=== PATIENT | male | born 1980 | race Caucasian/White ===

== ENCOUNTER 2019-06-15 18:29 | Inpatient (IN) | payer SELFPAY ==
[2019-06-15] MEDS ORDERED: IPRATROPIUM BROM 0.5MG/2.5ML ONE (19:15)
[2019-06-15] MEDS ORDERED: ALBUTEROL 2.5 MG/3 ML NEB SOL ONE (19:15)
[2019-06-15 19:30] LABS: Absolute Lymphocytes (CBC) 1.6 K/uL (0.7-4.9); Basophils % 0.7 % (0-1.3); Hematocrit 19.2 % (39.6-49.0); Lymphocytes % 14.2 % (15.3-44.8); RBC Red Blood Cell Count 2.49 M/uL (4.33-5.43)
[2019-06-15 19:35] LABS: Protime INR 1.13
--- NOTE | 2019-06-15 19:35 | RAD REPORT ---
EXAM DESCRIPTION: RAD - Chest Single View - 06/15/2019 7:28 pm CLINICAL HISTORY: SOB Chest pain. COMPARISON: CHEST PA AND LAT 2 VIEW dated 03/09/2008 FINDINGS: Portable technique limits examination quality. Mild interstitial pulmonary edema. The heart is moderately enlarged. No displaced fractures. IMPRESSION: Mild CHF suspected.
[2019-06-15 19:46] LABS: ALT/SGPT 50 U/L (12-78); AST/SGOT 34 U/L (15-37); Albumin 3.3 g/dL (3.4-5.0); Alkaline Phosphatase 71 U/L (45-117); BUN Blood Urea Nitrogen 10 mg/dL (7-18); Bicarbonate 29 mmol/L (21-32); Bilirubin Direct 0.2 mg/dL (0-0.2); Bilirubin Total 0.5 mg/dL (0.2-1.0); Glucose Level 99 mg/dL (74-106); Magnesium 1.7 mg/dL (1.8-2.4); NT PRO-BNP 273 pg/mL (<125); Potassium 3.7 mmol/L (3.5-5.1); Protein, Total 7.3 g/dL (6.4-8.2); Sodium Level 139 mmol/L (136-145); Troponin (Emerg Dept Use Only) < 0.02 ng/mL (0.0-0.045)
--- NOTE | 2019-06-15 20:19 | RAD REPORT ---
EXAM DESCRIPTION: US - Extrem Venous W Compress Derick - 06/15/2019 8:13 pm CLINICAL HISTORY: Pain;Swelling Bilateral leg edema and swelling. COMPARISON: <Comparisons> TECHNIQUE: Real-time sonographic interrogation of the left and right lower extremity deep venous sys tems was performed. FINDINGS: Normal compressibility, flow augmentation, phasic flow and spontaneous flow is identified in both the left and right lower extremity deep venous systems. IMPRESSION: No sonographic evidence of left or right lower extremity deep venous thrombosis.
--- NOTE | 2019-06-15 20:39 | ER ---
Nurse's Notes [facility] Name: Blanche Lo Age: 39 yrs Sex: Male : 1980 Arrival Date: 06/15/2019 Time: 18:30 Bed 6 Private MD: Diagnosis: Anemia in chronic diseases classified elsewhere;Hypocalcemia;Dyspnea Presentation: 06/15 18:32 Presenting complaint: Bilateral foot swelling x 2-3 days, cough and SOB x 1 month. hb Transition of care: patient was not received from another setting of care. Onset of symptoms is unknown. Risk Assessment: Do you want to hurt yourself or someone else? Patient reports no desire to harm self or others. Initial Sepsis Screen: Does the patient meet any 2 criteria? No. Patient's initial sepsis screen is negative. Does the patient have a suspected source of infection? No. Patient's initial sepsis screen is negative. Care prior to arrival: None. 18:32 Method Of Arrival: Ambulatory hb 18:32 Acuity: JANINE 3 hb Historical: - Allergies: 18:33 ambien; hb 18:33 Naproxen; hb - PMHx: 18:33 Hypertension; hb - Immunization history:: Adult Immunizations up to date. - Social history:: Smoking status: Patient/guardian denies using tobacco. - Ebola Screening: : No symptoms or risks identified at this time. Screenin:19 Abuse screen: Denies threats or abuse. Denies injuries from another. Nutritional tl1 screening: No deficits noted. Tuberculosis screening: No symptoms or risk factors identified. Fall Risk IV access (20 points). Assessment: 19:15 General: Appears in no apparent distress. uncomfortable, obese, Behavior is calm, cc3 cooperative, appropriate for age. Pain: Denies pain. Neuro: Level of Consciousness is awake, alert, obeys commands, Oriented to person, place, time, situation, Appropriate for age. Cardiovascular: Denies chest pain, Heart tones S1 S2 present Capillary refill < 3 seconds in bilateral fingers Patient's skin is warm and dry. Respiratory: Airway is patent Respiratory effort is even, unlabored, Respiratory pattern is regular, symmetrical, Breath sounds with wheezes. GI: Abdomen is round obese, Bowel sounds present X 4 quads. Abd is soft and non tender X 4 quads. : No signs and/or symptoms were reported regarding the genitourinary system. EENT: No signs and/or symptoms were reported regarding the EENT system. EENT: No signs and/or symptoms were reported regarding the EENT system. Derm: Skin is intact, is healthy with good turgor, Skin is pink, warm \T\ dry. normal. Musculoskeletal: Circulation, motion, and sensation intact. Range of motion: intact in all extremities. 19:37 Reassessment: Laboratory staff Yanira called and relayed critical lab of D-Dimer 1101, cc3 hemoglobin 5.7, and hematocrit 19.2; PA Page informed. 20:30 Reassessment: Patient appears in no apparent distress at this time. Patient and/or cc3 family updated on plan of care and expected duration. Pain level reassessed. Patient is alert, oriented x 3, equal unlabored respirations, skin warm/dry/pink. PA Page ordered for 2 units of PRBC transfusion, patient consented signed by himself. 21:10 Reassessment: Patient appears in no apparent distress at this time. Patient and/or cc3 family updated on plan of care and expected duration. Pain level reassessed. Patient is alert, oriented x 3, equal unlabored respirations, skin warm/dry/pink. Patient taken by commercial tire service technician to their department by stretcher. 21:34 Reassessment: Patient came back from CT scan department, awaiting result. cc3 22:30 Reassessment: Patient appears in no apparent distress at this time. Patient and/or cc3 family updated on plan of care and expected duration. Pain level reassessed. Patient is alert, oriented x 3, equal unlabored respirations, skin warm/dry/pink. 1st unit of PRBC received from blood bank counter checked and countersigned with ANCELMO Dumont and started. Patient tolerated well. Monitored the patient closely for any untoward blood transfusion reactions. Vital signs charted in the transfusion record. Patient denies pain at this time. 23:35 Reassessment: Patient appears in no apparent distress at this time. Patient and/or cc3 family updated on plan of care and expected duration. Pain level reassessed. Patient is alert, oriented x 3, equal unlabored respirations, skin warm/dry/pink. Room available in 210, called for report but was told that the nurse who will receive will just call me back. 23:57 Reassessment: Called again medical inpatient but as per staff Chely the nurse who cc3 will receive is not ready yet and so to wait for her call, in charge Puja anastasia. 06/16 00:25 Reassessment: Patient appears in no apparent distress at this time. Patient and/or cc3 family updated on plan of care and expected duration. Pain level reassessed. Patient is alert, oriented x 3, equal unlabored respirations, skin warm/dry/pink. ANCELMO Rush called and so report given to her for continuity of care and management. 00:35 Reassessment: Patient appears in no apparent distress at this time. Patient and/or cc3 family updated on plan of care and expected duration. Pain level reassessed. Patient is alert, oriented x 3, equal unlabored respirations, skin warm/dry/pink. Patient left ER for admission vitally stable by stretcher with still ongoing 1st unit of PRBC transfusion escorted by vt and mechanical engineering [facility] No valuables left in the patient's room. Handed over to ANCELMO Momin the script for the 2nd unit of PRBC request and label for morning lab of Vit.D. Patient denies pain at this time. Vital Signs: 06/15 18:33 BP 135 / 77; Pulse 97; Resp 20; Temp 98.4; Pulse Ox 98% on R/A; Weight 104.33 kg; hb Height 5 ft. 5 in. (165.10 cm); Pain 10/10; 19:18 BP 128 / 74; Pulse 92; Resp 20 S; Pulse Ox 100% on R/A; cc3 20:28 BP 122 / 79; Pulse 104; Resp 17 S; Pulse Ox 100% on R/A; cc3 21:35 BP 139 / 98; Pulse 108; Resp 21 S; Temp 98.9(O); Pulse Ox 100% on R/A; cc3 22:30 BP 127 / 66; Pulse 103; Resp 22 S; Temp 98.9(O); Pulse Ox 98% on R/A; cc3 22:35 BP 129 / 68; Pulse 102; Resp 20 S; Temp 98.7(O); Pulse Ox 99% on R/A; cc3 22:40 BP 116 / 68; Pulse 100; Resp 23 S; Temp 99.1(O); Pulse Ox 98% on R/A; cc3 22:45 BP 119 / 67; Pulse 100; Resp 19 S; Temp 98.7(O); Pulse Ox 98% on R/A; cc3 23:00 BP 140 / 70; Pulse 103; Resp 21 S; Temp 98.7(O); Pulse Ox 100% on R/A; cc3 23:30 BP 145 / 80; Pulse 103; Resp 22 S; Temp 99.3(O); Pulse Ox 100% on R/A; Pain 6/10; cc3 06/16 00:00 BP 113 / 91; Pulse 105; Resp 20 S; Temp 98.2(O); Pulse Ox 98% on R/A; cc3 00:30 BP 136 / 82; Pulse 101; Resp 21 S; Temp 98.1(O); Pulse Ox 100% on R/A; Pain 5/10; cc3 06/15 18:33 Body Mass Index 38.27 (104.33 kg, 165.10 cm) hb ED Course: 06/15 18:30 Patient arrived in ED. as 18:33 Triage completed. hb 18:33 Arm band placed on. hb 18:35 Triston Fair PA is PHCP. cp 18:35 Avery Gautam MD is Attending Physician. cp 19:12 Eunice Elliott is Primary Nurse. cc3 19:15 Patient has correct armband on for positive identification. Placed in gown. Bed in low cc3 position. Call light in reach. Side rails up X2. ekg monitor tech on. Pulse ox on. NIBP on. 19:19 No provider procedures requiring assistance completed. Inserted saline lock: 20 gauge tl1 in right antecubital area, using aseptic technique. Blood collected. 19:26 XRAY Chest (1 view) In Process Unspecified. EDMS 19:27 EKG done, by ED staff, reviewed by Javier Moore MD. jd2 19:49 Notified Nurse Practitioner and/or Physician Die Drawing Checker of a critical lab result(s), fc calcium is 5.9. 20:14 US Extremity Venous W Compression Derick In Process Unspecified. EDMS 20:38 Minda Renteria MD is Hospitalizing Provider. cp 21:28 Inserted saline lock: 22 gauge in left forearm, using aseptic technique. Blood tl1 collected. 21:40 CT Chest For PE Angio In Process Unspecified. EDMS 21:40 CT Abd/Pelvis - IV Contrast Only In Process Unspecified. EDMS 06/16 00:25 Patient admitted, IV remains in place. cc3 Administered Medications: 06/15 19:18 Drug: Albuterol - atroVENT (3:1) (2.5 mg - 0.5 mg) 3 ml Route: Nebulizer; tl1 20:33 Follow up: Response: No adverse reaction; Marked relief of symptoms cc3 Outcome: 20:38 Decision to Hospitalize by Provider. cp 06/16 00:25 Admitted to Med/surg accompanied by nurse, accompanied by tech, via stretcher, room cc3 210, with chart, Report called to ANCELMO Rush Condition: stable Instructed on the need for admit, Demonstrated understanding of instructions. 00:38 Patient left the ED. cc3 Signatures: Dispatcher [facility] EDPA Rossana Sumner RN RN fc Martinez, Amelia as Lasagna, Tonya, RN RN tl1 Triston Fair PA PA cp Baxter, Heather, RN RN hb Donley, Jonika jd2 Cordel, Charlene cc3 Corrections: (The following items were deleted from the chart) 06/15 20:30 20:28 Pulse 104bpm; Resp 17bpm; Spontaneous; Pulse Ox 100% RA; cc3 cc3 06/16 00:58 06/15 23:30 BP 145 / 80; Pulse 103bpm; Resp 22bpm; Spontaneous; Pulse Ox 100% RA; Temp cc3 99.3F Oral; cc3 06/16 01:01 06/15 19:15 Respiratory: Airway is patent Respiratory effort is even, unlabored, cc3 Respiratory pattern is regular, symmetrical, Breath sounds with wheezes cc3 06/16 01:02 00:20 Reassessment: Patient appears in no apparent distress at this time. Patient cc3 and/or family updated on plan of care and expected duration. Pain level reassessed. Patient is alert, oriented x 3, equal unlabored respirations, skin warm/dry/pink. cc3 01:06 00:35 Reassessment: Patient appears in no apparent distress at this time. Patient cc3 and/or family updated on plan of care and expected duration. Pain level reassessed. Patient is alert, oriented x 3, equal unlabored respirations, skin warm/dry/pink. Patient left ER for admission vitally stable by stretcher with still ongoing 1st unit of PRBC transfusion escorted by me and mechanical engineering technologistveronica Rivero. No valuables left in the patient's room. Handed over to ANCELMO Momin the script for the 2nd unit of PRBC request and label for morning lab of Vit.D. cc3
--- NOTE | 2019-06-15 20:39 | EDPHYS ---
Physician Documentation [facility] Name: Blanche Lo Age: 39 yrs Sex: Male : 1980 Arrival Date: 06/15/2019 Time: 18:30 Bed 6 Private MD: ED Physician Avery Gautam HPI: 06/15 19:10 This 39 yrs old Male presents to ER via Ambulatory with complaints of Cough, cp Feet Swelling. 19:10 The patient has shortness of breath with light activity. cp 19:10 Onset: The symptoms/episode began/occurred 1 month(s) ago. Duration: The symptoms are cp continuous, and are steadily getting worse. Associated signs and symptoms: Pertinent positives: swelling of feet, Pertinent negatives: chest pain, diaphoresis, fever, hemoptysis, vomiting. Severity of symptoms: in the emergency department the symptoms are unchanged despite home interventions. Historical: - Allergies: 18:33 ambien; hb 18:33 Naproxen; hb - PMHx: 18:33 Hypertension; hb - Immunization history:: Adult Immunizations up to date. - Social history:: Smoking status: Patient/guardian denies using tobacco. - Ebola Screening: : No symptoms or risks identified at this time. ROS: 19:20 Constitutional: Negative for body aches, chills, fever, poor PO intake. cp 19:20 Eyes: Negative for injury, pain, redness, and discharge. cp 19:20 Cardiovascular: Positive for edema, Negative for chest pain, palpitations. cp 19:20 ENT: Negative for drainage from ear(s), ear pain, sore throat, difficulty swallowing, cp difficulty handling secretions. 19:20 Respiratory: Positive for shortness of breath, on exertion. Negative for cough, hemoptysis. 19:20 Abdomen/GI: Negative for abdominal pain, nausea, vomiting, and diarrhea, black/tarry stool, rectal bleeding. 19:20 Back: Negative for pain at rest, pain with movement. 19:20 Skin: Negative for cellulitis, rash. 19:20 Neuro: Negative for altered mental status, dizziness, headache, syncope, weakness. 19:20 All other systems are negative. Exam: 19:20 ECG was reviewed by the Attending Physician. cp 19:22 Constitutional: The patient appears in no acute distress, alert, awake, cp non-diaphoretic, non-toxic, well developed, well nourished, obese. 19:22 Head/Face: Normocephalic, atraumatic. cp 19:22 Eyes: Periorbital structures: appear normal, Pupils: equal, round, and reactive to light and accomodation, Extraocular movements: intact throughout, Conjunctiva: normal, no exudate, no injection, Sclera: no appreciated abnormality, Lids and lashes: appear normal, bilaterally. 19:22 ENT: External ear(s): are unremarkable, Ear canal(s): are normal, clear, TM's: bulging, is not appreciated, bilaterally, dullness, bilaterally, erythema, is not appreciated, bilaterally, Nose: is normal, Mouth: is normal, Posterior pharynx: is normal, airway is patent, no erythema, no exudate. 19:22 Neck: ROM/movement: is normal, is supple, without pain, no range of motions limitations, no meningismus, no nuchal rigidity, Lymph nodes: no appreciated lymphadenopathy. 19:22 Chest/axilla: Inspection: normal, Palpation: is normal, no crepitus, no tenderness. 19:22 Cardiovascular: Rate: normal, Rhythm: regular, Edema: pedal edema, that is mild, JVD: is not appreciated. 19:22 Respiratory: the patient does not display signs of respiratory distress, Respirations: labored breathing, that is mild, intercostal retractions, are absent, tachypnea, is not appreciated, Breath sounds: rales, that are mild, are heard diffusely, decreased breath sounds, are not appreciated, stridor, is not appreciated, wheezing: is not appreciated. 19:22 Abdomen/GI: Inspection: scar(s), are noted in the , Bowel sounds: active, all quadrants, Palpation: soft, in all quadrants, nontender, in all quadrants, Rectal exam: Stool: brown, guaiac negative. 19:22 Back: pain, is absent, ROM is normal. 19:22 Skin: no rash present. 19:22 Neuro: Orientation: to person, place \T\ time. Mentation: is normal, Cerebellar function: is grossly normal, Motor: moves all fours, strength is normal, Sensation: is normal. Vital Signs: 18:33 BP 135 / 77; Pulse 97; Resp 20; Temp 98.4; Pulse Ox 98% on R/A; Weight 104.33 kg; hb Height 5 ft. 5 in. (165.10 cm); Pain 10/10; 19:18 BP 128 / 74; Pulse 92; Resp 20 S; Pulse Ox 100% on R/A; cc3 20:28 BP 122 / 79; Pulse 104; Resp 17 S; Pulse Ox 100% on R/A; cc3 21:35 BP 139 / 98; Pulse 108; Resp 21 S; Temp 98.9(O); Pulse Ox 100% on R/A; cc3 22:30 BP 127 / 66; Pulse 103; Resp 22 S; Temp 98.9(O); Pulse Ox 98% on R/A; cc3 22:35 BP 129 / 68; Pulse 102; Resp 20 S; Temp 98.7(O); Pulse Ox 99% on R/A; cc3 22:40 BP 116 / 68; Pulse 100; Resp 23 S; Temp 99.1(O); Pulse Ox 98% on R/A; cc3 22:45 BP 119 / 67; Pulse 100; Resp 19 S; Temp 98.7(O); Pulse Ox 98% on R/A; cc3 23:00 BP 140 / 70; Pulse 103; Resp 21 S; Temp 98.7(O); Pulse Ox 100% on R/A; cc3 23:30 BP 145 / 80; Pulse 103; Resp 22 S; Temp 99.3(O); Pulse Ox 100% on R/A; Pain 6/10; cc3 06/16 00:00 BP 113 / 91; Pulse 105; Resp 20 S; Temp 98.2(O); Pulse Ox 98% on R/A; cc3 00:30 BP 136 / 82; Pulse 101; Resp 21 S; Temp 98.1(O); Pulse Ox 100% on R/A; Pain 5/10; cc3 06/15 18:33 Body Mass Index 38.27 (104.33 kg, 165.10 cm) hb MDM: 06/15 18:50 Patient medically screened. cp 19:30 Differential diagnosis: Anemia asthma, CHF exacerbation, Chronic Obstructive Pulmonary cp Disease pneumonia, Pneumothorax pulmonary edema, Pulmonary Embolism. 20:45 Data reviewed: vital signs, nurses notes, lab test result(s), EKG, radiologic studies, cp plain films, and as a result, I will admit patient. 20:45 Test interpretation: by ED physician or midlevel provider: ECG, plain radiologic cp studies. Response to treatment: the patient's symptoms have mildly improved after treatment, and as a result, I will admit patient. 21:00 Physician consultation: Minda Renteria MD was contacted at 21:00, regarding admission, cp to the telemetry unit. patient's condition. 06/15 19:07 Order name: Basic Metabolic Panel cp 06/15 19:07 Order name: CBC with Diff cp 06/15 19:07 Order name: LFT's; Complete Time: 20:05 cp 06/15 19:07 Order name: Magnesium; Complete Time: 20:05 cp 06/15 20:39 Interpretation: Abnormal: MG 1.7. cp 06/15 19:07 Order name: NT PRO-BNP; Complete Time: 20:05 cp 06/15 19:07 Order name: PT-INR; Complete Time: 19:47 cp 06/15 19:07 Order name: Troponin (emerg Dept Use Only); Complete Time: 20:05 cp 06/15 19:07 Order name: D-Dimer; Complete Time: 19:47 cp 06/15 19:47 Interpretation: Abnormal: D-DIMER 1101. cp 06/15 19:08 Order name: Basic Metabolic Panel; Complete Time: 20:05 EDMS 06/15 19:08 Order name: CBC with Automated Diff; Complete Time: 21:46 EDMS 06/15 19:47 Interpretation: Normal except: WBC 11.2; RBC 2.49; HGB 5.7; HCT 19.2; MCV 77.1; MCH cp 22.9; MCHC 29.7; RDW 20.8; LYM% 14.2; NEUT A 8.1. 06/15 19:40 Order name: Manual Differential; Complete Time: 21:46 EDMS 06/15 19:48 Order name: Type And Screen cp 06/15 21:02 Order name: CBC with Diff; Complete Time: 21:46 cp 06/15 21:46 Interpretation: Normal except: RBC 2.55; HGB 5.9; HCT 19.7; MCV 77.1; MCH 23.2; MCHC cp 30.1; RDW 20.8; OSCAR% 74.1; LYM% 15.2. 06/15 21:02 Order name: CMP; Complete Time: 21:46 cp 06/15 21:10 Order name: Packed RBC Leukored EDMS 06/15 21:34 Order name: ABO/RH no charge; Complete Time: 21:46 EDMS 06/15 23:20 Order name: Vitamin B12 Level EDMS 06/15 23:20 Order name: Vitamin B12 Level EDMS 06/15 23:20 Order name: CBC with Automated Diff EDMS 06/15 23:20 Order name: CBC with Automated Diff EDMS 06/15 23:21 Order name: Comprehensive Metabolic Panel EDMS 06/15 23:21 Order name: Comprehensive Metabolic Panel EDMS 06/15 23:21 Order name: Ferritin EDMS 06/15 23:21 Order name: Ferritin EDMS 06/15 23:21 Order name: Folic Acid, (Folate) EDMS 06/15 23:21 Order name: Folic Acid, (Folate) EDMS 06/15 23:21 Order name: Iron EDMS 06/15 23:21 Order name: Iron EDMS 06/15 23:21 Order name: PTH Intact EDPA 06/15 23:21 Order name: PTH Intact EDPA 06/15 19:07 Order name: US Extremity Venous W Compression Derick; Complete Time: 20:39 cp 06/15 20:39 Interpretation: Report reviewed. cp 06/15 19:07 Order name: XRAY Chest (1 view); Complete Time: 19:47 cp 06/15 19:07 Order name: EKG; Complete Time: 19:08 cp 06/15 19:07 Order name: Cardiac monitoring; Complete Time: 19:18 cp 06/15 19:07 Order name: EKG - Nurse/Tech; Complete Time: 19:18 cp 06/15 19:07 Order name: IV Saline Lock; Complete Time: 19:18 cp 06/15 19:07 Order name: Labs collected and sent; Complete Time: 19:19 cp 06/15 19:07 Order name: O2 Per Protocol; Complete Time: 19:19 cp 06/15 19:07 Order name: O2 Sat Monitoring; Complete Time: 19:19 cp 06/15 20:52 Order name: CT Chest For PE Angio cp 06/15 21:02 Order name: CT Abd/Pelvis - IV Contrast Only cp 06/15 23:20 Order name: CONS Pharmacy Consult EDMS 06/15 23:20 Order name: Regular EDMS 06/15 23:21 Order name: Retic Count EDMS 06/15 23:21 Order name: Retic Count EDMS 06/15 23:21 Order name: Transferrin Sat/Iron Binding EDMS 06/15 23:21 Order name: Transferrin Sat/Iron Binding EDMS 06/15 23:21 Order name: Vitamin D, 25 (OH), TOTAL EDMS 06/15 23:21 Order name: Vitamin D, 25 (OH), TOTAL EDMS 06/15 23:21 Order name: Vitamin D,1,25 Dihydroxy EDMS 06/15 23:21 Order name: Vitamin D,1,25 Dihydroxy EDMS EC: Rate is 96 beats/min. Rhythm is regular. ND interval is normal. QRS interval is normal. cp QT interval is prolonged at 382 msec. T waves are Inverted in leads III, aVR. Interpreted by me. Reviewed by me. Administered Medications: 19:18 Drug: Albuterol - atroVENT (3:1) (2.5 mg - 0.5 mg) 3 ml Route: Nebulizer; tl1 20:33 Follow up: Response: No adverse reaction; Marked relief of symptoms cc3 Disposition: 06/15/19 20:38 Hospitalization ordered by Minda Renteria for Inpatient Admission. Preliminary diagnosis are Anemia in chronic diseases classified elsewhere, Hypocalcemia, Dyspnea. - Bed requested for Telemetry/MedSurg (Inpatient). - Status is Inpatient Admission. cc3 - Condition is Stable. - Problem is new. - Symptoms have improved. UTI on Admission? No Addendum: 06/17/2019 15:34 Co-signature as Attending Physician, Avery Gautam MD I agree with the assessment and t w4 plan of care. Signatures: Dispatcher [employer] EDMS Linda Nina RN RN mw Lasagna, Tonya, RN RN tl1 Triston Fair PA PA cp Baxter, Heather, RN RN hb Wadley, Terrence, MD MD tw4 Eunice Elliott cc3 Corrections: (The following items were deleted from the chart) 06/15 20:38 20:38 Hospitalization Ordered by Minda Renteria MD for Inpatient Admission. Preliminary cp diagnosis is Anemia in chronic diseases classified elsewhere; Hypocalcemia. Bed requested for Telemetry/MedSurg (Inpatient). Status is Inpatient Admission. Condition is Stable. Problem is new. Symptoms have improved. UTI on Admission? No. cp 23:25 20:38 06/15/2019 20:38 Hospitalization Ordered by Minda Renteria MD for Inpatient mw Admission. Preliminary diagnosis is Anemia in chronic diseases classified elsewhere; Hypocalcemia; Dyspnea. Bed requested for Telemetry/MedSurg (Inpatient). Status is Inpatient Admission. Condition is Stable. Problem is new. Symptoms have improved. UTI on Admission? No. cp 06/16 00:38 06/15 23:25 06/15/2019 20:38 Hospitalization Ordered by Minda Renteria MD for Inpatient cc3 Admission. Preliminary diagnosis is Anemia in chronic diseases classified elsewhere; Hypocalcemia; Dyspnea. Bed requested for Telemetry/MedSurg (Inpatient). Status is Inpatient Admission. Condition is Stable. Problem is new. Symptoms have improved. UTI on Admission? No. mw
[2019-06-15 20:54] LABS: Platelet Estimate ADEQ
[2019-06-15 20:55] LABS: Anisocytosis 2+; Blood Morphology Comment NOTED (NOT SEEN); Platelets, Giant FEW
[2019-06-15 20:56] LABS: Basophilic Stippling 1+; Hypochromasia 3+; Polychromasia 2+; Stomatocytes 1+
[2019-06-15 21:21] LABS: Absolute Lymphocytes (CBC) 1.6 K/uL (0.7-4.9); MPV 9.7 fL (7.6-11.3)
[2019-06-15 21:30] LABS: Basophils % 0.5 % (0-1.3); Lymphocytes % 15.2 % (15.3-44.8); RBC Red Blood Cell Count 2.55 M/uL (4.33-5.43)
[2019-06-15 21:31] LABS: Hematocrit 19.7 % (39.6-49.0)
[2019-06-15 21:39] LABS: ALT/SGPT 51 U/L (12-78); AST/SGOT 37 U/L (15-37); Albumin 3.5 g/dL (3.4-5.0); Alkaline Phosphatase 76 U/L (45-117); BUN Blood Urea Nitrogen 9 mg/dL (7-18); Bicarbonate 29 mmol/L (21-32); Bilirubin Total 0.5 mg/dL (0.2-1.0); Glucose Level 100 mg/dL (74-106); Potassium 3.3 mmol/L (3.5-5.1); Protein, Total 7.7 g/dL (6.4-8.2); Sodium Level 139 mmol/L (136-145)
[2019-06-15] MEDS ORDERED: NA CHLORIDE 0.9% 500 ML ONE (21:55)
[2019-06-15] MEDS ORDERED: ONDANSETRON 4 MG/2 ML VIAL IV PRN (23:16)
[2019-06-15] MEDS ORDERED: CALCIUM GLUC 10% INJ 9.3 MEQ in NA CHLORIDE 0.9% 100 ML IV ONE (23:34)
[2019-06-15] MEDS ORDERED: NA CHLORIDE 0.9% 1,000 ML IV SCH (23:45)
[2019-06-15] MEDS: ACETAMINOPHEN 500 MG TAB PO PRN (23:50)
[2019-06-16] MEDS ORDERED: ACETAMINOPHEN 500 MG TAB ONE (00:03)
[2019-06-16 01:07] VITALS: BMI 39.8
[2019-06-16] MEDS: CALCIUM GLUC 10% INJ 4.65 MEQ in NA CHLORIDE 0.9% 100 ML IV SCH ×2 (01:54→03:00)
[2019-06-16] MEDS: MORPHINE 2 MG/ML SYR IV PRN ×2 (01:54→07:00)
[2019-06-16 03:08] LABS: Urine Appearance CLEAR; Urine Bilirubin NEGATIVE (NEG); Urine Blood NEGATIVE (NEG); Urine Color YELLOW; Urine Glucose NEGATIVE (NEG); Urine Protein NEGATIVE (NEG); Urine Specific Gravity >=1.030 (1.005-1.030); Urine Urobilinogen 0.2 mg/dL (0.2-1.0)
[2019-06-16 03:10] LABS: Urine Microscopic Reflex NO UMIC
[2019-06-16] MEDS ORDERED: FUROSEMIDE 20 MG/ 2ML VIAL IV ONE (05:29)
--- NOTE | 2019-06-16 08:29 | EKG ---
Test Date: 2019-06-15 Test Time: 19:14:21 Entry Level Marketing Assistant: LEROY MEASUREMENT RESULTS: Intervals: Rate: 96 NH: 126 QRSD: 80 QT: 382 QTc: 482 [place]: P: 52 NH: 126 QRS: 5 T: 19 INTERPRETIVE STATEMENTS: Normal sinus rhythm Prolonged QT Abnormal ECG No previous ECG available for comparison Electronically Signed On 06-16-19 08:27:41 CDT by Fred Reyes
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
[2019-06-16] MEDS ORDERED: ALBUTEROL 2.5 MG/3 ML NEB SOL NEB PRN (08:47)
[2019-06-16] MEDS ORDERED: IPRATROPIUM BROM 0.5MG/2.5ML NEB PRN (08:47)
--- NOTE | 2019-06-16 08:47 | RAD REPORT ---
EXAM DESCRIPTION: RAD - Chest Pa And Lat (2 Views) - 06/16/2019 7:55 am CLINICAL HISTORY: SOB COMPARISON: May 2019 TECHNIQUE: PA and lateral views of the chest were obtained. FINDINGS: The lungs are clear. Diaphragmatic eventration present. Heart size is normal and central vasculature is within normal limits. No pleural effusion or pneumothorax seen. Prominent bony degen erative change for age. There is spurring at multiple mid and lower thoracic levels. Bridging ossific ation is present at multiple thoracic levels. This is prominent for the patient's age and may well re present diffuse idiopathic skeletal hyperostosis (DISH). No aortic abnormality. IMPRESSION: No acute cardiopulmonary process. Advanced for age endplate spurring on ossification changes, possible DISH.
[2019-06-16] MEDS: FLUTICASONE 50MCG NASAL SPRAY NAS SCH ×3 (09:00→20:17)
[2019-06-16 09:31] LABS: Absolute Lymphocytes (CBC) 1.6 K/uL (0.7-4.9); Basophils % 0.6 % (0-1.3); Hematocrit 23.2 % (39.6-49.0); Lymphocytes % 12.4 % (15.3-44.8); MPV 10.6 fL (7.6-11.3); RBC Red Blood Cell Count 2.99 M/uL (4.33-5.43)
[2019-06-16 09:48] LABS: Anisocytosis 1+; Blood Morphology Comment NOTED (NOT SEEN); Platelet Estimate ADEQ; Urine White Blood Cell Casts OK
[2019-06-16 10:02] LABS: Albumin 3.4 g/dL (3.4-5.0); Bilirubin Total 1.7 mg/dL (0.2-1.0); Ferritin 11.6 ng/mL (26-388); Folic Acid, (Folate) 16.5 ng/mL (3.1-17.5); Potassium 3.3 mmol/L (3.5-5.1); Protein, Total 7.8 g/dL (6.4-8.2)
--- NOTE | 2019-06-16 11:15 | RAD REPORT ---
EXAM DESCRIPTION: CT - Chest For Pe Angio - 06/16/2019 2:02 am CLINICAL HISTORY: Shortness of breath. COMPARISON: None. TECHNIQUE: CT angiogram of the chest with IV contrast. 3-D MIP images were obtained in coronal and s agittal reconstructions. This exam was performed according to our departmental dose-optimization prog marcelo, which includes automated exposure control, adjustment of the mA and/or kV according to patient s ize and/or use of iterative reconstruction technique. FINDINGS: No filling defects are seen in the pulmonary trunk or the left and right main pulmonary ar yanelis. There is limited evaluation of the segmental branches due to motion artifact. The thyroid gland is normal. No mediastinal or hilar adenopathy. The heart size is normal without per icardial effusion. The thoracic aorta is normal caliber. No consolidation, pleural effusion, or pneum othorax is identified. The visualized upper abdomen demonstrates gallstones and hepatic steatosis. No acute osseous findings are seen. IMPRESSION: No acute pulmonary embolism. Electronically signed by: Tristan Hewitt MD 06/15/2019 9:55 PM CDT Due to temporary technical issues with the PACS/Fluency reporting system, reports are being signed by the in house radiologist as a courtesy to ensure prompt reporting. The interpreting radiologist is f ully responsible for the content of the report.
--- NOTE | 2019-06-16 11:25 | RAD REPORT ---
EXAM DESCRIPTION: CT - Abdomen Pelvis W Contrast - 06/16/2019 2:03 am CLINICAL HISTORY: 39-year-old male with anemia. Bilateral foot swelling for 2 to 3 days with cough a nd shortness of breath for one month. History of hypertension. COMPARISON: None. TECHNIQUE: CT of the abdomen and pelvis was performed following intravenous administration of contra st. Oral contrast was not administered. Multiplanar reformatted images were provided. This exam was p erformed according to our departmental dose optimization program which includes use of automated expo sure control, adjustment of the mA and/or kV according to patient size and/or use of iterative recons truction technique. FINDINGS: Chest: Evaluation through the lung bases reveals no focal opacity, pleural effusion or pne umothorax. Incompletely visualized, but prominent heart size. No pericardial effusion. Abdomen and pelvis: The liver, gallbladder, pancreas, spleen, bilateral kidneys and bilateral adrenal glands are within normal limits. Suspected diffuse hepatic steatosis, finding which is limited by co ntrast enhancement with suspected areas of peripheral focal fatty sparing versus transient hepatic at tenuation difference. Several foci of calcification within the dependent proximal gallbladder measuring up to 7 mm compatib le with cholelithiasis without intra or extrahepatic biliary dilation. The vessels are patent and normal in caliber. No abdominopelvic lymph nodes are noted to be pathologically enlarged by CT measurement criteria. The bowel is within normal limits without abnormal bowel wall thickness or bowel dilation. Postoperat charito change of the cecum and distal descending colon noted with linear surgical suture material. No free air. No free abdominopelvic fluid collections. The appendix is not identified. The osseous structures reveals degenerative change. Diffuse reticulation of the subcutaneous tissues of the ventral abdomen and bilateral flanks concerning for anasarca of uncertain etiology. Cellulitis may be considered in the differential. Incidental note made of LEFT lateral fat-containing abdominal wall defect coursing along the anterior margin of the RIGHT iliac wing with herniation of mesenteric fat compatible with a lumbar hernia. IMPRESSION: 1. No specific acute intra-abdominal findings are noted to suggest etiology of the patie nt's abdominal pain. 2. Diffuse reticulation of the subcutaneous tissues of the ventral abdomen and bilateral flanks sherrie rning for anasarca of uncertain etiology. Cellulitis may be considered in the differential. 3. Suspected diffuse hepatic steatosis with focal fatty sparing, a nonspecific finding on a contrast- enhanced CT examination. 4. Cholelithiasis. 5. Large RIGHT fat-containing lumbar hernia. Electronically signed by: Martha Singleton MD 06/15/2019 10:10 PM CDT Due to temporary technical issues with the PACS/Fluency reporting system, reports are being signed by the in house radiologist as a courtesy to ensure prompt reporting. The interpreting radiologist is f ully responsible for the content of the report.
[2019-06-16] MEDS: ACETAMINOPHEN 500 MG TAB PO PRN (12:26)
--- NOTE | 2019-06-16 16:36 | P.PN ---
Subjective Date of Service: 06/16/19 Primary Care Provider: None Chief Complaint: Severe hypocalcemia & severe anemia Subjective: Doing well Physical Examination - Vital Signs Temperature: 97.4 F Blood Pressure: 131/72 Pulse: 90 Respirations: 20 Pulse Ox (%): 95 - Physical Exam General: Alert, In no apparent distress, Oriented x3, Cooperative HEENT: Atraumatic Neck: Supple Respiratory: Clear to auscultation bilaterally, Normal air movement Cardiovascular: Normal pulses, Regular rate/rhythm Gastrointestinal: Normal bowel sounds, Soft and benign, Non-distended, No tenderness, No masses, No rebound, No guarding Neurological: Normal speech, Normal strength at 5/5 x4 extr, Normal tone, Normal affect - Studies Laboratory Data (last 24 hrs) 06/15/19 21:08: Sodium 139, Potassium 3.3 L, BUN 9, Creatinine 0.87, Glucose 100 , Total Bilirubin 0.5, AST 37, ALT 51, Alkaline Phosphatase 76 06/15/19 21:08: WBC 10.6, Hgb 5.9 L*, Hct 19.7 L*, Plt Count 187 06/15/19 19:15: PT 13.3 H, INR 1.13 06/15/19 19:15: WBC 11.2 H, Hgb 5.7 L*, Hct 19.2 L*, Plt Count 190 06/15/19 19:15: Sodium 139, Potassium 3.7, BUN 10, Creatinine 0.88, Glucose 99, Magnesium 1.7 L, Total Bilirubin 0.5, AST 34, ALT 50, Alkaline Phosphatase 71 Medications List Reviewed: Yes Assessment & Plan Discharge Plan: Home Plan to discharge in: 24 Hours Physician Review Additional Text: Impression: Fatigue with acute on chronic anemia with iron and B12 deficiency Hypocalcemia Fatty liver Obesity, BMI 39 Plan: Fatigue with acute on chronic anemia with iron and B12 deficiency: Patient given 2 units of blood. Anemia improved. Will continue to monitor closely. Will maintain hemoglobin above 7.0. Will start iron and B12 supplementation. Patient reports history of melena. No GI available at this time. So far CT chest/pelvis, venous Doppler unremarkable. If stable will discharge patient tomorrow with continued supplementation. Patient will need follow up with GI soon for further evaluation. Patient likely requires EGD and colonoscopy to further address. Hypocalcemia: Will monitor and replace. Fatty liver: Will address lifestyle modification education. Patient will require GI outpatient workup. Obesity, BMI 39: Will address lifestyle modification education. Time Spent Managing Pts Care (In Minutes): 55
[2019-06-16] MEDS: IPRATROPIUM BROM 0.5MG/2.5ML NEB PRN (17:40)
[2019-06-16] MEDS: ALBUTEROL 2.5 MG/3 ML NEB SOL NEB PRN (17:40)
[2019-06-16] MEDS: ARFORMOTEROL TARTRATE 15 MCG/2 ML VIAL.NEB NEB SCH (20:00)
[2019-06-16] MEDS ORDERED: TEMAZEPAM 15 MG CAP PO PRN (20:06)
[2019-06-16] MEDS: FERROUS SULFATE 325 MG TAB PO SCH (20:17)
[2019-06-16 20:57] LABS: Hematocrit 24.3 % (39.6-49.0)
[2019-06-16] MEDS ORDERED: GUAIFENESIN/CODEINE 5ML UCUP PO PRN (21:09)
[2019-06-17] MEDS: ACETAMINOPHEN 500 MG TAB PO PRN (00:36)
[2019-06-17] MEDS ORDERED: FUROSEMIDE 20 MG/ 2ML VIAL IV ONE ×2 (03:01→08:00)
[2019-06-17] MEDS: FENTANYL CITR 100 MCG/2 ML IV ONE ×2 (03:02→04:18)
[2019-06-17 04:53] VITALS: O2SAT 94
[2019-06-17] MEDS ORDERED: IBUPROFEN 400 MG TAB PO ONE (05:26)
[2019-06-17 05:46] LABS: Absolute Lymphocytes (CBC) 1.6 K/uL (0.7-4.9); Basophils % 0.8 % (0-1.3); Lymphocytes % 13.8 % (15.3-44.8); MPV 9.8 fL (7.6-11.3); RBC Red Blood Cell Count 3.21 M/uL (4.33-5.43)
[2019-06-17 05:57] LABS: BUN Blood Urea Nitrogen 7 mg/dL (7-18); Bicarbonate 31 mmol/L (21-32); Glucose Level 99 mg/dL (74-106); Magnesium 1.8 mg/dL (1.8-2.4); Potassium 3.3 mmol/L (3.5-5.1); Sodium Level 139 mmol/L (136-145)
[2019-06-17] MEDS ORDERED: PANTOPRAZOLE 40MG TABLET PO SCH (06:30)
[2019-06-17] MEDS ORDERED: CALCIUM GLUC 10% INJ 9.3 MEQ in NA CHLORIDE 0.9% 100 ML IV ONE (06:51)
--- NOTE | 2019-06-17 08:21 | ECHO ---
HEIGHT: 5 ft 5 in WEIGHT: 239 lb 0 oz DATE OF STUDY: 06/16/[address]: Cruz Car DO 2-DIMENSIONAL: YES M.MODE: YES DOPPLER: YES COLOR FLOW: YES TDS: YES PORTABLE: NO DEFINITY: NO BUBBLE STUDY: NO DIAGNOSIS: SHORTNESS OF BREATH CARDIAC HISTORY: CATHERIZATION: NO SURGERY: NO PROSTHETIC VALVE: NO PACEMAKER: NO MEASUREMENTS (cm) DIASTOLIC (NORMALS) SYSTOLIC (NORMALS) IVSd 1.1 (0.6-1.2) LA Diam 2.8 (1.9-4.0) LVEF 60% LVIDd 5.7 (3.5-5.7) LVIDs 3.9 (2.0-3.5) %FS 32% LVPWd 1.1 (0.6-1.2) Ao Diam 3.0 (2.0-3.7) 2 DIMENSIONAL ASSESSMENT: RIGHT ATRIUM: NORMAL LEFT ATRIUM: NORMAL RIGHT VENTRICLE: NORMAL LEFT VENTRICLE: NORMAL TRICUSPID VALVE: NORMAL MITRAL VALVE: NORMAL PULMONIC VALVE: NORMAL AORTIC VALVE: NORMAL PERICARDIAL EFFUSION: NONE AORTIC ROOT: NORMAL LEFT VENTRICULAR WALL MOTION: NORMAL. DOPPLER/COLOR FLOW: NORMAL. COMMENTS: TECHNICALLY DIFFICULT STUDY. NORMAL LEFT VENTRICULAR SIZE AND FUNCTION. NO WALL MOTION ABNORMALITY. NO EFFUSION. TECHNOLOGIST: NEYDA BATISTA
[2019-06-17] MEDS: IPRATROPIUM BROM 0.5MG/2.5ML NEB PRN (08:25)
[2019-06-17] MEDS: ARFORMOTEROL TARTRATE 15 MCG/2 ML VIAL.NEB NEB SCH (08:25)
[2019-06-17] MEDS: ALBUTEROL 2.5 MG/3 ML NEB SOL NEB PRN (08:25)
[2019-06-17] MEDS ORDERED: MAGNESIUM SULFATE 1 gm IVPB 1 GM/100 ML BAG IV ONE (09:00)
[2019-06-17] MEDS ORDERED: FOLIC ACID 1 MG TABLET PO SCH (09:00)
[2019-06-17] MEDS ORDERED: CYANOCOBALAMIN 1,000 MCG TAB PO SCH (09:00)
[2019-06-17] MEDS: FLUTICASONE 50MCG NASAL SPRAY NAS SCH (09:00)
[2019-06-17] MEDS ORDERED: CALCIUM CARB 500MG/VIT D 200 IU TAB PO SCH (09:00)
[2019-06-17 09:28] LABS: Thyroid Stimulating Hormone 3.7 uIU/mL (0.360-3.740)
[2019-06-17] MEDS: FERROUS SULFATE 325 MG TAB PO SCH (09:30)
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
[2019-06-17 11:22] LABS: Absolute Lymphocytes (CBC) 1.2 K/uL (0.7-4.9); Basophils % 1.2 % (0-1.3); Hematocrit 24.7 % (39.6-49.0); Lymphocytes % 11.5 % (15.3-44.8); MPV 9.7 fL (7.6-11.3); RBC Red Blood Cell Count 3.17 M/uL (4.33-5.43)
[2019-06-17 11:52] LABS: Potassium 3.1 mmol/L (3.5-5.1)
[2019-06-17 12:02] LABS: Platelet Estimate ADEQ; Urine White Blood Cell Casts OK
[2019-06-17 12:03] LABS: Anisocytosis 1+; Blood Morphology Comment NOTED (NOT SEEN)
[2019-06-17 13:04] VITALS: BP 134/64; TEMP 98
[2019-06-19 21:26] LABS: Vitamin D 1,25-Dihydroxy Total 47 pg/mL (18-72); Vitamin D,1,25-OH2, D2 <8 pg/mL
[2019-06-20 12:03] LABS: HIV AG/AB 4TH GEN Non-reactive (Non-reactive)
[2019-06-21 20:26] LABS: HBsAG Nonreactive (Nonreactive)
[2019-06-21 22:22] LABS: Albumin, (SPE) 3.5 g/dL (3.8-4.8); Alpha-1-Globulins 0.5 g/dL (0.2-0.3); Alpha-2-Globulins 1.1 g/dL (0.5-0.9); INTERPRETATION REPORT
[2019-06-23] MEDS ORDERED: CYANOCOBALAMIN 1000MCG/ML INJ IM SCH (09:00)
== END 2019-06-17 13:16 | disposition home or self-care (01) | DRG 812 ==
LOC: ER 18:29 → ERHOLD 23:21 → 2ND 06-16 00:28
PROVIDERS: ADMIT Hospitalist; ATTEND Family Medicine
PROC: 30233N1 Transfusion of Nonautologous Red Blood Cells into Peripheral Vein, Percutaneous Approach (ICD-10-PCS; principal; 2019-06-15)
PROC: 30233N1 Transfusion of Nonautologous Red Blood Cells into Peripheral Vein, Percutaneous Approach (ICD-10-PCS; 2019-06-16)
DX: D50.9 Iron deficiency anemia, unspecified (principal); D51.3 Other dietary vitamin B12 deficiency anemia; E83.51 Hypocalcemia; E83.42 Hypomagnesemia; I10 Essential (primary) hypertension; K21.9 Gastro-esophageal reflux disease without esophagitis; K76.0 Fatty (change of) liver, not elsewhere classified; K80.20 Calculus of gallbladder without cholecystitis without obstruction; K45.8 Other specified abdominal hernia without obstruction or gangrene; M48.10 Ankylosing hyperostosis [Forestier], site unspecified; Z87.820 Personal history of traumatic brain injury; Z90.49 Acquired absence of other specified parts of digestive tract
CPT/HCPCS: 36415; 71045; 71046; 71275; 74177; 80048; 80053; 80074; 80076; 81003; 82306; 82330; 82607; 82652; 82728; 82746; 83540; 83735; 83880; 83970; 84165; 84439; 84443; 84466; 84484; 85014; 85018; 85025; 85044; 85379; 85610; 86038; 86850; 86900; 86901; 87389; 93005; 93306; 93970; 94640; 99285; J0610; J1940; J2270; J3010; J3475; J7030; J7040; J7605; P9016; Q9967

== ENCOUNTER 2019-06-20 17:15 | Emergency (ER) | payer SELFPAY ==
[2019-06-20 18:15] LABS: Absolute Lymphocytes (CBC) 1.7 K/uL (0.7-4.9); Lymphocytes % 16.5 % (15.3-44.8); MPV 9.7 fL (7.6-11.3)
[2019-06-20] MEDS ORDERED: dexAMETHasone 10 MG/ML VIAL ONE (18:23)
[2019-06-20] MEDS ORDERED: CEFTRIAXONE/SWI 1gm 1 GM/10 ML SYR ONE (18:24)
[2019-06-20] MEDS ORDERED: DIPHENHYDRAMINE 50 MG/ML VIAL ONE (18:24)
[2019-06-20] MEDS ORDERED: FAMOTIDINE 20 MG/2 ML VIAL IV ONE (18:24)
[2019-06-20] MEDS ORDERED: CLINDAMYCIN 900MG/D5W 900 MG/50 ML IVPB IV ONE (18:24)
[2019-06-20 18:31] LABS: Protime INR 1.13
--- NOTE | 2019-06-20 18:35 | RAD REPORT ---
EXAM DESCRIPTION: CT - Soft Tissue Neck W/Contr - 06/20/2019 6:14 pm CLINICAL HISTORY: Neck pain with sore throat COMPARISON: None. TECHNIQUE: Computed axial tomography of the neck was obtained. 50 cc Isovue 300 was administered in travenously. Coronal and sagittal reconstruction was performed. All CT scans are performed using dose optimization technique as appropriate and may include automated exposure control or mA/KV adjustment according to patient size. FINDINGS: A 5 millimeter asymmetry is present along the left vocal cord. This probably is not sign ificant. A mass is considered less likely. The pharynx, tongue base,and subglottic trachea appear unremarkable The parotid, and thyroid glands appear unremarkable. The submandibular glands are atrophic 13 millimeter lymph nodes along the internal jugular chain bilaterally. Moderate opacification maxillary and ethmoid sinuses. Right mastoids opacifies Spondylosis involves the cervical spine IMPRESSION: 5 millimeter asymmetry along the left vocal cord Mild neck lymphadenopathy is nonspecific. Followup CT in 3 months recommended to assess stability/ resolution of the lymph nodes. The [address] asymmetry along the left vocal cord can also be reassessed Moderate sinusitis Opacification the right mastoids may indicate mastoiditis
[2019-06-20 18:38] LABS: Urine Blood NEGATIVE (NEG); Urine Glucose NEGATIVE (NEG); Urine Protein NEGATIVE (NEG); Urine Specific Gravity 1.015 (1.005-1.030)
[2019-06-20 18:39] LABS: ALT/SGPT 57 U/L (12-78); AST/SGOT 45 U/L (15-37); Albumin 3.7 g/dL (3.4-5.0); Alkaline Phosphatase 77 U/L (45-117); BUN Blood Urea Nitrogen 7 mg/dL (7-18); Bicarbonate 34 mmol/L (21-32); Bilirubin Direct 0.3 mg/dL (0-0.2); Bilirubin Total 0.7 mg/dL (0.2-1.0); Glucose Level 81 mg/dL (74-106); Magnesium 1.9 mg/dL (1.8-2.4); NT PRO-BNP 199 pg/mL (<125); Potassium 3.4 mmol/L (3.5-5.1); Protein, Total 8.4 g/dL (6.4-8.2); Sodium Level 137 mmol/L (136-145); Troponin (Emerg Dept Use Only) < 0.02 ng/mL (0.0-0.045)
--- NOTE | 2019-06-20 19:12 | RAD REPORT ---
EXAM DESCRIPTION: Latoya Single View06/20/2019 6:26 pm CLINICAL HISTORY: cough COMPARISON: June 16, 2019 FINDINGS: The lungs appear clear of acute infiltrate. The heart is mildly enlarged IMPRESSION: No acute abnormalities displayed
--- NOTE | 2019-06-20 20:13 | ER ---
Nurse's Notes [facility] Name: Blanche Lo Age: 39 yrs Sex: Male : 1980 Arrival Date: 06/20/2019 Time: 17:19 Bed 30 Private MD: Diagnosis: Hypokalemia;Hypocalcemia;Dental caries;Dyspnea;Anemia, unspecified;Acute sinusitis;Mastoiditis and related conditions;Bronchitis, not specified as acute or chronic Presentation: 06/20 17:20 Presenting complaint: Patient states: my throat is sore and i feeling short of breath, tw2 i just left the hospital 2 days, i needed blood transfusion. Transition of care: patient was not received from another setting of care. Onset of symptoms was June 20, 2019. Risk Assessment: Do you want to hurt yourself or someone else? Patient reports no desire to harm self or others. Initial Sepsis Screen: Does the patient meet any 2 criteria? No. Patient's initial sepsis screen is negative. Does the patient have a suspected source of infection? No. Patient's initial sepsis screen is negative. Care prior to arrival: None. 17:20 Method Of Arrival: Ambulatory tw2 17:20 Acuity: JANINE 3 tw2 Triage Assessment: 17:22 General: Appears in no apparent distress. Behavior is calm, cooperative, appropriate tw2 for age. Respiratory: Reports shortness of breath Onset: The symptoms/episode began/occurred this morning, the patient has mild shortness of breath. Historical: - Allergies: 17:23 ambien; tw2 17:23 Naproxen; tw2 - Home Meds: 17:23 Iron CR Oral [Active]; tw2 - PMHx: 17:23 Hypertension; tw2 - Immunization history:: Adult Immunizations. - Social history:: Smoking status: . - Ebola Screening: : Patient denies travel to an Ebola-affected area in the 21 days before illness onset. - Family history:: not pertinent. Screenin:25 Abuse screen: Denies threats or abuse. Nutritional screening: No deficits noted. tw2 Tuberculosis screening: No symptoms or risk factors identified. Fall Risk None identified. Assessment: 18:40 General: Appears in no apparent distress. Behavior is calm, cooperative, appropriate tr5 for age. Pain: Complains of pain in neck. Neuro: Level of Consciousness is awake, alert, obeys commands, Oriented to person, place, time, Straightening Roll Operator are equal bilaterally Moves all extremities. Cardiovascular: Heart tones present Capillary refill < 3 seconds Pulses are all present. Edema is absent. Rhythm is regular. Respiratory: Airway is patent Respiratory effort is even, unlabored, Respiratory pattern is regular, symmetrical. Respiratory: Reports shortness of breath at rest. GI: No signs and/or symptoms were reported involving the gastrointestinal system. : No signs and/or symptoms were reported regarding the genitourinary system. EENT: Throat is clear Reports difficulty swallowing. Derm: No signs and/or symptoms reported regarding the dermatologic system. Musculoskeletal: No signs and/or symptoms reported regarding the musculoskeletal system. 20:00 Reassessment: Patient appears in no apparent distress at this time. Patient and/or tr5 family updated on plan of care and expected duration. Pain level reassessed. Patient is alert, oriented x 3, equal unlabored respirations, skin warm/dry/pink. 21:00 Reassessment: Patient appears in no apparent distress at this time. No changes from tr5 previously documented assessment. Patient and/or family updated on plan of care and expected duration. Pain level reassessed. Patient is alert, oriented x 3, equal unlabored respirations, skin warm/dry/pink. Respiratory: Breath sounds with crackles bilaterally. Vital Signs: 17:21 BP 130 / 79; Pulse 109; Resp 19; Temp 98.3(TE); Pulse Ox 98% on R/A; Weight 108.41 kg tw2 (R); Height 5 ft. 5 in. (165.10 cm); Pain 10/10; 17:21 Body Mass Index 39.77 (108.41 kg, 165.10 cm) tw2 ED Course: 17:19 Patient arrived in ED. mr 17:21 Triage completed. tw2 17:21 Arm band placed on. tw2 17:26 Bed in low position. Call light in reach. tw2 17:32 Triston Salas MD is Attending Physician. [facility] 17:55 Radiology exam delayed due to lab results not completed at this time. (BUN/Creatinine) sj IV insertion attempt and/or patient not having appropriate IV at this time. 18:02 EKG done, by machine maintenance technician. reviewed by Triston Salas MD. 3 18:05 Initial lab(s) drawn, by nh, sent to lab. Urine collected: clean catch specimen, clear, jp3 leonardo colored. Inserted saline lock: 20 gauge in right antecubital area, using aseptic technique. Blood collected. Patient maintains SpO2 saturation greater than 95% on room air. 18:14 Dwayne Lainez, RN is Primary Nurse. tr5 18:16 Soft Tissue Neck W/Contr CT In Process Unspecified. EDMS 18:16 CT completed. Patient tolerated procedure well. Patient moved to CT. Patient moved back md from CT. 18:28 XRAY Chest (1 view) In Process Unspecified. EDMS 20:11 Meera Zamora MD is Referral Physician. jayy 20:11 Arnaldo Mclean MD is Referral Physician. jayy 20:32 Ramone Cortez DDS is Referral Physician. jayy 20:32 Radha Best MD is Referral Physician. jayy 21:30 No provider procedures requiring assistance completed. Patient did not have IV access tr5 during this emergency room visit. Administered Medications: 18:36 Drug: Benadryl 25 mg Route: IVP; Site: right antecubital; tr5 20:06 Follow up: Response: No adverse reaction tr5 18:36 Drug: Pepcid 20 mg Route: IVP; Site: right antecubital; tr5 20:06 Follow up: Response: No adverse reaction; No change in condition tr5 18:37 Drug: NS 0.9% 1000 ml Route: IV; Rate: 1 bolus; Site: right antecubital; tr5 18:37 Not Given (Patient Refused): Decadron - Dexamethasone 10 mg IVP once tr5 18:37 Drug: Rocephin 1 grams Route: IV; Rate: per protocol; Site: right antecubital; tr5 18:37 Drug: Clindamycin 900 mg Route: IVPB; Infused Over: 30 mins; Site: right antecubital; tr5 20:18 Drug: Potassium Effervescent Tablet 25 mEq Route: PO; tr5 22:00 Follow up: Response: Marked relief of symptoms tr5 20:47 Drug: Calcium Gluconate 1 grams Route: IVPB; Infused Over: 30 mins; Site: right mg2 antecubital; 21:02 Drug: ProTONIX 40 mg Route: IVP; Site: right antecubital; mg2 06/21 01:32 Follow up: Response: Marked relief of symptoms tr5 06/20 21:02 Drug: Xopenex 1.25 mg Route: Inhalation; mg2 21:02 Drug: AtroVENT Aerosol 0.5 mg Route: Inhalation; mg2 Outcome: 20:12 Discharge ordered by . jayy 21:30 Discharged to home ambulatory. tr5 21:30 Condition: stable 21:30 Discharge instructions given to patient, Instructed on discharge instructions, follow up and referral plans. medication usage, Demonstrated understanding of instructions, follow-up care, medications, Prescriptions given X 4. 21:33 Patient left the ED. tr5 Signatures: Dispatcher [employer] EDMS Triston Salas MD MD cha Rivera, Karena mr Jabier, Shobha Roque RN RN tw2 Nicolas Carballo Michele, RN RN mg2 Lexi Otero3 August Thompson jp3 Dwayne Lainez RN RN tr5
--- NOTE | 2019-06-20 20:13 | EDPHYS ---
Physician Documentation [facility] Name: Blanche Lo Age: 39 yrs Sex: Male : 1980 Arrival Date: 06/20/2019 Time: 17:19 Bed 30 Private MD: ED Physician Triston Salas HPI: 06/20 17:43 This 39 yrs old Male presents to ER via Ambulatory with complaints of jayy Breathing Difficulty. 17:43 The patient has shortness of breath at rest, with light activity. Onset: The jayy symptoms/episode began/occurred 2 day(s) ago. Duration: The symptoms are continuous, and are steadily getting worse. The patient's shortness of breath has no apparent modifying factors. Associated signs and symptoms: Pertinent positives: non-productive cough. Severity of symptoms: At their worst the symptoms were moderate in the emergency department the symptoms. The patient has not experienced similar symptoms in the past. Historical: - Allergies: 17:23 ambien; tw2 17:23 Naproxen; tw2 - Home Meds: 17:23 Iron CR Oral [Active]; tw2 - PMHx: 17:23 Hypertension; tw2 - Immunization history:: Adult Immunizations. - Social history:: Smoking status: . - Ebola Screening: : Patient denies travel to an Ebola-affected area in the 21 days before illness onset. - Family history:: not pertinent. ROS: 17:43 Constitutional: Negative for fever, chills, and weight loss, Eyes: Negative for injury, jayy pain, redness, and discharge, Neck: Negative for injury, pain, and swelling, Cardiovascular: Negative for chest pain, palpitations, and edema, Respiratory: Negative for shortness of breath, cough, wheezing, and pleuritic chest pain, Abdomen/GI: Negative for abdominal pain, nausea, vomiting, diarrhea, and constipation, Back: Negative for injury and pain, : Negative for injury, bleeding, discharge, and swelling, MS/Extremity: Negative for injury and deformity, Skin: Negative for injury, rash, and discoloration, Neuro: Negative for headache, weakness, numbness, tingling, and seizure, Psych: Negative for depression, anxiety, suicide ideation, homicidal ideation, and hallucinations, Allergy/Immunology: Negative for hives, rash, and allergies, Endocrine: Negative for neck swelling, polydipsia, polyuria, polyphagia, and marked weight changes, Hematologic/Lymphatic: Negative for swollen nodes, abnormal bleeding, and unusual bruising. 17:43 ENT: Positive for difficulty handling secretions, difficulty swallowing, sinus pain, sore throat, Teeth pain Exam: 17:43 Constitutional: This is a well developed, well nourished patient who is awake, alert, jayy and in no acute distress. Head/Face: Normocephalic, atraumatic. Eyes: Pupils equal round and reactive to light, extra-ocular motions intact. Lids and lashes normal. Conjunctiva and sclera are non-icteric and not injected. Cornea within normal limits. Periorbital areas with no swelling, redness, or edema. Neck: Trachea midline, no thyromegaly or masses palpated, and no cervical lymphadenopathy. Supple, full range of motion without nuchal rigidity, or vertebral point tenderness. No Meningismus. Chest/axilla: Normal chest wall appearance and motion. Nontender with no deformity. No lesions are appreciated. Respiratory: Lungs have equal breath sounds bilaterally, clear to auscultation and percussion. No rales, rhonchi or wheezes noted. No increased work of breathing, no retractions or nasal flaring. Abdomen/GI: Soft, non-tender, with normal bowel sounds. No distension or tympany. No guarding or rebound. No evidence of tenderness throughout. Back: No spinal tenderness. No costovertebral tenderness. Full range of motion. 17:43 ENT: Posterior pharynx: Airway: no evidence of obstruction, Tonsils: no enlargement, no erythema, Uvula: non-edematous, no erythema, edematous, erythema, swelling, that is mild, that is moderate, erythema, that is mild, exudate, is not appreciated. 20:26 Abdomen/GI: Rectal exam: is unremarkable, Prostate: normal, rectal tone normal, Stool: jayy guaiac positive, faint pos, trace, no melena. 20:33 Cardiovascular: JVD: is not appreciated. [facility] 20:33 Musculoskeletal/extremity: Extremities: noted in the right leg and left leg: swelling. Vital Signs: 17:21 BP 130 / 79; Pulse 109; Resp 19; Temp 98.3(TE); Pulse Ox 98% on R/A; Weight 108.41 kg tw2 (R); Height 5 ft. 5 in. (165.10 cm); Pain 06/02; 17:21 Body Mass Index 39.77 (108.41 kg, 165.10 cm) tw2 MDM: 17:32 Patient medically screened. [facility] 17:50 Data reviewed: vital signs, nurses notes, lab test result(s), EKG, radiologic studies, [facility] CT scan, plain films. 06/20 17:43 Order name: Basic Metabolic Panel; Complete Time: 18:55 [facility] 06/20 17:43 Order name: CBC with Diff; Complete Time: 18:55 [facility] 06/20 17:43 Order name: LFT's; Complete Time: 18:55 [facility] 06/20 17:43 Order name: Magnesium; Complete Time: 18:55 [facility] 06/20 17:43 Order name: NT PRO-BNP; Complete Time: 18:55 [facility] 06/20 17:43 Order name: PT-INR; Complete Time: 18:55 [facility] 06/20 17:43 Order name: Troponin (emerg Dept Use Only); Complete Time: 18:55 [facility] 06/20 17:43 Order name: XRAY Chest (1 view); Complete Time: 20:07 [facility] 06/20 17:43 Order name: Soft Tissue Neck W/Contr CT; Complete Time: 18:55 [facility] 06/20 18:28 Order name: Urine Dipstick--Ancillary (enter results); Complete Time: 18:55 06/20 17:43 Order name: EKG; Complete Time: 17:45 [facility] 06/20 17:43 Order name: Cardiac monitoring; Complete Time: 18:38 [facility] 06/20 17:43 Order name: EKG - Nurse/Tech; Complete Time: 18:38 [facility] 06/20 17:43 Order name: IV Saline Lock; Complete Time: 18:39 [facility] 06/20 17:43 Order name: Labs collected and sent; Complete Time: 18:38 [facility] 06/20 17:43 Order name: O2 Per Protocol; Complete Time: 18:39 [facility] 06/20 17:43 Order name: O2 Sat Monitoring; Complete Time: 18:39 [facility] 06/20 20:10 Order name: PO challenge; Complete Time: 21:02 [facility] Administered Medications: 18:36 Drug: Benadryl 25 mg Route: IVP; Site: right antecubital; tr5 20:06 Follow up: Response: No adverse reaction tr5 18:36 Drug: Pepcid 20 mg Route: IVP; Site: right antecubital; tr5 20:06 Follow up: Response: No adverse reaction; No change in condition tr5 18:37 Drug: NS 0.9% 1000 ml Route: IV; Rate: 1 bolus; Site: right antecubital; tr5 18:37 Not Given (Patient Refused): Decadron - Dexamethasone 10 mg IVP once tr5 18:37 Drug: Rocephin 1 grams Route: IV; Rate: per protocol; Site: right antecubital; tr5 18:37 Drug: Clindamycin 900 mg Route: IVPB; Infused Over: 30 mins; Site: right antecubital; tr5 20:18 Drug: Potassium Effervescent Tablet 25 mEq Route: PO; tr5 22:00 Follow up: Response: Marked relief of symptoms tr5 20:47 Drug: Calcium Gluconate 1 grams Route: IVPB; Infused Over: 30 mins; Site: right mg2 antecubital; 21:02 Drug: ProTONIX 40 mg Route: IVP; Site: right antecubital; mg2 06/21 01:32 Follow up: Response: Marked relief of symptoms tr5 06/20 21:02 Drug: Xopenex 1.25 mg Route: Inhalation; mg2 21:02 Drug: AtroVENT Aerosol 0.5 mg Route: Inhalation; mg2 Disposition: 06/20/19 20:12 Discharged to Home. Impression: Hypokalemia, Hypocalcemia, Dental caries, Dyspnea, Anemia, unspecified, Acute sinusitis, Mastoiditis and related conditions, Bronchitis, not specified as acute or chronic. - Condition is Stable. - Discharge Instructions: Anemia, Nonspecific, Dental Pain, Potassium Content of Foods, Dental Pain, [id number], Hypocalcemia, Adult, Hypokalemia. - Prescriptions for Clindamycin HCl 300 mg Oral Capsule - take 1 capsule by ORAL route every 6 hours for 7 days; 28 capsule. Benadryl 25 mg Oral Capsule - take 1 capsule by ORAL route every 6 hours As needed; 30 tablet. Protonix 40 mg Oral Tablet - take 1 tablet by ORAL route once daily; 30 tablet. Albuterol Sulfate 90 mcg/actuation - inhale 1-2 puff by INHALATION route every 4-6 hours; 1 Inhaler. - Medication Reconciliation Form, Thank You Letter, Antibiotic Education, Prescription Opioid Use form. - Follow up: Private Physician; When: 2 - 3 days; Reason: Recheck today's complaints, Continuance of care, Re-evaluation by your physician. Follow up: Meera Zamora MD; When: 2 - 3 days; Reason: Recheck today's complaints, Re-evaluation by your physician. Follow up: Arnaldo Mclean MD; When: 2 - 3 days; Reason: Recheck today's complaints, Re-evaluation by your physician. Follow up: Ramone Cortez DDS; When: 2 - 3 days; Reason: Recheck today's complaints, Re-evaluation by your physician. Follow up: Radha Best MD; When: 2 - 3 days; Reason: Recheck today's complaints, Re-evaluation by your physician. - Problem is new. - Symptoms have improved. Signatures: Dispatcher [employer] EDMS Triston Salas MD MD cha Wise, Tara, RN RN tw2 Wil Myers RN RN mg2 Dwayne Lainez RN RN tr5 Corrections: (The following items were deleted from the chart) 20:32 20:12 06/20/2019 20:12 Discharged to Home. Impression: Hypokalemia; Hypocalcemia; jayy Dental caries; Dyspnea; Anemia, unspecified; Acute sinusitis; Mastoiditis and related conditions. Condition is Stable. Forms are Medication Reconciliation Form, Thank You Letter, Antibiotic Education, Prescription Opioid Use. Follow up: Private Physician; When: 2 - 3 days; Reason: Recheck today's complaints, Continuance of care, Re-evaluation by your physician. Follow up: Meera Zamora; When: 2 - 3 days; Reason: Recheck today's complaints, Re-evaluation by your physician. Follow up: Arnaldo Mclean; When: 2 - 3 days; Reason: Recheck today's complaints, Re-evaluation by your physician. Problem is new. Symptoms have improved. [facility] 20:35 20:32 06/20/2019 20:12 Discharged to Home. Impression: Hypokalemia; Hypocalcemia; jayy Dental caries; Dyspnea; Anemia, unspecified; Acute sinusitis; Mastoiditis and related conditions. Condition is Stable. Discharge Instructions: Anemia, Nonspecific, Dental Pain, Potassium Content of Foods, Dental Pain, [id number], Hypocalcemia, Adult, Hypokalemia. Prescriptions for Clindamycin HCl 300 mg Oral Capsule - take 1 capsule by ORAL route every 6 hours for 7 days; 28 capsule. and Forms are Medication Reconciliation Form, Thank You Letter, Antibiotic Education, Prescription Opioid Use. Follow up: Private Physician; When: 2 - 3 days; Reason: Recheck today's complaints, Continuance of care, Re-evaluation by your physician. Follow up: Meera Zamora; When: 2 - 3 days; Reason: Recheck today's complaints, Re-evaluation by your physician. Follow up: Arnaldo Mclean; When: 2 - 3 days; Reason: Recheck today's complaints, Re-evaluation by your physician. Follow up: Ramone Cortez; When: 2 - 3 days; Reason: Recheck today's complaints, Re-evaluation by your physician. Follow up: Radha Best; When: 2 - 3 days; Reason: Recheck today's complaints, Re-evaluation by your physician. Problem is new. Symptoms have improved. [facility] 21:33 20:35 06/20/2019 20:12 Discharged to Home. Impression: Hypokalemia; Hypocalcemia; tr5 Dental caries; Dyspnea; Anemia, unspecified; Acute sinusitis; Mastoiditis and related conditions; Bronchitis, not specified as acute or chronic. Condition is Stable. Discharge Instructions: Anemia, Nonspecific, Dental Pain, Potassium Content of Foods, Dental Pain, [id number], Hypocalcemia, Adult, Hypokalemia. Prescriptions for Clindamycin HCl 300 mg Oral Capsule - take 1 capsule by ORAL route every 6 hours for 7 days; 28 capsule, Benadryl 25 mg Oral Capsule - take 1 capsule by ORAL route every 6 hours As needed; 30 tablet, Protonix 40 mg Oral Tablet - take 1 tablet by ORAL route once daily; 30 tablet, Albuterol Sulfate 90 mcg/actuation - inhale 1-2 puff by INHALATION route every 4-6 hours; 1 Inhaler. and Forms are Medication Reconciliation Form, Thank You Letter, Antibiotic Education, Prescription Opioid Use. Follow up: Private Physician; When: 2 - 3 days; Reason: Recheck today's complaints, Continuance of care, Re-evaluation by your physician. Follow up: Meera Zamora; When: 2 - 3 days; Reason: Recheck today's complaints, Re-evaluation by your physician. Follow up: Arnaldo Mclean; When: 2 - 3 days; Reason: Recheck today's complaints, Re-evaluation by your physician. Follow up: Ramone Cortez; When: 2 - 3 days; Reason: Recheck today's complaints, Re-evaluation by your physician. Follow up: Radha Best; When: 2 - 3 days; Reason: Recheck today's complaints, Re-evaluation by your physician. Problem is new. Symptoms have improved. jayy
[2019-06-20] MEDS ORDERED: POTASSIUM 25 MEQ EFFERV TAB ONE (20:17)
[2019-06-20] MEDS ORDERED: CALCIUM GLUCONATE 1 GM IVPB 1 GM/50 ML BAG IV ONE (20:32)
[2019-06-20] MEDS ORDERED: LEVALBUTEROL 1.25 MG/3 ML NEB ONE (20:58)
[2019-06-20] MEDS ORDERED: PANTOPRAZOLE 40 MG INJ ONE (20:58)
[2019-06-20] MEDS ORDERED: IPRATROPIUM BROM 0.5MG/2.5ML ONE (20:58)
[2019-06-20 21:52] VITALS: BP 130/79; TEMP 98.3; O2SAT 98
--- NOTE | 2019-06-21 10:18 | EKG ---
Test Date: 2019-06-20 Test Time: 17:47:37 Graphic Design Manager: ASHVIN MEASUREMENT RESULTS: Intervals: Rate: 102 WY: 94 QRSD: 70 QT: 370 QTc: 482 Zimmerman: P: -9 WY: 94 QRS: -6 T: 3 INTERPRETIVE STATEMENTS: Sinus tachycardia with short [place] Nonspecific ST abnormality Abnormal ECG Compared to ECG 06/15/2019 19:14:21 Short [place]Y interval now present ST (T wave) deviation now present Sinus rhythm no longer present Prolonged QT interval no longer present Electronically Signed On 06-21-19 10:16:14 CDT by Fred Reyes
== END 2019-06-20 21:33 | disposition home or self-care (01) ==
LOC: ER 17:15
DX: J40 Bronchitis, not specified as acute or chronic (principal); R06.00 Dyspnea, unspecified; E87.6 Hypokalemia; E83.51 Hypocalcemia; K02.9 Dental caries, unspecified; D64.9 Anemia, unspecified; J01.90 Acute sinusitis, unspecified; H70.899 Other mastoiditis and related conditions, unspecified ear; I10 Essential (primary) hypertension; Z88.5 Allergy status to narcotic agent; Z88.8 Allergy status to other drugs, medicaments and biological substances
CPT/HCPCS: 36415; 70491; 71045; 80048; 80076; 81003; 83735; 83880; 84484; 85025; 85610; 93005; 96374; 96375; 99285; C9113; J0610; J0696; J1100; J1200; Q9967

== ENCOUNTER 2019-06-24 18:00 | Inpatient (IN) | payer SELFPAY ==
[2019-06-24] MEDS ORDERED: NA CHLORIDE 0.9% 1,000 ML ONE (20:04)
[2019-06-24] MEDS ORDERED: ACETAMINOPHEN 325 MG TABLET ONE (20:04)
[2019-06-24 20:25] LABS: Hematocrit 24.5 % (39.6-49.0); Lymphocytes % 15.3 % (15.3-44.8); MPV 10.3 fL (7.6-11.3); RBC Red Blood Cell Count 3.01 M/uL (4.33-5.43)
[2019-06-24 20:31] LABS: Protime INR 1.14
[2019-06-24 20:43] LABS: Anisocytosis 2+; Blood Morphology Comment NOTED (NOT SEEN); Platelet Estimate ADEQ; Urine White Blood Cell Casts OK
--- NOTE | 2019-06-24 20:45 | RAD REPORT ---
EXAM DESCRIPTION: RAD - Chest Single View - 06/24/2019 8:39 pm CLINICAL HISTORY: COUGH Chest pain. COMPARISON: Chest Single View dated 06/20/2019; Chest Pa And Lat (2 Views) dated 06/16/2019; Chest S matt View dated 06/15/2019; CHEST PA AND LAT 2 VIEW dated 03/09/2008 FINDINGS: Portable technique limits examination quality. The lungs are grossly clear. The heart is mildly enlarged in size. No displaced fractures. IMPRESSION: Mild cardiomegaly.
[2019-06-24 20:52] LABS: ALT/SGPT 49 U/L (12-78); AST/SGOT 51 U/L (15-37); Albumin 3.4 g/dL (3.4-5.0); Alkaline Phosphatase 76 U/L (45-117); BUN Blood Urea Nitrogen 10 mg/dL (7-18); Bicarbonate 35 mmol/L (21-32); Bilirubin Direct 0.2 mg/dL (0-0.2); Bilirubin Total 0.7 mg/dL (0.2-1.0); Glucose Level 86 mg/dL (74-106); Lipase 134 U/L (73-393); Magnesium 1.7 mg/dL (1.8-2.4); NT PRO-BNP 115 pg/mL (<125); Potassium 3.4 mmol/L (3.5-5.1); Sodium Level 137 mmol/L (136-145); Troponin (Emerg Dept Use Only) < 0.02 ng/mL (0.0-0.045)
[2019-06-24] MEDS ORDERED: MAGNESIUM SULFATE 1 gm IVPB 1 GM/100 ML BAG IV ONE (21:21)
[2019-06-24] MEDS ORDERED: METRONIDAZOLE 500mg IVPB 500 MG/100 ML BAG IV ONE (21:21)
[2019-06-24] MEDS ORDERED: CIPROFLOXACIN 400mg IV 400 MG/200 ML BAG IV ONE (21:21)
[2019-06-24] MEDS ORDERED: PANTOPRAZOLE 40 MG INJ ONE (21:21)
--- NOTE | 2019-06-24 21:28 | EDPHYS ---
Physician Documentation [facility] Name: Blanche Lo Age: 39 yrs Sex: Male : 1980 Arrival Date: 06/24/2019 Time: 18:04 Bed 20 Private MD: Unknown, Unknown ED Physician Triston Salas HPI: 06/24 21:18 This 39 yrs old Male presents to ER via Ambulatory with complaints of jayy Dizziness, General Weakness. 21:18 The patient presents with dizziness, generalized weakness. Onset: The symptoms/episode jayy began/occurred 3 day(s) ago. Context: occurred at home. Modifying factors: The symptoms are alleviated by lying down, the symptoms are aggravated by standing up. Associated signs and symptoms: The patient has no apparent associated signs or symptoms. Severity of symptoms: At their worst the symptoms were mild. Patient's baseline: Neuro: alert and fully oriented. The patient has not experienced similar symptoms in the past. Historical: - Allergies: 18:26 ambien; la1 18:26 Naproxen; la1 18:26 Amoxil; la1 - Home Meds: 19:33 Iron CR Oral [Active]; cc3 - PMHx: 18:26 Hypertension; la1 - Immunization history:: Adult Immunizations up to date. - Social history:: Smoking status: Patient/guardian denies using tobacco. - Ebola Screening: : No symptoms or risks identified at this time. - Family history:: not pertinent. ROS: 21:18 Eyes: Negative for injury, pain, redness, and discharge, ENT: Negative for injury, jayy pain, and discharge, Neck: Negative for injury, pain, and swelling, Respiratory: Negative for shortness of breath, cough, wheezing, and pleuritic chest pain, Back: Negative for injury and pain, : Negative for injury, bleeding, discharge, and swelling, MS/Extremity: Negative for injury and deformity, Skin: Negative for injury, rash, and discoloration, Neuro: Negative for headache, weakness, numbness, tingling, and seizure, Psych: Negative for depression, anxiety, suicide ideation, homicidal ideation, and hallucinations, Allergy/Immunology: Negative for hives, rash, and allergies, Endocrine: Negative for neck swelling, polydipsia, polyuria, polyphagia, and marked weight changes, Hematologic/Lymphatic: Negative for swollen nodes, abnormal bleeding, and unusual bruising. 21:18 Constitutional: Positive for body aches, chills, fever. 21:18 Cardiovascular: Positive for palpitations. 21:18 Abdomen/GI: Positive for abdominal pain, abdominal distension, of the right lower quadrant and left lower quadrant. Exam: 21:18 Constitutional: This is a well developed, well nourished patient who is awake, alert, jayy and in no acute distress. Head/Face: Normocephalic, atraumatic. Eyes: Pupils equal round and reactive to light, extra-ocular motions intact. Lids and lashes normal. Conjunctiva and sclera are non-icteric and not injected. Cornea within normal limits. Periorbital areas with no swelling, redness, or edema. ENT: Nares patent. No nasal discharge, no septal abnormalities noted. Tympanic membranes are normal and external auditory canals are clear. Oropharynx with no redness, swelling, or masses, exudates, or evidence of obstruction, uvula midline. Mucous membranes moist. Neck: Trachea midline, no thyromegaly or masses palpated, and no cervical lymphadenopathy. Supple, full range of motion without nuchal rigidity, or vertebral point tenderness. No Meningismus. Chest/axilla: Normal chest wall appearance and motion. Nontender with no deformity. No lesions are appreciated. Respiratory: Lungs have equal breath sounds bilaterally, clear to auscultation and percussion. No rales, rhonchi or wheezes noted. No increased work of breathing, no retractions or nasal flaring. Back: No spinal tenderness. No costovertebral tenderness. Full range of motion. Male : Normal genitalia with no discharge or lesions. Skin: Warm, dry with normal turgor. Normal color with no rashes, no lesions, and no evidence of cellulitis. MS/ Extremity: Pulses equal, no cyanosis. Neurovascular intact. Full, normal range of motion. Neuro: Awake and alert, GCS 15, oriented to person, place, time, and situation. Cranial nerves II-XII grossly intact. Motor strength 5/5 in all extremities. Sensory grossly intact. Cerebellar exam normal. Normal gait. Psych: Awake, alert, with orientation to person, place and time. Behavior, mood, and affect are within normal limits. 21:18 Cardiovascular: Rate: tachycardic, Rhythm: regular, Pulses: Pulses are 4+ in bilateral radial, brachial, femoral, popliteal, posterior tibial and and dorsalis pedis arteries.. Heart sounds: normal, Edema: is not appreciated, JVD: is not appreciated. 21:22 Abdomen/GI: Inspection: distension, Bowel sounds: normal, Rectal exam: is unremarkable, jayy rectal tone normal, Stool: refused test hemorrhoid(s), are not appreciated, Liver: no appreciated palpable abnormalities, Hernia: noted in the umbilical area. Vital Signs: 18:26 BP 132 / 81; Pulse 94; Resp 16; Temp 98.7; Pulse Ox 100% on R/A; Weight 108.41 kg; la1 19:34 BP 131 / 84; Pulse 104; Resp 20 S; Temp 99.6(O); Pulse Ox 100% on R/A; cc3 20:01 BP 120 / 76; Pulse 107; Resp 20 S; Pulse Ox 100% on R/A; cc3 21:00 BP 108 / 62; Pulse 105; Resp 20 S; Pulse Ox 99% on R/A; cc3 22:46 BP 125 / 82; Pulse 106; Resp 22 S; Pulse Ox 97% on R/A; cc3 23:15 BP 115 / 91; Pulse 105; Resp 15 S; Pulse Ox 97% on R/A; cc3 11 00:16 BP 103 / 72; Pulse 94; Resp 22 S; Temp 98.4(O); Pulse Ox 96% on R/A; Pain 7/10; cc3 01:36 BP 108 / 68; Pulse 95; Resp 20 S; Temp 98.6(O); Pulse Ox 96% on R/A; Pain 6/10; cc3 MDM: 06/24 19:27 [facility]. [facility] 21:23 Data reviewed: vital signs, nurses notes, lab test result(s), EKG, radiologic studies. [facility] 06/24 19:49 Order name: Basic Metabolic Panel; Complete Time: 21:14 [facility] 06/24 19:49 Order name: CBC with Diff; Complete Time: 21:14 [facility] 06/24 19:49 Order name: LFT's; Complete Time: 21:14 [facility] 06/24 19:49 Order name: Magnesium; Complete Time: 21:14 [facility] 06/24 19:49 Order name: NT PRO-BNP; Complete Time: 21:14 [facility] 06/24 19:49 Order name: PT-INR; Complete Time: 21:14 [facility] 06/24 19:49 Order name: Troponin (emerg Dept Use Only); Complete Time: 21:14 [facility] 06/24 19:49 Order name: Lipase; Complete Time: 21:14 [facility] 06/24 19:49 Order name: Blood Culture Adult (2) [facility] 06/24 19:49 Order name: Urine Culture [facility] 06/24 19:49 Order name: Lactate; Complete Time: 21:14 [facility] 06/24 19:49 Order name: Procalcitonin; Complete Time: 21:14 [facility] 06/24 19:49 Order name: Flu; Complete Time: 21:14 [facility] 06/24 20:43 Order name: CBC Smear Scan; Complete Time: 21:14 [facility] 06/24 21:16 Order name: Type And Screen [facility] 06/24 21:53 Order name: Urinalysis [facility] 06/24 21:53 Order name: Vitamin B12 Level [facility] 06/24 21:53 Order name: Vitamin B12 Level [facility] 06/24 21:53 Order name: CBC with Automated Diff [facility] 06/24 21:53 Order name: CBC with Automated Diff [facility] 06/24 21:53 Order name: Comprehensive Metabolic Panel [facility] 06/24 21:53 Order name: Comprehensive Metabolic Panel [facility] 06/24 21:54 Order name: Ferritin [facility] 06/24 21:54 Order name: Ferritin [facility] 06/24 21:54 Order name: Folic Acid, (Folate) [facility] 06/24 21:54 Order name: Folic Acid, (Folate) [facility] 06/24 21:54 Order name: Iron [facility] 06/24 21:54 Order name: Iron [facility] 06/24 21:54 Order name: Magnesium [facility] 06/24 21:54 Order name: Magnesium [facility] 06/24 19:49 Order name: XRAY Chest (1 view); Complete Time: 21:14 [facility] 06/24 19:49 Order name: EKG; Complete Time: 19:50 [facility] 06/24 19:49 Order name: Cardiac monitoring; Complete Time: 19:59 [facility] 06/24 19:49 Order name: EKG - Nurse/Tech; Complete Time: 20:47 [facility] 06/24 19:49 Order name: IV Saline Lock; Complete Time: 20:23 [facility] 06/24 19:49 Order name: Labs collected and sent; Complete Time: 20:23 [facility] 06/24 19:49 Order name: O2 Per Protocol; Complete Time: 19:59 [facility] 06/24 19:49 Order name: O2 Sat Monitoring; Complete Time: 19:59 [facility] 06/24 19:49 Order name: Urine Dipstick-Ancillary (obtain specimen); Complete Time: 22:26 [facility] 06/24 21:16 Order name: CT Abd/Pelvis - PO and IV Contrast [facility] 06/24 21:53 Order name: Regular [facility] 06/24 21:54 Order name: Phosphorus [facility] 06/24 21:54 Order name: Phosphorus [facility] 06/24 21:54 Order name: Retic Count [facility] 06/24 21:54 Order name: Retic Count [facility] 06/24 21:54 Order name: Transferrin Sat/Iron Binding [facility] 06/24 21:54 Order name: Transferrin Sat/Iron Binding [facility] 06/24 22:58 Order name: Urine Dipstick--Ancillary (enter results) 06/24 23:30 Order name: Urine Dipstick-Ancillary EDMS Administered Medications: 20:00 Drug: Tylenol 650 mg Route: PO; cc3 21:00 Follow up: Response: No adverse reaction cc3 20:25 Drug: NS 0.9% 1000 ml Route: IV; Rate: 1 bolus; Site: left forearm; [facility] 21:40 Follow up: Response: No adverse reaction; IV Status: Completed infusion; IV Intake: cc3 1000ml 21:35 Drug: ProTONIX 40 mg Route: IVP; Site: left antecubital; 21:40 Follow up: Response: No adverse reaction cc3 21:38 Drug: Magnesium Sulfate 1 grams Route: IVPB; Infused Over: 1 hrs; Site: left antecubital; 22:23 Follow up: Response: No adverse reaction; IV Status: Completed infusion; IV Intake: cc3 100ml 21:43 Drug: Cipro 400 mg Volume: 200 ml; Route: IVPB; Infused Over: 60 mins; Site: right forearm; 22:38 Follow up: Response: No adverse reaction; IV Status: Completed infusion; IV Intake: cc3 200ml 22:25 Drug: Flagyl 500 mg Volume: 100 ml; Route: IVPB; Rate: 200 ml/hr; Infused Over: 30 cc3 mins; Site: left antecubital; 22:55 Follow up: Response: No adverse reaction; IV Status: Completed infusion; IV Intake: cc3 100ml 22:40 Drug: Calcium Gluconate 1 grams Route: IVPB; Infused Over: 30 mins; Site: right cc3 antecubital; 23:29 Follow up: Response: No adverse reaction; IV Status: Completed infusion; IV Intake: cc3 100ml 23:00 Drug: NS 0.9% with KCl 20 mEq/L 1000 ml Route: IV; Rate: 125 ml/hr; Site: left cc3 antecubital; 06/25 01:49 Follow up: Response: No adverse reaction; IV Status: Infusion continued upon admission; 3 IV Intake: 375ml 06/24 23:35 Drug: fentaNYL (PF) 25 mcg {Note: RASS 0.} Route: IVP; Site: right antecubital; 3 06/25 00:00 Follow up: Response: No adverse reaction; Pain is decreased; RASS: Alert and Calm (0) 3 06/24 23:39 Drug: Zofran 4 mg Route: IVP; Site: right antecubital; 3 06/25 00:00 Follow up: Response: No adverse reaction; Nausea is decreased cc3 Disposition: 06/24/19 21:27 Hospitalization ordered by Minda Renteria for Inpatient Admission. Preliminary diagnosis are Abdominal tenderness, Anemia, unspecified, Hypomagnesemia, Hypokalemia, Hypocalcemia, Fever, unspecified. - Bed requested for Telemetry/MedSurg (Inpatient). - Status is Inpatient Admission. cc3 - Condition is Stable. - Problem is new. - Symptoms have improved. UTI on Admission? No Signatures: Dispatcher [employer] EDMS Triston Salas MD MD cha Attema, Lee, RN RN la1 Minnie Tolentino, ANCELMO RN Juan Villafana Charlene cc3 Leatha Nur RN RN ca1 Corrections: (The following items were deleted from the chart) 06/24 21:30 21:27 Hospitalization Ordered by Minda Renteria MD for Inpatient Admission. Preliminary jayy diagnosis is Abdominal tenderness; Anemia, unspecified; Hypomagnesemia; Hypokalemia; Hypocalcemia. Bed requested for Telemetry/MedSurg (Inpatient). Status is Inpatient Admission. Condition is Stable. Problem is new. Symptoms have improved. UTI on Admission? No. jayy 22:38 21:30 06/24/2019 21:27 Hospitalization Ordered by Minda Renteria MD for Inpatient cg Admission. Preliminary diagnosis is Abdominal tenderness; Anemia, unspecified; Hypomagnesemia; Hypokalemia; Hypocalcemia; Fever, unspecified. Bed requested for Telemetry/MedSurg (Inpatient). Status is Inpatient Admission. Condition is Stable. Problem is new. Symptoms have improved. UTI on Admission? No. jayy 06/25 01:57 06/24 22:38 06/24/2019 21:27 Hospitalization Ordered by Minda Renteria MD for Inpatient cc3 Admission. Preliminary diagnosis is Abdominal tenderness; Anemia, unspecified; Hypomagnesemia; Hypokalemia; Hypocalcemia; Fever, unspecified. Bed requested for Telemetry/MedSurg (Inpatient). Status is Inpatient Admission. Condition is Stable. Problem is new. Symptoms have improved. UTI on Admission? No. cg
--- NOTE | 2019-06-24 21:28 | ER ---
Nurse's Notes [facility] Name: Blanche Lo Age: 39 yrs Sex: Male : 1980 Arrival Date: 06/24/2019 Time: 18:04 Bed 20 Private MD: Unknown, Unknown Diagnosis: Abdominal tenderness;Anemia, unspecified;Hypomagnesemia;Hypokalemia;Hypocalcemia;Fever, unspecified Presentation: 06/24 18:24 Presenting complaint: Patient states: I feel weak and dizzy like my blood counts are la1 low, my belly hurts and I had some bright red blood in my stool once. Transition of care: patient was not received from another setting of care. Onset of symptoms was June 24, 2019. Risk Assessment: Do you want to hurt yourself or someone else? Patient reports no desire to harm self or others. Initial Sepsis Screen: Does the patient meet any 2 criteria? No. Patient's initial sepsis screen is negative. Does the patient have a suspected source of infection? No. Patient's initial sepsis screen is negative. Care prior to arrival: None. 18:24 Method Of Arrival: Ambulatory la1 18:24 Acuity: JANINE 3 la1 Historical: - Allergies: 18:26 ambien; la1 18:26 Naproxen; la1 18:26 Amoxil; la1 - Home Meds: 19:33 Iron CR Oral [Active]; cc3 - PMHx: 18:26 Hypertension; la1 - Immunization history:: Adult Immunizations up to date. - Social history:: Smoking status: Patient/guardian denies using tobacco. - Ebola Screening: : No symptoms or risks identified at this time. - Family history:: not pertinent. Screenin:33 Abuse screen: Denies threats or abuse. Denies injuries from another. Nutritional cc3 screening: No deficits noted. Tuberculosis screening: No symptoms or risk factors identified. Fall Risk Ambulatory Aid- None/Bed Rest/Nurse Assist (0 pts). Gait- Normal/Bed Rest/Wheelchair (0 pts) Mental Status- Oriented to own ability (0 pts). Assessment: 19:33 General: Appears in no apparent distress. uncomfortable, obese, Behavior is calm, cc3 cooperative, appropriate for age. Pain: Complains of pain in umbilical area and left lower quadrant and right lower quadrant Pain currently is 10 out of 10 on a pain scale. Quality of pain is described as aching, Pain began 2-3 days ago. Neuro: Level of Consciousness is awake, alert, obeys commands, Oriented to person, place, time, situation, Appropriate for age. Cardiovascular: Denies chest pain, Heart tones S1 S2 present Capillary refill < 3 seconds in bilateral fingers Patient's skin is warm and dry. Rhythm is sinus tachycardia. Respiratory: Airway is patent Respiratory effort is even, unlabored, Respiratory pattern is regular, symmetrical, Breath sounds are clear bilaterally. GI: Abdomen is distended, obese, Bowel sounds present X 4 quads. Abdomen is tender to palpation in umbilical area and left lower quadrant and right lower quadrant Reports lower abdominal pain, bloody stool, since yesterday. : No signs and/or symptoms were reported regarding the genitourinary system. EENT: No signs and/or symptoms were reported regarding the EENT system. Derm: Skin is intact, is healthy with good turgor, Skin is pink, warm \T\ dry. normal, lesions noted all over the patient's body, patient said he got those after he was discharged from here when he was admitted 2 weeks ago. Musculoskeletal: Circulation, motion, and sensation intact. Range of motion: intact in all extremities. 20:18 Reassessment: Patient appears in no apparent distress at this time. Patient and/or cc3 family updated on plan of care and expected duration. Pain level reassessed. Patient is alert, oriented x 3, equal unlabored respirations, skin warm/dry/pink. 21:12 Reassessment: Patient appears in no apparent distress at this time. Patient and/or cc3 family updated on plan of care and expected duration. Pain level reassessed. Patient is alert, oriented x 3, equal unlabored respirations, skin warm/dry/pink. 22:26 Reassessment: Patient appears in no apparent distress at this time. Patient and/or cc3 family updated on plan of care and expected duration. Pain level reassessed. Patient is alert, oriented x 3, equal unlabored respirations, skin warm/dry/pink. Patient finished his oral contrast, ANCELMO Martinez informed CT scan department. 23:40 Reassessment: Patient appears in no apparent distress at this time. Patient and/or cc3 family updated on plan of care and expected duration. Pain level reassessed. Patient is alert, oriented x 3, equal unlabored respirations, skin warm/dry/pink. Patient taken by counter intelligence technician to their department by stretcher. 06/25 00:21 Reassessment: Patient appears in no apparent distress at this time. Patient and/or cc3 family updated on plan of care and expected duration. Pain level reassessed. Patient is alert, oriented x 3, equal unlabored respirations, skin warm/dry/pink. Patient came back from CT scan department, awaiting result. Dr. Salas said to wait for CT scan result before sending the patient for admission. Patient denies pain at this time. Patient states feeling better. Patient states symptoms have improved. 01:39 Reassessment: Patient appears in no apparent distress at this time. Patient and/or cc3 family updated on plan of care and expected duration. Pain level reassessed. Patient is alert, oriented x 3, equal unlabored respirations, skin warm/dry/pink. Dr. Salas reviewed the CT scan abdomen result, room available in [facility], called for report but was told that the nurse who will receive will just call me back. 01:46 Reassessment: ANCELMO Rush called and report handed over to her for continuity of cc3 care and management. 01:55 Reassessment: Patient appears in no apparent distress at this time. Patient and/or cc3 family updated on plan of care and expected duration. Pain level reassessed. Patient is alert, oriented x 3, equal unlabored respirations, skin warm/dry/pink. Patient left ER for admission vitally stable by wheelchair escorted by mathematical technicianveronica Mo. No valuables left in the patient's room. Patient denies pain at this time. Patient states feeling better. Patient states symptoms have improved. Vital Signs: 06/24 18:26 BP 132 / 81; Pulse 94; Resp 16; Temp 98.7; Pulse Ox 100% on R/A; Weight 108.41 kg; la1 19:34 BP 131 / 84; Pulse 104; Resp 20 S; Temp 99.6(O); Pulse Ox 100% on R/A; cc3 20:01 BP 120 / 76; Pulse 107; Resp 20 S; Pulse Ox 100% on R/A; cc3 21:00 BP 108 / 62; Pulse 105; Resp 20 S; Pulse Ox 99% on R/A; cc3 22:46 BP 125 / 82; Pulse 106; Resp 22 S; Pulse Ox 97% on R/A; cc3 23:15 BP 115 / 91; Pulse 105; Resp 15 S; Pulse Ox 97% on R/A; cc3 1102 00:16 BP 103 / 72; Pulse 94; Resp 22 S; Temp 98.4(O); Pulse Ox 96% on R/A; Pain 7/10; cc3 01:36 BP 108 / 68; Pulse 95; Resp 20 S; Temp 98.6(O); Pulse Ox 96% on R/A; Pain 6/10; cc3 ED Course: 06/24 18:04 Patient arrived in ED. ag5 18:05 Unknown, Unknown is Private Physician. ag5 18:25 Triage completed. la1 18:26 Arm band placed on right wrist. la1 19:27 Triston Salas MD is Attending Physician. jayy 19:33 Eunice Elliott is Primary Nurse. cc3 19:33 Patient has correct armband on for positive identification. Placed in gown. Bed in low cc3 position. Call light in reach. Side rails up X2. court recording monitor on. Pulse ox on. NIBP on. 20:04 Inserted saline lock: 20 gauge in left antecubital area, using aseptic technique. Blood cc3 collected. inserted by mathematical technician Chely. 20:39 XRAY Chest (1 view) In Process Unspecified. EDMS 21:24 Minda Renteria MD is Hospitalizing Provider. jayy 21:30 Inserted saline lock: 22 gauge in right forearm, using aseptic technique. Blood wh collected. 06/25 01:43 No provider procedures requiring assistance completed. Patient admitted, IV remains in cc3 place. Administered Medications: 06/24 20:00 Drug: Tylenol 650 mg Route: PO; cc3 21:00 Follow up: Response: No adverse reaction cc3 20:25 Drug: NS 0.9% 1000 ml Route: IV; Rate: 1 bolus; Site: left forearm; ca1 21:40 Follow up: Response: No adverse reaction; IV Status: Completed infusion; IV Intake: cc3 1000ml 21:35 Drug: ProTONIX 40 mg Route: IVP; Site: left antecubital; wh 21:40 Follow up: Response: No adverse reaction cc3 21:38 Drug: Magnesium Sulfate 1 grams Route: IVPB; Infused Over: 1 hrs; Site: left antecubital; 22:23 Follow up: Response: No adverse reaction; IV Status: Completed infusion; IV Intake: cc3 100ml 21:43 Drug: Cipro 400 mg Volume: 200 ml; Route: IVPB; Infused Over: 60 mins; Site: right wh forearm; 22:38 Follow up: Response: No adverse reaction; IV Status: Completed infusion; IV Intake: cc3 200ml 22:25 Drug: Flagyl 500 mg Volume: 100 ml; Route: IVPB; Rate: 200 ml/hr; Infused Over: 30 cc3 mins; Site: left antecubital; 22:55 Follow up: Response: No adverse reaction; IV Status: Completed infusion; IV Intake: cc3 100ml 22:40 Drug: Calcium Gluconate 1 grams Route: IVPB; Infused Over: 30 mins; Site: right 3 antecubital; 23:29 Follow up: Response: No adverse reaction; IV Status: Completed infusion; IV Intake: cc3 100ml 23:00 Drug: NS 0.9% with KCl 20 mEq/L 1000 ml Route: IV; Rate: 125 ml/hr; Site: left 3 antecubital; 06/25 01:49 Follow up: Response: No adverse reaction; IV Status: Infusion continued upon admission; cc3 IV Intake: 375ml 06/24 23:35 Drug: fentaNYL (PF) 25 mcg {Note: RASS 0.} Route: IVP; Site: right antecubital; cc3 06/25 00:00 Follow up: Response: No adverse reaction; Pain is decreased; RASS: Alert and Calm (0) cc3 06/24 23:39 Drug: Zofran 4 mg Route: IVP; Site: right antecubital; cc3 06/25 00:00 Follow up: Response: No adverse reaction; Nausea is decreased cc3 Intake: 06/24 21:40 IV: 1000ml; Total: 1000ml. cc3 22:23 IV: 100ml; Total: 1100ml. cc3 22:38 IV: 200ml; Total: 1300ml. cc3 22:55 IV: 100ml; Total: 1400ml. cc3 23:29 IV: 100ml; Total: 1500ml. cc3 06/25 01:49 IV: 375ml; Total: 1875ml. cc3 Outcome: 06/24 21:27 Decision to Hospitalize by Provider. [facility] 06/25 01:43 Admitted to Med/surg accompanied by tech, via wheelchair, room 212, with chart, Report cc3 called to ANCELMO Rush Condition: stable Instructed on the need for admit, Demonstrated understanding of instructions. 01:57 Patient left the ED. cc3 Signatures: Dispatcher [employer] EDMS Triston Salas MD MD cha Attema, Lee, RN RN la1 Juan Villafana Charlene cc3 Leatha Nur RN RN ca1 Christopher Burkett ag5 Corrections: (The following items were deleted from the chart) 06/24 21:42 21:12 ProTONIX 40 mg IVP in left antecubital [facility]
[2019-06-24] MEDS ORDERED: NS KCL 20MEQ 1,000 ML IV ONE (21:41)
[2019-06-24] MEDS ORDERED: ONDANSETRON 4 MG/2 ML VIAL IV PRN (21:43)
[2019-06-24] MEDS ORDERED: CALCIUM GLUCONATE 1 GM IVPB 1 GM/50 ML BAG IV ONE (21:48)
[2019-06-24] MEDS ORDERED: CALCIUM GLUC 10% INJ 4.65 MEQ in NA CHLORIDE 0.9% 100 ML IV ONE (22:07)
[2019-06-24 23:29] LABS: Urine Blood NEGATIVE (NEG); Urine Glucose NEGATIVE (NEG); Urine Protein NEGATIVE (NEG)
[2019-06-24] MEDS ORDERED: FENTANYL CITR 100 MCG/2 ML ONE (23:34)
[2019-06-24] MEDS ORDERED: ONDANSETRON 4 MG/2 ML VIAL ONE (23:34)
[2019-06-25] MEDS ORDERED: POTASSIUM CL SA 10 MEQ TAB PO ONE (02:13)
[2019-06-25] MEDS: NA CHLORIDE 0.9% 1,000 ML IV SCH (02:35)
[2019-06-25] MEDS: ACETAMINOPHEN 500 MG TAB PO PRN ×3 (02:36→20:39)
[2019-06-25 03:54] LABS: Urine Appearance CLEAR; Urine Bilirubin NEGATIVE (NEG); Urine Blood NEGATIVE (NEG); Urine Color YELLOW; Urine Glucose NEGATIVE (NEG); Urine Protein NEGATIVE (NEG); Urine Specific Gravity >=1.030 (1.005-1.030); Urine Urobilinogen 0.2 mg/dL (0.2-1.0)
[2019-06-25 04:01] LABS: Urine Microscopic Reflex NO UMIC
[2019-06-25] MEDS ORDERED: GUAIFENESIN/CODEINE 5ML UCUP PO PRN (06:17)
[2019-06-25] MEDS ORDERED: FUROSEMIDE 20 MG TABLET PO PRN (07:02)
[2019-06-25] MEDS ORDERED: ALBUTEROL SULFATE IN PRN (07:02)
--- NOTE | 2019-06-25 07:11 | P.HP ---
Certification for Inpatient Patient admitted to: Observation With expected LOS: <2 Midnights Patient will require the following post-hospital care: None Practitioner: I am a practitioner with admitting privileges, knowledge of patient current condition, hospital course, and medical plan of care. Services: Services provided to patient in accordance with Admission requirements found in Title 42 Section 412.3 of the Code of Federal Regulations Patient History Date of Service: 06/24/19 Reason for admission: Anemia and hypocalcemia History of Present Illness: Patient is a 39-year-old gentleman who came into the hospital with generalized weakness. Patient has a history of iron-deficiency anemia secondary to partial gastrectomy. Patient also has had small-bowel resection as well. Patient has secondary hypocalcemia from this. Patient has been feeling weak and having dizziness as well. Patient noticed some bright red blood in the stools as well. Patient was recently in the hospital so came into the hospital for further evaluation. Similar complaints as well. Patient will be admitted for further evaluation. Allergies naproxen Allergy (Verified 06/25/19 02:27) Unknown Penicillins Allergy (Verified 06/25/19 02:27) Rash zolpidem [From Ambien] Allergy (Verified 06/25/19 02:27) Unknown Home Medications: Albuterol Sulfate [Albuterol Sulfate Hfa] 2 puff IN QID PRN #1 hfa.aer.ad Calcium Carbonate/Vitamin D3 [Oscal 500 + Vit D 200 Iu Tab*] 1 tab PO DAILY #30 tab 06/17/19 Cyanocobalamin [Vitamin B-12*] 1,000 mcg PO DAILY #90 tab 06/17/19 Ferrous Sulfate [Ferrous Sulfate*] 325 mg PO TID #90 tab 06/17/19 Fluticasone [Flonase 50MCG Nasal [place]*] 1 sprays RENAE BID #1 btl 06/17/19 Fluticasone/Salmeterol [Advair 250-50 Diskus] 1 each IH BID #1 blst.w.dev Folic Acid 1 mg PO DAILY #30 tablet 06/17/19 Furosemide [Lasix] 20 mg PO DAILY PRN #15 tab 06/17/19 Magnesium Oxide [Mag 0X Tab] 400 mg PO DAILY #30 tab 06/17/19 Pantoprazole [Protonix Tab*] 40 mg PO DAILYAC #30 tab 06/17/19 - Past Medical/Surgical History Has patient received pneumonia vaccine in the past: No Diabetic: No -: Asthma -: Hypertension -: Traumatic Brain Injury -: Left Ankle Surgery -: Abdominal Surgery - Family History grandfather Medical History: Diabetes, Cancer - Social History Smoking Status: Former smoker Alcohol use: No CD- Drugs: No Caffeine use: No Place of Residence: Home Review of Systems 10-point ROS is otherwise unremarkable Physical Examination - Vital Signs Temperature: 97.2 F Blood Pressure: 115/59 Pulse: 101 Respirations: 20 Pulse Ox (%): 90 - Physical Exam General: Alert, In no apparent distress, Oriented x3 HEENT: Atraumatic, PERRLA, Mucous membr. moist/pink, EOMI, Sclerae nonicteric Neck: Supple, 2+ carotid pulse no bruit, No LAD, Without JVD or thyroid abnormality Respiratory: Clear to auscultation bilaterally, Normal air movement Cardiovascular: Regular rate/rhythm, Normal S1 S2, No murmurs Gastrointestinal: Normal bowel sounds, Soft and benign, Non-distended, No tenderness Musculoskeletal: No clubbing, No swelling, No tenderness Integumentary: No rashes Neurological: Normal gait, Normal speech, Normal strength at 5/5 x4 extr, Normal tone, Sensation intact, Cranial nerves 3-12 intact, Normal affect Lymphatics: No axilla or inguinal lymphadenopathy - Studies Laboratory Data (last 24 hrs) 06/24/19 20:04: PT 13.4 H, INR 1.14 06/24/19 20:04: WBC 13.2 H D, Hgb 7.4 L*, Hct 24.5 L, Plt Count 224 D 06/24/19 20:04: Sodium 137, Potassium 3.4 L, BUN 10, Creatinine 0.87, Glucose 86 , Magnesium 1.7 L, Total Bilirubin 0.7, AST 51 H, ALT 49, Alkaline Phosphatase 76, Lipase 134 Microbiology Data (last 24 hrs): 06/24/19 19:55 Nasopharnyx Influenza Type A Antigen Screen - Final 06/24/19 19:55 Nasopharnyx Influenza Type B Antigen Screen - Final Assessment & Plan - Problems (Diagnosis) (1) Iron deficiency anemia Current Visit: Yes Status: Acute (2) H/O major abdominal surgery Current Visit: No Status: Acute (3) Hypocalcemia Current Visit: No Status: Acute (4) Severe anemia Current Visit: No Status: Acute - Plan Plan: 1. Type and screen 1 unit of packed red blood cells 2. Iron levels 3. Calcium levels and transfuse calcium gluconate IV piggyback 4. Monitor labs closely 5. Monitor hemodynamics closely 6. GI and DVT prophylaxis Discharge Plan: Home Plan to discharge in: Greater than 2 days - Advance Directives Does patient have a Living Will: No Does patient have a Durable POA for Healthcare: No - Code Status/Comfort Care Code Status Assessed: Yes Code Status: Full Code Critical Care: No Time Spent Managing PTS Care (In Minutes): 45
[2019-06-25] MEDS ORDERED: CALCIUM GLUC 10% INJ 9.3 MEQ in NA CHLORIDE 0.9% 100 ML IV ONE (08:00)
[2019-06-25 08:25] LABS: Absolute Lymphocytes (CBC) 1.3 K/uL (0.7-4.9); Basophils % 0.8 % (0-1.3); Hematocrit 26.9 % (39.6-49.0); Lymphocytes % 14.2 % (15.3-44.8); MPV 9.6 fL (7.6-11.3); RBC Red Blood Cell Count 3.31 M/uL (4.33-5.43)
[2019-06-25] MEDS: FOLIC ACID 1 MG TABLET PO SCH (08:27)
[2019-06-25] MEDS: CYANOCOBALAMIN 1,000 MCG TAB SL SCH (08:28)
--- NOTE | 2019-06-25 08:43 | EKG ---
Test Date: 2019-06-24 Test Time: 20:47:10 Title Specialist: SANTO MEASUREMENT RESULTS: Intervals: Rate: 103 MD: 90 QRSD: 72 QT: 382 QTc: 500 Waite: P: -9 MD: 90 QRS: -14 T: -7 INTERPRETIVE STATEMENTS: Sinus tachycardia with short MD Nonspecific ST and T wave abnormality Abnormal ECG Compared to ECG 06/20/2019 17:47:37 No significant changes Electronically Signed On 06-25-19 08:43:07 CDT by Wally Villalta
[2019-06-25] MEDS ORDERED: HOME MED 1 EA UNK (Fluticasone/Salmeterol [Advair 250-50 Diskus] 1 EACH) IH SCH (09:00)
[2019-06-25] MEDS ORDERED: ENOXAPARIN 40 MG/0.4 ML SQ SCH (09:00)
[2019-06-25] MEDS: FLUTICASONE 50MCG NASAL SPRAY NAS SCH ×2 (09:00→20:39)
[2019-06-25 09:55] LABS: ALT/SGPT 45 U/L (12-78); AST/SGOT 46 U/L (15-37); Albumin 3.1 g/dL (3.4-5.0); Alkaline Phosphatase 71 U/L (45-117); BUN Blood Urea Nitrogen 10 mg/dL (7-18); Bicarbonate 31 mmol/L (21-32); Bilirubin Total 0.8 mg/dL (0.2-1.0); Ferritin 37.1 ng/mL (26-388); Folic Acid, (Folate) 19.8 ng/mL (3.1-17.5); Glucose Level 145 mg/dL (74-106); Magnesium 2.1 mg/dL (1.8-2.4); Phosphorus 4.6 mg/dL (2.5-4.9); Potassium 3.8 mmol/L (3.5-5.1); Protein, Total 7.7 g/dL (6.4-8.2); Sodium Level 138 mmol/L (136-145); Transferrin 241 mg/dL (200-360)
[2019-06-25] MEDS: METOCLOPRAMIDE 10 MG/2mL INJ IV SCH ×4 (11:00→21:40)
[2019-06-25] MEDS ORDERED: IBUPROFEN 400 MG TAB PO PRN (11:40)
[2019-06-25] MEDS: FERROUS SULFATE 325 MG TAB PO SCH ×3 (12:08→20:40)
[2019-06-25] MEDS: CALCIUM CARB 500MG/VIT D 200 IU TAB PO SCH ×2 (13:27→21:00)
[2019-06-25] MEDS: MAGNESIUM OXIDE 400 MG TAB PO SCH (13:27)
[2019-06-25] MEDS: CALCITROL 0.25 MCG CAP PO SCH (13:27)
[2019-06-25] MEDS: SALMETEROL IH SCH ×2 (13:29→20:42)
[2019-06-25] MEDS: FLUTICASONE IH SCH ×2 (13:29→20:42)
[2019-06-25] MEDS: BENZONATATE 100 MG CAP PO PRN (14:44)
--- NOTE | 2019-06-25 16:48 | PN ---
Date of Progress Note: 06/25/2019 Subjective: The patient is seen and examined. Chart reviewed and case discussed with RN and Dr. Los spangler. Patient reports lesions all over his body as well as some pain. Medications: List reviewed. Physical Examination: Vital Signs: Temperature 97.9, heart rate 93, blood pressure 106/55, respirations 20, O2 90% on room air. General: Awake, alert, oriented x3, in some mild distress. Obese male. CV: S1, S2. Regular rate and rhythm. Respiratory: Moving air well bilaterally. No wheezing. Gastrointestinal: Abdomen is soft, nontender, nondistended. Positive bowel sounds. Extremities: No clubbing, cyanosis. The patient has pedal edema. Neuro: Cranial nerves 2 through 12 intact grossly. No focal neurological deficits. Speech is mihn l. Skin: Patient has circular ulcerated lesions on his bilateral upper extremities, lower extremities, as well as his back. Minimal surrounding erythema. Laboratory Data: Sodium 138, potassium 3.8, chloride 101, CO2 of 31, BUN 10, creatinine 0.87, glucos e 145, calcium 5.4, magnesium 2.1. Iron 52, TIBC 337, transferrin 241, ferritin 37.1, vitamin B12 33 6, folate 19.8. Procalcitonin is 0.27. WBC 9.3, H and H 8.8, 26.9, platelets 173, neutrophils 73%. Blood cultures pending. Influenza screen is negative. Assessment And Plan: A 39-year-old male with: 1.Severe hypocalcemia, worse today. We will start on Rocaltrol 0.5 mcg daily. Monitor closely. 2.Severe anemia with history of bloody stools. Monitor H and H, transfuse as needed for hemoglobin less than 7. Consult GI. 3.History of gastric surgery likely with pernicious anemia. 4.Multiple skin lesions, unclear etiology. Consider surgical biopsy. We will apply Bactroban topic al. Patient's white blood cell count normalized. Procalcitonin was in the mid range indicating syst emic infection, not likely a local bacterial infection, possible with the procalcitonin 0.27. We jillian l obtain wound culture. /LUZ ELENA Voice ID: [id number] Report ID: [id number]
[2019-06-25] MEDS ORDERED: ALBUTEROL 2.5 MG/3 ML NEB SOL NEB PRN ×2 (17:24→18:40)
[2019-06-25] MEDS: MUPIROCIN 2% OINT 22GM TUBE TOP SCH (20:39)
[2019-06-25] MEDS: MAGNESIUM CITRATE 300 ML BOT PO SCH (20:40)
[2019-06-25] MEDS: GOLYTELY 4000 ML PO SCH (20:41)
[2019-06-25] MEDS: GUAIFENESIN/DM 5 ML UCUP PO PRN (20:45)
[2019-06-26] MEDS: METOCLOPRAMIDE 10 MG/2mL INJ IV SCH ×2 (01:04→09:06)
[2019-06-26] MEDS ORDERED: PANTOPRAZOLE 40MG TABLET PO SCH (06:30)
[2019-06-26 06:52] LABS: Absolute Lymphocytes (CBC) 1.5 K/uL (0.7-4.9); Basophils % 0.5 % (0-1.3); Hematocrit 24.5 % (39.6-49.0); Lymphocytes % 15.6 % (15.3-44.8); MPV 10.2 fL (7.6-11.3); RBC Red Blood Cell Count 2.96 M/uL (4.33-5.43)
[2019-06-26 07:07] LABS: ALT/SGPT 45 U/L (12-78); AST/SGOT 45 U/L (15-37); Alkaline Phosphatase 63 U/L (45-117); BUN Blood Urea Nitrogen 7 mg/dL (7-18); Bicarbonate 32 mmol/L (21-32); Bilirubin Total 0.6 mg/dL (0.2-1.0); Glucose Level 118 mg/dL (74-106); Magnesium 2.1 mg/dL (1.8-2.4); Potassium 3.8 mmol/L (3.5-5.1); Sodium Level 141 mmol/L (136-145)
[2019-06-26] MEDS: NA CHLORIDE 0.9% 1,000 ML IV SCH (07:20)
[2019-06-26] MEDS ORDERED: KCL 20 MEQ/100 mL IVPB 20 MEQ/100 ML BAG IV SCH (09:00)
[2019-06-26] MEDS: FERROUS SULFATE 325 MG TAB PO SCH ×3 (09:00→20:27)
[2019-06-26] MEDS: FOLIC ACID 1 MG TABLET PO SCH (09:00)
[2019-06-26] MEDS: CALCIUM CARB 500MG/VIT D 200 IU TAB PO SCH ×2 (09:00→20:28)
[2019-06-26] MEDS: CYANOCOBALAMIN 1,000 MCG TAB SL SCH (09:00)
[2019-06-26] MEDS: CALCITROL 0.25 MCG CAP PO SCH (09:00)
[2019-06-26] MEDS: MAGNESIUM OXIDE 400 MG TAB PO SCH (09:00)
[2019-06-26] MEDS: FLUTICASONE 50MCG NASAL SPRAY NAS SCH ×2 (09:00→21:00)
[2019-06-26] MEDS: MUPIROCIN 2% OINT 22GM TUBE TOP SCH (09:06)
[2019-06-26] MEDS: FLUTICASONE IH SCH ×2 (09:07→20:27)
[2019-06-26] MEDS: SALMETEROL IH SCH ×2 (09:07→20:27)
[2019-06-26] MEDS: MEDIHONEY 44 ML TOPICAL TUBE TOP SCH (10:21)
[2019-06-26 11:28] LABS: Hematocrit 24.4 % (39.6-49.0)
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
[2019-06-26] MEDS ORDERED: PROPOFOL 200 MG/20 ML VIAL IV ONE ×2 (12:29→13:37)
--- NOTE | 2019-06-26 12:59 | PN ---
Date of Progress Note: 06/26/2019 Patient is seen and examined. Chart reviewed and case discussed with RN and Dr. Lowe. Patient is scheduled for colonoscopy today, had some difficulty completing his prep. Medications: List reviewed. Physical Examination: Vital Signs: Temperature 98.9, heart rate 100, blood pressure 111/59, respirations 20, O2 at 90% on room air. General: Awake, alert, oriented x3, in some mild distress. CV: S1, S2. Sinus tachycardia. Peripheral pulses present. Respiratory: Moving air well bilaterally. No wheezing or stridor. No use of accessory muscles. Gastrointestinal: Abdomen is soft, nontender. Mild distention. Positive bowel sounds. Extremities: No clubbing, cyanosis. Patient has pedal edema. Neurologic: Nonfocal. Skin: Patient has multiple discoid type lesions on his upper extremities, back and lower extremities with some ulceration present. Laboratory Data: Sodium 141, potassium 3.8, chloride 102, CO2 of 32, BUN 7, creatinine 0.73, glucose 118, calcium 5.6, magnesium 2.1, albumin 3, corrected calcium is 6.4. AST 45, ALT 45, albumin 3. WBC 9.7, H and H 7.5 and 24.5, platelets 174, neutrophils 72%. Wound cultures pending. Urine culture, no growth. Blood cultures, no growth to date. Assessment And Plan: A 39-year-old male with: 1. Severe hypocalcemia, improving. We will continue Rocaltrol and monitor closely. Corrected calcium is 6.4. 2. Acute blood loss anemia with history of bloody stools. The patient's H and H dropped again today. We will recheck in 6 hours, transfuse for hemoglobin less than 7. Appreciate GI input. Dr. Lowe plans for colonoscopy today. 3. GI Bleed. [facility]. 4. DISH. Spoke with Dr. Johnson, recommends outpatient followup after symptomatic treatment in the wound healing center. If not improving, he will do biopsy at that time. He recommends [facility]. WBC count is improved. Cultures are pending at this time. 5. Obesity, BMI 39.3. 6. History of traumatic brain injury. 7. Asthma, stable. Albuterol as needed. 8. History of gastric surgery, likely with pernicious anemia. We will continue with iron supplements and vitamin supplements. Plan: Follow up on colonoscopy results. LINDSEY Voice ID: [id number] Report ID: [id number] KUNAL
[2019-06-26] MEDS: MAGNESIUM CITRATE 300 ML BOT PO SCH (13:00)
[2019-06-26] MEDS: GOLYTELY 4000 ML PO SCH (13:10)
--- NOTE | 2019-06-26 13:17 | ENDO RPT ---
[address], [address] EGD PROCEDURE REPORT EXAM DATE: 06/26/2019 PATIENT NAME: Blanche Lo MR#: [id number] BIRTHDATE: 1980 ATTENDING: Julian Lowe Dr STATUS: inpatient POLEYARD SUPERVISOR: Shell Prasad and Niesha Pillai RN INDICATIONS: The patient is a 39 yr old Male here for an EGD due to melenic bleeding, anemia, abdominal pain, and chronic unexplained diarrhea PROCEDURE PERFORMED: EGD with biopsy MEDICATIONS: Per Anesthesia. TOPICAL ANESTHETIC: none CONSENT: The patient understands the risks and benefits of the procedure and understands that these risks include, but are not limited to: sedation, allergic reaction, infection, perforation and/or bleeding. Alternative means of evaluation and treatment include, among others: physical exam, x-rays, and/or surgical intervention. The patient elects to proceed with this endoscopic procedure. DESCRIPTION OF PROCEDURE: During intra-op preparation period all mechanical medical equipment was checked for proper function. Hand hygiene and appropriate measures for infection prevention was taken. Procedure, possible complications, and alternatives including but not limited to the possibility of bleeding, perforation, tear, infection, sepsis, need for surgery, need for blood transfusion, and anesthesia related complications were explained to the patient. After the risks, benefits and alternatives of the procedure were thoroughly explained, Informed consent was verified, confirmed and timeout was successfully executed by the treatment team. The patient was placed in the left lateral position. The patient was anesthetized with topical anesthesia. Through the anesthetized oropharyngeal area, the scope was passed without any difficulty. The Pentax EG-[id number] ([id number]) endoscope was introduced through the mouth and advanced to the third portion of the duodenum. Retroflexed views revealed a small hiatal hernia. The gastroscope was then slowly withdrawn and removed. LA class B esophagitis was found in the lower esophagus. A small hiatal hernia was found Mild gastritis was found in the antrum. Multiple biopsies were obtained and sent to pathology. Multiple (4) erosions were found in the antrum. Mild cobblestone inflammed appearance of mucosa was found in the bulb of the duodenum, s/p biopsies. ADVERSE EVENTS: There were no complications. IMPRESSIONS: 1. LA class B esophagitis in the lower esophagus 2. Small hiatal hernia 3. Mild gastritis in the antrum, s/p biopsies 4. Multiple (4) erosions in the antrum 5. Mild cobblestone inflammed appearance of mucosa in the bulb of the duodenum, s/p biopsies RECOMMENDATIONS: 1. await biopsy results 2. acid suppression therapy REPEAT EXAM: Julian Lowe Dr eSigned: Julian Lowe Dr 06/26/2019 1:16 PM cc: CPT CODES: ICD9 CODES: PATIENT NAME: Blanche Lo MR#: [id number]
--- NOTE | 2019-06-26 14:07 | ENDO RPT ---
[address], [address] COLONOSCOPY PROCEDURE REPORT EXAM DATE: 06/26/2019 PATIENT NAME: Blanche Lo MR #: [id number] BIRTHDATE: 1980 ATTENDING: Julian Lowe Dr STATUS: inpatient HUMAN RESOURCES TALENT MANAGER: Shell Prasad and Niesha Pillai RN INDICATIONS: The patient is a 39 yr old Male here for a colonoscopy due to hematochezia, melenic bleeding, anemia, abdominal pain, change in bowel habits, and unexplained chronic diarrhea PROCEDURE PERFORMED: Colonoscopy MEDICATIONS: Per Anesthesia. ESTIMATED BLOOD LOSS: 20 cc CONSENT: The patient understands the risks and benefits of the procedure and understands that these risks include, but are not limited to: sedation, allergic reaction, infection, perforation and/or bleeding. Alternative means of evaluation and treatment include, among others: physical exam, x-rays, and/or surgical intervention. The patient elects to proceed with this endoscopic procedure. DESCRIPTION OF PROCEDURE: During intra-op preparation period all mechanical medical equipment was checked for proper function. Hand hygiene and appropriate measures for infection prevention was taken. Procedure, possible complications, alternatives including, but not limited to possibility of bleeding, perforation, tear, infection, sepsis, need for surgery, need for blood transfusion, were explained to the patient. After the risks, benefits and alternatives of the procedure were thoroughly explained, Informed consent was verified, confirmed and timeout was successfully executed by the treatment team. The patient was placed in the left lateral position. A digital rectal exam was performed and revealed external hemorrhoids. After appropriate level of anesthesia, the scope was passed. The EG-[id number] ([id number]) and [id number] ([id number]) endoscope was introduced through the anus and advanced to the ileum. The quality of the prep was fair. The instrument was then slowly withdrawn as the colon was fully examined. Scope withdrawal time was 8 minutes. COLON FINDINGS: A significant amount of clotted and fresh blood was found in the terminal ileum. There was evidence of a prior end-to-side surgical anastomosis in the terminal ileum. A significant amount of fresh blood was found throughout the entire examined colon. A polypoid shaped sessile polyp measuring 2 cm in size was found at the cecum. Two polypoid shaped flat polyps ranging between 5-9mm in size were found in the ascending colon. There was evidence of a prior end-to-side colo-colonic surgical anastomosis in the sigmoid colon. Moderate sized internal and external hemorrhoids were found. Retroflexed views revealed no abnormalities. The scope was then completely withdrawn from the patient and the procedure terminated. ADVERSE EVENTS: There were no complications. IMPRESSIONS: 1. Significant amount of blood in the terminal ileum with large 2-3 cm adherent clot at maximal intubation ( 10 cm into ileum) which was not removed 2. There was evidence of a prior surgical anastomosis in the terminal ileum at 7 cm into ileum 3. Significant amount of red blood scattered throughout the entire examined colon 4. Sessile polyp measuring 2 cm in size in the base of the cecum 6. There was evidence of a prior colo-colonic surgical anastomosis in the sigmoid colon 7. Moderate sized internal and external hemorrhoids 8. Intubation to ileum RECOMMENDATIONS: 1. inform surgery (already following patient for skin lesions) 2. consider Meckel's scan, Small Bowel Follow Through / pillcam 4. consider ICU monitoring and possible IR intervention 5. angiogram (not available) RECALL: Julian Lowe Dr eSigned: Julian Lowe Dr 06/26/2019 2:06 PM cc: CPT CODES: ICD9 CODES: PATIENT NAME: Blanche Lo MR#: [id number]
[2019-06-26] MEDS ORDERED: NA CHLORIDE 0.9% 1,000 ML ONE (14:48)
[2019-06-26] MEDS ORDERED: MORPHINE 2 MG/ML SYR IV ONE (15:08)
[2019-06-26] MEDS ORDERED: NA CHLORIDE 0.9% 100 ML ONE (15:54)
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
--- NOTE | 2019-06-26 19:09 | RAD REPORT ---
EXAM DESCRIPTION: CT - CT ANGIO ABD/PELVIS W CONTRAST - 06/26/2019 6:51 pm CLINICAL HISTORY: Abdominal pain COMPARISON: None. TECHNIQUE: CT angiography of the abdominal aorta was performed with MIPS. All CT scans are performed using dose optimization technique as appropriate and may include automated exposure control or mA/KV adjustment according to patient size. FINDINGS: Abdominal aorta is normal in diameter with no dissection or other acute aortic findings. N o para-aortic abnormality seen. Fatty liver noted. Cholelithiasis. The spleen, pancreas, adrenal glands and kidneys within normal galo its. Celiac axis, SMA and DELVIN are patent. Both renal arteries are patent. No significant mesenteric arteri al stenosis or occlusion. Fat containing right lumbar hernia seen. Postsurgical changes of small bowel in the right upper quadr ant without contrast blush seen in the region. IMPRESSION: No significant mesenteric arterial flow abnormality detected.
[2019-06-26] MEDS ORDERED: FUROSEMIDE 20 MG/ 2ML VIAL IV ONE (20:03)
[2019-06-26 20:31] LABS: Absolute Lymphocytes (CBC) 1.4 K/uL (0.7-4.9); Basophils % 1.5 % (0-1.3); Hematocrit 26.7 % (39.6-49.0); RBC Red Blood Cell Count 3.22 M/uL (4.33-5.43)
[2019-06-26] MEDS ORDERED: POTASSIUM CL SA 10 MEQ TAB PO ONE (21:00)
[2019-06-26] MEDS ORDERED: LORazepam 2 MG/ML VIAL IV ONE (21:38)
[2019-06-26] MEDS: PANTOPRAZOLE 40 MG INJ IVP SCH (21:44)
[2019-06-26] MEDS: SODIUM CHLORIDE 0.9% 10ML INJ IV PRN (21:45)
[2019-06-27 05:11] LABS: Absolute Lymphocytes (CBC) 1.3 K/uL (0.7-4.9); Basophils % 1.4 % (0-1.3); Hematocrit 26.7 % (39.6-49.0); Lymphocytes % 14.6 % (15.3-44.8); MPV 9.7 fL (7.6-11.3); RBC Red Blood Cell Count 3.26 M/uL (4.33-5.43)
[2019-06-27 05:39] LABS: ALT/SGPT 54 U/L (12-78); AST/SGOT 82 U/L (15-37); Albumin 3.3 g/dL (3.4-5.0); Alkaline Phosphatase 66 U/L (45-117); BUN Blood Urea Nitrogen 5 mg/dL (7-18); Bicarbonate 33 mmol/L (21-32); Bilirubin Total 0.9 mg/dL (0.2-1.0); Glucose Level 103 mg/dL (74-106); Potassium 3.8 mmol/L (3.5-5.1); Protein, Total 7.3 g/dL (6.4-8.2); Sodium Level 139 mmol/L (136-145)
[2019-06-27] MEDS: GUAIFENESIN/DM 5 ML UCUP PO PRN (06:31)
[2019-06-27] MEDS: FLUTICASONE 50MCG NASAL SPRAY NAS SCH ×2 (09:00→20:58)
[2019-06-27] MEDS: SALMETEROL IH SCH ×2 (09:00→20:56)
[2019-06-27] MEDS ORDERED: POTASSIUM CL SA 10 MEQ TAB PO ONE (09:00)
[2019-06-27] MEDS ORDERED: MEDIHONEY 44 ML TOPICAL TUBE TOP SCH (09:00)
[2019-06-27] MEDS: FLUTICASONE IH SCH ×2 (09:00→20:56)
[2019-06-27] MEDS: MEDIHONEY 44 ML TOPICAL TUBE TOP SCH (09:00)
[2019-06-27] MEDS: FERROUS SULFATE 325 MG TAB PO SCH ×3 (09:14→20:54)
[2019-06-27] MEDS: PANTOPRAZOLE 40 MG INJ IVP SCH ×2 (09:14→20:54)
[2019-06-27] MEDS: FOLIC ACID 1 MG TABLET PO SCH (09:14)
[2019-06-27] MEDS: MAGNESIUM OXIDE 400 MG TAB PO SCH (09:14)
[2019-06-27] MEDS: BENZONATATE 100 MG CAP PO PRN (09:17)
[2019-06-27 09:25] LABS: Protime INR 1.19
[2019-06-27] MEDS: CALCIUM CARB 500MG/VIT D 200 IU TAB PO SCH ×2 (11:07→20:56)
[2019-06-27] MEDS: CYANOCOBALAMIN 1,000 MCG TAB SL SCH (11:08)
[2019-06-27] MEDS: CALCITROL 0.25 MCG CAP PO SCH (11:08)
[2019-06-27] MEDS: ACETAMINOPHEN 500 MG TAB PO PRN ×2 (11:18→17:15)
[2019-06-27] MEDS: NA CHLORIDE 0.9% 1,000 ML IV SCH ×3 (12:54→17:40)
[2019-06-27] MEDS ORDERED: MORPHINE 2 MG/ML SYR IV ONE (13:16)
--- NOTE | 2019-06-27 13:53 | RAD REPORT ---
EXAM DESCRIPTION: CT - Abdomen Pelvis W Contrast - 06/25/2019 4:40 am CLINICAL HISTORY: 39 years Male ABD PAIN COMPARISON: 06/15/2019. 06/15/2019. TECHNIQUE: Contiguous axial images obtained through the abdomen and pelvis following IV contrast. Re formatted images obtained. The images were obtained following oral contrast. This exam was performed according to our department optimization program which includes automated exp osure control, adjustment of the mA and/or kv according to patient size and/or use of iterative recon struction technique. FINDINGS: The lung basTs are clear. The liver is enlarged measuring 21 cm. There is fatty replacement in the liver. The spleen and pancreas appear unremarkable. No adrenal masses. The kidneys appear unremarkable. No hydronephrosis. There are gallstones in the gallbladder. No aneurysmal dilatation of the aorta. There is a large right abdominal side wall hernia consistent with a lumbar hernia. The appearance is similar compared to the prior study. The appendix and ascending colon slightly extend into the hernia . There are postsurgical changes around the proximal sigmoid colon. No bowel obstruction. The appe ndix appears unremarkable. No significant free pelvic fluid. There is mild stranding in the subcutaneous abdominal fat. This is less pronounced in comparison to t he previous study. There is mild curvature in the lower thoracic and lumbar spine convex left. Degenerative changes in the spine. IMPRESSION: There is a large right-sided abdominal wall hernia consistent with a lumbar hernia. Th e ascending colon and appendix extend slightly into the hernia. No evidence of bowel obstruction. The appearance is similar compared to the prior study. Cholelithiasis. If there is clinical concern for the possibility of cholecystitis, sonography or n [facility] imaging could be obtained to better evaluate. Enlarged fatty liver. Electronically signed by: Yony Lyon MD 06/25/2019 12:30 AM CDT Due to temporary technical issues with the PACS/Fluency reporting system, reports are being signed by the in house radiologist as a courtesy to ensure prompt reporting. The interpreting radiologist is f changly responsible for the content of the report.
--- NOTE | 2019-06-27 15:39 | PN ---
Date of Progress Note: 06/27/2019 Subjective: Patient is seen and examined. Chart reviewed and case discussed with RN, Dr. Johnson, and Dr. Lowe. Patient was attempted to be transferred yesterday to [facility], I spoke with GI, Dr. Oquendo, however, wanted CT angio of the abdomen and he did not feel that IR was necessarily the required procedure. [facility] and [facility] were also attempted which were and the patient was denied. [facility] denied due to bed capacity and [facility] denied has no accepting physician available. Patient himself has been doing okay. No further bloody bowel movements. Uncle at the bedside. Treatment plan explained. All questions answered. Medications: Medication list reviewed. Physical Examination: Vital Signs: Temperature 98.8, heart rate 91, blood pressure 112/78, respirations 19, O2 86% on room air. Patient does desaturation while asleep due to sleep apnea. General: Awake, alert, oriented x3. Morbidly obese male ill-appearing. CV: S1, S2. Regular rate and rhythm. Peripheral pulses present. Respiratory: Moving air well bilaterally. No wheezing or stridor. No use of accessory muscles. Gastrointestinal: Abdomen is soft. Mild tenderness to palpation. No guarding or rigidity. Positive bowel sounds. Incision site clean, dry, and intact with some keloid formation. Extremities: No clubbing, cyanosis, or edema. No calf tenderness. Neuro: Cranial nerves 2 through 12 intact grossly. No focal neurological deficit. Speech is normal. Laboratory Data: Sodium 139, potassium 3.8, chloride 99, CO2 of 33, BUN 5, creatinine 0.75, glucose 103, calcium 5.9, AST 82, ALT 54, albumin 3.3. WBC 8.8 , H and H 8.5, 26.7, platelets 163. Stool occult blood is positive. Wound cultures from the arm growing out skin yayo. Blood culture is negative to date. Assessment And Plan: A 39-year-old male with. 1. Lower gastrointestinal bleed, status post EGD and colonoscopy. Patient has multiple anastomosis ulcers, as well as polyps in the cecum. Patient also found to have large clot at the terminal ileum, has moderate internal and external hemorrhoids. Patient will need angiogram unable to be done at this facility. Surgery recommends transfer to higher level of care. Transfer still being processed at [facility]. They requested GI, Dr. Lowe to call their GI doctor. He will call in between cases today. Patient requires surgical intervention or possible Interventional Radiology intervention for embolization after arteriogram. 2. Acute blood loss anemia, status post 1 unit PRBCs. We will continue to monitor H and H and transfuse for hemoglobin less than 7. 3. Severe hypocalcemia, improving. Corrected calcium is close to 7. 4. History of gastric surgery and secondary pernicious anemia. We will continue with iron supplements. 5. Diffuse idiopathic skeletal hyperostosis. We will continue with symptomatic treatment with Medihoney. Follow up on cultures. Most of them are growing skin yayo and likely contaminant. 6. Obesity, BMI 39.3. 7. History of traumatic brain injury. 8. Essential hypertension, stable. 9. History of asthma. Albuterol p.r.n. 10. Obstructive sleep apnea. Patient has never had a sleep study, however, does have desaturations at night. We will place on CPAP at night. 11. Continue with transfer process. LINDSEY Voice ID: [id number] Report ID: [id number]
--- NOTE | 2019-06-27 15:58 | RAD REPORT ---
EXAM DESCRIPTION: NM - Bowel Imaging Ligia - 06/27/2019 3:32 pm CLINICAL HISTORY: GI bleed COMPARISON: CT study June 26 TECHNIQUE: The patient was administered a 10 point millicuries Tc 99 m pertechnetate. Dynamic imagi ng was performed over 1 minute. Imaging continued for 1 hour with static images obtained every 2 samantha rodger. FINDINGS: Normal physiologic activity is seen in the stomach. There is normal physiologic accumulati on of the radiopharmaceutical in the urinary bladder. No abnormal activity is seen that would indicate a Meckel's diverticulum or other focus of ectopic ga stric mucosa. IMPRESSION: Normal Meckel's scan.
[2019-06-27] MEDS: SODIUM CHLORIDE 0.9% 10ML INJ IV PRN (20:54)
[2019-06-27] MEDS: FENTANYL CITR 100 MCG/2 ML IV PRN (22:20)
[2019-06-28] MEDS: FENTANYL CITR 100 MCG/2 ML IV PRN (02:03)
[2019-06-28 04:41] VITALS: O2SAT 98
[2019-06-28 05:12] VITALS: TEMP 98.3
[2019-06-28] MEDS: NA CHLORIDE 0.9% 1,000 ML IV SCH (05:21)
[2019-06-28 05:37] LABS: BUN Blood Urea Nitrogen 6 mg/dL (7-18); Bicarbonate 32 mmol/L (21-32); Glucose Level 96 mg/dL (74-106); Potassium 3.7 mmol/L (3.5-5.1); Sodium Level 140 mmol/L (136-145)
[2019-06-28 06:00] VITALS: BMI 38.0
[2019-06-28] MEDS ORDERED: POTASSIUM CL SA 10 MEQ TAB PO ONE (07:00)
[2019-06-28] MEDS: FLUTICASONE 50MCG NASAL SPRAY NAS SCH (09:00)
[2019-06-28] MEDS: MAGNESIUM OXIDE 400 MG TAB PO SCH (09:00)
[2019-06-28] MEDS: FLUTICASONE IH SCH (09:04)
[2019-06-28] MEDS: FERROUS SULFATE 325 MG TAB PO SCH ×2 (09:04→14:00)
[2019-06-28] MEDS: SALMETEROL IH SCH (09:04)
[2019-06-28] MEDS: FOLIC ACID 1 MG TABLET PO SCH (09:04)
[2019-06-28] MEDS: PANTOPRAZOLE 40 MG INJ IVP SCH (09:04)
[2019-06-28] MEDS: CALCITROL 0.25 MCG CAP PO SCH (09:05)
[2019-06-28] MEDS: CALCIUM CARB 500MG/VIT D 200 IU TAB PO SCH (09:05)
[2019-06-28] MEDS: CYANOCOBALAMIN 1,000 MCG TAB SL SCH (09:05)
--- NOTE | 2019-06-28 12:39 | P.PN ---
Subjective Date of Service: 06/28/19 Chief Complaint: Anemia and hypocalcemia Subjective: No new changes Patient is complaining of persistent abdominal pain in the mid abdomen. His hemoglobin has been stable around 8. No gross bleeding. Physical Examination - Vital Signs Temperature: 98.3 F Blood Pressure: 118/64 Pulse: 86 Respirations: 20 Pulse Ox (%): 96 - Physical Exam General: In no apparent distress, Oriented x3 HEENT: Mucous membr. moist/pink Respiratory: Clear to auscultation bilaterally, Normal air movement Cardiovascular: No edema, Normal pulses, Regular rate/rhythm, Normal S1 S2 Capillary refill: <2 Seconds Gastrointestinal: Normal bowel sounds, Soft and benign, Non-distended, Tenderness (Mid abdomen) Musculoskeletal: No swelling, No erythema Integumentary: Other (Circular lesions B/l arms and back. The lesions are healing.) Neurological: Normal speech, Normal strength at 5/5 x4 extr Assessment And Plan - Current Problems (Diagnosis) (1) Acute blood loss anemia Current Visit: Yes Status: Acute (2) GI bleed Current Visit: Yes Status: Acute (3) Skin rash Current Visit: Yes Status: Acute (4) Iron deficiency anemia Current Visit: Yes Status: Acute (5) H/O major abdominal surgery Current Visit: No Status: Acute (6) Hypocalcemia Current Visit: No Status: Acute (7) Obstructive sleep apnea Current Visit: Yes Status: Acute - Plan GI recommend angiogram. Unable to do angiogram at this facility. Patient is awaiting transfer to [facility]. He may also require surgical intervention or possible Interventional Radiology intervention for embolization after arteriogram. Monitor for active bleeding. Status post 1 unit PRBCs. Hemoglobin is around 8. Continue to monitor H and H and transfuse for hemoglobin less than 7. Continue calcium and Vit D supplementation and Rocaltrol for hypocalcemia. History of gastric surgery and secondary pernicious anemia. We will continue with iron supplements. Continue symptomatic treatment with Medihoney for skin ulcers. Follow up on cultures. Most of them are growing skin yayo and likely contaminant. Obesity, BMI 39.3. History of traumatic brain injury. Patient has never had a sleep study. CPAP at night. Outpatient sleep study recommended.
[2019-06-28 13:54] LABS: Hematocrit 27.7 % (39.6-49.0)
[2019-06-28 15:13] VITALS: BP 118/72
--- OUTSIDE RECORDS SUMMARY | 2019-07-03 19:43 | XMS REPORT ---
:1980 [facility] Address [address] [place] [address] Care Team Providers Name Role Phone TIM BARRERAELE ARIEL Unavailable Unavailable Problems This patient has no known problems. Allergies, Adverse Reactions, Alerts This patient has no known allergies or adverse reactions. Medications This patient has no known medications. Results Test Description Test Time Test Comments Text Results Atomic Results Result Comments BASIC METABOLIC PANEL 2019-06-30 07:38:00 Test Item Value Reference Range Comments SODIUM (BEAKER) (test 137 meq/L 136-145 hysv=144) POTASSIUM (BEAKER) (test 4.0 meq/L 3.5-5.1 kbah=525) CHLORIDE (BEAKER) (test 100 meq/L 98-107 hjvy=005) CO2 (BEAKER) (test 27 meq/L 22-29 srbg=669) BLOOD UREA NITROGEN 4 mg/dL 7-21 (BEAKER) (test phjt=473) CREATININE (BEAKER) (test 0.71 mg/dL 0.57-1.25 lrhl=668) GLUCOSE RANDOM (BEAKER) 110 mg/dL 70-105 (test liua=876) CALCIUM (BEAKER) (test 7.2 mg/dL 8.4-10.2 hapn=831) EGFR (BEAKER) (test 125 mL/min/1.73 sq m ESTIMATED GFR IS NOT djzc=0082) ACCURATE CREATININE CLEARANCE IN PREDICTING GLOMERULAR FILTRATION RATE. ESTIMATED GFR IS NOT APPLICABLE FOR DIALYSIS PATIENTS. [id number] 07:19:00 Test Item Value Reference Range Comments PHOSPHORUS (BEAKER) (test hcnj=090) 4.5 mg/dL 2.3-4.7 [id number] 07:19:00 Test Item Value Reference Range Comments MAGNESIUM (BEAKER) (test sjjr=662) 2.0 mg/dL 1.6-2.6 CBC W/PLT COUNT & AUTO [id number] 07:11:00 Test Item Value Reference Range Comments WHITE BLOOD CELL COUNT (BEAKER) (test nsok=307) 7.3 K/ L 3.5-10.5 RED BLOOD CELL COUNT (BEAKER) (test kwvn=091) 3.63 M/ L 4.63-6.08 HEMOGLOBIN (BEAKER) (test zghb=122) 9.4 GM/DL 13.7-17.5 HEMATOCRIT (BEAKER) (test winb=189) 33.6 % 40.1-51.0 MEAN CORPUSCULAR VOLUME (BEAKER) (test yzmw=263) 92.6 fL 79.0-92.2 MEAN CORPUSCULAR HEMOGLOBIN (BEAKER) (test 25.9 pg 25.7-32.2 gteb=169) MEAN CORPUSCULAR HEMOGLOBIN CONC (BEAKER) (test 28.0 GM/DL 32.3-36.5 toyo=899) RED CELL DISTRIBUTION WIDTH (BEAKER) (test 20.4 % 11.6-14.4 htxh=415) PLATELET COUNT (BEAKER) (test jqih=825) 196 K/CU MM 150-450 MEAN PLATELET VOLUME (BEAKER) (test jwza=196) 12.5 fL 9.4-12.4 NUCLEATED RED BLOOD CELLS (BEAKER) (test 0 /100 WBC 0-0 uqok=504) NEUTROPHILS RELATIVE PERCENT (BEAKER) (test 71 % pzti=118) LYMPHOCYTES RELATIVE PERCENT (BEAKER) (test 16 % uwwj=802) MONOCYTES RELATIVE PERCENT (BEAKER) (test 7 % sxih=220) EOSINOPHILS RELATIVE PERCENT (BEAKER) (test 5 % hmmt=122) BASOPHILS RELATIVE PERCENT (BEAKER) (test 1 % ltik=955) NEUTROPHILS ABSOLUTE COUNT (BEAKER) (test 5.18 K/ L 1.78-5.38 wdeb=043) LYMPHOCYTES ABSOLUTE COUNT (BEAKER) (test 1.13 K/ L 1.32-3.57 npwa=532) MONOCYTES ABSOLUTE COUNT (BEAKER) (test 0.53 K/ L 0.30-0.82 anzk=307) EOSINOPHILS ABSOLUTE COUNT (BEAKER) (test 0.34 K/ L 0.04-0.54 okjz=876) BASOPHILS ABSOLUTE COUNT (BEAKER) (test 0.04 K/ L 0.01-0.08 qnvu=327) IMMATURE GRANULOCYTES-RELATIVE PERCENT (BEAKER) 1 % 0-1 (test xbeq=9278) [id number] 07:07:00 Test Item Value Reference Range Comments PARTIAL THROMBOPLASTIN TIME (BEAKER) (test 39.0 seconds 22.5-36.0 ouzf=658) PROTHROMBIN [id number] 07:06:00 Test Item Value Reference Range Comments PROTIME (BEAKER) (test njbq=438) 14.3 seconds 11.9-14.2 INR (BEAKER) (test xmqc=819) 1.2 <=5.9 Effective 01/19/2019: PT Reference Range ChangeNew: 11.9-14.2 Previous: 11.7- 14.7RECOMMENDED COUMADIN/WARFARIN INR THERAPY RANGESSTANDARD DOSE: 2.0-3.0 Includes: PROPHYLAXIS for venous thrombosis, systemic embolization; TREATMENT for venous thrombosis and/or pulmonary embolus.HIGH RISK: Target INR is2.5-3.5 for patients wiht mechanical heart valves.CALCIUM, [id number] 07:05:00 Test Item Value Reference Range Comments CALCIUM IONIZED (BEAKER) (test xgrl=339) 0.73 mmol/L 1.12-1.27 PH, BLOOD (BEAKER) (test akrh=9616) 7.54 CBC W/PLT COUNT & AUTO [id number] 15:06:00 Test Item Value Reference Range Comments WHITE BLOOD CELL COUNT (BEAKER) (test nwlf=318) 8.4 K/ L 3.5-10.5 RED BLOOD CELL COUNT (BEAKER) (test kswr=916) 3.72 M/ L 4.63-6.08 HEMOGLOBIN (BEAKER) (test mamn=898) 9.6 GM/DL 13.7-17.5 HEMATOCRIT (BEAKER) (test fdsx=116) 34.2 % 40.1-51.0 MEAN CORPUSCULAR VOLUME (BEAKER) (test hclo=481) 91.9 fL 79.0-92.2 MEAN CORPUSCULAR HEMOGLOBIN (BEAKER) (test 25.8 pg 25.7-32.2 plrl=454) MEAN CORPUSCULAR HEMOGLOBIN CONC (BEAKER) (test 28.1 GM/DL 32.3-36.5 znkw=710) RED CELL DISTRIBUTION WIDTH (BEAKER) (test 20.5 % 11.6-14.4 rfgd=689) PLATELET COUNT (BEAKER) (test evjg=429) 191 K/CU MM 150-450 MEAN PLATELET VOLUME (BEAKER) (test qzsa=043) 12.6 fL 9.4-12.4 NUCLEATED RED BLOOD CELLS (BEAKER) (test 0 /100 WBC 0-0 jkbe=113) NEUTROPHILS RELATIVE PERCENT (BEAKER) (test 76 % svgq=436) LYMPHOCYTES RELATIVE PERCENT (BEAKER) (test 13 % mynn=919) MONOCYTES RELATIVE PERCENT (BEAKER) (test 6 % ynqx=784) EOSINOPHILS RELATIVE PERCENT (BEAKER) (test 4 % qjpc=105) BASOPHILS RELATIVE PERCENT (BEAKER) (test 0 % peus=008) NEUTROPHILS ABSOLUTE COUNT (BEAKER) (test 6.36 K/ L 1.78-5.38 iwvd=857) LYMPHOCYTES ABSOLUTE COUNT (BEAKER) (test 1.08 K/ L 1.32-3.57 tihv=886) MONOCYTES ABSOLUTE COUNT (BEAKER) (test 0.51 K/ L 0.30-0.82 qvrc=793) EOSINOPHILS ABSOLUTE COUNT (BEAKER) (test 0.37 K/ L 0.04-0.54 hppk=987) BASOPHILS ABSOLUTE COUNT (BEAKER) (test 0.03 K/ L 0.01-0.08 ohyz=278) IMMATURE GRANULOCYTES-RELATIVE PERCENT (BEAKER) 1 % 0-1 (test efui=4953) POCT-GLUCOSE [id number] 12:26:00 Test Item Value Reference Range Comments POC-GLUCOSE METER (BEAKER) 147 mg/dL 70-110 : TESTED AT [address] (test zvuc=5915) [facility], [id number]: Senior Examiner/Director Of Agronomy [id number] for Perfryan Karen POCT-GLUCOSE [id number] 08:38:00 Test Item Value Reference Range Comments POC-GLUCOSE METER (BEAKER) 136 mg/dL 70-110 : TESTED AT [address] (test ffna=3569) [facility], [id number]: Senior Examiner/Director Of Agronomy [id number] for ELIAS SILVER BASIC METABOLIC [id number] 04:35:00 Test Item Value Reference Range Comments SODIUM (BEAKER) (test 140 meq/L 136-145 cdzn=321) POTASSIUM (BEAKER) (test 3.8 meq/L 3.5-5.1 Specimen slightly tvzr=914) hemolyzed CHLORIDE (BEAKER) (test 101 meq/L 98-107 xsrb=549) CO2 (BEAKER) (test 30 meq/L 22-29 uoxi=023) BLOOD UREA NITROGEN 5 mg/dL 7-21 (BEAKER) (test tmum=511) CREATININE (BEAKER) (test 0.73 mg/dL 0.57-1.25 Specimen slightly dizm=880) hemolyzed GLUCOSE RANDOM (BEAKER) 97 mg/dL 70-105 (test oeka=501) CALCIUM (BEAKER) (test 6.9 mg/dL 8.4-10.2 nryw=130) EGFR (BEAKER) (test 121 mL/min/1.73 sq m ESTIMATED GFR IS NOT ziyx=8256) ACCURATE CREATININE CLEARANCE IN PREDICTING GLOMERULAR FILTRATION RATE. ESTIMATED GFR IS NOT APPLICABLE FOR DIALYSIS PATIENTS. [id number] 04:18:00 Test Item Value Reference Range Comments MAGNESIUM (BEAKER) (test 2.1 mg/dL 1.6-2.6 Specimen slightly hemolyzed hfve=780) [id number] 04:18:00 Test Item Value Reference Range Comments PHOSPHORUS (BEAKER) (test 4.6 mg/dL 2.3-4.7 Specimen slightly hemolyzed yxpm=178) CBC W/PLT COUNT & AUTO [id number] 03:30:00 Test Item Value Reference Range Comments WHITE BLOOD CELL COUNT (BEAKER) (test hpne=680) 8.1 K/ L 3.5-10.5 RED BLOOD CELL COUNT (BEAKER) (test wilr=591) 3.44 M/ L 4.63-6.08 HEMOGLOBIN (BEAKER) (test aank=202) 8.7 GM/DL 13.7-17.5 HEMATOCRIT (BEAKER) (test ljnf=468) 31.0 % 40.1-51.0 MEAN CORPUSCULAR VOLUME (BEAKER) (test xoth=315) 90.1 fL 79.0-92.2 MEAN CORPUSCULAR HEMOGLOBIN (BEAKER) (test 25.3 pg 25.7-32.2 hjvp=888) MEAN CORPUSCULAR HEMOGLOBIN CONC (BEAKER) (test 28.1 GM/DL 32.3-36.5 ygrp=241) RED CELL DISTRIBUTION WIDTH (BEAKER) (test 20.6 % 11.6-14.4 dupd=847) PLATELET COUNT (BEAKER) (test ikrv=205) 176 K/CU MM 150-450 MEAN PLATELET VOLUME (BEAKER) (test fitz=305) 12.1 fL 9.4-12.4 NUCLEATED RED BLOOD CELLS (BEAKER) (test 0 /100 WBC 0-0 jaig=126) NEUTROPHILS RELATIVE PERCENT (BEAKER) (test 70 % znrn=685) LYMPHOCYTES RELATIVE PERCENT (BEAKER) (test 17 % tuel=285) MONOCYTES RELATIVE PERCENT (BEAKER) (test 7 % mbac=075) EOSINOPHILS RELATIVE PERCENT (BEAKER) (test 5 % jgli=498) BASOPHILS RELATIVE PERCENT (BEAKER) (test 0 % wies=260) NEUTROPHILS ABSOLUTE COUNT (BEAKER) (test 5.71 K/ L 1.78-5.38 nsbk=036) LYMPHOCYTES ABSOLUTE COUNT (BEAKER) (test 1.38 K/ L 1.32-3.57 tmdp=043) MONOCYTES ABSOLUTE COUNT (BEAKER) (test 0.57 K/ L 0.30-0.82 dxyq=477) EOSINOPHILS ABSOLUTE COUNT (BEAKER) (test 0.38 K/ L 0.04-0.54 wgbi=791) BASOPHILS ABSOLUTE COUNT (BEAKER) (test 0.03 K/ L 0.01-0.08 emzs=309) IMMATURE GRANULOCYTES-RELATIVE PERCENT (BEAKER) 1 % 0-1 (test bfsm=1543) RAD, CHEST, 1 VIEW, NON [id number] 23:38:00Reason for exam:->preop workupShould this be performed at the bedside?->YesFINAL REPORT AP chest dated 06/28/2019 Comment: Heart is in upper limits of normal in size. Pulmonary vasculature is unremarkable. Lungs are clear. No pulmonary infiltrate or pleural effusion. Impression: No active cardiopulmonary disease. Signed: María Tobiasort Verified Date/Time: 06/28/2019 23:38:30 Reading Location: [address] Consult Reading Room Electronicallysigned by: MARÍA TOBIAS M.D. on 06/28/2019 11:38 PMPOCT-GLUCOSE [id number] 22:26:00 Test Item Value Reference Range Comments POC-GLUCOSE METER (BEAKER) 112 mg/dL 70-110 : TESTED AT [facility] [address] (test huna=5326) [facility], [address]: Senior Examiner/Director Of Agronomy [id number] for BLACK RENEE COMPREHENSIVE METABOLIC [id number] 20:58:00 Test Item Value Reference Range Comments TOTAL PROTEIN (BEAKER) 8.0 gm/dL 6.0-8.3 Specimen slightly (test qnlc=671) hemolyzed ALBUMIN (BEAKER) (test 4.1 g/dL 3.5-5.0 Specimen slightly jsco=3777) hemolyzed ALKALINE PHOSPHATASE 66 U/L 40-150 (BEAKER) (test ofgh=531) BILIRUBIN TOTAL (BEAKER) 1.0 mg/dL 0.2-1.2 Specimen slightly (test cajc=823) hemolyzed SODIUM (BEAKER) (test 137 meq/L 136-145 jinc=436) POTASSIUM (BEAKER) (test 4.1 meq/L 3.5-5.1 Specimen slightly aiuv=907) hemolyzed CHLORIDE (BEAKER) (test 97 meq/L 98-107 euni=988) CO2 (BEAKER) (test 27 meq/L 22-29 cqim=262) BLOOD UREA NITROGEN 7 mg/dL 7-21 (BEAKER) (test antg=777) CREATININE (BEAKER) (test 0.72 mg/dL 0.57-1.25 Specimen slightly fxpp=147) hemolyzed GLUCOSE RANDOM (BEAKER) 73 mg/dL 70-105 (test kypj=557) CALCIUM (BEAKER) (test 7.5 mg/dL 8.4-10.2 zpto=565) AST (SGOT) (BEAKER) (test 75 U/L 5-34 Specimen slightly bqhd=334) hemolyzed ALT (SGPT) (BEAKER) (test 47 U/L 6-55 Specimen slightly jpbr=557) hemolyzed EGFR (BEAKER) (test 123 mL/min/1.73 sq ESTIMATED GFR IS NOT ybia=7059) m ACCURATE CREATININE CLEARANCE IN PREDICTING GLOMERULAR FILTRATION RATE. ESTIMATED GFR IS NOT APPLICABLE FOR DIALYSIS PATIENTS. CBC W/PLT COUNT & AUTO [id number] 20:24:00 Test Item Value Reference Range Comments WHITE BLOOD CELL COUNT (BEAKER) (test plct=534) 7.9 K/ L 3.5-10.5 RED BLOOD CELL COUNT (BEAKER) (test zowu=446) 3.61 M/ L 4.63-6.08 HEMOGLOBIN (BEAKER) (test fxok=117) 9.2 GM/DL 13.7-17.5 HEMATOCRIT (BEAKER) (test xifu=821) 32.7 % 40.1-51.0 MEAN CORPUSCULAR VOLUME (BEAKER) (test qmzp=261) 90.6 fL 79.0-92.2 MEAN CORPUSCULAR HEMOGLOBIN (BEAKER) (test 25.5 pg 25.7-32.2 rore=866) MEAN CORPUSCULAR HEMOGLOBIN CONC (BEAKER) (test 28.1 GM/DL 32.3-36.5 djtf=381) RED CELL DISTRIBUTION WIDTH (BEAKER) (test 20.8 % 11.6-14.4 lezv=785) PLATELET COUNT (BEAKER) (test hdwb=244) 193 K/CU MM 150-450 MEAN PLATELET VOLUME (BEAKER) (test gmhy=556) 12.4 fL 9.4-12.4 NUCLEATED RED BLOOD CELLS (BEAKER) (test 0 /100 WBC 0-0 nmqi=171) NEUTROPHILS RELATIVE PERCENT (BEAKER) (test 69 % iaxv=280) LYMPHOCYTES RELATIVE PERCENT (BEAKER) (test 18 % fnpp=148) MONOCYTES RELATIVE PERCENT (BEAKER) (test 8 % rxsm=912) EOSINOPHILS RELATIVE PERCENT (BEAKER) (test 3 % fdwp=830) BASOPHILS RELATIVE PERCENT (BEAKER) (test 0 % rvmx=333) NEUTROPHILS ABSOLUTE COUNT (BEAKER) (test 5.46 K/ L 1.78-5.38 whsc=205) LYMPHOCYTES ABSOLUTE COUNT (BEAKER) (test 1.42 K/ L 1.32-3.57 hlne=836) MONOCYTES ABSOLUTE COUNT (BEAKER) (test 0.62 K/ L 0.30-0.82 ddie=794) EOSINOPHILS ABSOLUTE COUNT (BEAKER) (test 0.27 K/ L 0.04-0.54 vlsk=241) BASOPHILS ABSOLUTE COUNT (BEAKER) (test 0.03 K/ L 0.01-0.08 rykb=176) IMMATURE GRANULOCYTES-RELATIVE PERCENT (BEAKER) 1 % 0-1 (test vyey=1765) [id number] 20:23:00 Test Item Value Reference Range Comments PARTIAL THROMBOPLASTIN TIME (BEAKER) (test 38.3 seconds 22.5-36.0 yder=671) PROTHROMBIN [id number] 20:22:00 Test Item Value Reference Range Comments PROTIME (BEAKER) (test lvra=624) 13.5 seconds 11.9-14.2 INR (BEAKER) (test ssqg=267) 1.1 <=5.9 Effective 01/19/2019: PT Reference Range ChangeNew: 11.9-14.2 Previous: 11.7- 14.7RECOMMENDED COUMADIN/WARFARIN INR THERAPY RANGESSTANDARD DOSE: 2.0-3.0 Includes: PROPHYLAXIS for venous thrombosis, systemic embolization; TREATMENT for venous thrombosis and/or pulmonary embolus.HIGH RISK: Target INR is2.5-3.5 for patients wiht mechanical heart valves.
== END 2019-06-28 15:10 | disposition short-term general hospital (02) | DRG 378 ==
LOC: ER 18:00 → ERHOLD 22:05 → OBSVTOIN 22:05 → 2ND 06-25 01:47 → 3RD-ICU 06-26 14:50
PROVIDERS: ADMIT Hospitalist; ATTEND Hospitalist
PROC: 0DJD8ZZ Inspection of Lower Intestinal Tract, Via Natural or Artificial Opening Endoscopic (ICD-10-PCS; 2019-06-26)
PROC: 30233N1 Transfusion of Nonautologous Red Blood Cells into Peripheral Vein, Percutaneous Approach (ICD-10-PCS; 2019-06-26)
PROC: 0DB98ZX Excision of Duodenum, Via Natural or Artificial Opening Endoscopic, Diagnostic (ICD-10-PCS; principal; 2019-06-26 10:30)
PROC: 0DB78ZX Excision of Stomach, Pylorus, Via Natural or Artificial Opening Endoscopic, Diagnostic (ICD-10-PCS; 2019-06-26 10:30)
DX: K92.1 Melena (principal); D62 Acute posthemorrhagic anemia; E83.51 Hypocalcemia; J45.909 Unspecified asthma, uncomplicated; K20.9 Esophagitis, unspecified; K44.9 Diaphragmatic hernia without obstruction or gangrene; K29.70 Gastritis, unspecified, without bleeding; K25.9 Gastric ulcer, unspecified as acute or chronic, without hemorrhage or perforation; D12.0 Benign neoplasm of cecum; K64.8 Other hemorrhoids; K64.4 Residual hemorrhoidal skin tags; G47.33 Obstructive sleep apnea (adult) (pediatric); E87.6 Hypokalemia; I10 Essential (primary) hypertension; D50.9 Iron deficiency anemia, unspecified; M48.10 Ankylosing hyperostosis [Forestier], site unspecified; E66.9 Obesity, unspecified; R21 Rash and other nonspecific skin eruption; R19.7 Diarrhea, unspecified; Z87.820 Personal history of traumatic brain injury; Z68.38 Body mass index [BMI] 38.0-38.9, adult; Z90.3 Acquired absence of stomach [part of]; Z87.891 Personal history of nicotine dependence
CPT/HCPCS: 36415; 36430; 71045; 74174; 74177; 78290; 80048; 80053; 80076; 81003; 82274; 82607; 82728; 82746; 83540; 83605; 83690; 83735; 83880; 84100; 84145; 84466; 84484; 85014; 85018; 85025; 85044; 85610; 86850; 86900; 86901; 87040; 87070; 87077; 87086; 87088; 87186; 87205; 87804; 88305; 88312; 93005; 94660; 96361; 96365; 96367; 96368; 96375; 99285; A9512; C9113; J0610; J0744; J1650; J1940; J2270; J2405; J2704; J2765; J3010; J3475; J7030; P9016; Q9967

== ENCOUNTER 2019-07-02 20:40 | Emergency (ER) | payer SELFPAY ==
[2019-07-02] MEDS ORDERED: NA CHLORIDE 0.9% 500 ML ONE (21:29)
[2019-07-02] MEDS ORDERED: PANTOPRAZOLE 40 MG INJ ONE (21:29)
[2019-07-02 22:15] LABS: Absolute Lymphocytes (CBC) 1.6 K/uL (0.7-4.9); Basophils % 1.3 % (0-1.3); Hematocrit 33.7 % (39.6-49.0); Lymphocytes % 15.4 % (15.3-44.8); MPV 10.9 fL (7.6-11.3); RBC Red Blood Cell Count 3.97 M/uL (4.33-5.43)
[2019-07-02 22:16] LABS: Protime INR 1.15
[2019-07-02 22:35] LABS: ALT/SGPT 47 U/L (12-78); AST/SGOT 34 U/L (15-37); Albumin 3.7 g/dL (3.4-5.0); Alkaline Phosphatase 71 U/L (45-117); BUN Blood Urea Nitrogen 10 mg/dL (7-18); Bicarbonate 30 mmol/L (21-32); Bilirubin Direct 0.2 mg/dL (0-0.2); Bilirubin Total 0.7 mg/dL (0.2-1.0); Glucose Level 106 mg/dL (74-106); Magnesium 1.7 mg/dL (1.8-2.4); NT PRO-BNP 31 pg/mL (<125); Potassium 3.8 mmol/L (3.5-5.1); Protein, Total 8.6 g/dL (6.4-8.2); Sodium Level 136 mmol/L (136-145); Troponin (Emerg Dept Use Only) < 0.02 ng/mL (0.0-0.045)
[2019-07-02] MEDS ORDERED: CALCIUM GLUCONATE 1 GM IVPB 2 GM/100 ML BAG IV ONE (22:55)
[2019-07-02] MEDS ORDERED: ONDANSETRON 4 MG/2 ML VIAL ONE (23:19)
[2019-07-02] MEDS ORDERED: MORPHINE 4 MG/ML SYR ONE (23:19)
[2019-07-02] MEDS ORDERED: MAGNESIUM SULFATE 1 gm IVPB 1 GM/100 ML BAG IV ONE (23:20)
[2019-07-03] LABS: Anisocytosis 1+; Blood Morphology Comment NOTED (NOT SEEN); Hypochromasia 1+; Platelet Estimate ADEQ; Polychromasia SLIGHT; Urine White Blood Cell Casts OK
--- NOTE | 2019-07-03 00:13 | ER ---
Nurse's Notes [facility] Name: Blanche Lo Age: 39 yrs Sex: Male : 1980 Arrival Date: 07/02/2019 Time: 20:43 Bed 8 Private MD: Diagnosis: Abdominal and pelvic pain;Rectal Bleeding;Cellulitis, unspecified Presentation: 07/02 20:49 Presenting complaint: Patient states: I was recently admitted and transferred for a GI la1 bleed, they gave me three units of blood, I am still having bright red blood in my stool and I feel like my levels are low again. Transition of care: patient was not received from another setting of care. Onset of symptoms was July 02, 2019. Risk Assessment: Do you want to hurt yourself or someone else? Patient reports no desire to harm self or others. Initial Sepsis Screen: Does the patient meet any 2 criteria? No. Patient's initial sepsis screen is negative. Does the patient have a suspected source of infection? No. Patient's initial sepsis screen is negative. Care prior to arrival: None. 20:49 Method Of Arrival: Ambulatory la1 20:49 Acuity: JANINE 2 la1 Historical: - Allergies: 20:50 ambien; la1 20:50 Amoxil; la1 20:50 Naproxen; la1 20:50 Amoxicillin; la1 - PMHx: 20:50 Hypertension; GI bleed; la1 - Immunization history:: Adult Immunizations up to date. - Social history:: Smoking status: Patient/guardian denies using tobacco, the patient reports quitting approximately 5 years ago. - Ebola Screening: : No symptoms or risks identified at this time. Screenin:35 Abuse screen: Denies threats or abuse. Denies injuries from another. Nutritional rr5 screening: No deficits noted. Tuberculosis screening: No symptoms or risk factors identified. Fall Risk IV access (20 points). Total Cervantes Fall Scale indicates No Risk (0-24 pts). Assessment: 20:50 General: Appears in no apparent distress. uncomfortable, Behavior is calm, cooperative, rr5 appropriate for age. 20:50 Pain: Complains of pain in abdomen Pain does not radiate. Pain currently is 8 out of 10 rr5 on a pain scale. Quality of pain is described as aching, crampy, Pain began gradually, Is intermittent. Neuro: Level of Consciousness is awake, alert, obeys commands, Oriented to person, place, time, situation, Appropriate for age Reports blurred vision dizziness. Cardiovascular: Capillary refill < 3 seconds Patient's skin is warm and dry. Respiratory: Airway is patent Respiratory effort is even, unlabored, Respiratory pattern is regular, symmetrical. GI: Abdomen is round Bowel sounds present X 4 quads. Abd is soft and non tender Reports lower abdominal pain, upper abdominal pain, cramping, bloody stool. : No signs and/or symptoms were reported regarding the genitourinary system. EENT: Reports throat tightness. Derm: Skin is intact, is healthy with good turgor, Skin temperature is warm. Musculoskeletal: Circulation, motion, and sensation intact. Capillary refill < 3 seconds. 22:30 Reassessment: Patient appears in no apparent distress at this time. Patient is alert, rr5 oriented x 3, equal unlabored respirations, skin warm/dry/pink. send to CT scan via wheelchair assisted by CT staff. 23:20 Reassessment: Patient appears in no apparent distress at this time. Patient is alert, rr5 oriented x 3, equal unlabored respirations, skin warm/dry/pink. complaints of abdominal pain pain score 10/10, ED provider aware with order made and carried out. 07/03 00:40 Reassessment: Patient appears in no apparent distress at this time. Patient and/or rr5 family updated on plan of care and expected duration. Pain level reassessed. Patient is alert, oriented x 3, equal unlabored respirations, skin warm/dry/pink. discharge instruction given and explained without complaints made verbalized understanding. Patient states feeling better. Patient states symptoms have improved. Vital Signs: 07/02 20:51 BP 125 / 89; Pulse 110; Resp 16; Temp 98.6; Pulse Ox 100% on R/A; Weight 101.15 kg; la1 Height 5 ft. 5 in. (165.10 cm); 22:00 BP 115 / 79; Pulse 99; Resp 20; Temp 98.5; Pulse Ox 100% ; rr5 23:10 BP 133 / 77; Pulse 105; Resp 17; Pulse Ox 99% ; Pain 10/10; rr5 23:45 BP 111 / 76; Pulse 97; Resp 19; Temp 98.4; Pulse Ox 99% ; rr5 07/03 00:20 BP 116 / 65; Pulse 93; Resp 18; Pulse Ox 98% ; Pain 3/10; rr5 00:44 BP 105 / 70; Pulse 90; Resp 16; Temp 97.9; Pulse Ox 99% ; Pain 3/10; rr5 07/02 20:51 Body Mass Index 37.11 (101.15 kg, 165.10 cm) la1 ED Course: 07/02 20:43 Patient arrived in ED. cf2 20:50 Triage completed. la1 20:51 Dax Knox, RN is Primary Nurse. la1 20:51 Arm band placed on right wrist. la1 20:53 Sid Contreras MD is Attending Physician. kdr 21:00 GI bleed workup initiated per nursing protocol. rr5 21:15 Patient has correct armband on for positive identification. Placed in gown. Bed in low rr5 position. Call light in reach. Side rails up X2. gambling monitor on. Pulse ox on. NIBP on. 21:30 EKG done, by ED staff, reviewed by Sid Contreras MD. rr5 21:50 Inserted saline lock: 18 gauge in right hand, using aseptic technique. Blood collected. rr5 21:54 XRAY Chest (1 view) In Process Unspecified. EDMS 22:12 Radiology exam delayed due to IV insertion attempt and/or patient not having bq appropriate IV at this time. 22:24 Inserted saline lock: 18 gauge in right antecubital area, using aseptic technique. la1 23:04 CT completed. Patient tolerated procedure well. Patient moved back from CT. bq 23:16 CT Abd/Pelvis - IV Contrast Only In Process Unspecified. EDMS 23:18 Head Brain Wo Cont In Process Unspecified. EDMS 23:19 CT Head Angio In Process Unspecified. 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 rr5 07/03 00:45 IV discontinued, intact, bleeding controlled, No redness/swelling at site. Pressure rr5 dressing applied. Administered Medications: 07/02 21:54 Drug: NS 0.9% 500 ml Route: IV; Rate: bolus; Site: right hand; rr5 23:00 Follow up: Response: No adverse reaction; IV Status: Completed infusion; IV Intake: rr5 500ml 21:55 Drug: ProTONIX 40 mg Route: IVP; Site: right hand; rr5 23:00 Follow up: Response: No adverse reaction rr5 23:12 Drug: Calcium Gluconate 2 grams Route: IVPB; Infused Over: 60 mins; Site: right rr5 antecubital; 07/03 00:45 Follow up: Response: No adverse reaction; IV Status: Completed infusion; IV Intake: rr5 200ml 07/02 23:25 Drug: Zofran 4 mg Route: IVP; Site: right hand; rr5 07/03 00:25 Follow up: Response: No adverse reaction; Marked relief of symptoms rr5 07/02 23:28 Drug: morphine 4 mg {Note: rass 0.} Route: IVP; Site: right hand; rr5 07/03 00:25 Follow up: Response: No adverse reaction; Pain is decreased; RASS: Alert and Calm (0) rr5 07/02 23:34 Drug: Magnesium Sulfate 1 grams Route: IVPB; Infused Over: 1 hrs; Site: right hand; rr5 07/03 00:30 Follow up: Response: No adverse reaction; IV Status: Completed infusion; IV Intake: rr5 100ml Point of Care Testing: Guaiac: 07/02 23:50 Stool Guaiac: Positive; Stool Hemoccult Control: Pass; rr5 Intake: 23:00 IV: 500ml; Total: 500ml. rr5 07/03 00:30 IV: 100ml; Total: 600ml. rr5 00:45 IV: 200ml; Total: 800ml. rr5 Output: 00:10 Urine: 600ml (Voided); Total: 600ml. rr5 Outcome: 00:12 Discharge ordered by . kdr 00:45 Discharged to home ambulatory, with family. rr5 00:45 Condition: stable 00:45 Discharge instructions given to patient, Instructed on discharge instructions, follow up and referral plans. medication usage, Demonstrated understanding of instructions, follow-up care, medications, Prescriptions given X 4. 00:47 Patient left the ED. rr5 Signatures: Dispatcher [employer] EDSid Ramires MD MD kdr Quilty, Betty bq Attema, Lee, RN RN la1 Gonzales Tang RN RN rr5 Amos Cobb2
--- NOTE | 2019-07-03 00:13 | EDPHYS ---
Physician Documentation [facility] Name: Blanche Lo Age: 39 yrs Sex: Male : 1980 Arrival Date: 07/02/2019 Time: 20:43 Bed 8 Private MD: ED Physician Sid Contreras HPI: 07/03 01:18 This 39 yrs old Male presents to ER via Ambulatory with complaints of kdr Dizziness, Blurred Vision, Hand Pain, Abdominal Problem, Tightness in Throat. 01:18 The patient is having multiple c/o including abdominal pain, rectal bleeding (BRB), kdr dizziness and "tunnel vision." He was recently transferred to [facility] for GI bleed and had several transfusions. Today, he began to feel poorly again and felt that his Hgb was getting low and that he was also having vision changes, He has a strong family history of cerebral aneurysms followed by . He has been o/w stable and without other concern or c/o.. Onset: The symptoms/episode began/occurred gradually, Last few days - since discharge from [facility]. Severity of symptoms: At their worst the symptoms were mild moderate just prior to arrival, in the emergency department the symptoms are unchanged. The patient has experienced similar episodes in the past, multiple times. The patient has been recently seen by a physician:. Historical: - Allergies: 07/02 20:50 ambien; la1 20:50 Amoxil; la1 20:50 Naproxen; la1 20:50 Amoxicillin; la1 - PMHx: 20:50 Hypertension; GI bleed; la1 - Immunization history:: Adult Immunizations up to date. - Social history:: Smoking status: Patient/guardian denies using tobacco, the patient reports quitting approximately 5 years ago. - Ebola Screening: : No symptoms or risks identified at this time. ROS: 07/03 01:18 Constitutional: Negative for fever, chills, and weight loss, Eyes: Negative for injury, kdr pain, redness, and discharge, ENT: Negative for injury, pain, and discharge, Neck: Negative for injury, pain, and swelling, Cardiovascular: Negative for chest pain, palpitations, and edema, Respiratory: Negative for shortness of breath, cough, wheezing, and pleuritic chest pain, Back: Negative for injury and pain, : Negative for injury, bleeding, discharge, and swelling, MS/Extremity: Negative for injury and deformity, Skin: Negative for injury, rash, and discoloration, Psych: Negative for depression, anxiety, suicide ideation, homicidal ideation, and hallucinations, Allergy/Immunology: Negative for hives, rash, and allergies, Endocrine: Negative for neck swelling, polydipsia, polyuria, polyphagia, and marked weight changes, Hematologic/Lymphatic: Negative for swollen nodes, abnormal bleeding, and unusual bruising. Abdomen/GI: Positive for abdominal pain, nausea, rectal bleeding, Negative for diarrhea, constipation, abdominal cramps, abdominal distension, anorexia, dysphagia, hematemesis, black/tarry stool. Neuro: Positive for dizziness, visual changes, Negative for altered mental status, gait disturbance, headache, hearing loss, numbness, seizure activity, speech changes, syncope, near syncope, tingling, tinnitus. Exam: 01:18 Constitutional: This is a well developed, well nourished patient who is awake, alert, kdr and in no acute distress. Head/Face: Normocephalic, atraumatic. Eyes: Pupils equal round and reactive to light, extra-ocular motions intact. Lids and lashes normal. Conjunctiva and sclera are non-icteric and not injected. Cornea within normal limits. Periorbital areas with no swelling, redness, or edema. Neck: Trachea midline, no thyromegaly or masses palpated, and no cervical lymphadenopathy. Supple, full range of motion without nuchal rigidity, or vertebral point tenderness. No Meningismus. Chest/axilla: Normal chest wall appearance and motion. Nontender with no deformity. No lesions are appreciated. Cardiovascular: Regular rate and rhythm with a normal S1 and S2. No gallops, murmurs, or rubs. Normal PMI, no JVD. No pulse deficits. Respiratory: Lungs have equal breath sounds bilaterally, clear to auscultation and percussion. No rales, rhonchi or wheezes noted. No increased work of breathing, no retractions or nasal flaring. Back: No spinal tenderness. No costovertebral tenderness. Full range of motion. Skin: Warm, dry with normal turgor. Normal color with no rashes, no lesions, and no evidence of cellulitis. MS/ Extremity: Pulses equal, no cyanosis. Neurovascular intact. Full, normal range of motion. Neuro: Awake and alert, GCS 15, oriented to person, place, time, and situation. Cranial nerves II-XII grossly intact. Motor strength 5/5 in all extremities. Sensory grossly intact. Cerebellar exam normal. Normal gait. Psych: Awake, alert, with orientation to person, place and time. Behavior, mood, and affect are within normal limits. 01:18 Abdomen/GI: Inspection: obese Bowel sounds: active, diminished, in all quadrants, Palpation: soft, mild abdominal tenderness, in all quadrants, Rectal exam: Prostate: normal, rectal tone normal, Stool: guaiac positive, Indicators: McBurney's point is not tender, Valenzuela's sign is negative. Vital Signs: 07/02 20:51 BP 125 / 89; Pulse 110; Resp 16; Temp 98.6; Pulse Ox 100% on R/A; Weight 101.15 kg; la1 Height 5 ft. 5 in. (165.10 cm); 22:00 BP 115 / 79; Pulse 99; Resp 20; Temp 98.5; Pulse Ox 100% ; rr5 23:10 BP 133 / 77; Pulse 105; Resp 17; Pulse Ox 99% ; Pain 10/10; rr5 23:45 BP 111 / 76; Pulse 97; Resp 19; Temp 98.4; Pulse Ox 99% ; rr5 07/03 00:20 BP 116 / 65; Pulse 93; Resp 18; Pulse Ox 98% ; Pain 3/10; rr5 00:44 BP 105 / 70; Pulse 90; Resp 16; Temp 97.9; Pulse Ox 99% ; Pain 3/10; rr5 07/02 20:51 Body Mass Index 37.11 (101.15 kg, 165.10 cm) la1 MDM: 00:12 Patient medically screened. kdr 01:18 Data reviewed: vital signs, nurses notes, lab test result(s), radiologic studies. kdr Counseling: I had a detailed discussion with the patient and/or guardian regarding: the historical points, exam findings, and any diagnostic results supporting the discharge/admit diagnosis, lab results, radiology results, the need for outpatient follow up. Special discussion: Based on the patient's Hx, exam, and Dx evaluation, there is no indication for emergent surgery or inpatient Tx. It is understood by the patient/guardian that if the Sx's persist or worsen they need to return immediately for re-evaluation. I discussed with the patient/guardian in detail that at this point there is no indication for admission to the hospital. It is understood, however, that if the symptoms persist or worsen the patient needs to return immediately for re-evaluation. ED course: D/w patient and family the results which are either better or no worse than on prior exams. CT also without any apparent concern. The patient VS were stable and his pain was controlled. The patient and family were happy with the care provided and the plan for discharge and follow-up. 07/02 20:54 Order name: Basic Metabolic Panel; Complete Time: 23:04 kdr 07/02 20:54 Order name: CBC with Diff kdr 07/02 20:54 Order name: LFT's; Complete Time: 23:04 [facility] 07/02 20:54 Order name: Magnesium; Complete Time: 23:04 [facility] 07/02 20:54 Order name: NT PRO-BNP; Complete Time: 23:04 [facility] 07/02 20:54 Order name: PT-INR; Complete Time: 23:04 [facility] 07/02 20:54 Order name: Troponin (emerg Dept Use Only); Complete Time: 23:04 [facility] 07/02 20:54 Order name: XRAY Chest (1 view) kdr 07/02 20:54 Order name: Type And Screen [facility] 07/02 21:26 Order name: CT Abd/Pelvis - IV Contrast Only [facility] 07/02 21:26 Order name: CT Head Angio kdr 07/02 22:27 Order name: Head Brain Wo Cont [facility]MO 07/02 22:29 Order name: CBC Smear Scan [facility] 07/03 00:10 Order name: Antibody Identification [facility] 07/02 20:54 Order name: EKG; Complete Time: 20:55 [facility] 07/02 20:54 Order name: Cardiac monitoring; Complete Time: 22:02 [facility] 07/02 20:54 Order name: EKG - Nurse/Tech; Complete Time: 22:02 [facility] 07/02 20:54 Order name: IV Saline Lock; Complete Time: 22:02 kdr 07/02 20:54 Order name: Labs collected and sent; Complete Time: 22:02 kdr 07/02 20:54 Order name: O2 Per Protocol; Complete Time: 22:02 [facility] 07/02 20:54 Order name: O2 Sat Monitoring; Complete Time: 22:02 kdr Administered Medications: 11/09 21:54 Drug: NS 0.9% 500 ml Route: IV; Rate: bolus; Site: right hand; rr5 23:00 Follow up: Response: No adverse reaction; IV Status: Completed infusion; IV Intake: rr5 500ml 21:55 Drug: ProTONIX 40 mg Route: IVP; Site: right hand; rr5 23:00 Follow up: Response: No adverse reaction rr5 23:12 Drug: Calcium Gluconate 2 grams Route: IVPB; Infused Over: 60 mins; Site: right rr5 antecubital; 07/03 00:45 Follow up: Response: No adverse reaction; IV Status: Completed infusion; IV Intake: rr5 200ml 07/02 23:25 Drug: Zofran 4 mg Route: IVP; Site: right hand; rr5 07/03 00:25 Follow up: Response: No adverse reaction; Marked relief of symptoms rr5 07/02 23:28 Drug: morphine 4 mg {Note: rass 0.} Route: IVP; Site: right hand; rr5 07/03 00:25 Follow up: Response: No adverse reaction; Pain is decreased; RASS: Alert and Calm (0) rr5 07/02 23:34 Drug: Magnesium Sulfate 1 grams Route: IVPB; Infused Over: 1 hrs; Site: right hand; rr5 07/03 00:30 Follow up: Response: No adverse reaction; IV Status: Completed infusion; IV Intake: rr5 100ml Point of Care Testing: Guaiac: 07/02 23:50 Stool Guaiac: Positive; Stool Hemoccult Control: Pass; rr5 Disposition: 07/03/19 00:12 Discharged to Home. Impression: Abdominal and pelvic pain, Rectal Bleeding, Cellulitis, unspecified. - Condition is Stable. - Discharge Instructions: Cellulitis, Adult, [id number], Abdominal Pain, Adult, Rvfj-on-[id number], Rectal Bleeding, Iogv-wh-Rrdd, Dizziness, [id number]-[id number]. - Prescriptions for Bentyl 20 mg Oral Tablet - take 1 tablet by ORAL route every 6 hours As needed For abdominal pain and cramping; 20 tablet. Pepcid 20 mg Oral Tablet - take 1 tablet by ORAL route every 12 hours for 5 days; 10 tablet. Clindamycin HCl 300 mg Oral Capsule - take 1 capsule by ORAL route every 6 hours for 10 days; 40 capsule. Bactrim DS 800- 160 mg Oral Tablet - take 1 tablet by ORAL route every 12 hours for 10 days; 20 tablet. - Medication Reconciliation Form, Thank You Letter form. - Follow up: Private Physician; When: 2 - 3 days; Reason: If symptoms return, Further diagnostic work-up, Recheck today's complaints, Continuance of care, Re-evaluation by your physician. - Problem is an acute exacerbation. - Symptoms have improved. Signatures: Dispatcher [employer] EDMO Sid Contreras MD MD kdr Dax Knox RN RN la1 Gonzales Tang RN RN rr5 Corrections: (The following items were deleted from the chart) 07/03 00:25 00:12 07/03/2019 00:12 Discharged to Home. Impression: Abdominal and pelvic pain; kdr Rectal Bleeding. Condition is Stable. Forms are Medication Reconciliation Form, Thank You Letter, Antibiotic Education, Prescription Opioid Use. Follow up: Private Physician; When: 2 - 3 days; Reason: If symptoms return, Further diagnostic work-up, Recheck today's complaints, Continuance of care, Re-evaluation by your physician. Problem is an acute exacerbation. Symptoms have improved. kdr 00:47 00:25 07/03/2019 00:12 Discharged to Home. Impression: Abdominal and pelvic pain; rr5 Rectal Bleeding; Cellulitis, unspecified. Condition is Stable. Discharge Instructions: Abdominal Pain, Adult, [id number], Rectal Bleeding, Ioum-[id number]-Jmkw, Dizziness, Wkhz-ov-Efip, Cellulitis, Adult, [id number]-[id number]. Prescriptions for Bentyl 20 mg Oral Tablet - take 1 tablet by ORAL route every 6 hours As needed For abdominal pain and cramping; 20 tablet, Pepcid 20 mg Oral Tablet - take 1 tablet by ORAL route every 12 hours for 5 days; 10 tablet, Clindamycin HCl 300 mg Oral Capsule - take 1 capsule by ORAL route every 6 hours for 10 days; 40 capsule, Bactrim DS 800-160 mg Oral Tablet - take 1 tablet by ORAL route every 12 hours for 10 days; 20 tablet. and Forms are Medication Reconciliation Form, Thank You Letter. Follow up: Private Physician; When: 2 - 3 days; Reason: If symptoms return, Further diagnostic work-up, Recheck today's complaints, Continuance of care, Re-evaluation by your physician. Problem is an acute exacerbation. Symptoms have improved. kdr
--- NOTE | 2019-07-03 08:12 | RAD REPORT ---
EXAM DESCRIPTION: CT - Head angio - 07/02/2019 11:49 pm
--- NOTE | 2019-07-03 08:49 | RAD REPORT ---
EXAM DESCRIPTION: Latoya Single View07/02/2019 9:30 pm CLINICAL HISTORY: Chest pain COMPARISON: 2014 FINDINGS: The lungs appear clear of acute infiltrate. The heart is probably upper limits normal siz e IMPRESSION: No acute abnormalities displayed
--- NOTE | 2019-07-03 12:44 | EKG ---
Test Date: 2019-07-02 Test Time: 21:21:49 [employer] Operations Technician: SANTO MEASUREMENT RESULTS: Intervals: Rate: 109 SC: 126 QRSD: 72 QT: 350 QTc: 471 [place]: P: 25 SC: 126 QRS: -11 T: 4 INTERPRETIVE STATEMENTS: Sinus tachycardia Nonspecific ST and T wave abnormality Abnormal ECG Compared to ECG 06/24/2019 20:47:10 Short SC interval no longer present ST (T wave) deviation still present Electronically Signed On 07-03-19 12:43:34 [employer] by Fred Reyes
[2019-07-04 00:48] VITALS: BP 105/70; TEMP 97.9; O2SAT 99
--- OUTSIDE RECORDS SUMMARY | 2019-07-04 06:52 | XMS REPORT ---
:1980 Author Organization [facility] Address [address] [place] [address] Care Team Providers Name Role Phone TIM [...] Comments SODIUM (BEAKER) (test 137 meq/L 136-145 nzgo=638) POTASSIUM (BEAKER) (test 4.0 meq/L 3.5-5.1 itwc=613) CHLORIDE (BEAKER) (test 100 meq/L 98-107 wsaz=535) CO2 (BEAKER) (test 27 meq/L 22-29 xrbw=693) BLOOD UREA NITROGEN 4 mg/dL 7-21 (BEAKER) (test mzsm=921) CREATININE (BEAKER) (test 0.71 mg/dL 0.57-1.25 iutn=228) GLUCOSE RANDOM (BEAKER) 110 mg/dL 70-105 (test nijc=675) CALCIUM (BEAKER) (test 7.2 mg/dL 8.4-10.2 ohzr=308) EGFR (BEAKER) (test 125 mL/min/1.73 sq m ESTIMATED GFR IS NOT seio=7241) ACCURATE CREATININE CLEARANCE IN PREDICTING GLOMERULAR FILTRATION RATE. ESTIMATED GFR IS NOT APPLICABLE FOR DIALYSIS PATIENTS. [id number] 07:19:00 Test Item Value Reference Range Comments PHOSPHORUS (BEAKER) (test sxcc=707) 4.5 mg/dL 2.3-4.7 [id number] 07:19:00 Test Item Value Reference Range Comments MAGNESIUM (BEAKER) (test vxlj=585) 2.0 mg/dL 1.6-2.6 CBC W/PLT COUNT & AUTO [id number] 07:11:00 Test Item Value Reference Range Comments WHITE BLOOD CELL COUNT (BEAKER) (test cish=890) 7.3 K/ L 3.5-10.5 RED BLOOD CELL COUNT (BEAKER) (test fefs=410) 3.63 M/ L 4.63-6.08 HEMOGLOBIN (BEAKER) (test bjbp=002) 9.4 GM/DL 13.7-17.5 HEMATOCRIT (BEAKER) (test ktra=991) 33.6 % 40.1-51.0 MEAN CORPUSCULAR VOLUME (BEAKER) (test atmw=914) 92.6 fL 79.0-92.2 MEAN CORPUSCULAR HEMOGLOBIN (BEAKER) (test 25.9 pg 25.7-32.2 sbzu=149) MEAN CORPUSCULAR HEMOGLOBIN CONC (BEAKER) (test 28.0 GM/DL 32.3-36.5 ivuo=261) RED CELL DISTRIBUTION WIDTH (BEAKER) (test 20.4 % 11.6-14.4 eebq=025) PLATELET COUNT (BEAKER) (test rgxn=311) 196 K/CU MM 150-450 MEAN PLATELET VOLUME (BEAKER) (test djdw=736) 12.5 fL 9.4-12.4 NUCLEATED RED BLOOD CELLS (BEAKER) (test 0 /100 WBC 0-0 regs=417) NEUTROPHILS RELATIVE PERCENT (BEAKER) (test 71 % exwe=801) LYMPHOCYTES RELATIVE PERCENT (BEAKER) (test 16 % foog=588) MONOCYTES RELATIVE PERCENT (BEAKER) (test 7 % luvp=385) EOSINOPHILS RELATIVE PERCENT (BEAKER) (test 5 % uvoe=410) BASOPHILS RELATIVE PERCENT (BEAKER) (test 1 % lkro=001) NEUTROPHILS ABSOLUTE COUNT (BEAKER) (test 5.18 K/ L 1.78-5.38 isla=277) LYMPHOCYTES ABSOLUTE COUNT (BEAKER) (test 1.13 K/ L 1.32-3.57 chtq=518) MONOCYTES ABSOLUTE COUNT (BEAKER) (test 0.53 K/ L 0.30-0.82 vbfn=797) EOSINOPHILS ABSOLUTE COUNT (BEAKER) (test 0.34 K/ L 0.04-0.54 lsnv=716) BASOPHILS ABSOLUTE COUNT (BEAKER) (test 0.04 K/ L 0.01-0.08 pobl=498) IMMATURE GRANULOCYTES-RELATIVE PERCENT (BEAKER) 1 % 0-1 (test hbcv=4774) [id number] 07:07:00 Test Item Value Reference Range Comments PARTIAL THROMBOPLASTIN TIME (BEAKER) (test 39.0 seconds 22.5-36.0 pbge=337) PROTHROMBIN [id number] 07:06:00 Test Item Value Reference Range Comments PROTIME (BEAKER) (test fsme=025) 14.3 seconds 11.9-14.2 INR (BEAKER) (test baap=699) 1.2 <=5.9 Effective 01/19/2019: PT Reference Range ChangeNew: 11.9-14.2 Previous: 11.7- 14.7RECOMMENDED COUMADIN/WARFARIN INR THERAPY RANGESSTANDARD DOSE: 2.0-3.0 Includes: PROPHYLAXIS for venous thrombosis, systemic embolization; TREATMENT for venous thrombosis and/or pulmonary embolus.HIGH RISK: Target INR is2.5-3.5 for patients wiht mechanical heart valves.CALCIUM, [id number] 07:05:00 Test Item Value Reference Range Comments CALCIUM IONIZED (BEAKER) (test pmou=550) 0.73 mmol/L 1.12-1.27 PH, BLOOD (BEAKER) (test wfev=0230) 7.54 CBC W/PLT COUNT & AUTO [id number] 15:06:00 Test Item Value Reference Range Comments WHITE BLOOD CELL COUNT (BEAKER) (test dqbp=294) 8.4 K/ L 3.5-10.5 RED BLOOD CELL COUNT (BEAKER) (test cdbt=294) 3.72 M/ L 4.63-6.08 HEMOGLOBIN (BEAKER) (test yyqk=916) 9.6 GM/DL 13.7-17.5 HEMATOCRIT (BEAKER) (test eqoa=121) 34.2 % 40.1-51.0 MEAN CORPUSCULAR VOLUME (BEAKER) (test wyfz=548) 91.9 fL 79.0-92.2 MEAN CORPUSCULAR HEMOGLOBIN (BEAKER) (test 25.8 pg 25.7-32.2 wigt=362) MEAN CORPUSCULAR HEMOGLOBIN CONC (BEAKER) (test 28.1 GM/DL 32.3-36.5 umjd=686) RED CELL DISTRIBUTION WIDTH (BEAKER) (test 20.5 % 11.6-14.4 jypi=021) PLATELET COUNT (BEAKER) (test mkjm=426) 191 K/CU MM 150-450 MEAN PLATELET VOLUME (BEAKER) (test faqc=483) 12.6 fL 9.4-12.4 NUCLEATED RED BLOOD CELLS (BEAKER) (test 0 /100 WBC 0-0 fpyb=049) NEUTROPHILS RELATIVE PERCENT (BEAKER) (test 76 % lmus=644) LYMPHOCYTES RELATIVE PERCENT (BEAKER) (test 13 % yrbw=253) MONOCYTES RELATIVE PERCENT (BEAKER) (test 6 % inwu=743) EOSINOPHILS RELATIVE PERCENT (BEAKER) (test 4 % vziu=178) BASOPHILS RELATIVE PERCENT (BEAKER) (test 0 % rxed=483) NEUTROPHILS ABSOLUTE COUNT (BEAKER) (test 6.36 K/ L 1.78-5.38 xvrh=855) LYMPHOCYTES ABSOLUTE COUNT (BEAKER) (test 1.08 K/ L 1.32-3.57 emml=861) MONOCYTES ABSOLUTE COUNT (BEAKER) (test 0.51 K/ L 0.30-0.82 ruqd=536) EOSINOPHILS ABSOLUTE COUNT (BEAKER) (test 0.37 K/ L 0.04-0.54 wbtv=437) BASOPHILS ABSOLUTE COUNT (BEAKER) (test 0.03 K/ L 0.01-0.08 dehv=076) IMMATURE GRANULOCYTES-RELATIVE PERCENT (BEAKER) 1 % 0-1 (test jqla=4093) POCT-GLUCOSE [id number] 12:26:00 Test Item Value Reference Range Comments POC-GLUCOSE METER (BEAKER) 147 mg/dL 70-110 : TESTED AT [address] (test lkfs=5425) [facility], [id number]: Premium Service Representative/Environmental Auditor [id number] for Perfryan Karen POCT-GLUCOSE [id number] 08:38:00 Test Item Value Reference Range Comments POC-GLUCOSE METER (BEAKER) 136 mg/dL 70-110 : TESTED AT [address] (test dslp=9714) [facility], [id number]: Premium Service Representative/Environmental Auditor MR=[id number] for [employer] MET[employer]IC [id number] 04:35:00 Test Item Value Reference Range Comments SODIUM (BEAKER) (test 140 meq/L 136-145 tozc=057) POTASSIUM (BEAKER) (test 3.8 meq/L 3.5-5.1 Specimen slightly pxmv=518) hemolyzed CHLORIDE (BEAKER) (test 101 meq/L 98-107 otxs=111) CO2 (BEAKER) (test 30 meq/L 22-29 hwdc=781) BLOOD UREA NITROGEN 5 mg/dL 7-21 (BEAKER) (test tecf=642) CREATININE (BEAKER) (test 0.73 mg/dL 0.57-1.25 Specimen slightly kksz=936) hemolyzed GLUCOSE RANDOM (BEAKER) 97 mg/dL 70-105 (test kicn=480) CALCIUM (BEAKER) (test 6.9 mg/dL 8.4-10.2 mudr=389) EGFR (BEAKER) (test 121 mL/min/1.73 sq m ESTIMATED GFR IS NOT mblo=9398) ACCURATE CREATININE CLEARANCE IN PREDICTING GLOMERULAR FILTRATION RATE. ESTIMATED GFR IS NOT APPLICABLE FOR DIALYSIS PATIENTS. [id number] 04:18:00 Test Item Value Reference Range Comments MAGNESIUM (BEAKER) (test 2.1 mg/dL 1.6-2.6 Specimen slightly hemolyzed sldj=804) [id number] 04:18:00 Test Item Value Reference Range Comments PHOSPHORUS (BEAKER) (test 4.6 mg/dL 2.3-4.7 Specimen slightly hemolyzed vvxi=129) CBC W/PLT COUNT & AUTO [id number] 03:30:00 Test Item Value Reference Range Comments WHITE BLOOD CELL COUNT (BEAKER) (test rfpr=555) 8.1 K/ L 3.5-10.5 RED BLOOD CELL COUNT (BEAKER) (test hoew=848) 3.44 M/ L 4.63-6.08 HEMOGLOBIN (BEAKER) (test zxdy=239) 8.7 GM/DL 13.7-17.5 HEMATOCRIT (BEAKER) (test mghu=022) 31.0 % 40.1-51.0 MEAN CORPUSCULAR VOLUME (BEAKER) (test iymg=925) 90.1 fL 79.0-92.2 MEAN CORPUSCULAR HEMOGLOBIN (BEAKER) (test 25.3 pg 25.7-32.2 bfia=766) MEAN CORPUSCULAR HEMOGLOBIN CONC (BEAKER) (test 28.1 GM/DL 32.3-36.5 ycbq=771) RED CELL DISTRIBUTION WIDTH (BEAKER) (test 20.6 % 11.6-14.4 xydn=754) PLATELET COUNT (BEAKER) (test xpgw=132) 176 K/CU MM 150-450 MEAN PLATELET VOLUME (BEAKER) (test afrt=300) 12.1 fL 9.4-12.4 NUCLEATED RED BLOOD CELLS (BEAKER) (test 0 /100 WBC 0-0 vnwh=477) NEUTROPHILS RELATIVE PERCENT (BEAKER) (test 70 % attc=711) LYMPHOCYTES RELATIVE PERCENT (BEAKER) (test 17 % nbee=240) MONOCYTES RELATIVE PERCENT (BEAKER) (test 7 % vsnm=205) EOSINOPHILS RELATIVE PERCENT (BEAKER) (test 5 % vzyj=314) BASOPHILS RELATIVE PERCENT (BEAKER) (test 0 % lbeq=260) NEUTROPHILS ABSOLUTE COUNT (BEAKER) (test 5.71 K/ L 1.78-5.38 zryg=365) LYMPHOCYTES ABSOLUTE COUNT (BEAKER) (test 1.38 K/ L 1.32-3.57 jnvf=745) MONOCYTES ABSOLUTE COUNT (BEAKER) (test 0.57 K/ L 0.30-0.82 cooc=932) EOSINOPHILS ABSOLUTE COUNT (BEAKER) (test 0.38 K/ L 0.04-0.54 vxzr=713) BASOPHILS ABSOLUTE COUNT (BEAKER) (test 0.03 K/ L 0.01-0.08 tzlf=232) IMMATURE GRANULOCYTES-RELATIVE PERCENT (BEAKER) 1 % 0-1 (test cedv=7713) RAD, CHEST, 1 VIEW, NON [id number] 23:38:00Reason for exam:->preop workupShould this be performed at the bedside?->YesFINAL REPORT AP chest dated 06/28/2019 Comment: Heart is in upper limits of normal in size. Pulmonary vasculature is unremarkable. Lungs are clear. No pulmonary infiltrate or pleural effusion. Impression: No active cardiopulmonary disease. Signed: María Tobiasort Verified Date/Time: 06/28/2019 23:38:30 Reading Location: [address] Consult Reading Room Electronicallysigned by: MARÍA TOBIAS M.D. on 06/28/2019 11:38 PMPOCT-GLUCOSE [id number] 22:26:00 Test Item Value Reference Range Comments POC-GLUCOSE METER (BEAKER) 112 mg/dL 70-110 : TESTED AT [facility] [address] (test xhdr=8666) [facility], [id number]: Premium Service Representative/Environmental Auditor [id number] for [employer] [id number] 20:58:00 Test Item Value Reference Range Comments TOTAL PROTEIN (BEAKER) 8.0 gm/dL 6.0-8.3 Specimen slightly (test zoza=243) hemolyzed ALBUMIN (BEAKER) (test 4.1 g/dL 3.5-5.0 Specimen slightly bour=8726) hemolyzed ALKALINE PHOSPHATASE 66 U/L 40-150 (BEAKER) (test snfv=266) BILIRUBIN TOTAL (BEAKER) 1.0 mg/dL 0.2-1.2 Specimen slightly (test chds=304) hemolyzed SODIUM (BEAKER) (test 137 meq/L 136-145 dxss=746) POTASSIUM (BEAKER) (test 4.1 meq/L 3.5-5.1 Specimen slightly pajz=177) hemolyzed CHLORIDE (BEAKER) (test 97 meq/L 98-107 irqg=371) CO2 (BEAKER) (test 27 meq/L 22-29 vwdk=733) BLOOD UREA NITROGEN 7 mg/dL 7-21 (BEAKER) (test iupn=645) CREATININE (BEAKER) (test 0.72 mg/dL 0.57-1.25 Specimen slightly bryy=915) hemolyzed GLUCOSE RANDOM (BEAKER) 73 mg/dL 70-105 (test dmrq=391) CALCIUM (BEAKER) (test 7.5 mg/dL 8.4-10.2 suym=858) AST (SGOT) (BEAKER) (test 75 U/L 5-34 Specimen slightly eejo=945) hemolyzed ALT (SGPT) (BEAKER) (test 47 U/L 6-55 Specimen slightly lftv=061) hemolyzed EGFR (BEAKER) (test 123 mL/min/1.73 sq ESTIMATED GFR IS NOT qasr=4763) m ACCURATE CREATININE CLEARANCE IN PREDICTING GLOMERULAR FILTRATION RATE. ESTIMATED GFR IS NOT APPLICABLE FOR DIALYSIS PATIENTS. CBC W/PLT COUNT & AUTO [id number] 20:24:00 Test Item Value Reference Range Comments WHITE BLOOD CELL COUNT (BEAKER) (test gofc=784) 7.9 K/ L 3.5-10.5 RED BLOOD CELL COUNT (BEAKER) (test sdcl=925) 3.61 M/ L 4.63-6.08 HEMOGLOBIN (BEAKER) (test txxf=673) 9.2 GM/DL 13.7-17.5 HEMATOCRIT (BEAKER) (test lgdu=018) 32.7 % 40.1-51.0 MEAN CORPUSCULAR VOLUME (BEAKER) (test rhet=506) 90.6 fL 79.0-92.2 MEAN CORPUSCULAR HEMOGLOBIN (BEAKER) (test 25.5 pg 25.7-32.2 znmq=735) MEAN CORPUSCULAR HEMOGLOBIN CONC (BEAKER) (test 28.1 GM/DL 32.3-36.5 dpxt=557) RED CELL DISTRIBUTION WIDTH (BEAKER) (test 20.8 % 11.6-14.4 qyhl=730) PLATELET COUNT (BEAKER) (test rbuq=965) 193 K/CU MM 150-450 MEAN PLATELET VOLUME (BEAKER) (test uloa=005) 12.4 fL 9.4-12.4 NUCLEATED RED BLOOD CELLS (BEAKER) (test 0 /100 WBC 0-0 skvw=393) NEUTROPHILS RELATIVE PERCENT (BEAKER) (test 69 % xoie=217) LYMPHOCYTES RELATIVE PERCENT (BEAKER) (test 18 % zexq=618) MONOCYTES RELATIVE PERCENT (BEAKER) (test 8 % nvyy=958) EOSINOPHILS RELATIVE PERCENT (BEAKER) (test 3 % eywx=589) BASOPHILS RELATIVE PERCENT (BEAKER) (test 0 % atwm=408) NEUTROPHILS ABSOLUTE COUNT (BEAKER) (test 5.46 K/ L 1.78-5.38 mrsh=478) LYMPHOCYTES ABSOLUTE COUNT (BEAKER) (test 1.42 K/ L 1.32-3.57 hngr=588) MONOCYTES ABSOLUTE COUNT (BEAKER) (test 0.62 K/ L 0.30-0.82 qgfa=537) EOSINOPHILS ABSOLUTE COUNT (BEAKER) (test 0.27 K/ L 0.04-0.54 agkb=535) BASOPHILS ABSOLUTE COUNT (BEAKER) (test 0.03 K/ L 0.01-0.08 evas=924) IMMATURE GRANULOCYTES-RELATIVE PERCENT (BEAKER) 1 % 0-1 (test vxpz=7950) [id number] 20:23:00 Test Item Value Reference Range Comments PARTIAL THROMBOPLASTIN TIME (BEAKER) (test 38.3 seconds 22.5-36.0 crel=214) PROTHROMBIN TIME/[id number] 20:22:00 Test Item Value Reference Range Comments PROTIME (BEAKER) (test dcwt=113) 13.5 seconds 11.9-14.2 INR (BEAKER) (test aevn=853) 1.1 <=5.9 Effective 01/19/2019: PT Reference Range ChangeNew: 11.9-14.2 Previous: 11.7- 14.7RECOMMENDED COUMADIN/WARFARIN INR THERAPY RANGESSTANDARD DOSE: 2.0-3.0 Includes: PROPHYLAXIS for venous thrombosis, systemic embolization; TREATMENT for venous thrombosis and/or pulmonary embolus.HIGH RISK: Target INR is2.5-3.5 for patients wiht mechanical heart valves.
--- NOTE | 2019-07-04 12:24 | RAD REPORT ---
EXAM DESCRIPTION: CT - Abdomen Pelvis W Contrast - 07/02/2019 11:42 pm CLINICAL HISTORY: The patient is 39 years old and is Male; GI Bleeding;Abd pain TECHNIQUE: Axial computed tomography images of the abdomen and pelvis with intravenous contrast. S agittal and coronal reformatted images were created and reviewed. This CT exam was performed using one or more of the following dose reduction techniques: automated exposure control, adjustment of t he mA and/or kV according to patient size, and/or use of iterative reconstruction technique. COMPARISON: No relevant prior studies available. FINDINGS: LUNG BASES: Unremarkable. No mass. No consolidation. ABDOMEN: LIVER: There is a diffuse decrease in hepatic parenchymal density, consistent with fatty infiltr ation. The liver is enlarged. GALLBLADDER AND BILE DUCTS: The gallbladder is contracted with multiple calcified gallstones pre sent. PANCREAS: No ductal dilation. No mass. SPLEEN: Unremarkable. ADRENALS: Unremarkable. No mass. KIDNEYS AND URETERS: Unremarkable. The kidneys enhance symmetrically. No obstructing renal or ur eteral calculus is seen. No hydronephrosis or hydroureter. No perinephric fluid or stranding. STOMACH AND BOWEL: The stomach is distended with food contents. The small bowel is normal in ele iber. Postsurgical change of the colon is present. No dilated loops of bowel are seen. There is no giovanna wel obstruction. PELVIS: APPENDIX: The appendix is normal in caliber without surrounding inflammation. BLADDER: Unremarkable. No mass. REPRODUCTIVE: Unremarkable as visualized. ABDOMEN and PELVIS: INTRAPERITONEAL SPACE: Unremarkable. No free air. No significant fluid collection. BONES/JOINTS: No acute fracture. SOFT TISSUES: A spigelian hernia is present. VASCULATURE: Unremarkable. No abdominal aortic aneurysm. LYMPH NODES: Unremarkable. No enlarged lymph nodes. IMPRESSION: No acute findings on this contrasted CT of the abdomen and pelvis to explain the patient 's symptoms. Electronically signed by: Janessa Ortiz MD 07/02/2019 11:29 PM DISEASE INTERVENTION SPECIALIST Due to temporary technical issues with the PACS/Fluency reporting system, reports are being signed by the in house radiologist as a courtesy to ensure prompt reporting. The interpreting radiologist is f ully responsible for the content of the report.
--- NOTE | 2019-07-04 12:26 | RAD REPORT ---
EXAM DESCRIPTION: CT - Head Brain Wo Cont - 07/02/2019 11:41 pm CLINICAL HISTORY: DIZZINESS TECHNIQUE: Contiguous axial CT images obtained through the brain without IV contrast. Coronal and sa gittal reformatted images were provided. This exam was performed according to our departmental dose-optimization program, which includes autom ated exposure control, adjustment of the mA and/or kV according to patient size and/or use of iterati ve reconstruction technique. COMPARISON: None available for comparison FINDINGS: Brain: No significant white matter changes. No focal mass effect. Sexton-white matter differ entiation is within normal limits. No hemorrhage. Ventricles: No ventriculomegaly or midline shift. Extra-axial spaces: No extra-axial collection or hemorrhage. Paranasal sinuses and mastoid air cells: Bilateral maxillary sinus mucous retention cyst/polyps. Mild bilateral ethmoid sinus mucosal thickening. Right frontal sinus opacification. Left frontal sinus ai r-fluid level. Vessels: Unremarkable Bones: Unremarkable Soft tissues: Unremarkable IMPRESSION: No acute intracranial or extra-axial abnormality. Electronically signed by: Venkat Otero MD 07/02/2019 11:31 PM ASSEMBLER SEAT Due to temporary technical issues with the PACS/Fluency reporting system, reports are being signed by the in house radiologist as a courtesy to ensure prompt reporting. The interpreting radiologist is f ully responsible for the content of the report.
== END 2019-07-03 00:47 | disposition home or self-care (01) ==
LOC: ER 20:40
DX: K62.5 Hemorrhage of anus and rectum (principal); L03.90 Cellulitis, unspecified; I10 Essential (primary) hypertension; Z88.1 Allergy status to other antibiotic agents; Z88.6 Allergy status to analgesic agent; Z88.8 Allergy status to other drugs, medicaments and biological substances
CPT/HCPCS: 36415; 70450; 70496; 71045; 74177; 80048; 80076; 83735; 83880; 84484; 85025; 85610; 86850; 86870; 86900; 86901; 93005; 96361; 96365; 96368; 96375; 99285; C9113; J0610; J2405; J3475; J7040; Q9967

== ENCOUNTER 2019-07-06 19:20 | Observation (INO) | payer SELFPAY ==
--- OUTSIDE RECORDS SUMMARY | 2019-07-06 19:23 | XMS REPORT ---
:1980 [facility] Address [address] [place] [address] Care Team Providers Name Role Phone TIM [...] Comments SODIUM (BEAKER) (test 137 meq/L 136-145 linu=099) POTASSIUM (BEAKER) (test 4.0 meq/L 3.5-5.1 fmpe=153) CHLORIDE (BEAKER) (test 100 meq/L 98-107 ibix=749) CO2 (BEAKER) (test 27 meq/L 22-29 bboc=447) BLOOD UREA NITROGEN 4 mg/dL 7-21 (BEAKER) (test logn=126) CREATININE (BEAKER) (test 0.71 mg/dL 0.57-1.25 pckw=626) GLUCOSE RANDOM (BEAKER) 110 mg/dL 70-105 (test roqe=818) CALCIUM (BEAKER) (test 7.2 mg/dL 8.4-10.2 rqpv=150) EGFR (BEAKER) (test 125 mL/min/1.73 sq m ESTIMATED GFR IS NOT tpkv=0136) ACCURATE CREATININE CLEARANCE IN PREDICTING GLOMERULAR FILTRATION RATE. ESTIMATED GFR IS NOT APPLICABLE FOR DIALYSIS PATIENTS. [id number] 07:19:00 Test Item Value Reference Range Comments PHOSPHORUS (BEAKER) (test kiua=972) 4.5 mg/dL 2.3-4.7 [id number] 07:19:00 Test Item Value Reference Range Comments MAGNESIUM (BEAKER) (test okff=062) 2.0 mg/dL 1.6-2.6 CBC W/PLT COUNT & AUTO [id number] 07:11:00 Test Item Value Reference Range Comments WHITE BLOOD CELL COUNT (BEAKER) (test jznx=119) 7.3 K/ L 3.5-10.5 RED BLOOD CELL COUNT (BEAKER) (test nudl=628) 3.63 M/ L 4.63-6.08 HEMOGLOBIN (BEAKER) (test udgp=755) 9.4 GM/DL 13.7-17.5 HEMATOCRIT (BEAKER) (test lltl=667) 33.6 % 40.1-51.0 MEAN CORPUSCULAR VOLUME (BEAKER) (test fsuj=701) 92.6 fL 79.0-92.2 MEAN CORPUSCULAR HEMOGLOBIN (BEAKER) (test 25.9 pg 25.7-32.2 kebc=086) MEAN CORPUSCULAR HEMOGLOBIN CONC (BEAKER) (test 28.0 GM/DL 32.3-36.5 mljj=463) RED CELL DISTRIBUTION WIDTH (BEAKER) (test 20.4 % 11.6-14.4 dddz=815) PLATELET COUNT (BEAKER) (test lpod=462) 196 K/CU MM 150-450 MEAN PLATELET VOLUME (BEAKER) (test asxg=519) 12.5 fL 9.4-12.4 NUCLEATED RED BLOOD CELLS (BEAKER) (test 0 /100 WBC 0-0 ohht=062) NEUTROPHILS RELATIVE PERCENT (BEAKER) (test 71 % awno=047) LYMPHOCYTES RELATIVE PERCENT (BEAKER) (test 16 % ttap=514) MONOCYTES RELATIVE PERCENT (BEAKER) (test 7 % ctds=699) EOSINOPHILS RELATIVE PERCENT (BEAKER) (test 5 % ejac=794) BASOPHILS RELATIVE PERCENT (BEAKER) (test 1 % zlow=878) NEUTROPHILS ABSOLUTE COUNT (BEAKER) (test 5.18 K/ L 1.78-5.38 mhvr=807) LYMPHOCYTES ABSOLUTE COUNT (BEAKER) (test 1.13 K/ L 1.32-3.57 ywqi=926) MONOCYTES ABSOLUTE COUNT (BEAKER) (test 0.53 K/ L 0.30-0.82 btod=365) EOSINOPHILS ABSOLUTE COUNT (BEAKER) (test 0.34 K/ L 0.04-0.54 dlbc=958) BASOPHILS ABSOLUTE COUNT (BEAKER) (test 0.04 K/ L 0.01-0.08 sjea=964) IMMATURE GRANULOCYTES-RELATIVE PERCENT (BEAKER) 1 % 0-1 (test jgen=0790) [id number] 07:07:00 Test Item Value Reference Range Comments PARTIAL THROMBOPLASTIN TIME (BEAKER) (test 39.0 seconds 22.5-36.0 tsxf=806) PROTHROMBIN [id number] 07:06:00 Test Item Value Reference Range Comments PROTIME (BEAKER) (test gxbt=709) 14.3 seconds 11.9-14.2 INR (BEAKER) (test xygh=626) 1.2 <=5.9 Effective 01/19/2019: PT Reference Range ChangeNew: 11.9-14.2 Previous: 11.7- 14.7RECOMMENDED COUMADIN/WARFARIN INR THERAPY RANGESSTANDARD DOSE: 2.0-3.0 Includes: PROPHYLAXIS for venous thrombosis, systemic embolization; TREATMENT for venous thrombosis and/or pulmonary embolus.HIGH RISK: Target INR is2.5-3.5 for patients wiht mechanical heart valves.CALCIUM, [id number] 07:05:00 Test Item Value Reference Range Comments CALCIUM IONIZED (BEAKER) (test vaiq=535) 0.73 mmol/L 1.12-1.27 PH, BLOOD (BEAKER) (test ewim=0267) 7.54 CBC W/PLT COUNT & AUTO [id number] 15:06:00 Test Item Value Reference Range Comments WHITE BLOOD CELL COUNT (BEAKER) (test vtgh=093) 8.4 K/ L 3.5-10.5 RED BLOOD CELL COUNT (BEAKER) (test uqug=260) 3.72 M/ L 4.63-6.08 HEMOGLOBIN (BEAKER) (test vtip=027) 9.6 GM/DL 13.7-17.5 HEMATOCRIT (BEAKER) (test dtah=784) 34.2 % 40.1-51.0 MEAN CORPUSCULAR VOLUME (BEAKER) (test mtgi=582) 91.9 fL 79.0-92.2 MEAN CORPUSCULAR HEMOGLOBIN (BEAKER) (test 25.8 pg 25.7-32.2 wwwb=236) MEAN CORPUSCULAR HEMOGLOBIN CONC (BEAKER) (test 28.1 GM/DL 32.3-36.5 zqdj=894) RED CELL DISTRIBUTION WIDTH (BEAKER) (test 20.5 % 11.6-14.4 tghq=078) PLATELET COUNT (BEAKER) (test mikb=248) 191 K/CU MM 150-450 MEAN PLATELET VOLUME (BEAKER) (test yarl=748) 12.6 fL 9.4-12.4 NUCLEATED RED BLOOD CELLS (BEAKER) (test 0 /100 WBC 0-0 cknx=408) NEUTROPHILS RELATIVE PERCENT (BEAKER) (test 76 % gwcr=301) LYMPHOCYTES RELATIVE PERCENT (BEAKER) (test 13 % hxie=372) MONOCYTES RELATIVE PERCENT (BEAKER) (test 6 % zsct=871) EOSINOPHILS RELATIVE PERCENT (BEAKER) (test 4 % bhsm=464) BASOPHILS RELATIVE PERCENT (BEAKER) (test 0 % nhhs=494) NEUTROPHILS ABSOLUTE COUNT (BEAKER) (test 6.36 K/ L 1.78-5.38 jcwx=146) LYMPHOCYTES ABSOLUTE COUNT (BEAKER) (test 1.08 K/ L 1.32-3.57 fcgl=087) MONOCYTES ABSOLUTE COUNT (BEAKER) (test 0.51 K/ L 0.30-0.82 cgpn=708) EOSINOPHILS ABSOLUTE COUNT (BEAKER) (test 0.37 K/ L 0.04-0.54 bupr=215) BASOPHILS ABSOLUTE COUNT (BEAKER) (test 0.03 K/ L 0.01-0.08 bvee=748) IMMATURE GRANULOCYTES-RELATIVE PERCENT (BEAKER) 1 % 0-1 (test ojty=8031) POCT-GLUCOSE [id number] 12:26:00 Test Item Value Reference Range Comments POC-GLUCOSE METER (BEAKER) 147 mg/dL 70-110 : TESTED AT [address] (test axlf=1917) [facility], [address]: Supervisor Histology/Cloth Burler [id number] for Perfryan Karen POCT-GLUCOSE [id number] 08:38:00 Test Item Value Reference Range Comments POC-GLUCOSE METER (BEAKER) 136 mg/dL 70-110 : TESTED AT [address] (test olxz=9089) [facility], [address]: Supervisor Histology/Cloth Burler [id number] for ELIAS [employer] MET[employer]IC [id number] 04:35:00 Test Item Value Reference Range Comments SODIUM (BEAKER) (test 140 meq/L 136-145 bgag=124) POTASSIUM (BEAKER) (test 3.8 meq/L 3.5-5.1 Specimen slightly gccd=145) hemolyzed CHLORIDE (BEAKER) (test 101 meq/L 98-107 ghdb=767) CO2 (BEAKER) (test 30 meq/L 22-29 uojp=244) BLOOD UREA NITROGEN 5 mg/dL 7-21 (BEAKER) (test djzd=251) CREATININE (BEAKER) (test 0.73 mg/dL 0.57-1.25 Specimen slightly rsha=132) hemolyzed GLUCOSE RANDOM (BEAKER) 97 mg/dL 70-105 (test gsuc=109) CALCIUM (BEAKER) (test 6.9 mg/dL 8.4-10.2 ebsi=841) EGFR (BEAKER) (test 121 mL/min/1.73 sq m ESTIMATED GFR IS NOT wluo=9590) ACCURATE CREATININE CLEARANCE IN PREDICTING GLOMERULAR FILTRATION RATE. ESTIMATED GFR IS NOT APPLICABLE FOR DIALYSIS PATIENTS. [id number] 04:18:00 Test Item Value Reference Range Comments MAGNESIUM (BEAKER) (test 2.1 mg/dL 1.6-2.6 Specimen slightly hemolyzed uqll=340) [id number] 04:18:00 Test Item Value Reference Range Comments PHOSPHORUS (BEAKER) (test 4.6 mg/dL 2.3-4.7 Specimen slightly hemolyzed einc=076) CBC W/PLT COUNT & AUTO [id number] 03:30:00 Test Item Value Reference Range Comments WHITE BLOOD CELL COUNT (BEAKER) (test wgwf=334) 8.1 K/ L 3.5-10.5 RED BLOOD CELL COUNT (BEAKER) (test irnv=897) 3.44 M/ L 4.63-6.08 HEMOGLOBIN (BEAKER) (test tsfa=247) 8.7 GM/DL 13.7-17.5 HEMATOCRIT (BEAKER) (test gyqk=695) 31.0 % 40.1-51.0 MEAN CORPUSCULAR VOLUME (BEAKER) (test emmz=187) 90.1 fL 79.0-92.2 MEAN CORPUSCULAR HEMOGLOBIN (BEAKER) (test 25.3 pg 25.7-32.2 tuzu=441) MEAN CORPUSCULAR HEMOGLOBIN CONC (BEAKER) (test 28.1 GM/DL 32.3-36.5 mcrn=162) RED CELL DISTRIBUTION WIDTH (BEAKER) (test 20.6 % 11.6-14.4 nurx=531) PLATELET COUNT (BEAKER) (test jssw=123) 176 K/CU MM 150-450 MEAN PLATELET VOLUME (BEAKER) (test lpzh=784) 12.1 fL 9.4-12.4 NUCLEATED RED BLOOD CELLS (BEAKER) (test 0 /100 WBC 0-0 pfsg=589) NEUTROPHILS RELATIVE PERCENT (BEAKER) (test 70 % zdwk=805) LYMPHOCYTES RELATIVE PERCENT (BEAKER) (test 17 % nnex=120) MONOCYTES RELATIVE PERCENT (BEAKER) (test 7 % ujpd=610) EOSINOPHILS RELATIVE PERCENT (BEAKER) (test 5 % xnly=638) BASOPHILS RELATIVE PERCENT (BEAKER) (test 0 % vtgg=520) NEUTROPHILS ABSOLUTE COUNT (BEAKER) (test 5.71 K/ L 1.78-5.38 kbcf=056) LYMPHOCYTES ABSOLUTE COUNT (BEAKER) (test 1.38 K/ L 1.32-3.57 iaaz=653) MONOCYTES ABSOLUTE COUNT (BEAKER) (test 0.57 K/ L 0.30-0.82 gmni=715) EOSINOPHILS ABSOLUTE COUNT (BEAKER) (test 0.38 K/ L 0.04-0.54 rgsr=992) BASOPHILS ABSOLUTE COUNT (BEAKER) (test 0.03 K/ L 0.01-0.08 xfyo=010) IMMATURE GRANULOCYTES-RELATIVE PERCENT (BEAKER) 1 % 0-1 (test yjdg=2962) RAD, CHEST, 1 VIEW, NON [id number] 23:38:00Reason for exam:->preop workupShould this be performed at the bedside?->YesFINAL REPORT AP chest dated 06/28/2019 Comment: Heart is in upper limits of normal in size. Pulmonary vasculature is unremarkable. Lungs are clear. No pulmonary infiltrate or pleural effusion. Impression: No active cardiopulmonary disease. Signed: María Tobiasort Verified Date/Time: 06/28/2019 23:38:30 Reading Location: [address] Consult Reading Room Electronicallysigned by: MARÍA TOBIAS M.D. on 06/28/2019 11:38 PMPOCT-GLUCOSE [id number] 22:26:00 Test Item Value Reference Range Comments POC-GLUCOSE METER (BEAKER) 112 mg/dL 70-110 : TESTED AT [facility] [address] (test jspn=4887) [facility], [address]: Supervisor Histology/Cloth Burler [id number] for BLACK [employer]ENEE [employer] MET[employer]OLIC [id number] 20:58:00 Test Item Value Reference Range Comments TOTAL PROTEIN (BEAKER) 8.0 gm/dL 6.0-8.3 Specimen slightly (test fbtj=287) hemolyzed ALBUMIN (BEAKER) (test 4.1 g/dL 3.5-5.0 Specimen slightly zuct=4917) hemolyzed ALKALINE PHOSPHATASE 66 U/L 40-150 (BEAKER) (test lddv=557) BILIRUBIN TOTAL (BEAKER) 1.0 mg/dL 0.2-1.2 Specimen slightly (test tyhm=342) hemolyzed SODIUM (BEAKER) (test 137 meq/L 136-145 wsqy=822) POTASSIUM (BEAKER) (test 4.1 meq/L 3.5-5.1 Specimen slightly sezk=437) hemolyzed CHLORIDE (BEAKER) (test 97 meq/L 98-107 rwbr=726) CO2 (BEAKER) (test 27 meq/L 22-29 zmke=445) BLOOD UREA NITROGEN 7 mg/dL 7-21 (BEAKER) (test buyp=220) CREATININE (BEAKER) (test 0.72 mg/dL 0.57-1.25 Specimen slightly raqk=386) hemolyzed GLUCOSE RANDOM (BEAKER) 73 mg/dL 70-105 (test nent=022) CALCIUM (BEAKER) (test 7.5 mg/dL 8.4-10.2 znzj=522) AST (SGOT) (BEAKER) (test 75 U/L 5-34 Specimen slightly ntfj=334) hemolyzed ALT (SGPT) (BEAKER) (test 47 U/L 6-55 Specimen slightly ffxc=720) hemolyzed EGFR (BEAKER) (test 123 mL/min/1.73 sq ESTIMATED GFR IS NOT waay=8451) m ACCURATE CREATININE CLEARANCE IN PREDICTING GLOMERULAR FILTRATION RATE. ESTIMATED GFR IS NOT APPLICABLE FOR DIALYSIS PATIENTS. CBC W/PLT COUNT & AUTO [id number] 20:24:00 Test Item Value Reference Range Comments WHITE BLOOD CELL COUNT (BEAKER) (test zmuz=408) 7.9 K/ L 3.5-10.5 RED BLOOD CELL COUNT (BEAKER) (test spjp=926) 3.61 M/ L 4.63-6.08 HEMOGLOBIN (BEAKER) (test zsii=432) 9.2 GM/DL 13.7-17.5 HEMATOCRIT (BEAKER) (test lsnz=814) 32.7 % 40.1-51.0 MEAN CORPUSCULAR VOLUME (BEAKER) (test iidl=288) 90.6 fL 79.0-92.2 MEAN CORPUSCULAR HEMOGLOBIN (BEAKER) (test 25.5 pg 25.7-32.2 jvcg=909) MEAN CORPUSCULAR HEMOGLOBIN CONC (BEAKER) (test 28.1 GM/DL 32.3-36.5 jzqg=286) RED CELL DISTRIBUTION WIDTH (BEAKER) (test 20.8 % 11.6-14.4 rabk=087) PLATELET COUNT (BEAKER) (test voeb=964) 193 K/CU MM 150-450 MEAN PLATELET VOLUME (BEAKER) (test fbhc=489) 12.4 fL 9.4-12.4 NUCLEATED RED BLOOD CELLS (BEAKER) (test 0 /100 WBC 0-0 bzjz=784) NEUTROPHILS RELATIVE PERCENT (BEAKER) (test 69 % qhyu=661) LYMPHOCYTES RELATIVE PERCENT (BEAKER) (test 18 % oalf=370) MONOCYTES RELATIVE PERCENT (BEAKER) (test 8 % nkqw=573) EOSINOPHILS RELATIVE PERCENT (BEAKER) (test 3 % uqoq=380) BASOPHILS RELATIVE PERCENT (BEAKER) (test 0 % orth=492) NEUTROPHILS ABSOLUTE COUNT (BEAKER) (test 5.46 K/ L 1.78-5.38 axsj=001) LYMPHOCYTES ABSOLUTE COUNT (BEAKER) (test 1.42 K/ L 1.32-3.57 lrpp=327) MONOCYTES ABSOLUTE COUNT (BEAKER) (test 0.62 K/ L 0.30-0.82 rbqq=945) EOSINOPHILS ABSOLUTE COUNT (BEAKER) (test 0.27 K/ L 0.04-0.54 eedi=246) BASOPHILS ABSOLUTE COUNT (BEAKER) (test 0.03 K/ L 0.01-0.08 gofl=867) IMMATURE GRANULOCYTES-RELATIVE PERCENT (BEAKER) 1 % 0-1 (test wkmf=8672) [id number] 20:23:00 Test Item Value Reference Range Comments PARTIAL THROMBOPLASTIN TIME (BEAKER) (test 38.3 seconds 22.5-36.0 fina=743) PROTHROMBIN TIME/[id number] 20:22:00 Test Item Value Reference Range Comments PROTIME (BEAKER) (test mhao=488) 13.5 seconds 11.9-14.2 INR (BEAKER) (test tshp=609) 1.1 <=5.9 Effective 01/19/2019: PT Reference Range ChangeNew: 11.9-14.2 Previous: 11.7- 14.7RECOMMENDED COUMADIN/WARFARIN INR THERAPY RANGESSTANDARD DOSE: 2.0-3.0 Includes: PROPHYLAXIS for venous thrombosis, systemic embolization; TREATMENT for venous thrombosis and/or pulmonary embolus.HIGH RISK: Target INR is2.5-3.5 for patients wiht mechanical heart valves.
[2019-07-06] MEDS ORDERED: NA CHLORIDE 0.9% 1,000 ML ONE (21:06)
[2019-07-06] MEDS ORDERED: NA CHLORIDE 0.9% 500 ML ONE (21:06)
[2019-07-06] MEDS ORDERED: PANTOPRAZOLE 40 MG INJ ONE (21:06)
[2019-07-06] MEDS ORDERED: MORPHINE 4 MG/ML SYR ONE ×2 (21:08→22:22)
[2019-07-06] MEDS ORDERED: ONDANSETRON 4 MG/2 ML VIAL ONE (21:08)
[2019-07-06 21:29] LABS: Barbiturates NEGATIVE (NEGATIVE); Benzodiazepines NEGATIVE (NEGATIVE); Cocaine NEGATIVE (NEGATIVE); METHAMPHETAM NEGATIVE (NEGATIVE); Methadone NEGATIVE (NEGATIVE); Opiates NEGATIVE (NEGATIVE); Phencyclidine NEGATIVE (NEGATIVE); THC Cannibis NEGATIVE (NEGATIVE)
[2019-07-06 21:38] LABS: Absolute Lymphocytes (CBC) 1.4 K/uL (0.7-4.9); Hematocrit 33.8 % (39.6-49.0); Lymphocytes % 14.3 % (15.3-44.8); RBC Red Blood Cell Count 3.98 M/uL (4.33-5.43)
[2019-07-06 21:49] LABS: ALT/SGPT 41 U/L (12-78); AST/SGOT 38 U/L (15-37); Albumin 3.7 g/dL (3.4-5.0); Alkaline Phosphatase 70 U/L (45-117); BUN Blood Urea Nitrogen 10 mg/dL (7-18); Bicarbonate 31 mmol/L (21-32); Bilirubin Direct 0.2 mg/dL (0-0.2); Bilirubin Total 0.4 mg/dL (0.2-1.0); Glucose Level 92 mg/dL (74-106); Lipase 155 U/L (73-393); Magnesium 2.1 mg/dL (1.8-2.4); NT PRO-BNP 73 pg/mL (<125); Protein, Total 8.5 g/dL (6.4-8.2); Sodium Level 137 mmol/L (136-145); Troponin (Emerg Dept Use Only) < 0.02 ng/mL (0.0-0.045)
[2019-07-06 21:50] LABS: Protime INR 1.12
[2019-07-06 21:57] LABS: Urine Blood NEGATIVE (NEG); Urine Glucose NEGATIVE (NEG); Urine Protein NEGATIVE (NEG); Urine pH 6.5 (5.0-7.0)
--- NOTE | 2019-07-06 22:41 | EDPHYS ---
Physician Documentation [facility] Name: Blanche Lo Age: 39 yrs Sex: Male : 1980 Arrival Date: 07/06/2019 Time: 19:24 Bed 8 Private MD: ED Physician Triston Salas HPI: 07/06 20:45 This 39 yrs old Male presents to ER via Ambulatory with complaints of Passed jayy Out Prior To Arrival, Back Pain, Weakness, Dizziness. 20:45 The patient has experienced syncope, became unresponsive, collapsed. Onset: The jayy symptoms/episode began/occurred 2 day(s) ago. Duration: This was a single episode, that lasted an unknown period of time. Context: occurred at home. Associated injury: Back:. Associated signs and symptoms: Pertinent positives: back pain, dizziness, lightheadedness, palpitations. Current symptoms: Currently, the patient is not experiencing any symptoms. The patient has experienced similar episodes in the past, a few times. Historical: - Allergies: 19:45 ambien; aj1 19:45 Amoxicillin; aj1 19:45 Amoxil; aj1 19:45 Naproxen; aj1 - Home Meds: 19:45 Iron CR Oral [Active]; vitamin W04-dsnll acid 500-400 mcg oral tab [Active]; Potassium aj1 Chloride Oral [Active]; "that pill for my hemoglobin" [Active]; Calcium Carbonate Oral [Active]; - PMHx: 19:45 GI Bleed; Hypertension; aj1 - Immunization history:: Flu vaccine is not up to date. - Social history:: Smoking status: Patient/guardian denies using tobacco. - Ebola Screening: : Patient denies travel to an Ebola-affected area in the 21 days before illness onset. - Family history:: not pertinent. ROS: 20:45 Constitutional: Negative for fever, chills, and weight loss, Eyes: Negative for injury, jayy pain, redness, and discharge, ENT: Negative for injury, pain, and discharge, Neck: Negative for injury, pain, and swelling, Cardiovascular: Negative for chest pain, palpitations, and edema, Respiratory: Negative for shortness of breath, cough, wheezing, and pleuritic chest pain, Abdomen/GI: Negative for abdominal pain, nausea, vomiting, diarrhea, and constipation, Back: Negative for injury and pain, : Negative for injury, bleeding, discharge, and swelling, MS/Extremity: Negative for injury and deformity, Neuro: Negative for headache, weakness, numbness, tingling, and seizure, Psych: Negative for depression, anxiety, suicide ideation, homicidal ideation, and hallucinations, Allergy/Immunology: Negative for hives, rash, and allergies, Endocrine: Negative for neck swelling, polydipsia, polyuria, polyphagia, and marked weight changes, Hematologic/Lymphatic: Negative for swollen nodes, abnormal bleeding, and unusual bruising. 20:45 Skin: Positive for pallor. Exam: 20:47 Constitutional: This is a well developed, well nourished patient who is awake, alert, jayy and in no acute distress. Head/Face: Normocephalic, atraumatic. Eyes: Pupils equal round and reactive to light, extra-ocular motions intact. Lids and lashes normal. Conjunctiva and sclera are non-icteric and not injected. Cornea within normal limits. Periorbital areas with no swelling, redness, or edema. ENT: Nares patent. No nasal discharge, no septal abnormalities noted. Tympanic membranes are normal and external auditory canals are clear. Oropharynx with no redness, swelling, or masses, exudates, or evidence of obstruction, uvula midline. Mucous membranes moist. Neck: Trachea midline, no thyromegaly or masses palpated, and no cervical lymphadenopathy. Supple, full range of motion without nuchal rigidity, or vertebral point tenderness. No Meningismus. Chest/axilla: Normal chest wall appearance and motion. Nontender with no deformity. No lesions are appreciated. Respiratory: Lungs have equal breath sounds bilaterally, clear to auscultation and percussion. No rales, rhonchi or wheezes noted. No increased work of breathing, no retractions or nasal flaring. Male : Normal genitalia with no discharge or lesions. MS/ Extremity: Pulses equal, no cyanosis. Neurovascular intact. Full, normal range of motion. Neuro: Awake and alert, GCS 15, oriented to person, place, time, and situation. Cranial nerves II-XII grossly intact. Motor strength 5/5 in all extremities. Sensory grossly intact. Cerebellar exam normal. Normal gait. Psych: Awake, alert, with orientation to person, place and time. Behavior, mood, and affect are within normal limits. 20:47 Cardiovascular: Rate: tachycardic, Rhythm: regular, Pulses: Pulses are 4+ in bilateral radial, brachial, femoral, popliteal, posterior tibial and and dorsalis pedis arteries.. Heart sounds: normal, Edema: is not appreciated, JVD: is not appreciated. 20:47 Abdomen/GI: Inspection: abdomen appears normal, Bowel sounds: normal, Rectal exam: Stool: guaiac positive, hemorrhoid(s), are not appreciated, mass, is not appreciated, swelling, is not appreciated, Liver: no appreciated palpable abnormalities, Hernia: not appreciated. Vital Signs: 19:45 BP 125 / 87; Pulse 105; Resp 20; Temp 98.3; Pulse Ox 98% on R/A; Weight 101.15 kg (R); aj1 Height 5 ft. 5 in. (165.10 cm) (R); Pain 10/10; 20:08 BP 120 / 90; Pulse 103; Resp 19 S; Pulse Ox 98% on R/A; jd3 21:26 BP 113 / 78; Pulse 100; Resp 19 S; Pulse Ox 99% on R/A; jd3 22:34 BP 118 / 90; Pulse 97; Resp 17 S; Pulse Ox 97% on R/A; jd3 07/07 00:37 BP 131 / 91; Pulse 95; Resp 18 S; Pulse Ox 98% on R/A; d3 07/06 19:45 Body Mass Index 37.11 (101.15 kg, 165.10 cm) [facility] MDM: 07/06 20:22 Patient medically screened. [facility] 20:49 Data reviewed: vital signs, nurses notes, lab test result(s), EKG, radiologic studies, [facility] CT scan, plain films. 07/06 20:45 Order name: Basic Metabolic Panel; Complete Time: 22:37 [facility] 07/06 20:45 Order name: CBC with Diff; Complete Time: 23:11 [facility] 07/06 20:45 Order name: LFT's; Complete Time: 22:37 [facility] 07/06 20:45 Order name: Magnesium; Complete Time: 22:37 [facility] 07/06 20:45 Order name: NT PRO-BNP; Complete Time: 22:37 [facility] 07/06 20:45 Order name: PT-INR; Complete Time: 22:37 [facility] 07/06 20:45 Order name: Troponin (emerg Dept Use Only); Complete Time: 22:37 [facility] 07/06 20:45 Order name: XRAY Chest (1 view) [facility] 07/06 20:45 Order name: Lipase; Complete Time: 22:37 [facility] 07/06 20:45 Order name: Type And Screen [facility] 07/06 20:45 Order name: UDS; Complete Time: 21:32 [facility] 07/06 21:16 Order name: Urine Dipstick--Ancillary (enter results) cm6 07/06 21:54 Order name: CBC Smear Scan; Complete Time: 23:11 [facility] 07/06 22:32 Order name: Antibody Identification [facility] 07/06 20:45 Order name: EKG; Complete Time: 20:45 [facility] 07/06 20:45 Order name: Cardiac monitoring; Complete Time: 20:46 [facility] 07/06 20:45 Order name: EKG - Nurse/Tech; Complete Time: 20:46 [facility] 07/06 20:45 Order name: IV Saline Lock; Complete Time: 21:25 [facility] 07/06 20:45 Order name: Labs collected and sent; Complete Time: 21:25 [facility] 07/06 20:45 Order name: O2 Per Protocol; Complete Time: 20:46 [facility] 07/06 20:45 Order name: O2 Sat Monitoring; Complete Time: 20:46 [facility] 07/06 20:45 Order name: Urine Dipstick-Ancillary (obtain specimen); Complete Time: 21:25 [facility] 07/06 20:45 Order name: CT Traumagram (Head C Spine CAP wo con) jayy Administered Medications: 21:24 Drug: ProTONIX 40 mg Route: IVP; Site: right antecubital; jd3 22:20 Follow up: Response: No adverse reaction j 21:25 Drug: NS 0.9% 500 ml Route: IV; Rate: bolus; Site: right antecubital; jd3 22:25 Follow up: Response: No adverse reaction; IV Status: Completed infusion; IV Intake: jd3 500ml 21:25 Drug: NS 0.9% 1000 ml Route: IV; Rate: 125 ml/hr; Site: right antecubital; jd3 07/07 00:42 Follow up: Response: No adverse reaction; IV Status: Infusion continued upon admission [facility] 07/06 21:25 Drug: morphine 4 mg Route: IVP; Site: right antecubital; jd3 22:50 Follow up: Response: No adverse reaction jd3 21:25 Drug: Zofran 4 mg Route: IVP; Site: right antecubital; jd3 22:25 Follow up: Response: No adverse reaction jd3 22:24 Drug: morphine 4 mg Route: IVP; Site: right antecubital; jd3 23:24 Follow up: Response: No adverse reaction; RASS: Alert and Calm (0) jd3 23:00 Drug: Calcium Gluconate 1 grams Route: IVPB; Infused Over: 60 mins; Site: right jd3 antecubital; 07/07 01:02 Follow up: Response: No adverse reaction; IV Status: Completed infusion jd3 Disposition: 07/06/19 22:40 Hospitalization ordered by Ian Rodriguez for Inpatient Admission. Preliminary diagnosis are Syncope and collapse, Gastrointestinal hemorrhage, unspecified, Anemia, unspecified, Hypocalcemia. - Bed requested for Telemetry/MedSurg (Inpatient). - Status is Inpatient Admission. jd3 - Condition is Fair. - Problem is new. - Symptoms have improved. UTI on Admission? No Signatures: Dispatcher [employer] EDMS Chely Veronica RN RN aj1 Rosa Vasques RN RN dw Anderson, Corey, MD MD cha Davies, Jonathon, RN RN jd3 Corrections: (The following items were deleted from the chart) 07/06 22:44 22:40 Hospitalization Ordered by Ian Rodriguez for Observation. Preliminary diagnosis jayy is Syncope and collapse; Gastrointestinal hemorrhage, unspecified; Anemia, unspecified. Bed requested for Telemetry/MedSurg (observation). Status is Observation. Condition is Fair. Problem is new. Symptoms have improved. UTI on Admission? No. jayy 07/07 00:12 07/06 22:44 07/06/2019 22:40 Hospitalization Ordered by Ian Rodriguez for Inpatient dw Admission. Preliminary diagnosis is Syncope and collapse; Gastrointestinal hemorrhage, unspecified; Anemia, unspecified; Hypocalcemia. Bed requested for Telemetry/MedSurg (Inpatient). Status is Inpatient Admission. Condition is Fair. Problem is new. Symptoms have improved. UTI on Admission? No. jayy 07/07 01:03 00:12 07/06/2019 22:40 Hospitalization Ordered by Ian Rodriguez for Inpatient jd3 Admission. Preliminary diagnosis is Syncope and collapse; Gastrointestinal hemorrhage, unspecified; Anemia, unspecified; Hypocalcemia. Bed requested for Telemetry/MedSurg (Inpatient). Status is Inpatient Admission. Condition is Fair. Problem is new. Symptoms have improved. UTI on Admission? No. dw
--- NOTE | 2019-07-06 22:41 | ER ---
Nurse's Notes [facility] Name: Blanche Lo Age: 39 yrs Sex: Male : 1980 Arrival Date: 07/06/2019 Time: 19:24 Bed 8 Private MD: Diagnosis: Syncope and collapse;Gastrointestinal hemorrhage, unspecified;Anemia, unspecified;Hypocalcemia Presentation: 07/06 19:41 Presenting complaint: Patient states: Patient states that he was here 3 days and had a aj1 blood transfusion, he did not follow up with any body. Reports that he has been having dizziness since it happened, but today he passed out at 1630. State that he was walking back from the bathroom when he started feeling short of breath and light headed and then passed out. Denies chest pain, abdominal pain. Reports lower back pain. Transition of care: patient was not received from another setting of care. Onset of symptoms was 2018. Risk Assessment: Do you want to hurt yourself or someone else? Patient reports no desire to harm self or others. Initial Sepsis Screen: Does the patient meet any 2 criteria? No. Patient's initial sepsis screen is negative. Does the patient have a suspected source of infection? No. Patient's initial sepsis screen is negative. Care prior to arrival: None. 19:41 Method Of Arrival: Ambulatory aj 19:41 Acuity: JANINE 3 aj1 Triage Assessment: 19:45 General: Appears in no apparent distress. uncomfortable, Behavior is calm, cooperative, aj1 appropriate for age. Pain: Complains of pain in low back area Pain currently is 10 out of 10 on a pain scale. Neuro: Level of Consciousness is awake, alert, obeys commands. Cardiovascular: Patient's skin is warm and dry. Respiratory: Airway is patent Respiratory effort is even, unlabored, Respiratory pattern is regular, symmetrical. Musculoskeletal: Circulation, motion, and sensation intact. Historical: - Allergies: 19:45 ambien; aj1 19:45 Amoxicillin; aj1 19:45 Amoxil; aj1 19:45 Naproxen; aj1 - Home Meds: 19:45 Iron CR Oral [Active]; vitamin E49-xrirq acid 500-400 mcg oral tab [Active]; Potassium aj1 Chloride Oral [Active]; "that pill for my hemoglobin" [Active]; Calcium Carbonate Oral [Active]; - PMHx: 19:45 GI Bleed; Hypertension; aj1 - Immunization history:: Flu vaccine is not up to date. - Social history:: Smoking status: Patient/guardian denies using tobacco. - Ebola Screening: : Patient denies travel to an Ebola-affected area in the 21 days before illness onset. - Family history:: not pertinent. Screenin:07 Abuse screen: Denies threats or abuse. Nutritional screening: No deficits noted. jd3 Tuberculosis screening: No symptoms or risk factors identified. Fall Risk Ambulatory Aid- None/Bed Rest/Nurse Assist (0 pts). Gait- Normal/Bed Rest/Wheelchair (0 pts) Mental Status- Oriented to own ability (0 pts). Total Cervantes Fall Scale indicates No Risk (0-24 pts). Assessment: 20:02 General: Appears in no apparent distress. uncomfortable, Behavior is cooperative, jd3 appropriate for age, anxious. Pain: Complains of pain in low back area Quality of pain is described as aching, sharp. Neuro: Level of Consciousness is awake, alert, obeys commands, Oriented to person, place, time, situation, Ladies Suit Operator are equal bilaterally Moves all extremities. Full function Gait is steady, Speech is normal, Facial symmetry appears normal, Pupils are PERRLA, Intact Reports dizziness, a syncopal episode weakness general weakness. Cardiovascular: Denies chest pain, Heart tones S1 S2 present Capillary refill < 3 seconds Patient's skin is warm and dry. Respiratory: Airway is patent Respiratory effort is even, unlabored, Respiratory pattern is regular, symmetrical, Breath sounds are clear bilaterally. GI: Abdomen is round non-distended, Bowel sounds present X 4 quads. Abd is soft and non tender X 4 quads. Patient currently denies diarrhea, nausea, vomiting. : No signs and/or symptoms were reported regarding the genitourinary system. EENT: No signs and/or symptoms were reported regarding the EENT system. Derm: Skin is intact, Skin is dry, Skin is normal, Skin temperature is warm. Musculoskeletal: Circulation, motion, and sensation intact. Range of motion: intact in all extremities. 21:26 Reassessment: Patient appears in no apparent distress at this time. No changes from jd3 previously documented assessment. Patient and/or family updated on plan of care and expected duration. Pain level reassessed. Patient is alert, oriented x 3, equal unlabored respirations, skin warm/dry/pink. 22:34 Reassessment: Patient appears in no apparent distress at this time. Patient and/or jd3 family updated on plan of care and expected duration. Pain level reassessed. Patient is alert, oriented x 3, equal unlabored respirations, skin warm/dry/pink. pt reports some relief from pain medication. reports pain that is intermittent tot he left flank. provider notified. 07/07 00:37 Reassessment: Patient appears in no apparent distress at this time. Patient and/or jd3 family updated on plan of care and expected duration. Pain level reassessed. Patient is alert, oriented x 3, equal unlabored respirations, skin warm/dry/pink. Patient states feeling better. Vital Signs: 07/06 19:45 BP 125 / 87; Pulse 105; Resp 20; Temp 98.3; Pulse Ox 98% on R/A; Weight 101.15 kg (R); aj1 Height 5 ft. 5 in. (165.10 cm) (R); Pain 10/10; 20:08 BP 120 / 90; Pulse 103; Resp 19 S; Pulse Ox 98% on R/A; jd3 21:26 BP 113 / 78; Pulse 100; Resp 19 S; Pulse Ox 99% on R/A; jd3 22:34 BP 118 / 90; Pulse 97; Resp 17 S; Pulse Ox 97% on R/A; jd3 07/07 00:37 BP 131 / 91; Pulse 95; Resp 18 S; Pulse Ox 98% on R/A; jd3 07/06 19:45 Body Mass Index 37.11 (101.15 kg, 165.10 cm) aj1 ED Course: 07/06 19:24 Patient arrived in ED. cf2 19:44 Triage completed. aj1 19:45 Arm band placed on Patient placed in an exam room. aj1 19:47 Amrik Smith, RN is Primary Nurse. jd3 20:07 Patient has correct armband on for positive identification. Placed in gown. Bed in low jd3 position. Call light in reach. Side rails up X 1. 20:22 Triston Salas MD is Attending Physician. jayy 20:37 EKG done, by windshield repair technician. reviewed by Triston Salas MD. oe 20:57 CT completed. Patient tolerated procedure well. Patient moved to CT via stretcher. nj Patient moved back from CT. 21:20 CT Traumagram (Head C Spine CAP wo con) In Process Unspecified. EDMS 21:33 XRAY Chest (1 view) In Process Unspecified. EDMS 21:52 Notified ED physician of a critical lab result(s). calcium 6.4. fc 22:00 Inserted saline lock: 20 gauge in right antecubital area, using aseptic technique. oe Blood collected. 22:38 Ian Rodriguez is Hospitalizing Provider. [facility] 07/07 00:39 Inserted 18 gauge 10 cm midline to left upper arm basilic vein on first attempt. Line fc with good blood return and flushes well. 00:49 No provider procedures requiring assistance completed. Patient admitted, IV remains in j place. Administered Medications: 07/06 21:24 Drug: ProTONIX 40 mg Route: IVP; Site: right antecubital; j 22:20 Follow up: Response: No adverse reaction j 21:25 Drug: NS 0.9% 500 ml Route: IV; Rate: bolus; Site: right antecubital; jd3 22:25 Follow up: Response: No adverse reaction; IV Status: Completed infusion; IV Intake: jd3 500ml 21:25 Drug: NS 0.9% 1000 ml Route: IV; Rate: 125 ml/hr; Site: right antecubital; j 07/07 00:42 Follow up: Response: No adverse reaction; IV Status: Infusion continued upon admission j 07/06 21:25 Drug: morphine 4 mg Route: IVP; Site: right antecubital; jd3 22:50 Follow up: Response: No adverse reaction jd3 21:25 Drug: Zofran 4 mg Route: IVP; Site: right antecubital; jd3 22:25 Follow up: Response: No adverse reaction jd3 22:24 Drug: morphine 4 mg Route: IVP; Site: right antecubital; jd3 23:24 Follow up: Response: No adverse reaction; RASS: Alert and Calm (0) jd3 23:00 Drug: Calcium Gluconate 1 grams Route: IVPB; Infused Over: 60 mins; Site: right [facility] antecubital; 07/07 01:02 Follow up: Response: No adverse reaction; IV Status: Completed infusion jd3 Intake: 07/06 22:25 IV: 500ml; Total: 500ml. jzahc Outcome: 22:40 Decision to Hospitalize by Provider. jayy 07/07 00:49 Admitted to Tele accompanied by tech, via wheelchair, room 405, with chart, Report jd3 called to [facility] Condition: stable Instructed on follow up and referral plans. the need for admit, Demonstrated understanding of instructions, follow-up care. 01:03 Patient left the ED. jzach Signatures: Dispatcher [employer] EDChely Rea, RN RN ajTriston Manjarrez MD MD cha Chretien, Felicia, RN RN Nicolas Reveles [place] oe Davies, Jonathon RN RN Amos Ulloa2
[2019-07-06 22:53] LABS: Anisocytosis 1+; Blood Morphology Comment NOTED (NOT SEEN); Platelet Estimate ADEQ; Urine White Blood Cell Casts OK
[2019-07-06] MEDS ORDERED: CALCIUM GLUCONATE 1 GM IVPB 1 GM/50 ML BAG IV ONE (22:53)
--- NOTE | 2019-07-06 23:55 | P.HP ---
Certification for Inpatient Patient admitted to: Observation With expected LOS: <2 Midnights Practitioner: I am a practitioner with admitting privileges, knowledge of patient current condition, hospital course, and medical plan of care. Services: Services provided to patient in accordance with Admission requirements found in Title 42 Section 412.3 of the Code of Federal Regulations Patient History Date of Service: 07/11/19 Reason for admission: Passed out History of Present Illness: 39-year-old gentleman, morbidly obese, history of partial gastrectomy and bowel resection complicated with iron-deficiency and hypocalcemia, history of multiple transfusions for GI bleed, presented emergency department because he passed out today. Patient reports he passed out after return from his bathroom after voiding. He reported he might have passed out onto his bed because he found himself lying half-way from his bed. He lives alone. No one witnessed him pass out. He has a history of seizure disorder and but have not had any seizure for several years and not on any antiseizure medication. Patient was recently hospitalized last week for GI bleed, endoscopy and colonoscopy were performed, patient noted to have large amount of blood in the terminal ileum. Bleeding scan was negative. Patient was transferred to [facility] for an angiogram. He stated the procedure was not performed because he was told the bleeding have stopped. He was having facial tics especially with speech during my examination in the ED. His current hemoglobin is 10. Calcium level is 6.4. Patient was in the ED 3 days ago for complaint of abdominal pain, dizziness, lightheadedness, tunnel vision bright red blood per rectum. He was concerned for cerebral aneurysm given his significant family history of from cerebral aneurysm. CT angiogram of head was done which was negative for aneurysm or occlusions. He has visited the ED 3 times for constellation of symptoms. He was given IV calcium supplementation during each visit. He denied bright red blood per rectum at this time. Patient is admitted for further workup. Allergies naproxen Allergy (Verified 06/25/19 02:27) Unknown Penicillins Allergy (Verified 06/25/19 02:27) Rash zolpidem [From Ambien] Allergy (Verified 06/25/19 02:27) Unknown Home Medications: Albuterol Sulfate [Albuterol Sulfate Hfa] 2 puff IN QID PRN #1 hfa.aer.ad Calcium Carbonate/Vitamin D3 [Oscal 500 + Vit D 200 Iu Tab*] 1 tab PO DAILY #30 tab 06/17/19 Cyanocobalamin [Vitamin B-12*] 1,000 mcg PO DAILY #90 tab 06/17/19 Ferrous Sulfate [Ferrous Sulfate*] 325 mg PO TID #90 tab 06/17/19 Fluticasone [Flonase 50MCG Nasal Pullman*] 1 sprays RENAE BID #1 btl 06/17/19 Fluticasone/Salmeterol [Advair 250-50 Diskus] 1 each IH BID #1 blst.w.dev Folic Acid 1 mg PO DAILY #30 tablet 06/17/19 Furosemide [Lasix*] 20 mg PO DAILY PRN #15 tab 06/17/19 Magnesium Oxide [Mag 0X*] 400 mg PO DAILY #30 tab 06/17/19 Pantoprazole [Protonix Tab*] 40 mg PO DAILYAC #30 tab 06/17/19 Clindamycin HCl 300 mg PO Q6H 07/07/19 Dicyclomine [Bentyl*] 20 mg PO Q6H 07/07/19 Smz./Tmp. [Bactrim Ds 800 MG/160 MG*] 1 tab PO Q12H 07/07/19 Tramadol HCl [Ultram] 50 mg PO Q6HP PRN 07/07/19 levETIRAcetam [Keppra Tab] 500 mg PO BID #60 tab 07/08/19 - Past Medical/Surgical History Diabetic: No -: Asthma -: Hypertension -: Traumatic Brain Injury -: Left Ankle Surgery -: Abdominal Surgery - Family History grandfather -: Diabetes, Cancer - Social History Smoking Status: Former smoker Alcohol use: No CD- Drugs: No Caffeine use: No Review of Systems Other: General: No fever, no malaise, no unintentional weight loss. Eyes: No eye discharge, Respiratory: No cough, no shortness of breath. CVS: No chest pain, no palpitation. GI: No abdominal pain, no nausea no vomit, no constipation, no diarrhea. Genitourinary: No dysuria, no urinary frequency, no incontinence, no hematuria. Musculoskeletal: He is complaining of left lower back pain.. Neurology: No headache, no asymmetric, weakness, no problem with swallowing. Except as documented, all other systems reviewed and negative. Physical Examination - Physical Exam General: Alert, In no apparent distress, Oriented x3 HEENT: Atraumatic, Normocephalic, PERRLA, Mucous membr. moist/pink, Sclerae nonicteric Neck: Supple, JVD not distended Respiratory: Clear to auscultation bilaterally, Normal air movement Cardiovascular: No edema, Normal pulses, Regular rate/rhythm, Normal S1 S2, No murmurs Capillary refill: <2 Seconds Gastrointestinal: Normal bowel sounds, Soft and benign, Non-distended, No tenderness Musculoskeletal: No swelling, No erythema Integumentary: Other (Healing rounded ulcers on bilateral upper extremities.) Neurological: Normal speech, Normal strength at 5/5 x4 extr, Cranial nerves 3- 12 intact, Other (tics) - Studies Laboratory Data (last 24 hrs) 07/06/19 21:17: PT 13.2 H, INR 1.12 07/06/19 21:17: WBC 9.5, Hgb 10.6 L, Hct 33.8 L, Plt Count 170 07/06/19 21:17: Sodium 137, Potassium 4.0, BUN 10, Creatinine 0.90, Glucose 92, Magnesium 2.1, Total Bilirubin 0.4, AST 38 H, ALT 41, Alkaline Phosphatase 70, Lipase 155 Assessment and Plan - Problems (Diagnosis) (1) Syncope and collapse Status: Acute (2) Hypocalcemia Status: Acute (3) Iron deficiency anemia Status: Chronic Qualifiers: Iron deficiency anemia type: chronic blood loss Qualified Code(s): D50.0 - Iron deficiency anemia secondary to blood loss (chronic) (4) Obstructive sleep apnea Status: Acute (5) Skin rash Status: Acute - Plan Patient's transient AMS could be secondary to obstructive sleep apnea or seizure disorder. Place under observation Replete calcium with IV calcium gluconate Start oral Keppra given prior history of seizure disorder Patient will need an EEG Complete syncope workup with echocardiogram. Neurology consult Continue iron supplementation Monitor hemoglobin and transfuse p.r.n. Patient suspected to have obstructive sleep apnea but have not undergone sleep study and CPAP titration CPAP at night. - Advance Directives Does patient have a Living Will: No Does patient have a Durable POA for Healthcare: No
[2019-07-07] MEDS ORDERED: NA CHLORIDE 0.9% 1,000 ML IV SCH (01:15)
[2019-07-07] MEDS ORDERED: ONDANSETRON 4 MG/2 ML VIAL IV PRN (01:15)
[2019-07-07] MEDS ORDERED: CALCIUM GLUC 10% INJ 9.3 MEQ in NA CHLORIDE 0.9% 100 ML IV ONE (01:15)
[2019-07-07 02:05] VITALS: BMI 36.9
[2019-07-07 02:10] LABS: Troponin I < 0.02 ng/mL (0.0-0.045)
[2019-07-07] MEDS: TRAMADOL HCL 50 MG TAB PO PRN ×3 (03:16→22:44)
--- NOTE | 2019-07-07 08:03 | RAD REPORT ---
EXAM DESCRIPTION: Latoya Single View07/06/2019 9:33 pm CLINICAL HISTORY: Cough COMPARISON: July 02, 2019 FINDINGS: The lungs appear clear of acute infiltrate. The heart is mildly enlarged IMPRESSION: No acute abnormalities displayed
[2019-07-07] MEDS ORDERED: FUROSEMIDE 20 MG TABLET PO PRN (08:10)
--- NOTE | 2019-07-07 08:18 | EKG ---
Test Date: 2019-07-06 Test Time: 19:55:22 Senior Instructional Designer: VITALY MEASUREMENT RESULTS: Intervals: Rate: 103 TX: 128 QRSD: 74 QT: 356 QTc: 466 [place]: P: 39 TX: 128 QRS: -5 T: 32 INTERPRETIVE STATEMENTS: Sinus tachycardia Otherwise normal ECG Compared to ECG 07/02/2019 21:21:49 ST (T wave) deviation no longer present Electronically Signed On 07-07-19 08:16:02 CONSERVATION COORDINATOR by Fred Reyes
--- NOTE | 2019-07-07 08:45 | RAD REPORT ---
EXAM DESCRIPTION: USCarotid Artery Tqmfhjyhg26/14/2019 8:17 am CLINICAL HISTORY: Syncope COMPARISON: None FINDINGS: The velocity of the right internal carotid artery equals 108 cm/sec. The right ICA/CCA rat io 1.2 The velocity of the left internal carotid artery equals 109 cm/sec. The left ICA/CCA ratio 1.2 Mild plaque is present within the carotid arteries. The vertebral arteries demonstrate antegrade flow IMPRESSION: Mild plaque within the carotid arteries without evidence of a hemodynamically significan t stenosis NASCET criteria used. Mild 0-49% stenosis Moderate 50-69% stenosis Severe 70-99% stenosis
[2019-07-07] MEDS: CYANOCOBALAMIN 1,000 MCG TAB PO SCH (08:57)
[2019-07-07] MEDS: DICYCLOMINE HCL 10 MG CAP PO SCH ×3 (08:57→21:00)
[2019-07-07] MEDS: FOLIC ACID 1 MG TABLET PO SCH (08:57)
[2019-07-07] MEDS: FERROUS SULFATE 325 MG TAB PO SCH ×3 (08:57→21:00)
[2019-07-07] MEDS: FLUTICASONE 50MCG NASAL SPRAY NAS SCH ×3 (08:58→21:00)
[2019-07-07] MEDS: MAGNESIUM OXIDE 400 MG TAB PO SCH (08:59)
[2019-07-07] MEDS: CALCIUM CARB 500MG/VIT D 200 IU TAB PO SCH (08:59)
[2019-07-07] MEDS ORDERED: levETIRAcetam 500 MG in NA CHLORIDE 0.9% 100 ML IV SCH (09:00)
[2019-07-07] MEDS ORDERED: HOME MED 1 EA UNK (Fluticasone/Salmeterol [Advair 250-50 Diskus] 1 EACH) IH SCH (09:00)
[2019-07-07] MEDS: ACETAMINOPHEN 500 MG TAB PO PRN ×2 (09:11→14:29)
--- NOTE | 2019-07-07 10:49 | RAD REPORT ---
EXAM DESCRIPTION: CT - Head C Spine Cap Jocelyne Con - 07/07/2019 4:49 am CLINICAL HISTORY: Pain;Weakness TECHNIQUE: Axial computed tomography images of the head/brain and cervical spine without intravenous contrast. Sagittal and coronal reformatted images were created and reviewed. This CT exam was pe rformed using one or more of the following dose reduction techniques: automated exposure control, a djustment of the mA and/or kV according to patient size, and/or use of iterative reconstruction techn ique. COMPARISON: No relevant prior studies available. FINDINGS: Limitations: None. Brain: Unremarkable. No hemorrhage. No significant white matter disease. No edema. Ventricles: Unremarkable. No ventriculomegaly. Skull: No acute fracture. Sinuses: Chronic maxillary, ethmoid and frontal sinus thickening noted. Trace chronic left sph enoid sinus thickening. Mastoid air cells: There is chronic opacification of the right mastoid. Vertebrae: There is prominent osseous bridging of the anterior C1 arch to a large ossification e xtending from the anterior aspect of the lower C2 vertebra. There is block vertebra C2-C3. There is a prominent anterior bridging osteophytes C3-C4. There is chronic facet fusion C2-C3. There is prominent posterior osteophyte C3-C4 asymmetric to the right indenting the cord minimally. No acute fracture. Normal alignment. Discs/spinal canal/neural foramina: See above. Soft tissues: Unremarkable. IMPRESSION: 1. No acute change in the brain. 2. No cervical fracture or subluxation. 3. Chronic changes involving C2-C4 including prominent posterior C3-C4 osteophyte to the right of m idline with mild cord indentation. Electronically signed by: Selene Palm MD 07/06/2019 9:55 PM SLICING MACHINE FEEDER Due to temporary technical issues with the PACS/Fluency reporting system, reports are being signed by the in house radiologist as a courtesy to ensure prompt reporting. The interpreting radiologist is f ully responsible for the content of the report.
--- NOTE | 2019-07-07 14:09 | P.PN ---
Subjective Date of Service: 07/07/19 Chief Complaint: Passed out Subjective: Tolerating diet, Ambulating, Improving, Working w/ PT, Doing well Review of Systems 10-point ROS is otherwise unremarkable Physical Examination - Vital Signs Temperature: 97.1 F Blood Pressure: 127/85 Pulse: 93 Respirations: 16 Pulse Ox (%): 96 - Physical Exam General: Alert, In no apparent distress HEENT: Atraumatic, PERRLA, EOMI Neck: Supple, JVD not distended Respiratory: Clear to auscultation bilaterally, Normal air movement Cardiovascular: Regular rate/rhythm, Normal S1 S2 Gastrointestinal: Normal bowel sounds, No tenderness Musculoskeletal: No tenderness Integumentary: No rashes Neurological: Normal speech, Normal tone, Normal affect Lymphatics: No axilla or inguinal lymphadenopathy - Studies Laboratory Data (last 24 hrs) 07/06/19 21:17: PT 13.2 H, INR 1.12 07/06/19 21:17: WBC 9.5, Hgb 10.6 L, Hct 33.8 L, Plt Count 170 07/06/19 21:17: Sodium 137, Potassium 4.0, BUN 10, Creatinine 0.90, Glucose 92, Magnesium 2.1, Total Bilirubin 0.4, AST 38 H, ALT 41, Alkaline Phosphatase 70, Lipase 155 Medications List Reviewed: Yes Assessment And Plan - Current Problems (Diagnosis) (1) Syncope and collapse Current Visit: Yes Status: Acute Plan: Pt with Syncope and collapse most likely vasovagal -Head CT negative for Acute abnormality -Carotid US negative for acute abnormality -Orthostatic WNL -EEG pending and neurology consulted. (2) Hypocalcemia Current Visit: No Status: Acute Plan: Hypocalcemia -Currently on replacement (3) H/O idiopathic seizure Current Visit: Yes Status: Chronic Plan: Currently not on Medication -Started on keppra as ? seizure during syncope -Neurology consulted. Awaiting reccs (4) H/O major abdominal surgery Current Visit: No Status: Chronic Plan: Total gastractomy (5) Iron deficiency anemia Current Visit: No Status: Chronic Qualifiers: Iron deficiency anemia type: chronic blood loss Qualified Code(s): D50.0 - Iron deficiency anemia secondary to blood loss (chronic) - Plan pending EEG and neurology consult Discharge Plan: Home Plan to discharge in: Greater than 2 days - Code Status/Comfort Care Code Status Assessed: Yes Critical Care: No
--- NOTE | 2019-07-07 15:03 | ECHO ---
HEIGHT: 5 ft 5 in WEIGHT: 222 lb 0 oz DATE OF STUDY: 07/07/[address]: annabella carballo 2-DIMENSIONAL: YES M.MODE: YES DOPPLER: YES COLOR FLOW: YES TDS: NO PORTABLE: NO DEFINITY: NO BUBBLE STUDY: NO DIAGNOSIS: SYNCOPE CARDIAC HISTORY: CATHERIZATION: NO SURGERY: NO PROSTHETIC VALVE: NO PACEMAKER: NO MEASUREMENTS (cm) DIASTOLIC (NORMALS) SYSTOLIC (NORMALS) IVSd (0.6-1.2) LA Diam 3.4 (1.9-4.0) LVEF >50% LVIDd (3.5-5.7) LVIDs (2.0-3.5) %FS % LVPWd (0.6-1.2) Ao Diam 3.5 (2.0-3.7) 2 DIMENSIONAL ASSESSMENT: RIGHT ATRIUM: NORMAL LEFT ATRIUM: NORMAL RIGHT VENTRICLE: NORMAL LEFT VENTRICLE: NORMAL TRICUSPID VALVE: NORMAL MITRAL VALVE: NORMAL PULMONIC VALVE: NORMAL AORTIC VALVE: NORMAL PERICARDIAL EFFUSION: NONE AORTIC ROOT: NORMAL LEFT VENTRICULAR WALL MOTION: NORMAL. DOPPLER/COLOR FLOW: NORMAL. COMMENTS: TECHNICALLY DIFFICULT STUDY. GROSSLY NORMAL LEFT VENTRICULAR SIZE AND FUNCTION. NO EFFUSION. NO WALL MOTION ABNORMALITY. TECHNOLOGIST: GUILLE ROD
[2019-07-07] MEDS: levETIRAcetam 500 MG TAB PO SCH (20:59)
[2019-07-07 21:38] VITALS: O2SAT 98
[2019-07-08] MEDS: DICYCLOMINE HCL 10 MG CAP PO SCH ×3 (03:02→16:12)
[2019-07-08] MEDS: TRAMADOL HCL 50 MG TAB PO PRN (05:47)
[2019-07-08] MEDS ORDERED: PANTOPRAZOLE 40MG TABLET PO SCH (06:30)
[2019-07-08 06:46] LABS: Absolute Lymphocytes (CBC) 1.2 K/uL (0.7-4.9); Basophils % 0.8 % (0-1.3); Lymphocytes % 16.4 % (15.3-44.8); MPV 11.4 fL (7.6-11.3)
[2019-07-08 07:04] LABS: ALT/SGPT 37 U/L (12-78); AST/SGOT 35 U/L (15-37); Albumin 3.1 g/dL (3.4-5.0); Alkaline Phosphatase 58 U/L (45-117); BUN Blood Urea Nitrogen 11 mg/dL (7-18); Bicarbonate 33 mmol/L (21-32); Bilirubin Total 0.3 mg/dL (0.2-1.0); Glucose Level 110 mg/dL (74-106); HDL Cholesterol 41 mg/dL (40-60); LDL Cholesterol, Calculated 60 (<130); Magnesium 2.2 mg/dL (1.8-2.4); Phosphorus 5.1 mg/dL (2.5-4.9); Sodium Level 139 mmol/L (136-145)
[2019-07-08] MEDS: MAGNESIUM OXIDE 400 MG TAB PO SCH (09:00)
[2019-07-08] MEDS: FLUTICASONE 50MCG NASAL SPRAY NAS SCH (09:00)
[2019-07-08] MEDS: CALCIUM CARB 500MG/VIT D 200 IU TAB PO SCH (09:00)
[2019-07-08] MEDS: levETIRAcetam 500 MG TAB PO SCH (09:19)
[2019-07-08] MEDS: FERROUS SULFATE 325 MG TAB PO SCH ×2 (09:20→14:49)
[2019-07-08] MEDS: FOLIC ACID 1 MG TABLET PO SCH (09:20)
[2019-07-08] MEDS: CYANOCOBALAMIN 1,000 MCG TAB PO SCH (09:20)
[2019-07-08] MEDS: ACETAMINOPHEN 500 MG TAB PO PRN (09:24)
[2019-07-08] MEDS ORDERED: CALCIUM GLUC 10% INJ 9.3 MEQ in NA CHLORIDE 0.9% 100 ML IV ONE (11:35)
--- NOTE | 2019-07-08 13:52 | P.SSS ---
Patient History Date of Service: 07/08/19 Reason for admission: Passed out History of Present Illness: 39-year-old gentleman, morbidly obese, history of partial gastrectomy and bowel resection complicated with iron-deficiency and hypocalcemia, history of multiple transfusions for GI bleed, presented emergency department because he passed out today. Patient reports he passed out after return from his bathroom after voiding. He reported he might have passed out onto his bed because he found himself lying [facility] from his bed. He lives alone. No one witnessed him pass out. He has a history of seizure disorder and but have not had any seizure for several years and not on any antiseizure medication. Patient was recently hospitalized last week for GI bleed, endoscopy and colonoscopy were performed, patient noted to have large amount of blood in the terminal ileum. Bleeding scan was negative. Patient was transferred to [facility] for an angiogram. He stated the procedure was not performed because he was told the bleeding have stopped. He was having facial tics when speaking during my examination in the ED. His current hemoglobin is 10. Calcium level is 6.4. Patient was in the ED 3 days ago for complaint of abdominal pain, dizziness, lightheadedness, tunnel vision bright red blood per rectum. He was concerned for cerebral aneurysm given his significant family history of from cerebral aneurysm. CT angiogram head was done which was negative for aneurysm or occlusions. He has visited the ED 3 times for constellation of symptom. He was given IV calcium supplementation during each visit. He denied bright red blood per rectum at this time. Patient is admitted for further workup. Allergies naproxen Allergy (Verified 06/25/19 02:27) Unknown Penicillins Allergy (Verified 06/25/19 02:27) Rash zolpidem [From Ambien] Allergy (Verified 06/25/19 02:27) Unknown Home Medications: Albuterol Sulfate [Albuterol Sulfate Hfa] 2 puff IN QID PRN #1 hfa.aer.ad Calcium Carbonate/Vitamin D3 [Oscal 500 + Vit D 200 Iu Tab*] 1 tab PO DAILY #30 tab 06/17/19 Cyanocobalamin [Vitamin B-12*] 1,000 mcg PO DAILY #90 tab 06/17/19 Ferrous Sulfate [Ferrous Sulfate*] 325 mg PO TID #90 tab 06/17/19 Fluticasone [Flonase 50MCG Nasal Conrath*] 1 sprays RENAE BID #1 btl 06/17/19 Fluticasone/Salmeterol [Advair 250-50 Diskus] 1 each IH BID #1 blst.w.dev Folic Acid 1 mg PO DAILY #30 tablet 06/17/19 Furosemide [Lasix*] 20 mg PO DAILY PRN #15 tab 06/17/19 Magnesium Oxide [Mag 0X*] 400 mg PO DAILY #30 tab 06/17/19 Pantoprazole [Protonix Tab*] 40 mg PO DAILYAC #30 tab 06/17/19 Clindamycin HCl 300 mg PO Q6H 07/07/19 Dicyclomine [Bentyl*] 20 mg PO Q6H 07/07/19 Smz./Tmp. [Bactrim Ds 800 MG/160 MG*] 1 tab PO Q12H 07/07/19 Tramadol HCl [Ultram] 50 mg PO Q6HP PRN 07/07/19 levETIRAcetam [Keppra Tab] 500 mg PO BID #60 tab 07/08/19 - Past Medical/Surgical History Has patient received pneumonia vaccine in the past: No Diabetic: No -: Asthma -: Hypertension -: Traumatic Brain Injury -: GERD -: seizures -: blood transfusions -: Left Ankle Surgery -: Abdominal Surgery -: partial gastrectomy - Family History grandfather -: Diabetes, Cancer - Social History Smoking Status: Former smoker Alcohol use: No CD- Drugs: No Caffeine use: No Place of Residence: Home Review of Systems 10-point ROS is otherwise unremarkable Physical Examination - Vital Signs Temperature: 97.6 F Blood Pressure: 116/58 Pulse: 83 Respirations: 16 Pulse Ox (%): 95 - Physical Exam General: Alert, In no apparent distress HEENT: Atraumatic, PERRLA, Mucous membr. moist/pink, EOMI, Sclerae nonicteric Neck: Supple, 2+ carotid pulse no bruit, No LAD, Without JVD or thyroid abnormality Respiratory: Clear to auscultation bilaterally, Normal air movement Cardiovascular: Regular rate/rhythm, Normal S1 S2 Gastrointestinal: Normal bowel sounds, No tenderness Musculoskeletal: No tenderness Integumentary: No rashes Neurological: Normal gait, Normal speech, Normal strength at 5/5 x4 extr, Normal tone, Normal affect Lymphatics: No axilla or inguinal lymphadenopathy - Diagnosis (Problem(s)) (1) Syncope and collapse Current Visit: Yes Status: Acute Plan: Pt with Syncope and collapse most likely vasovagal -Head CT negative for Acute abnormality -Carotid US negative for acute abnormality -Orthostatic WNL -EEG negative -Cleared for DC by Neurology (2) Hypocalcemia Current Visit: No Status: Acute Plan: Hypocalcemia -Will replace (3) H/O idiopathic seizure Current Visit: Yes Status: Chronic Plan: Currently not on Medication -Started on keppra 500mg BID (4) H/O major abdominal surgery Current Visit: No Status: Chronic Plan: Total gastractomy (5) Iron deficiency anemia Current Visit: No Status: Chronic Qualifiers: Iron deficiency anemia type: chronic blood loss Qualified Code(s): D50.0 - Iron deficiency anemia secondary to blood loss (chronic) - Disposition Disposition: ROUTINE DISCHARGE Condition: GOOD Diet: Regular Activity: Ad yaima
[2019-07-08 16:17] VITALS: BP 110/61; TEMP 97.4
[2019-07-08] MEDS ORDERED: levETIRAcetam 500 MG TAB PO SCH (21:00)
--- NOTE | 2019-07-11 10:32 | EEG ---
CHART: [id number] TEST ID#: [id number] DATE OF STUDY: 07/07/2019 THE EEG WAS RECORDED PORTABLE IN THE PATIENTS ROOM ON A 17 CHANNEL MACHINE. ELECTRODES WERE APPLIED IN THE USUAL MANNER USING THE INTERNATIONAL 10-20 SYSTEM. THE WAKING BACKGROUND RHYTHM IN THIS RECORD CONSISTS OF WELL DEVELOPED AND WELL ORGANIZED WAVES OF 9 HZ., MAXIMAL IN THE POSTERIOR HEAD REGIONS WHICH ATTENUATE NORMALLY WITH EYE OPENING.LOW-VOLTAGE 18-22 HZ ACTIVITY IS EXPRESSED IN THE FRONTAL REGIONS. THERE ARE NO FOCAL OR LATERALIZING FEATURES. NO EPILEPTIFORM ACTIVITY APPEARS. SLEEP OCCURRED NATURALLY. IN ADDITION NORMAL SLEEP PATTERNS ARE PRESENT. HYPERVENTILATION WAS NOT PERFORMED. PHOTIC STIMULATION PRODUCED POOR DRIVING BILATERALLY. IMPRESSION: NORMAL EEF FOR THE AGE OF THE PATIENT IN [place], DROWSINESS AND SLEEP.
== END 2019-07-08 17:12 | disposition home or self-care (01) ==
LOC: ER 19:20 → ERHOLD 07-07 00:46 → 4TH 07-07 00:49
PROVIDERS: ADMIT Internal Medicine; ATTEND Internal Medicine
DX: R55 Syncope and collapse (principal); E83.51 Hypocalcemia; D50.9 Iron deficiency anemia, unspecified; E66.01 Morbid (severe) obesity due to excess calories; Z68.36 Body mass index [BMI] 36.0-36.9, adult; Z88.0 Allergy status to penicillin; Z87.820 Personal history of traumatic brain injury; Z87.891 Personal history of nicotine dependence
CPT/HCPCS: 36415; 70450; 71045; 71250; 72125; 80048; 80053; 80061; 80076; 80307; 81003; 83690; 83735; 83880; 84100; 84439; 84443; 84484; 85025; 85610; 86850; 86870; 86900; 86901; 87070; 87205; 93005; 93306; 93880; 94760; 95816; 96361; 96365; 96366; 96375; 99285; C9113; G0378; J0610; J1953; J2405; J7030; J7040

== ENCOUNTER 2019-07-11 14:39 | Emergency (ER) | payer SELFPAY ==
--- OUTSIDE RECORDS SUMMARY | 2019-07-11 14:41 | XMS REPORT ---
:1980 [facility] [address] [place] [address] Care Team Providers Name Role Phone BRUCELINDYJO Unavailable Unavailable Problems This patient has no known problems. Allergies, Adverse Reactions, Alerts This patient has no known allergies or adverse reactions. Medications This patient has no known medications. Results Test Description Test Time Test Comments Text Results Atomic Results Result Comments BASIC METABOLIC PANEL 2019-06-30 07:38:00 Test Item Value Reference Range Comments SODIUM (BEAKER) (test 137 meq/L 136-145 vbul=365) POTASSIUM (BEAKER) (test 4.0 meq/L 3.5-5.1 owlz=175) CHLORIDE (BEAKER) (test 100 meq/L 98-107 jwqt=185) CO2 (BEAKER) (test 27 meq/L 22-29 hhjc=092) BLOOD UREA NITROGEN 4 mg/dL 7-21 (BEAKER) (test msft=025) CREATININE (BEAKER) (test 0.71 mg/dL 0.57-1.25 qecw=493) GLUCOSE RANDOM (BEAKER) 110 mg/dL 70-105 (test uedr=208) CALCIUM (BEAKER) (test 7.2 mg/dL 8.4-10.2 xmgs=626) EGFR (BEAKER) (test 125 mL/min/1.73 sq m ESTIMATED GFR IS NOT zgwi=3117) ACCURATE CREATININE CLEARANCE IN PREDICTING GLOMERULAR FILTRATION RATE. ESTIMATED GFR IS NOT APPLICABLE FOR DIALYSIS PATIENTS. [id number] 07:19:00 Test Item Value Reference Range Comments PHOSPHORUS (BEAKER) (test vuvr=527) 4.5 mg/dL 2.3-4.7 [id number] 07:19:00 Test Item Value Reference Range Comments MAGNESIUM (BEAKER) (test wiew=098) 2.0 mg/dL 1.6-2.6 CBC W/PLT COUNT & AUTO [id number] 07:11:00 Test Item Value Reference Range Comments WHITE BLOOD CELL COUNT (BEAKER) (test vlll=450) 7.3 K/ L 3.5-10.5 RED BLOOD CELL COUNT (BEAKER) (test yofq=405) 3.63 M/ L 4.63-6.08 HEMOGLOBIN (BEAKER) (test losz=709) 9.4 GM/DL 13.7-17.5 HEMATOCRIT (BEAKER) (test eibt=351) 33.6 % 40.1-51.0 MEAN CORPUSCULAR VOLUME (BEAKER) (test hveb=495) 92.6 fL 79.0-92.2 MEAN CORPUSCULAR HEMOGLOBIN (BEAKER) (test 25.9 pg 25.7-32.2 qwdg=626) MEAN CORPUSCULAR HEMOGLOBIN CONC (BEAKER) (test 28.0 GM/DL 32.3-36.5 wsaj=985) RED CELL DISTRIBUTION WIDTH (BEAKER) (test 20.4 % 11.6-14.4 qonj=010) PLATELET COUNT (BEAKER) (test xgmh=908) 196 K/CU MM 150-450 MEAN PLATELET VOLUME (BEAKER) (test tsnp=511) 12.5 fL 9.4-12.4 NUCLEATED RED BLOOD CELLS (BEAKER) (test 0 /100 WBC 0-0 mwmc=073) NEUTROPHILS RELATIVE PERCENT (BEAKER) (test 71 % qlyl=715) LYMPHOCYTES RELATIVE PERCENT (BEAKER) (test 16 % qmwc=019) MONOCYTES RELATIVE PERCENT (BEAKER) (test 7 % fxjc=020) EOSINOPHILS RELATIVE PERCENT (BEAKER) (test 5 % zhta=026) BASOPHILS RELATIVE PERCENT (BEAKER) (test 1 % fdpw=992) NEUTROPHILS ABSOLUTE COUNT (BEAKER) (test 5.18 K/ L 1.78-5.38 utqq=869) LYMPHOCYTES ABSOLUTE COUNT (BEAKER) (test 1.13 K/ L 1.32-3.57 eqtk=744) MONOCYTES ABSOLUTE COUNT (BEAKER) (test 0.53 K/ L 0.30-0.82 royx=114) EOSINOPHILS ABSOLUTE COUNT (BEAKER) (test 0.34 K/ L 0.04-0.54 aupz=760) BASOPHILS ABSOLUTE COUNT (BEAKER) (test 0.04 K/ L 0.01-0.08 qggw=634) IMMATURE GRANULOCYTES-RELATIVE PERCENT (BEAKER) 1 % 0-1 (test pkid=1558) [id number] 07:07:00 Test Item Value Reference Range Comments PARTIAL THROMBOPLASTIN TIME (BEAKER) (test 39.0 seconds 22.5-36.0 duhc=581) PROTHROMBIN [id number] 07:06:00 Test Item Value Reference Range Comments PROTIME (BEAKER) (test cfti=534) 14.3 seconds 11.9-14.2 INR (BEAKER) (test mfls=473) 1.2 <=5.9 Effective 01/19/2019: PT Reference Range ChangeNew: 11.9-14.2 Previous: 11.7- 14.7RECOMMENDED COUMADIN/WARFARIN INR THERAPY RANGESSTANDARD DOSE: 2.0-3.0 Includes: PROPHYLAXIS for venous thrombosis, systemic embolization; TREATMENT for venous thrombosis and/or pulmonary embolus.HIGH RISK: Target INR is2.5-3.5 for patients wiht mechanical heart valves.CALCIUM, [id number] 07:05:00 Test Item Value Reference Range Comments CALCIUM IONIZED (BEAKER) (test vxjj=891) 0.73 mmol/L 1.12-1.27 PH, BLOOD (BEAKER) (test hzza=2034) 7.54 CBC W/PLT COUNT & AUTO [id number] 15:06:00 Test Item Value Reference Range Comments WHITE BLOOD CELL COUNT (BEAKER) (test srmg=124) 8.4 K/ L 3.5-10.5 RED BLOOD CELL COUNT (BEAKER) (test ejcm=568) 3.72 M/ L 4.63-6.08 HEMOGLOBIN (BEAKER) (test xpjp=682) 9.6 GM/DL 13.7-17.5 HEMATOCRIT (BEAKER) (test zcxs=976) 34.2 % 40.1-51.0 MEAN CORPUSCULAR VOLUME (BEAKER) (test fvnw=475) 91.9 fL 79.0-92.2 MEAN CORPUSCULAR HEMOGLOBIN (BEAKER) (test 25.8 pg 25.7-32.2 jmuo=155) MEAN CORPUSCULAR HEMOGLOBIN CONC (BEAKER) (test 28.1 GM/DL 32.3-36.5 xylh=641) RED CELL DISTRIBUTION WIDTH (BEAKER) (test 20.5 % 11.6-14.4 hipf=123) PLATELET COUNT (BEAKER) (test eaue=590) 191 K/CU MM 150-450 MEAN PLATELET VOLUME (BEAKER) (test yzso=365) 12.6 fL 9.4-12.4 NUCLEATED RED BLOOD CELLS (BEAKER) (test 0 /100 WBC 0-0 onvi=766) NEUTROPHILS RELATIVE PERCENT (BEAKER) (test 76 % utcp=106) LYMPHOCYTES RELATIVE PERCENT (BEAKER) (test 13 % wdcn=375) MONOCYTES RELATIVE PERCENT (BEAKER) (test 6 % ovfa=860) EOSINOPHILS RELATIVE PERCENT (BEAKER) (test 4 % pfqe=086) BASOPHILS RELATIVE PERCENT (BEAKER) (test 0 % asld=856) NEUTROPHILS ABSOLUTE COUNT (BEAKER) (test 6.36 K/ L 1.78-5.38 opss=309) LYMPHOCYTES ABSOLUTE COUNT (BEAKER) (test 1.08 K/ L 1.32-3.57 osyv=385) MONOCYTES ABSOLUTE COUNT (BEAKER) (test 0.51 K/ L 0.30-0.82 dgkx=919) EOSINOPHILS ABSOLUTE COUNT (BEAKER) (test 0.37 K/ L 0.04-0.54 pbhe=296) BASOPHILS ABSOLUTE COUNT (BEAKER) (test 0.03 K/ L 0.01-0.08 jopa=321) IMMATURE GRANULOCYTES-RELATIVE PERCENT (BEAKER) 1 % 0-1 (test klqu=2822) POCT-GLUCOSE [id number] 12:26:00 Test Item Value Reference Range Comments POC-GLUCOSE METER (BEAKER) 147 mg/dL 70-110 : TESTED AT [address] (test uyhu=2255) [facility], [id number]: [employer] [id number] for [employer] Karen POCT-GLUCOSE [id number] 08:38:00 Test Item Value Reference Range Comments POC-GLUCOSE METER (BEAKER) 136 mg/dL 70-110 : TESTED AT [address] (test zvkw=4443) [facility], [address]: [employer] [id number] for ELIAS SILVER BASIC METABOLIC [id number] 04:35:00 Test Item Value Reference Range Comments SODIUM (BEAKER) (test 140 meq/L 136-145 slpo=010) POTASSIUM (BEAKER) (test 3.8 meq/L 3.5-5.1 Specimen slightly usny=291) hemolyzed CHLORIDE (BEAKER) (test 101 meq/L 98-107 byln=742) CO2 (BEAKER) (test 30 meq/L 22-29 ptqx=440) BLOOD UREA NITROGEN 5 mg/dL 7-21 (BEAKER) (test norw=892) CREATININE (BEAKER) (test 0.73 mg/dL 0.57-1.25 Specimen slightly eslc=053) hemolyzed GLUCOSE RANDOM (BEAKER) 97 mg/dL 70-105 (test cohg=702) CALCIUM (BEAKER) (test 6.9 mg/dL 8.4-10.2 rttg=336) EGFR (BEAKER) (test 121 mL/min/1.73 sq m ESTIMATED GFR IS NOT bvvr=7813) ACCURATE CREATININE CLEARANCE IN PREDICTING GLOMERULAR FILTRATION RATE. ESTIMATED GFR IS NOT APPLICABLE FOR DIALYSIS PATIENTS. [id number] 04:18:00 Test Item Value Reference Range Comments MAGNESIUM (BEAKER) (test 2.1 mg/dL 1.6-2.6 Specimen slightly hemolyzed ciry=525) [id number] 04:18:00 Test Item Value Reference Range Comments PHOSPHORUS (BEAKER) (test 4.6 mg/dL 2.3-4.7 Specimen slightly hemolyzed uous=752) CBC W/PLT COUNT & AUTO [id number] 03:30:00 Test Item Value Reference Range Comments WHITE BLOOD CELL COUNT (BEAKER) (test yvmx=183) 8.1 K/ L 3.5-10.5 RED BLOOD CELL COUNT (BEAKER) (test tdio=561) 3.44 M/ L 4.63-6.08 HEMOGLOBIN (BEAKER) (test lmgh=490) 8.7 GM/DL 13.7-17.5 HEMATOCRIT (BEAKER) (test nodk=059) 31.0 % 40.1-51.0 MEAN CORPUSCULAR VOLUME (BEAKER) (test fwmg=781) 90.1 fL 79.0-92.2 MEAN CORPUSCULAR HEMOGLOBIN (BEAKER) (test 25.3 pg 25.7-32.2 ckpu=114) MEAN CORPUSCULAR HEMOGLOBIN CONC (BEAKER) (test 28.1 GM/DL 32.3-36.5 kaaz=492) RED CELL DISTRIBUTION WIDTH (BEAKER) (test 20.6 % 11.6-14.4 jrql=576) PLATELET COUNT (BEAKER) (test cmcj=232) 176 K/CU MM 150-450 MEAN PLATELET VOLUME (BEAKER) (test qrfh=990) 12.1 fL 9.4-12.4 NUCLEATED RED BLOOD CELLS (BEAKER) (test 0 /100 WBC 0-0 lmxw=245) NEUTROPHILS RELATIVE PERCENT (BEAKER) (test 70 % crmj=617) LYMPHOCYTES RELATIVE PERCENT (BEAKER) (test 17 % rksf=321) MONOCYTES RELATIVE PERCENT (BEAKER) (test 7 % hqbb=684) EOSINOPHILS RELATIVE PERCENT (BEAKER) (test 5 % kfdd=061) BASOPHILS RELATIVE PERCENT (BEAKER) (test 0 % ukzz=388) NEUTROPHILS ABSOLUTE COUNT (BEAKER) (test 5.71 K/ L 1.78-5.38 szxp=578) LYMPHOCYTES ABSOLUTE COUNT (BEAKER) (test 1.38 K/ L 1.32-3.57 wenx=694) MONOCYTES ABSOLUTE COUNT (BEAKER) (test 0.57 K/ L 0.30-0.82 bvfx=536) EOSINOPHILS ABSOLUTE COUNT (BEAKER) (test 0.38 K/ L 0.04-0.54 pywj=950) BASOPHILS ABSOLUTE COUNT (BEAKER) (test 0.03 K/ L 0.01-0.08 wiyh=569) IMMATURE GRANULOCYTES-RELATIVE PERCENT (BEAKER) 1 % 0-1 (test xmpm=5701) RAD, CHEST, 1 VIEW, NON [id number] 23:38:00Reason for exam:->preop workupShould this be performed at the bedside?->YesFINAL REPORT AP chest dated 06/28/2019 Comment: Heart is in upper limits of normal in size. Pulmonary vasculature is unremarkable. Lungs are clear. No pulmonary infiltrate or pleural effusion. Impression: No active cardiopulmonary disease. Signed: María Tobias MDReport Verified Date/Time: 06/28/2019 23:38:30 Reading Location: [address] Consult Reading Room Electronicallysigned by: MARÍA TOBIAS M.D. on 06/28/2019 11:38 PMPOCT-GLUCOSE [id number] 22:26:00 Test Item Value Reference Range Comments POC-GLUCOSE METER (BEAKER) 112 mg/dL 70-110 : TESTED AT [facility] [address] (test hvjk=8980) [facility], [address]: [employer] [id number] for BLACK RENEE COMPREHENSIVE METABOLIC [id number] 20:58:00 Test Item Value Reference Range Comments TOTAL PROTEIN (BEAKER) 8.0 gm/dL 6.0-8.3 Specimen slightly (test epft=193) hemolyzed ALBUMIN (BEAKER) (test 4.1 g/dL 3.5-5.0 Specimen slightly gler=0503) hemolyzed ALKALINE PHOSPHATASE 66 U/L 40-150 (BEAKER) (test rhic=558) BILIRUBIN TOTAL (BEAKER) 1.0 mg/dL 0.2-1.2 Specimen slightly (test uzoz=120) hemolyzed SODIUM (BEAKER) (test 137 meq/L 136-145 naet=953) POTASSIUM (BEAKER) (test 4.1 meq/L 3.5-5.1 Specimen slightly rzpu=731) hemolyzed CHLORIDE (BEAKER) (test 97 meq/L 98-107 aevr=403) CO2 (BEAKER) (test 27 meq/L 22-29 tpig=026) BLOOD UREA NITROGEN 7 mg/dL 7-21 (BEAKER) (test rtcx=646) CREATININE (BEAKER) (test 0.72 mg/dL 0.57-1.25 Specimen slightly lowu=498) hemolyzed GLUCOSE RANDOM (BEAKER) 73 mg/dL 70-105 (test vuid=953) CALCIUM (BEAKER) (test 7.5 mg/dL 8.4-10.2 tdpr=849) AST (SGOT) (BEAKER) (test 75 U/L 5-34 Specimen slightly dmms=713) hemolyzed ALT (SGPT) (BEAKER) (test 47 U/L 6-55 Specimen slightly tkdg=993) hemolyzed EGFR (BEAKER) (test 123 mL/min/1.73 sq ESTIMATED GFR IS NOT mdxy=3769) m ACCURATE CREATININE CLEARANCE IN PREDICTING GLOMERULAR FILTRATION RATE. ESTIMATED GFR IS NOT APPLICABLE FOR DIALYSIS PATIENTS. CBC W/PLT COUNT & AUTO [id number] 20:24:00 Test Item Value Reference Range Comments WHITE BLOOD CELL COUNT (BEAKER) (test upbl=426) 7.9 K/ L 3.5-10.5 RED BLOOD CELL COUNT (BEAKER) (test juim=598) 3.61 M/ L 4.63-6.08 HEMOGLOBIN (BEAKER) (test snuu=087) 9.2 GM/DL 13.7-17.5 HEMATOCRIT (BEAKER) (test wcmg=723) 32.7 % 40.1-51.0 MEAN CORPUSCULAR VOLUME (BEAKER) (test okcs=756) 90.6 fL 79.0-92.2 MEAN CORPUSCULAR HEMOGLOBIN (BEAKER) (test 25.5 pg 25.7-32.2 cqgb=830) MEAN CORPUSCULAR HEMOGLOBIN CONC (BEAKER) (test 28.1 GM/DL 32.3-36.5 bntw=983) RED CELL DISTRIBUTION WIDTH (BEAKER) (test 20.8 % 11.6-14.4 ples=635) PLATELET COUNT (BEAKER) (test tpqm=002) 193 K/CU MM 150-450 MEAN PLATELET VOLUME (BEAKER) (test ffja=913) 12.4 fL 9.4-12.4 NUCLEATED RED BLOOD CELLS (BEAKER) (test 0 /100 WBC 0-0 bflo=779) NEUTROPHILS RELATIVE PERCENT (BEAKER) (test 69 % zzzn=990) LYMPHOCYTES RELATIVE PERCENT (BEAKER) (test 18 % vkpe=111) MONOCYTES RELATIVE PERCENT (BEAKER) (test 8 % fwlj=086) EOSINOPHILS RELATIVE PERCENT (BEAKER) (test 3 % oqvc=700) BASOPHILS RELATIVE PERCENT (BEAKER) (test 0 % oyeg=605) NEUTROPHILS ABSOLUTE COUNT (BEAKER) (test 5.46 K/ L 1.78-5.38 djcd=611) LYMPHOCYTES ABSOLUTE COUNT (BEAKER) (test 1.42 K/ L 1.32-3.57 lzcc=225) MONOCYTES ABSOLUTE COUNT (BEAKER) (test 0.62 K/ L 0.30-0.82 qgte=880) EOSINOPHILS ABSOLUTE COUNT (BEAKER) (test 0.27 K/ L 0.04-0.54 qmhl=913) BASOPHILS ABSOLUTE COUNT (BEAKER) (test 0.03 K/ L 0.01-0.08 ncdm=038) IMMATURE GRANULOCYTES-RELATIVE PERCENT (BEAKER) 1 % 0-1 (test xwdm=2228) [id number] 20:23:00 Test Item Value Reference Range Comments PARTIAL THROMBOPLASTIN TIME (BEAKER) (test 38.3 seconds 22.5-36.0 wzju=909) PROTHROMBIN [id number] 20:22:00 Test Item Value Reference Range Comments PROTIME (BEAKER) (test reza=360) 13.5 seconds 11.9-14.2 INR (BEAKER) (test glmc=888) 1.1 <=5.9 Effective 01/19/2019: PT Reference Range ChangeNew: 11.9-14.2 Previous: 11.7- 14.7RECOMMENDED COUMADIN/WARFARIN INR THERAPY RANGESSTANDARD DOSE: 2.0-3.0 Includes: PROPHYLAXIS for venous thrombosis, systemic embolization; TREATMENT for venous thrombosis and/or pulmonary embolus.HIGH RISK: Target INR is2.5-3.5 for patients wiht mechanical heart valves.
--- NOTE | 2019-07-11 15:29 | RAD REPORT ---
EXAM DESCRIPTION: RAD - Chest Single View - 07/11/2019 3:21 pm CLINICAL HISTORY: dizziness Chest pain. COMPARISON: Chest Single View dated 07/06/2019; Chest Single View dated 07/02/2019; Chest Single View dated 06/24/2019; Chest Single View dated 06/20/2019 FINDINGS: Portable technique limits examination quality. The lungs are grossly clear. The heart is mildly enlarged in size. No displaced fractures. IMPRESSION: Mild cardiomegaly.
[2019-07-11 16:00] LABS: Absolute Lymphocytes (CBC) 1.2 K/uL (0.7-4.9); Basophils % 1.2 % (0-1.3); Hematocrit 31.9 % (39.6-49.0); Lymphocytes % 14.8 % (15.3-44.8); RBC Red Blood Cell Count 3.76 M/uL (4.33-5.43)
[2019-07-11 16:08] LABS: Protime INR 1.1
[2019-07-11 16:23] LABS: ALT/SGPT 47 U/L (12-78); AST/SGOT 45 U/L (15-37); Albumin 3.6 g/dL (3.4-5.0); Alkaline Phosphatase 72 U/L (45-117); BUN Blood Urea Nitrogen 13 mg/dL (7-18); Bicarbonate 34 mmol/L (21-32); Bilirubin Direct 0.1 mg/dL (0-0.2); Bilirubin Total 0.3 mg/dL (0.2-1.0); Glucose Level 87 mg/dL (74-106); Magnesium 2.2 mg/dL (1.8-2.4); NT PRO-BNP 48 pg/mL (<125); Protein, Total 8.2 g/dL (6.4-8.2); Sodium Level 138 mmol/L (136-145); Troponin (Emerg Dept Use Only) < 0.02 ng/mL (0.0-0.045)
--- NOTE | 2019-07-11 17:11 | EDPHYS ---
Physician Documentation [facility] Name: Blanche Lo Age: 39 yrs Sex: Male : 1980 Arrival Date: 07/11/2019 Time: 14:41 Bed 24 Private MD: ED Physician Triston Salas HPI: 07/11 15:09 This 39 yrs old Male presents to ER via Ambulatory with complaints of pm1 Dizziness. 15:09 The patient presents with sensation of aura prior to seizures. pm1 15:09 Onset: The symptoms/episode began/occurred last night. Context: occurred at home, pm1 occurred while the patient was sleeping last night in bed. Believes that he had a seizure while sleeping. just prior to the episode the patient experienced no apparent symptoms. Modifying factors: The symptoms are alleviated by nothing, the symptoms are aggravated by nothing. Associated signs and symptoms: Pertinent positives: generalized bodyaches, Pertinent negatives: chest pain, numbness, shortness of breath, tingling. Severity of symptoms: in the emergency department the symptoms are unchanged. The patient has experienced similar episodes in the past, multiple times, and the symptoms today are exactly the same, to previous seizure episodes. The patient has been recently been admitted at [facility], by Dr. Guaman on 07/07 and discharged on 07/08/2019, for similar complaints. Historical: - Allergies: 14:46 ambien; hb 14:46 Amoxicillin; hb 14:46 Amoxil; hb 14:46 Naproxen; hb - Home Meds: 14:46 levetiracetam 500 mg oral tab 1 tab 2 times per day [Active]; Tramadol Oral [Active]; hb furosemide 20 mg Oral tab as needed [Active]; folic acid 1 mg Oral tab 1 tab once daily [Active]; magnesium oxide 400 mg Oral tab [Active]; Bentyl 20 mg Oral tab 1 tab 3 times per day [Active]; pantoprazole 40 mg oral TbEC 1 tab once daily [Active]; Iron CR Oral [Active]; - PMHx: 14:46 GI Bleed; Hypertension; hb 14:46 Seizures; hb - Immunization history:: Adult Immunizations up to date. - Social history:: Smoking status: Patient/guardian denies using tobacco. - Ebola Screening: : No symptoms or risks identified at this time. ROS: 15:09 Constitutional: Negative for fever, chills, and weight loss, Eyes: Negative for injury, pm1 pain, redness, and discharge, ENT: Negative for injury, pain, and discharge, Neck: Negative for injury, pain, and swelling, Cardiovascular: Negative for chest pain, palpitations, and edema, Respiratory: Negative for shortness of breath, cough, wheezing, and pleuritic chest pain, Abdomen/GI: Negative for abdominal pain, nausea, vomiting, diarrhea, and constipation, Back: Negative for injury, Positve for chronic back pain : Negative for injury, bleeding, discharge, and swelling, MS/Extremity: Negative for injury and deformity, Generalized bodyaches Skin: Negative for injury, rash, and discoloration, Neuro: Negative for headache, weakness, numbness, tingling, and seizure. Exam: 15:09 Constitutional: This is a well developed, well nourished patient who is awake, alert, pm1 and in no acute distress. Head/Face: Normocephalic, atraumatic. Eyes: Pupils equal round and reactive to light, extra-ocular motions intact. Lids and lashes normal. Conjunctiva and sclera are non-icteric and not injected. Cornea within normal limits. Periorbital areas with no swelling, redness, or edema. ENT: Nares patent. No nasal discharge, no septal abnormalities noted. Tympanic membranes are normal and external auditory canals are clear. Oropharynx with no redness, swelling, or masses, exudates, or evidence of obstruction, uvula midline. Mucous membranes moist. Neck: Trachea midline, no thyromegaly or masses palpated, and no cervical lymphadenopathy. Supple, full range of motion without nuchal rigidity, or vertebral point tenderness. No Meningismus. Chest/axilla: Normal chest wall appearance and motion. Nontender with no deformity. No lesions are appreciated. Cardiovascular: Regular rate and rhythm with a normal S1 and S2. No gallops, murmurs, or rubs. No pulse deficits. Respiratory: Lungs have equal breath sounds bilaterally, clear to auscultation and percussion. No rales, rhonchi or wheezes noted. No increased work of breathing, no retractions or nasal flaring. Abdomen/GI: Soft, non-tender, with normal bowel sounds. No distension or tympany. No guarding or rebound. No evidence of tenderness throughout. Back: No spinal tenderness. No costovertebral tenderness. Full range of motion. Skin: Warm, dry with normal turgor. Normal color with no rashes, no lesions, and no evidence of cellulitis. MS/ Extremity: Pulses equal, no cyanosis. Neurovascular intact. Full, normal range of motion. 15:09 Neuro: Orientation: is normal, Motor: is normal, moves all fours, Sensation: is normal, no obvious gross deficits. Vital Signs: 14:46 BP 134 / 83; Pulse 97; Resp 20; Temp 97.8; Pulse Ox 97% on R/A; Weight 99.79 kg; Height hb 5 ft. 5 in. (165.10 cm); Pain 10/10; 15:45 BP 127 / 65; Pulse 91; Resp 18; Pulse Ox 95% on R/A; aj1 16:45 BP 122 / 75; Pulse 91; Resp 18; Pulse Ox 98% on R/A; aj1 17:45 BP 135 / 88; Pulse 88; Resp 18; Pulse Ox 97% on R/A; aj1 18:45 BP 132 / 79; Pulse 85; Resp 20; Pulse Ox 97% on R/A; aj1 14:46 Body Mass Index 36.61 (99.79 kg, 165.10 cm) hb MDM: 14:55 Patient medically screened. jayy 15:05 ED course: Patient was instructed by Shauna's office to report to ER for evaluation pm1 since no appointment available. Patient has a pending appointment with Dr. Villatoro in a few weeks. 15:46 Physician consultation: Elda Guaman MD was called at 15:46, was contacted at 15:46, pm1 regarding patient's condition, and patient's hospitalization. Patient had a negative EEG and reviewed by Dr. Villatoro. Impression is that the patient does not have seizures. Patient told Dr. Guaman that he wanted to be admitted at this time for the hospital food, due not liking the food that he gets at home. Was discharged home with Wai and has follow up appointment with Dr. Villatoro. 16:30 Data reviewed: vital signs. Data interpreted: Pulse oximetry: on room air is 97 %. pm1 Interpretation: normal. 17:09 Counseling: I had a detailed discussion with the patient and/or guardian regarding: the pm1 historical points, exam findings, and any diagnostic results supporting the discharge/admit diagnosis, lab results, radiology results, the need for outpatient follow up, a neurologist, to return to the emergency department if symptoms worsen or persist or if there are any questions or concerns that arise at home. 07/11 15:04 Order name: Basic Metabolic Panel; Complete Time: 16:30 pm1 07/11 15:04 Order name: CBC with Diff; Complete Time: 16:21 pm1 07/11 15:04 Order name: LFT's; Complete Time: 16:30 pm1 07/11 15:04 Order name: Magnesium; Complete Time: 16:30 pm1 07/11 15:04 Order name: NT PRO-BNP; Complete Time: 16:30 pm1 07/11 15:04 Order name: PT-INR; Complete Time: 16:21 pm1 07/11 15:04 Order name: Troponin (emerg Dept Use Only); Complete Time: 16:30 pm1 07/11 15:04 Order name: XRAY Chest (1 view); Complete Time: 15:34 pm1 07/11 15:21 Order name: [facility] (LEVETIRACETAM) [facility] 07/11 15:04 Order name: EKG; Complete Time: 15:05 pm1 07/11 15:04 Order name: Cardiac monitoring; Complete Time: 15:50 pm1 07/11 15:04 Order name: EKG - Nurse/Tech; Complete Time: 15:13 pm1 07/11 15:04 Order name: IV Saline Lock; Complete Time: 15:50 pm1 07/11 15:04 Order name: Labs collected and sent; Complete Time: 15:50 pm1 07/11 15:04 Order name: O2 Per Protocol; Complete Time: 15:49 pm1 07/11 15:04 Order name: O2 Sat Monitoring; Complete Time: 15:49 pm1 Administered Medications: 16:33 CANCELLED (Duplicate Order): Calcium Gluconate 1 grams IVPB once over 60 mins; (mix in pm1 NS 100 mL) 17:16 Drug: morphine 4 mg {Note: RASS 0.} Route: IVP; Site: right antecubital; 18:30 Follow up: Response: No adverse reaction; Pain is decreased; RASS: Alert and Calm (0) [facility] 17:16 Drug: Zofran 4 mg Route: IVP; Site: right antecubital; 18:15 Follow up: Response: No adverse reaction aj1 18:05 Drug: Calcium Gluconate 2 grams Route: IVPB; Infused Over: 60 mins; Site: right antecubital; 19:13 Follow up: IV Status: Completed infusion; IV Intake: 100ml aj 18:51 Drug: traMADol 50 mg Route: PO; 19:14 Follow up: Response: No adverse reaction aj Disposition: 07/12 06:56 Co-signature as Attending Physician, Triston Salas MD I agree with the assessment and jayy plan of care. Disposition: 07/11/19 17:10 Discharged to Home. Impression: Dizziness and giddiness, Hypocalcemia. - Condition is Stable. - Discharge Instructions: Dizziness, Hypocalcemia, Adult. - Prescriptions for Tramadol 50 mg Oral Tablet - take 1 tablet by ORAL route every 8 hours as needed; 12 tablet. - Medication Reconciliation Form, Thank You Letter, Antibiotic Education, Prescription Opioid Use form. - Follow up: Emergency Department; When: As needed; Reason: Worsening of condition. Follow up: Private Physician; When: 2 - 3 days; Reason: Recheck today's complaints, Continuance of care, Re-evaluation by your physician. - Problem is new. - Symptoms have improved. Signatures: Dispatcher [employer] Chely Edmond RN RN aj1 Triston Salas MD MD cha Marinas, Patrick, CAN TENDER CAN TENDER pm1 Lillian Parson RN RN Juan Villafana Corrections: (The following items were deleted from the chart) 07/11 16:33 16:32 Calcium Gluconate 1 grams IVPB once over 60 mins; (mix in NS 100 mL) ordered. pm1 pm1 17:10 17:09 Counseling: I had a detailed discussion with the patient and/or guardian pm1 regarding: the historical points, exam findings, and any diagnostic results supporting the discharge/admit diagnosis, lab results, radiology results, the need for outpatient follow up, to return to the emergency department if symptoms worsen or persist or if there are any questions or concerns that arise at home, pm1 19:16 17:10 07/11/2019 17:10 Discharged to Home. Impression: Dizziness and aj1 giddinessHypocalcemia. Condition is Stable. Forms are Medication Reconciliation Form, Thank You Letter, Antibiotic Education, Prescription Opioid Use. Follow up: Emergency Department; When: As needed; Reason: Worsening of condition. Follow up: Private Physician; When: 2 - 3 days; Reason: Recheck today's complaints, Continuance of care, Re-evaluation by your physician. Problem is new. Symptoms have improved. pm1
--- NOTE | 2019-07-11 17:11 | ER ---
Nurse's Notes [facility] Name: Blanche Lo Age: 39 yrs Sex: Male : 1980 Arrival Date: 07/11/2019 Time: 14:41 Bed 24 Private MD: Diagnosis: Hypocalcemia;Dizziness and giddiness Presentation: 07/11 14:42 Presenting complaint: Patient states: "Last night I had a seizure in my sleep and today hb I fell like I am about to have another one, I feel dizzy like I do right before a seizure." Dr. Villatoro instructed pt to come to ED. Transition of care: patient was not received from another setting of care. Onset of symptoms was July 10, 2019. Risk Assessment: Do you want to hurt yourself or someone else? Patient reports no desire to harm self or others. Care prior to arrival: None. 14:42 Method Of Arrival: Ambulatory hb 14:42 Acuity: JANINE 3 hb 19:11 Initial Sepsis Screen: Does the patient meet any 2 criteria? No. Patient's initial aj1 sepsis screen is negative. Does the patient have a suspected source of infection? No. Patient's initial sepsis screen is negative. Historical: - Allergies: 14:46 ambien; hb 14:46 Amoxicillin; hb 14:46 Amoxil; hb 14:46 Naproxen; hb - Home Meds: 14:46 levetiracetam 500 mg oral tab 1 tab 2 times per day [Active]; Tramadol Oral [Active]; hb furosemide 20 mg Oral tab as needed [Active]; folic acid 1 mg Oral tab 1 tab once daily [Active]; magnesium oxide 400 mg Oral tab [Active]; Bentyl 20 mg Oral tab 1 tab 3 times per day [Active]; pantoprazole 40 mg oral TbEC 1 tab once daily [Active]; Iron CR Oral [Active]; - PMHx: 14:46 GI Bleed; Hypertension; hb 14:46 Seizures; hb - Immunization history:: Adult Immunizations up to date. - Social history:: Smoking status: Patient/guardian denies using tobacco. - Ebola Screening: : No symptoms or risks identified at this time. Screenin:20 Abuse screen: Denies threats or abuse. Denies injuries from another. Nutritional aj1 screening: No deficits noted. Tuberculosis screening: No symptoms or risk factors identified. 19:15 Fall Risk None identified. aj1 Assessment: 15:20 General: Appears in no apparent distress. comfortable, Behavior is calm, cooperative, aj1 appropriate for age. Pain: Pain currently is 8 out of 10 on a pain scale. Neuro: Level of Consciousness is awake, alert, obeys commands, Oriented to person, place, time, situation, Moves all extremities. Full function Gait is steady, Speech is normal, Facial symmetry appears normal, Reports dizziness, Seizure activity reported prior to arrival. Cardiovascular: Patient's skin is warm and dry. Respiratory: Airway is patent Respiratory effort is even, unlabored, Respiratory pattern is regular, symmetrical. GI: No signs and/or symptoms were reported involving the gastrointestinal system. : No signs and/or symptoms were reported regarding the genitourinary system. EENT: No signs and/or symptoms were reported regarding the EENT system. Derm: No signs and/or symptoms reported regarding the dermatologic system. Skin is pink, warm \\T\\ dry. normal. Musculoskeletal: No signs and/or symptoms reported regarding the musculoskeletal system. Circulation, motion, and sensation intact. 16:34 Reassessment: Patient appears in no apparent distress at this time. No changes from aj1 previously documented assessment. Patient and/or family updated on plan of care and expected duration. Pain level reassessed. Patient is alert, oriented x 3, equal unlabored respirations, skin warm/dry/pink. 17:30 Reassessment: Patient and/or family updated on plan of care and expected duration. Pain aj1 level reassessed. General: Appears in no apparent distress. comfortable, Behavior is calm, cooperative, appropriate for age. Neuro: Level of Consciousness is awake, alert, obeys commands, Oriented to person, place, time, situation, Speech is normal, Facial symmetry appears normal. Cardiovascular: Patient's skin is warm and dry. Respiratory: Airway is patent Respiratory effort is even, unlabored, Respiratory pattern is regular, symmetrical. Derm: Skin is pink, warm \\T\\ dry. normal. Musculoskeletal: Circulation, motion, and sensation intact. 18:30 Reassessment: Patient appears in no apparent distress at this time. No changes from aj1 previously documented assessment. Patient and/or family updated on plan of care and expected duration. Pain level reassessed. Patient is alert, oriented x 3, equal unlabored respirations, skin warm/dry/pink. Vital Signs: 14:46 BP 134 / 83; Pulse 97; Resp 20; Temp 97.8; Pulse Ox 97% on R/A; Weight 99.79 kg; Height hb 5 ft. 5 in. (165.10 cm); Pain 10/10; 15:45 BP 127 / 65; Pulse 91; Resp 18; Pulse Ox 95% on R/A; aj1 16:45 BP 122 / 75; Pulse 91; Resp 18; Pulse Ox 98% on R/A; aj1 17:45 BP 135 / 88; Pulse 88; Resp 18; Pulse Ox 97% on R/A; aj1 18:45 BP 132 / 79; Pulse 85; Resp 20; Pulse Ox 97% on R/A; aj1 14:46 Body Mass Index 36.61 (99.79 kg, 165.10 cm) hb ED Course: 14:41 Patient arrived in ED. mr 14:43 Triage completed. hb 14:46 Arm band placed on. hb 14:51 Nasim Epperson NP is PHCP. pm1 14:51 Triston Salas MD is Attending Physician. pm1 15:10 Chely Veronica RN is Primary Nurse. aj1 15:20 Patient has correct armband on for positive identification. Bed in low position. Call aj1 light in reach. Side rails up X 1. user acceptance tester on. Pulse ox on. NIBP on. 15:20 No provider procedures requiring assistance completed. aj1 15:21 EKG done, by food quality technician. reviewed by Nasim Epperson NP. sm3 15:23 XRAY Chest (1 view) In Process Unspecified. EDMS 15:48 Initial lab(s) drawn, by il, sent to lab. Inserted saline lock: 22 gauge in right iw antecubital area, using aseptic technique. Blood collected. 19:15 IV discontinued, intact, bleeding controlled, No redness/swelling at site. Pressure aj1 dressing applied. Administered Medications: 16:33 CANCELLED (Duplicate Order): Calcium Gluconate 1 grams IVPB once over 60 mins; (mix in pm1 NS 100 mL) 17:16 Drug: morphine 4 mg {Note: RASS 0.} Route: IVP; Site: right antecubital; 18:30 Follow up: Response: No adverse reaction; Pain is decreased; RASS: Alert and Calm (0) aj 17:16 Drug: Zofran 4 mg Route: IVP; Site: right antecubital; 18:15 Follow up: Response: No adverse reaction aj1 18:05 Drug: Calcium Gluconate 2 grams Route: IVPB; Infused Over: 60 mins; Site: right wh antecubital; 19:13 Follow up: IV Status: Completed infusion; IV Intake: 100ml aj1 18:51 Drug: traMADol 50 mg Route: PO; 19:14 Follow up: Response: No adverse reaction aj1 Intake: 19:13 IV: 100ml; Total: 100ml. aj1 Outcome: 17:10 Discharge ordered by MD. pm1 19:15 Discharged to home ambulatory. [facility] 19:15 Condition: good 19:15 Discharge instructions given to patient, Instructed on discharge instructions, follow up and referral plans. Demonstrated understanding of instructions, follow-up care. 19:15 Discharged to home ambulatory. 19:15 Condition: stable 19:16 Patient left the ED. aj1 Signatures: Dispatcher [employer] EDChely Rea, RN ANCELMO aj Karena Chavis Irene, RN RN iw Marinas, Patrick, HEAD OF STOCK HEAD OF STOCK pm1 Lillian Parson RN RN hb [place], Winsy Lexi Otero 3
[2019-07-11] MEDS ORDERED: MORPHINE 4 MG/ML SYR ONE (17:13)
[2019-07-11] MEDS ORDERED: ONDANSETRON 4 MG/2 ML VIAL ONE (17:13)
[2019-07-11] MEDS ORDERED: Calcium Gluconate 9.3 mEq (=2gm)/NS 100 mL IVPB IV ONE ×2 (18:00)
[2019-07-11] MEDS ORDERED: TRAMADOL HCL 50 MG TAB ONE (18:50)
[2019-07-11 22:44] VITALS: TEMP 97.8
[2019-07-11 22:49] VITALS: O2SAT 97
[2019-07-11 22:50] VITALS: BP 132/79
--- NOTE | 2019-07-12 09:45 | EKG ---
Test Date: 2019-07-11 Test Time: 15:12:43 Medical Imaging Specialist: JOSE MEASUREMENT RESULTS: Intervals: Rate: 94 SD: 126 QRSD: 74 QT: 370 QTc: 462 [place]: P: 35 SD: 126 QRS: 1 T: 11 INTERPRETIVE STATEMENTS: Normal sinus rhythm Normal ECG Compared to ECG 07/06/2019 19:55:22 Sinus tachycardia no longer present Electronically Signed On 07-12-19 09:42:07 GLUE CLAMP OPERATOR by Fred Reyes
== END 2019-07-11 19:16 | disposition home or self-care (01) ==
LOC: ER 14:39
DX: E83.51 Hypocalcemia (principal); I10 Essential (primary) hypertension; G40.909 Epilepsy, unspecified, not intractable, without status epilepticus; Z88.1 Allergy status to other antibiotic agents; Z88.6 Allergy status to analgesic agent; Z88.8 Allergy status to other drugs, medicaments and biological substances
CPT/HCPCS: 36415; 71045; 80048; 80076; 80177; 83735; 83880; 84484; 85025; 85610; 93005; 96365; 96375; 99284; J0610; J2405

== ENCOUNTER 2019-07-12 19:59 | Emergency (ER) | payer SELFPAY ==
--- OUTSIDE RECORDS SUMMARY | 2019-07-12 20:02 | XMS REPORT ---
:1980 [facility] Address [address] [place] [address] Care Team Providers Name Role Phone BRUCELINDYJO [...] Comments SODIUM (BEAKER) (test 137 meq/L 136-145 gwlk=988) POTASSIUM (BEAKER) (test 4.0 meq/L 3.5-5.1 dnkd=991) CHLORIDE (BEAKER) (test 100 meq/L 98-107 zmag=246) CO2 (BEAKER) (test 27 meq/L 22-29 wxrm=520) BLOOD UREA NITROGEN 4 mg/dL 7-21 (BEAKER) (test rjlf=383) CREATININE (BEAKER) (test 0.71 mg/dL 0.57-1.25 ftpr=249) GLUCOSE RANDOM (BEAKER) 110 mg/dL 70-105 (test egpa=296) CALCIUM (BEAKER) (test 7.2 mg/dL 8.4-10.2 bdhx=026) EGFR (BEAKER) (test 125 mL/min/1.73 sq m ESTIMATED GFR IS NOT dboq=6903) ACCURATE CREATININE CLEARANCE IN PREDICTING GLOMERULAR FILTRATION RATE. ESTIMATED GFR IS NOT APPLICABLE FOR DIALYSIS PATIENTS. [id number] 07:19:00 Test Item Value Reference Range Comments PHOSPHORUS (BEAKER) (test nebl=015) 4.5 mg/dL 2.3-4.7 [id number] 07:19:00 Test Item Value Reference Range Comments MAGNESIUM (BEAKER) (test kmzw=473) 2.0 mg/dL 1.6-2.6 CBC W/PLT COUNT & AUTO [id number] 07:11:00 Test Item Value Reference Range Comments WHITE BLOOD CELL COUNT (BEAKER) (test yxvy=379) 7.3 K/ L 3.5-10.5 RED BLOOD CELL COUNT (BEAKER) (test rssc=629) 3.63 M/ L 4.63-6.08 HEMOGLOBIN (BEAKER) (test wsts=154) 9.4 GM/DL 13.7-17.5 HEMATOCRIT (BEAKER) (test sdzy=254) 33.6 % 40.1-51.0 MEAN CORPUSCULAR VOLUME (BEAKER) (test wtlg=318) 92.6 fL 79.0-92.2 MEAN CORPUSCULAR HEMOGLOBIN (BEAKER) (test 25.9 pg 25.7-32.2 tjur=331) MEAN CORPUSCULAR HEMOGLOBIN CONC (BEAKER) (test 28.0 GM/DL 32.3-36.5 dwsj=910) RED CELL DISTRIBUTION WIDTH (BEAKER) (test 20.4 % 11.6-14.4 vztl=611) PLATELET COUNT (BEAKER) (test dovf=116) 196 K/CU MM 150-450 MEAN PLATELET VOLUME (BEAKER) (test hkpo=968) 12.5 fL 9.4-12.4 NUCLEATED RED BLOOD CELLS (BEAKER) (test 0 /100 WBC 0-0 amce=340) NEUTROPHILS RELATIVE PERCENT (BEAKER) (test 71 % waoz=974) LYMPHOCYTES RELATIVE PERCENT (BEAKER) (test 16 % fhkr=632) MONOCYTES RELATIVE PERCENT (BEAKER) (test 7 % roal=147) EOSINOPHILS RELATIVE PERCENT (BEAKER) (test 5 % hipf=805) BASOPHILS RELATIVE PERCENT (BEAKER) (test 1 % kbhc=739) NEUTROPHILS ABSOLUTE COUNT (BEAKER) (test 5.18 K/ L 1.78-5.38 zzwn=336) LYMPHOCYTES ABSOLUTE COUNT (BEAKER) (test 1.13 K/ L 1.32-3.57 ssim=906) MONOCYTES ABSOLUTE COUNT (BEAKER) (test 0.53 K/ L 0.30-0.82 fxhi=269) EOSINOPHILS ABSOLUTE COUNT (BEAKER) (test 0.34 K/ L 0.04-0.54 uiom=082) BASOPHILS ABSOLUTE COUNT (BEAKER) (test 0.04 K/ L 0.01-0.08 efsi=739) IMMATURE GRANULOCYTES-RELATIVE PERCENT (BEAKER) 1 % 0-1 (test lqoy=3426) [id number] 07:07:00 Test Item Value Reference Range Comments PARTIAL THROMBOPLASTIN TIME (BEAKER) (test 39.0 seconds 22.5-36.0 xvcl=623) PROTHROMBIN TIME/[id number] 07:06:00 Test Item Value Reference Range Comments PROTIME (BEAKER) (test spiy=717) 14.3 seconds 11.9-14.2 INR (BEAKER) (test gqcs=176) 1.2 <=5.9 Effective 01/19/2019: PT Reference Range ChangeNew: 11.9-14.2 Previous: 11.7- 14.7RECOMMENDED COUMADIN/WARFARIN INR THERAPY RANGESSTANDARD DOSE: 2.0-3.0 Includes: PROPHYLAXIS for venous thrombosis, systemic embolization; TREATMENT for venous thrombosis and/or pulmonary embolus.HIGH RISK: Target INR is2.5-3.5 for patients wiht mechanical heart valves.CALCIUM, [id number] 07:05:00 Test Item Value Reference Range Comments CALCIUM IONIZED (BEAKER) (test fmda=957) 0.73 mmol/L 1.12-1.27 PH, BLOOD (BEAKER) (test vkgh=1463) 7.54 CBC W/PLT COUNT & AUTO [id number] 15:06:00 Test Item Value Reference Range Comments WHITE BLOOD CELL COUNT (BEAKER) (test ixci=789) 8.4 K/ L 3.5-10.5 RED BLOOD CELL COUNT (BEAKER) (test nywh=209) 3.72 M/ L 4.63-6.08 HEMOGLOBIN (BEAKER) (test ouau=171) 9.6 GM/DL 13.7-17.5 HEMATOCRIT (BEAKER) (test unib=893) 34.2 % 40.1-51.0 MEAN CORPUSCULAR VOLUME (BEAKER) (test xdwb=266) 91.9 fL 79.0-92.2 MEAN CORPUSCULAR HEMOGLOBIN (BEAKER) (test 25.8 pg 25.7-32.2 mvyo=862) MEAN CORPUSCULAR HEMOGLOBIN CONC (BEAKER) (test 28.1 GM/DL 32.3-36.5 nwyc=380) RED CELL DISTRIBUTION WIDTH (BEAKER) (test 20.5 % 11.6-14.4 zpms=016) PLATELET COUNT (BEAKER) (test spsm=299) 191 K/CU MM 150-450 MEAN PLATELET VOLUME (BEAKER) (test wlxl=151) 12.6 fL 9.4-12.4 NUCLEATED RED BLOOD CELLS (BEAKER) (test 0 /100 WBC 0-0 wzan=312) NEUTROPHILS RELATIVE PERCENT (BEAKER) (test 76 % sifl=490) LYMPHOCYTES RELATIVE PERCENT (BEAKER) (test 13 % fxsq=256) MONOCYTES RELATIVE PERCENT (BEAKER) (test 6 % xkji=806) EOSINOPHILS RELATIVE PERCENT (BEAKER) (test 4 % rxcx=561) BASOPHILS RELATIVE PERCENT (BEAKER) (test 0 % hjso=982) NEUTROPHILS ABSOLUTE COUNT (BEAKER) (test 6.36 K/ L 1.78-5.38 pxwd=906) LYMPHOCYTES ABSOLUTE COUNT (BEAKER) (test 1.08 K/ L 1.32-3.57 sqii=987) MONOCYTES ABSOLUTE COUNT (BEAKER) (test 0.51 K/ L 0.30-0.82 zrgf=070) EOSINOPHILS ABSOLUTE COUNT (BEAKER) (test 0.37 K/ L 0.04-0.54 tith=975) BASOPHILS ABSOLUTE COUNT (BEAKER) (test 0.03 K/ L 0.01-0.08 lozc=185) IMMATURE GRANULOCYTES-RELATIVE PERCENT (BEAKER) 1 % 0-1 (test guck=3046) POCT-GLUCOSE [id number] 12:26:00 Test Item Value Reference Range Comments POC-GLUCOSE METER (BEAKER) 147 mg/dL 70-110 : TESTED AT [address] (test slmz=2468) [facility], [id number]: [employer] PB=[id number] for [employer] POCT-GLUCOSE [id number] 08:38:00 Test Item Value Reference Range Comments POC-GLUCOSE METER (BEAKER) 136 mg/dL 70-110 : TESTED AT [address] (test uqwf=3258) [facility], [address]: [employer] WA=[id number] for [employer] [id number] 04:35:00 Test Item Value Reference Range Comments SODIUM (BEAKER) (test 140 meq/L 136-145 wegn=932) POTASSIUM (BEAKER) (test 3.8 meq/L 3.5-5.1 Specimen slightly faeg=791) hemolyzed CHLORIDE (BEAKER) (test 101 meq/L 98-107 tsmb=948) CO2 (BEAKER) (test 30 meq/L 22-29 bppv=919) BLOOD UREA NITROGEN 5 mg/dL 7-21 (BEAKER) (test gkjl=280) CREATININE (BEAKER) (test 0.73 mg/dL 0.57-1.25 Specimen slightly pdgd=240) hemolyzed GLUCOSE RANDOM (BEAKER) 97 mg/dL 70-105 (test jule=361) CALCIUM (BEAKER) (test 6.9 mg/dL 8.4-10.2 oeph=561) EGFR (BEAKER) (test 121 mL/min/1.73 sq m ESTIMATED GFR IS NOT pfth=9833) ACCURATE CREATININE CLEARANCE IN PREDICTING GLOMERULAR FILTRATION RATE. ESTIMATED GFR IS NOT APPLICABLE FOR DIALYSIS PATIENTS. [id number] 04:18:00 Test Item Value Reference Range Comments MAGNESIUM (BEAKER) (test 2.1 mg/dL 1.6-2.6 Specimen slightly hemolyzed qfti=174) [id number] 04:18:00 Test Item Value Reference Range Comments PHOSPHORUS (BEAKER) (test 4.6 mg/dL 2.3-4.7 Specimen slightly hemolyzed aayj=656) CBC W/PLT COUNT & AUTO [id number] 03:30:00 Test Item Value Reference Range Comments WHITE BLOOD CELL COUNT (BEAKER) (test ycld=990) 8.1 K/ L 3.5-10.5 RED BLOOD CELL COUNT (BEAKER) (test wrua=551) 3.44 M/ L 4.63-6.08 HEMOGLOBIN (BEAKER) (test smxi=050) 8.7 GM/DL 13.7-17.5 HEMATOCRIT (BEAKER) (test bqxy=562) 31.0 % 40.1-51.0 MEAN CORPUSCULAR VOLUME (BEAKER) (test smsp=637) 90.1 fL 79.0-92.2 MEAN CORPUSCULAR HEMOGLOBIN (BEAKER) (test 25.3 pg 25.7-32.2 prac=333) MEAN CORPUSCULAR HEMOGLOBIN CONC (BEAKER) (test 28.1 GM/DL 32.3-36.5 tqjo=151) RED CELL DISTRIBUTION WIDTH (BEAKER) (test 20.6 % 11.6-14.4 viuj=794) PLATELET COUNT (BEAKER) (test ztbc=679) 176 K/CU MM 150-450 MEAN PLATELET VOLUME (BEAKER) (test pzst=892) 12.1 fL 9.4-12.4 NUCLEATED RED BLOOD CELLS (BEAKER) (test 0 /100 WBC 0-0 bwts=573) NEUTROPHILS RELATIVE PERCENT (BEAKER) (test 70 % qxaf=717) LYMPHOCYTES RELATIVE PERCENT (BEAKER) (test 17 % cvbp=403) MONOCYTES RELATIVE PERCENT (BEAKER) (test 7 % mkbc=563) EOSINOPHILS RELATIVE PERCENT (BEAKER) (test 5 % nniw=849) BASOPHILS RELATIVE PERCENT (BEAKER) (test 0 % zyrr=157) NEUTROPHILS ABSOLUTE COUNT (BEAKER) (test 5.71 K/ L 1.78-5.38 kvus=123) LYMPHOCYTES ABSOLUTE COUNT (BEAKER) (test 1.38 K/ L 1.32-3.57 wojt=590) MONOCYTES ABSOLUTE COUNT (BEAKER) (test 0.57 K/ L 0.30-0.82 ipwy=530) EOSINOPHILS ABSOLUTE COUNT (BEAKER) (test 0.38 K/ L 0.04-0.54 rgks=550) BASOPHILS ABSOLUTE COUNT (BEAKER) (test 0.03 K/ L 0.01-0.08 cdgx=052) IMMATURE GRANULOCYTES-RELATIVE PERCENT (BEAKER) 1 % 0-1 (test aezt=9687) RAD, CHEST, 1 VIEW, NON [id number] 23:38:00Reason for exam:->preop workupShould this be performed at the bedside?->YesFINAL REPORT AP chest dated 06/28/2019 Comment: Heart is in upper limits of normal in size. Pulmonary vasculature is unremarkable. Lungs are clear. No pulmonary infiltrate or pleural effusion. Impression: No active cardiopulmonary disease. Signed: María Tobias MDReport Verified Date/Time: 06/28/2019 23:38:30 Reading Location: [address] Consult Reading Room Electronicallysigned by: MARÍA TOBIAS M.D. on 06/28/2019 11:38 PMPOCT-GLUCOSE [id number] 22:26:00 Test Item Value Reference Range Comments POC-GLUCOSE METER (BEAKER) 112 mg/dL 70-110 : TESTED AT [facility] [address] (test locn=8064) [facility], [address]: [employer] JU=[id number] for [employer] [id number] 20:58:00 Test Item Value Reference Range Comments TOTAL PROTEIN (BEAKER) 8.0 gm/dL 6.0-8.3 Specimen slightly (test bzrs=349) hemolyzed ALBUMIN (BEAKER) (test 4.1 g/dL 3.5-5.0 Specimen slightly hjul=6958) hemolyzed ALKALINE PHOSPHATASE 66 U/L 40-150 (BEAKER) (test qcvz=308) BILIRUBIN TOTAL (BEAKER) 1.0 mg/dL 0.2-1.2 Specimen slightly (test bfop=822) hemolyzed SODIUM (BEAKER) (test 137 meq/L 136-145 rcur=273) POTASSIUM (BEAKER) (test 4.1 meq/L 3.5-5.1 Specimen slightly sdtj=299) hemolyzed CHLORIDE (BEAKER) (test 97 meq/L 98-107 gbav=625) CO2 (BEAKER) (test 27 meq/L 22-29 ezsa=735) BLOOD UREA NITROGEN 7 mg/dL 7-21 (BEAKER) (test gndx=996) CREATININE (BEAKER) (test 0.72 mg/dL 0.57-1.25 Specimen slightly cnrs=142) hemolyzed GLUCOSE RANDOM (BEAKER) 73 mg/dL 70-105 (test bvqu=987) CALCIUM (BEAKER) (test 7.5 mg/dL 8.4-10.2 iimo=269) AST (SGOT) (BEAKER) (test 75 U/L 5-34 Specimen slightly hguo=470) hemolyzed ALT (SGPT) (BEAKER) (test 47 U/L 6-55 Specimen slightly dxpm=106) hemolyzed EGFR (BEAKER) (test 123 mL/min/1.73 sq ESTIMATED GFR IS NOT falk=2422) m ACCURATE CREATININE CLEARANCE IN PREDICTING GLOMERULAR FILTRATION RATE. ESTIMATED GFR IS NOT APPLICABLE FOR DIALYSIS PATIENTS. CBC W/PLT COUNT & AUTO [id number] 20:24:00 Test Item Value Reference Range Comments WHITE BLOOD CELL COUNT (BEAKER) (test necj=259) 7.9 K/ L 3.5-10.5 RED BLOOD CELL COUNT (BEAKER) (test zryr=013) 3.61 M/ L 4.63-6.08 HEMOGLOBIN (BEAKER) (test uwtu=286) 9.2 GM/DL 13.7-17.5 HEMATOCRIT (BEAKER) (test focx=090) 32.7 % 40.1-51.0 MEAN CORPUSCULAR VOLUME (BEAKER) (test htgi=713) 90.6 fL 79.0-92.2 MEAN CORPUSCULAR HEMOGLOBIN (BEAKER) (test 25.5 pg 25.7-32.2 hrbw=614) MEAN CORPUSCULAR HEMOGLOBIN CONC (BEAKER) (test 28.1 GM/DL 32.3-36.5 vtdx=977) RED CELL DISTRIBUTION WIDTH (BEAKER) (test 20.8 % 11.6-14.4 gnbw=769) PLATELET COUNT (BEAKER) (test kfpe=821) 193 K/CU MM 150-450 MEAN PLATELET VOLUME (BEAKER) (test xaid=029) 12.4 fL 9.4-12.4 NUCLEATED RED BLOOD CELLS (BEAKER) (test 0 /100 WBC 0-0 suvs=067) NEUTROPHILS RELATIVE PERCENT (BEAKER) (test 69 % ngec=210) LYMPHOCYTES RELATIVE PERCENT (BEAKER) (test 18 % jewb=185) MONOCYTES RELATIVE PERCENT (BEAKER) (test 8 % atrf=191) EOSINOPHILS RELATIVE PERCENT (BEAKER) (test 3 % fwus=291) BASOPHILS RELATIVE PERCENT (BEAKER) (test 0 % jzru=633) NEUTROPHILS ABSOLUTE COUNT (BEAKER) (test 5.46 K/ L 1.78-5.38 iysw=616) LYMPHOCYTES ABSOLUTE COUNT (BEAKER) (test 1.42 K/ L 1.32-3.57 lajq=357) MONOCYTES ABSOLUTE COUNT (BEAKER) (test 0.62 K/ L 0.30-0.82 qlov=183) EOSINOPHILS ABSOLUTE COUNT (BEAKER) (test 0.27 K/ L 0.04-0.54 urzm=588) BASOPHILS ABSOLUTE COUNT (BEAKER) (test 0.03 K/ L 0.01-0.08 twco=837) IMMATURE GRANULOCYTES-RELATIVE PERCENT (BEAKER) 1 % 0-1 (test lfhj=8456) [id number] 20:23:00 Test Item Value Reference Range Comments PARTIAL THROMBOPLASTIN TIME (BEAKER) (test 38.3 seconds 22.5-36.0 xcad=489) PROTHROMBIN TIME/[id number] 20:22:00 Test Item Value Reference Range Comments PROTIME (BEAKER) (test rbeu=151) 13.5 seconds 11.9-14.2 INR (BEAKER) (test yfvh=788) 1.1 <=5.9 Effective 01/19/2019: PT Reference Range ChangeNew: 11.9-14.2 Previous: 11.7- 14.7RECOMMENDED COUMADIN/WARFARIN INR THERAPY RANGESSTANDARD DOSE: 2.0-3.0 Includes: PROPHYLAXIS for venous thrombosis, systemic embolization; TREATMENT for venous thrombosis and/or pulmonary embolus.HIGH RISK: Target INR is2.5-3.5 for patients wiht mechanical heart valves.
--- NOTE | 2019-07-12 20:58 | RAD REPORT ---
EXAM DESCRIPTION: CT - Head Brain Wo Cont - 07/12/2019 8:47 pm CLINICAL HISTORY: Syncope, dizziness COMPARISON: CT imaging July 02 TECHNIQUE: Axial 5 mm thick images of the head were obtained without IV contrast. All CT scans are performed using dose optimization technique as appropriate and may include automated exposure control or mA/KV adjustment according to patient size. FINDINGS: No intracranial hemorrhage, mass, edema or shift of mid-line structures. No acute infarcti on changes seen. No abnormal extra-axial fluid collections. Ventricles are normal. Physiologic calcif ications are present. The intracranial findings match the prior study. Mastoid air cells of are under developed. Frontal sinus also under developed. Extensive opacification of the right maxillary sinus is present with partial opacification on the left. There is nasal passa ge partial opacification. No acute bony findings. IMPRESSION: No acute intracranial finding. Maxillary sinus paranasal sinus disease with nasal passage opacification. Sinuses and nasal passage o r only partially imaged. Findings are not suspiciously different from July 02.
[2019-07-12 21:30] LABS: Urine Blood NEGATIVE (NEG); Urine Glucose NEGATIVE (NEG); Urine Protein NEGATIVE (NEG); Urine Specific Gravity 1.025 (1.005-1.030)
[2019-07-12 21:43] LABS: Barbiturates NEGATIVE (NEGATIVE); Benzodiazepines NEGATIVE (NEGATIVE); Cocaine NEGATIVE (NEGATIVE); METHAMPHETAM NEGATIVE (NEGATIVE); Methadone NEGATIVE (NEGATIVE); Opiates NEGATIVE (NEGATIVE); Phencyclidine NEGATIVE (NEGATIVE); THC Cannibis NEGATIVE (NEGATIVE)
[2019-07-12 22:08] LABS: Absolute Lymphocytes (CBC) 1.3 K/uL (0.7-4.9); Basophils % 0.8 % (0-1.3); Hematocrit 32.6 % (39.6-49.0); Lymphocytes % 14.3 % (15.3-44.8); MPV 11.2 fL (7.6-11.3); RBC Red Blood Cell Count 3.85 M/uL (4.33-5.43)
[2019-07-12 22:12] LABS: Protime INR 1.09
[2019-07-12 22:33] LABS: ALT/SGPT 48 U/L (12-78); AST/SGOT 39 U/L (15-37); Albumin 3.6 g/dL (3.4-5.0); Alkaline Phosphatase 74 U/L (45-117); BUN Blood Urea Nitrogen 13 mg/dL (7-18); Bicarbonate 33 mmol/L (21-32); Bilirubin Direct 0.1 mg/dL (0-0.2); Bilirubin Total 0.4 mg/dL (0.2-1.0); CKMB Creatine Kinase MB < 1.0 ng/mL (0.3-3.6); Creatine Phosphokinase 63 U/L (39-308); Glucose Level 78 mg/dL (74-106); Lipase 115 U/L (73-393); Magnesium 2.2 mg/dL (1.8-2.4); Potassium 4.1 mmol/L (3.5-5.1); Protein, Total 8.1 g/dL (6.4-8.2); Sodium Level 138 mmol/L (136-145); Troponin (Emerg Dept Use Only) < 0.02 ng/mL (0.0-0.045)
--- NOTE | 2019-07-12 22:55 | ER ---
Nurse's Notes [facility] Name: Blanche Lo Age: 39 yrs Sex: Male : 1980 Arrival Date: 07/12/2019 Time: 20:01 Bed 23 Private MD: Diagnosis: Syncope and collapse;Epilepsy and recurrent seizures Presentation: 07/12 20:04 Presenting complaint: Patient states: "I passed out when I walking to the kitchen and lp1 when I woke up, I was on the ground"; Has appt with Neuro in 2 weeks; States pain to general body and head, reports dizziness. Transition of care: patient was not received from another setting of care. Onset of symptoms was July 12, 2019 at 17:00. Risk Assessment: Do you want to hurt yourself or someone else? Patient reports no desire to harm self or others. Initial Sepsis Screen: Does the patient meet any 2 criteria? No. Patient's initial sepsis screen is negative. Does the patient have a suspected source of infection? No. Patient's initial sepsis screen is negative. Care prior to arrival: None. 20:04 Method Of Arrival: Ambulatory lp1 20:04 Acuity: JANINE 3 lp1 Historical: - Allergies: 20:07 ambien; lp1 20:07 Naproxen; lp1 20:07 Ibuprofen; lp1 20:07 Amoxicillin; lp1 20:07 Amoxil; lp1 - Home Meds: 20:07 Bentyl 20 mg Oral tab 1 tab 3 times per day [Active]; folic acid 1 mg Oral tab 1 tab lp1 once daily [Active]; furosemide 20 mg Oral tab as needed [Active]; Iron CR Oral [Active]; levetiracetam 500 mg Oral tab 1 tab 2 times per day [Active]; magnesium oxide 400 mg Oral tab [Active]; pantoprazole 40 mg Oral TbEC 1 tab once daily [Active]; Tramadol Oral [Active]; - PMHx: 20:07 GI Bleed; Hypertension; Seizures; Back pain; lp1 - PSHx: 20:07 Hernia repair; lp1 - Immunization history:: Adult Immunizations up to date. - Social history:: Smoking status: Patient/guardian denies using tobacco. - Ebola Screening: : No symptoms or risks identified at this time. Screenin:07 Abuse screen: Denies threats or abuse. Denies injuries from another. Nutritional lp1 screening: No deficits noted. Tuberculosis screening: No symptoms or risk factors identified. 21:43 Fall Risk None identified. tr5 Assessment: 21:43 General: Appears in no apparent distress. Behavior is calm, cooperative. Pain: tr5 Complains of pain in "All over". 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 Neuro: Reports blurred vision dizziness, a syncopal episode. Cardiovascular: Heart tones present Capillary refill < 3 seconds. Respiratory: Airway is patent Respiratory effort is even, unlabored, Respiratory pattern is regular, symmetrical. GI: No signs and/or symptoms were reported involving the gastrointestinal system. : No signs and/or symptoms were reported regarding the genitourinary system. EENT: No signs and/or symptoms were reported regarding the EENT system. Derm: No signs and/or symptoms reported regarding the dermatologic system. Musculoskeletal: No signs and/or symptoms reported regarding the musculoskeletal system. Vital Signs: 20:06 BP 121 / 85; Pulse 100; Resp 20; Temp 98.6(O); Pulse Ox 98% on R/A; Weight 101.15 kg; lp1 Height 5 ft. 5 in. (165.10 cm); Pain 10/10; 20:06 Body Mass Index 37.11 (101.15 kg, 165.10 cm) lp1 ED Course: 20:01 Patient arrived in ED. cf2 20:06 Triage completed. lp1 20:06 Arm band placed on left wrist. lp1 20:24 Dwayne Lainez, ANCELMO is Primary Nurse. tr5 20:35 Avery Gautam MD is Attending Physician. tw4 20:48 CT Head Brain wo Cont In Process Unspecified. EDMS 21:43 Bed in low position. Call light in reach. Side rails up X 1. tr5 23:04 No provider procedures requiring assistance completed. Patient did not have IV access tr5 during this emergency room visit. Administered Medications: No medications were administered Outcome: 22:53 Discharge ordered by . tw4 23:04 Discharged to home ambulatory. tr5 23:04 Condition: stable 23:04 Discharge instructions given to patient, Instructed on discharge instructions, follow up and referral plans. Demonstrated understanding of instructions, follow-up care. 23:05 Patient left the ED. tr5 Signatures: Dispatcher [employer] Mary Dominguez RN RN lp1 Avery Gautam MD MD tw4 Dwayne Lainez RN RN tr5 Amos Cobb [facility]
--- NOTE | 2019-07-12 22:55 | EDPHYS ---
Physician Documentation [facility] Name: Blanche Lo Age: 39 yrs Sex: Male : 1980 Arrival Date: 07/12/2019 Time: 20:01 Bed 23 Private MD: ED Physician Avery Gautam HPI: 07/13 03:37 This 39 yrs old Male presents to ER via Ambulatory with complaints of tw4 Dizziness, Blurred Vision, Passed Out Prior To Arrival. 03:37 The patient presents with feeling faint, generalized weakness. Onset: The tw4 symptoms/episode began/occurred today. Context: occurred at home. Modifying factors: The symptoms are alleviated by nothing. Associated signs and symptoms: The patient has no apparent associated signs or symptoms. Severity of symptoms: At their worst the symptoms were moderate. Patient's baseline: Neuro: alert and fully oriented, Motor: no deficits, Ambulation:. 03:56 The patient has experienced similar episodes in the past, several times, and the tw4 symptoms today are exactly the same. The patient has been recently seen at the [facility] Emergency Department, last week, a couple of weeks ago, last month, for similar complaints labs were performed, X-rays were performed, CT scan was performed, Previous workup normal. Historical: - Allergies: 07/12 20:07 ambien; lp1 20:07 Naproxen; lp1 20:07 Ibuprofen; lp1 20:07 Amoxicillin; lp1 20:07 Amoxil; lp1 - Home Meds: 20:07 Bentyl 20 mg Oral tab 1 tab 3 times per day [Active]; folic acid 1 mg Oral tab 1 tab lp1 once daily [Active]; furosemide 20 mg Oral tab as needed [Active]; Iron CR Oral [Active]; levetiracetam 500 mg Oral tab 1 tab 2 times per day [Active]; magnesium oxide 400 mg Oral tab [Active]; pantoprazole 40 mg Oral TbEC 1 tab once daily [Active]; Tramadol Oral [Active]; - PMHx: 20:07 GI Bleed; Hypertension; Seizures; Back pain; lp1 - PSHx: 20:07 Hernia repair; lp1 - Immunization history:: Adult Immunizations up to date. - Social history:: Smoking status: Patient/guardian denies using tobacco. - Ebola Screening: : No symptoms or risks identified at this time. ROS: 07/13 03:37 Constitutional: Negative for fever, chills, and weight loss, Eyes: Negative for injury, tw4 pain, redness, and discharge, Cardiovascular: Negative for chest pain, palpitations, and edema, Respiratory: Negative for shortness of breath, cough, wheezing, and pleuritic chest pain, Abdomen/GI: Negative for abdominal pain, nausea, vomiting, diarrhea, and constipation, Back: Negative for injury and pain, MS/Extremity: Negative for injury and deformity, Skin: Negative for injury, rash, and discoloration. Neuro: Positive for dizziness, seizure activity, syncope, near syncope, tinnitus, tremor, visual changes, Negative for altered mental status, gait disturbance, headache, hearing loss. Exam: 03:37 Constitutional: This is a well developed, well nourished patient who is awake, alert, tw4 and in no acute distress. Head/Face: Normocephalic, atraumatic. Chest/axilla: Normal chest wall appearance and motion. Nontender with no deformity. No lesions are appreciated. Cardiovascular: Regular rate and rhythm with a normal S1 and S2. No gallops, murmurs, or rubs. Normal PMI, no JVD. No pulse deficits. Respiratory: Lungs have equal breath sounds bilaterally, clear to auscultation and percussion. No rales, rhonchi or wheezes noted. No increased work of breathing, no retractions or nasal flaring. Abdomen/GI: Soft, non-tender, with normal bowel sounds. No distension or tympany. No guarding or rebound. No evidence of tenderness throughout. Back: No spinal tenderness. No costovertebral tenderness. Full range of motion. MS/ Extremity: Pulses equal, no cyanosis. Neurovascular intact. Full, normal range of motion. Neuro: Awake and alert, GCS 15, oriented to person, place, time, and situation. Cranial nerves II-XII grossly intact. Motor strength 5/5 in all extremities. Sensory grossly intact. Cerebellar exam normal. Normal gait. Vital Signs: 07/12 20:06 BP 121 / 85; Pulse 100; Resp 20; Temp 98.6(O); Pulse Ox 98% on R/A; Weight 101.15 kg; lp1 Height 5 ft. 5 in. (165.10 cm); Pain 10/10; 20:06 Body Mass Index 37.11 (101.15 kg, 165.10 cm) lp1 MDM: 20:39 Patient medically screened. tw07/13 03:37 Differential diagnosis: cardiac arrhythmia, CVA, hyperventilation, hypovolemia, tw4 idiopathic dizziness, TIA. Data reviewed: vital signs, nurses notes. Data reviewed: lab test result(s), CBC, white blood cell count, hemoglobin, hematocrit, platelets, electrolytes, sodium, potassium, chloride, serum bicarbonate, BUN, creatinine, serum glucose. Data interpreted: campus monitor: rhythm is normal sinus rhythm, Pulse oximetry: Interpretation: normal. Test interpretation: by ED physician or midlevel provider: ECG. Counseling: I had a detailed discussion with the patient and/or guardian regarding: the historical points, exam findings, and any diagnostic results supporting the discharge/admit diagnosis. Special discussion: I discussed with the patient/guardian in detail that at this point there is no indication for admission to the hospital. It is understood, however, that if the symptoms persist or worsen the patient needs to return immediately for re-evaluation. 03:37 ED course: Pt is a frequent flyer to the ED with this complaint and has had multiple tw4 workups for this same problem. The admissions and workups have been negative. 07/12 20:36 Order name: UDS; Complete Time: 22:53 07/12 20:36 Order name: Basic Metabolic Panel; Complete Time: 22:52 07/12 20:36 Order name: CBC with Diff 07/12 20:36 Order name: Ckmb; Complete Time: 22:53 07/12 20:36 Order name: CPK; Complete Time: 22:53 07/12 20:36 Order name: Hepatic Function; Complete Time: 22:53 07/12 20:36 Order name: CT Head Brain wo Cont; Complete Time: 22:53 07/12 20:36 Order name: Lipase; Complete Time: 22:53 07/12 20:36 Order name: Magnesium; Complete Time: 22:53 07/12 20:36 Order name: Protime (+inr); Complete Time: 22:53 4 07/12 20:36 Order name: Ptt, Activated; Complete Time: 22:53 07/12 20:36 Order name: Troponin (emerg Dept Use Only); Complete Time: 22:53 tw4 07/12 21:24 Order name: Urine Dipstick--Ancillary (enter results); Complete Time: 22:53 cm6 07/12 22:15 Order name: CBC Smear Scan [facility] 07/12 20:36 Order name: EKG; Complete Time: 20:37 tw4 07/12 20:36 Order name: Cardiac monitoring; Complete Time: 21:28 tw4 07/12 20:36 Order name: EKG - Nurse/Tech; Complete Time: 21:28 tw4 07/12 20:36 Order name: IV Saline Lock; Complete Time: 21:17 tw4 07/12 20:36 Order name: Labs collected and sent; Complete Time: 21:17 tw4 07/12 20:36 Order name: NPO; Complete Time: 21:17 tw4 07/12 20:36 Order name: O2 Per Protocol; Complete Time: 21:17 tw4 07/12 20:36 Order name: O2 Sat Monitoring; Complete Time: 21:17 tw4 07/12 20:36 Order name: Urine Dipstick-Ancillary (obtain specimen); Complete Time: 21:43 tw4 EC:37 Rate is 91 beats/min. Rhythm is regular. QRS [place] is Normal. LA interval is normal. QRS tw4 interval is normal. QT interval is normal. No Q waves. T waves are Normal. No ST changes noted. Clinical impression: Normal ECG. Interpreted by me. Reviewed by me. Administered Medications: No medications were administered Disposition: 07/12/19 22:53 Discharged to Home. Impression: Syncope and collapse, Epilepsy and recurrent seizures. - Condition is Stable. - Discharge Instructions: Seizure, Adult, Vasovagal Syncope, Adult. - Medication Reconciliation Form, Thank You Letter, Antibiotic Education, Prescription Opioid Use form. - Follow up: Private Physician; When: Upon discharge from the Emergency Department; Reason: Recheck today's complaints, Continuance of care. - Problem is an ongoing problem. - Symptoms are unchanged. Signatures: Dispatcher [employer] [facility] Mary Ozuna RN RN lp1 Avery Gautam MD MD tw4 Dwayne Lainez RN RN tr5 Corrections: (The following items were deleted from the chart) 07/12 23:05 22:53 07/12/2019 22:53 Discharged to Home. Impression: Syncope and collapse; Epilepsy tr5 and recurrent seizures. Condition is Stable. Forms are Medication Reconciliation Form, Thank You Letter, Antibiotic Education, Prescription Opioid Use. Follow up: Private Physician; When: Upon discharge from the Emergency Department; Reason: Recheck today's complaints, Continuance of care. Problem is an ongoing problem. Symptoms are unchanged. tw4 07/13 03:57 03:37 The patient has not experienced similar symptoms in the past, tw4 tw4
[2019-07-12 23:06] LABS: Anisocytosis 1+; Blood Morphology Comment NOTED (NOT SEEN); Platelet Estimate ADEQ; Urine White Blood Cell Casts OK
[2019-07-12 23:17] VITALS: BP 121/85; TEMP 98.6; O2SAT 98
--- NOTE | 2019-07-13 07:23 | EKG ---
Test Date: 2019-07-12 Test Time: 21:37:56 Leasing Representative: LMT MEASUREMENT RESULTS: Intervals: Rate: 91 MI: 136 QRSD: 76 QT: 382 QTc: 469 [place]: P: 35 MI: 136 QRS: -4 T: 13 INTERPRETIVE STATEMENTS: Normal sinus rhythm Normal ECG Compared to ECG 07/11/2019 15:12:43 No significant changes Electronically Signed On 07-13-19 07:23:29 [employer] by Fred Reyes
== END 2019-07-12 23:05 | disposition home or self-care (01) ==
LOC: ER 19:59
DX: R55 Syncope and collapse (principal); G40.909 Epilepsy, unspecified, not intractable, without status epilepticus; Z88.1 Allergy status to other antibiotic agents; Z88.8 Allergy status to other drugs, medicaments and biological substances; I10 Essential (primary) hypertension
CPT/HCPCS: 36415; 70450; 80048; 80076; 80307; 81003; 82550; 82553; 83690; 83735; 84484; 85025; 85610; 85730; 93005; 99283

== ENCOUNTER 2019-07-19 14:16 | Emergency (ER) | payer SELFPAY ==
--- OUTSIDE RECORDS SUMMARY | 2019-07-19 14:19 | XMS REPORT ---
:1980 [facility] Address [address] [place] [address] Care Team Providers Name Role Phone TIM [...] Comments SODIUM (BEAKER) (test 137 meq/L 136-145 vjnf=333) POTASSIUM (BEAKER) (test 4.0 meq/L 3.5-5.1 ijxd=770) CHLORIDE (BEAKER) (test 100 meq/L 98-107 bjxn=163) CO2 (BEAKER) (test 27 meq/L 22-29 awey=975) BLOOD UREA NITROGEN 4 mg/dL 7-21 (BEAKER) (test fzzz=352) CREATININE (BEAKER) (test 0.71 mg/dL 0.57-1.25 sgla=704) GLUCOSE RANDOM (BEAKER) 110 mg/dL 70-105 (test alkt=433) CALCIUM (BEAKER) (test 7.2 mg/dL 8.4-10.2 mbdl=734) EGFR (BEAKER) (test 125 mL/min/1.73 sq m ESTIMATED GFR IS NOT lgqq=3547) ACCURATE CREATININE CLEARANCE IN PREDICTING GLOMERULAR FILTRATION RATE. ESTIMATED GFR IS NOT APPLICABLE FOR DIALYSIS PATIENTS. [id number] 07:19:00 Test Item Value Reference Range Comments PHOSPHORUS (BEAKER) (test ffei=986) 4.5 mg/dL 2.3-4.7 [id number] 07:19:00 Test Item Value Reference Range Comments MAGNESIUM (BEAKER) (test yckl=690) 2.0 mg/dL 1.6-2.6 CBC W/PLT COUNT & AUTO [id number] 07:11:00 Test Item Value Reference Range Comments WHITE BLOOD CELL COUNT (BEAKER) (test cbfp=377) 7.3 K/ L 3.5-10.5 RED BLOOD CELL COUNT (BEAKER) (test ybre=043) 3.63 M/ L 4.63-6.08 HEMOGLOBIN (BEAKER) (test svik=439) 9.4 GM/DL 13.7-17.5 HEMATOCRIT (BEAKER) (test qrnv=456) 33.6 % 40.1-51.0 MEAN CORPUSCULAR VOLUME (BEAKER) (test hlbo=499) 92.6 fL 79.0-92.2 MEAN CORPUSCULAR HEMOGLOBIN (BEAKER) (test 25.9 pg 25.7-32.2 jajo=508) MEAN CORPUSCULAR HEMOGLOBIN CONC (BEAKER) (test 28.0 GM/DL 32.3-36.5 xojc=477) RED CELL DISTRIBUTION WIDTH (BEAKER) (test 20.4 % 11.6-14.4 zbcw=824) PLATELET COUNT (BEAKER) (test gxgz=616) 196 K/CU MM 150-450 MEAN PLATELET VOLUME (BEAKER) (test ceuq=475) 12.5 fL 9.4-12.4 NUCLEATED RED BLOOD CELLS (BEAKER) (test 0 /100 WBC 0-0 xodk=178) NEUTROPHILS RELATIVE PERCENT (BEAKER) (test 71 % jwhl=024) LYMPHOCYTES RELATIVE PERCENT (BEAKER) (test 16 % ztue=157) MONOCYTES RELATIVE PERCENT (BEAKER) (test 7 % rjyt=350) EOSINOPHILS RELATIVE PERCENT (BEAKER) (test 5 % lpun=413) BASOPHILS RELATIVE PERCENT (BEAKER) (test 1 % rmhw=145) NEUTROPHILS ABSOLUTE COUNT (BEAKER) (test 5.18 K/ L 1.78-5.38 jowm=680) LYMPHOCYTES ABSOLUTE COUNT (BEAKER) (test 1.13 K/ L 1.32-3.57 tpnm=967) MONOCYTES ABSOLUTE COUNT (BEAKER) (test 0.53 K/ L 0.30-0.82 qain=074) EOSINOPHILS ABSOLUTE COUNT (BEAKER) (test 0.34 K/ L 0.04-0.54 swio=684) BASOPHILS ABSOLUTE COUNT (BEAKER) (test 0.04 K/ L 0.01-0.08 lsqm=196) IMMATURE GRANULOCYTES-RELATIVE PERCENT (BEAKER) 1 % 0-1 (test pqxz=4932) [id number] 07:07:00 Test Item Value Reference Range Comments PARTIAL THROMBOPLASTIN TIME (BEAKER) (test 39.0 seconds 22.5-36.0 zkxr=778) PROTHROMBIN [id number] 07:06:00 Test Item Value Reference Range Comments PROTIME (BEAKER) (test oxmy=888) 14.3 seconds 11.9-14.2 INR (BEAKER) (test xevq=467) 1.2 <=5.9 Effective 01/19/2019: PT Reference Range ChangeNew: 11.9-14.2 Previous: 11.7- 14.7RECOMMENDED COUMADIN/WARFARIN INR THERAPY RANGESSTANDARD DOSE: 2.0-3.0 Includes: PROPHYLAXIS for venous thrombosis, systemic embolization; TREATMENT for venous thrombosis and/or pulmonary embolus.HIGH RISK: Target INR is2.5-3.5 for patients wiht mechanical heart valves.CALCIUM, [id number] 07:05:00 Test Item Value Reference Range Comments CALCIUM IONIZED (BEAKER) (test ejqr=425) 0.73 mmol/L 1.12-1.27 PH, BLOOD (BEAKER) (test iuvn=5055) 7.54 CBC W/PLT COUNT & AUTO [id number] 15:06:00 Test Item Value Reference Range Comments WHITE BLOOD CELL COUNT (BEAKER) (test kqsm=594) 8.4 K/ L 3.5-10.5 RED BLOOD CELL COUNT (BEAKER) (test nzwx=532) 3.72 M/ L 4.63-6.08 HEMOGLOBIN (BEAKER) (test isaa=106) 9.6 GM/DL 13.7-17.5 HEMATOCRIT (BEAKER) (test tyii=059) 34.2 % 40.1-51.0 MEAN CORPUSCULAR VOLUME (BEAKER) (test veiq=538) 91.9 fL 79.0-92.2 MEAN CORPUSCULAR HEMOGLOBIN (BEAKER) (test 25.8 pg 25.7-32.2 hagf=078) MEAN CORPUSCULAR HEMOGLOBIN CONC (BEAKER) (test 28.1 GM/DL 32.3-36.5 akay=150) RED CELL DISTRIBUTION WIDTH (BEAKER) (test 20.5 % 11.6-14.4 nqhd=267) PLATELET COUNT (BEAKER) (test erkh=871) 191 K/CU MM 150-450 MEAN PLATELET VOLUME (BEAKER) (test fbxc=932) 12.6 fL 9.4-12.4 NUCLEATED RED BLOOD CELLS (BEAKER) (test 0 /100 WBC 0-0 nykb=940) NEUTROPHILS RELATIVE PERCENT (BEAKER) (test 76 % cgtf=214) LYMPHOCYTES RELATIVE PERCENT (BEAKER) (test 13 % rmwj=262) MONOCYTES RELATIVE PERCENT (BEAKER) (test 6 % groh=228) EOSINOPHILS RELATIVE PERCENT (BEAKER) (test 4 % twmz=260) BASOPHILS RELATIVE PERCENT (BEAKER) (test 0 % wijv=205) NEUTROPHILS ABSOLUTE COUNT (BEAKER) (test 6.36 K/ L 1.78-5.38 yila=423) LYMPHOCYTES ABSOLUTE COUNT (BEAKER) (test 1.08 K/ L 1.32-3.57 zgro=865) MONOCYTES ABSOLUTE COUNT (BEAKER) (test 0.51 K/ L 0.30-0.82 jiqo=328) EOSINOPHILS ABSOLUTE COUNT (BEAKER) (test 0.37 K/ L 0.04-0.54 dnzg=305) BASOPHILS ABSOLUTE COUNT (BEAKER) (test 0.03 K/ L 0.01-0.08 zlyl=338) IMMATURE GRANULOCYTES-RELATIVE PERCENT (BEAKER) 1 % 0-1 (test howb=5484) POCT-GLUCOSE [id number] 12:26:00 Test Item Value Reference Range Comments POC-GLUCOSE METER (BEAKER) 147 mg/dL 70-110 : TESTED [address] (test zzpv=2843) [facility], [id number]: Waterworks Supervisor/Computer Peripheral Equipment Operator [id number] for Perfryan Karen POCT-GLUCOSE [id number] 08:38:00 Test Item Value Reference Range Comments POC-GLUCOSE METER (BEAKER) 136 mg/dL 70-110 : TESTED AT [address] (test wlxp=6342) [facility], [address]: Waterworks Supervisor/Computer Peripheral Equipment Operator [id number] for ELIAS [employer] MET[employer] [id number] 04:35:00 Test Item Value Reference Range Comments SODIUM (BEAKER) (test 140 meq/L 136-145 ttan=758) POTASSIUM (BEAKER) (test 3.8 meq/L 3.5-5.1 Specimen slightly jbdd=902) hemolyzed CHLORIDE (BEAKER) (test 101 meq/L 98-107 allb=510) CO2 (BEAKER) (test 30 meq/L 22-29 slty=439) BLOOD UREA NITROGEN 5 mg/dL 7-21 (BEAKER) (test btpi=665) CREATININE (BEAKER) (test 0.73 mg/dL 0.57-1.25 Specimen slightly dkkl=697) hemolyzed GLUCOSE RANDOM (BEAKER) 97 mg/dL 70-105 (test zumx=537) CALCIUM (BEAKER) (test 6.9 mg/dL 8.4-10.2 yraj=784) EGFR (BEAKER) (test 121 mL/min/1.73 sq m ESTIMATED GFR IS NOT hlbi=1742) ACCURATE CREATININE CLEARANCE IN PREDICTING GLOMERULAR FILTRATION RATE. ESTIMATED GFR IS NOT APPLICABLE FOR DIALYSIS PATIENTS. [id number] 04:18:00 Test Item Value Reference Range Comments MAGNESIUM (BEAKER) (test 2.1 mg/dL 1.6-2.6 Specimen slightly hemolyzed hfpd=559) [id number] 04:18:00 Test Item Value Reference Range Comments PHOSPHORUS (BEAKER) (test 4.6 mg/dL 2.3-4.7 Specimen slightly hemolyzed nhit=487) CBC W/PLT COUNT & AUTO [id number] 03:30:00 Test Item Value Reference Range Comments WHITE BLOOD CELL COUNT (BEAKER) (test qtnl=538) 8.1 K/ L 3.5-10.5 RED BLOOD CELL COUNT (BEAKER) (test ehea=851) 3.44 M/ L 4.63-6.08 HEMOGLOBIN (BEAKER) (test xqyl=853) 8.7 GM/DL 13.7-17.5 HEMATOCRIT (BEAKER) (test lcca=204) 31.0 % 40.1-51.0 MEAN CORPUSCULAR VOLUME (BEAKER) (test qlvm=149) 90.1 fL 79.0-92.2 MEAN CORPUSCULAR HEMOGLOBIN (BEAKER) (test 25.3 pg 25.7-32.2 bhez=912) MEAN CORPUSCULAR HEMOGLOBIN CONC (BEAKER) (test 28.1 GM/DL 32.3-36.5 bnrf=584) RED CELL DISTRIBUTION WIDTH (BEAKER) (test 20.6 % 11.6-14.4 vrcb=806) PLATELET COUNT (BEAKER) (test eswv=871) 176 K/CU MM 150-450 MEAN PLATELET VOLUME (BEAKER) (test qxzl=841) 12.1 fL 9.4-12.4 NUCLEATED RED BLOOD CELLS (BEAKER) (test 0 /100 WBC 0-0 hphf=336) NEUTROPHILS RELATIVE PERCENT (BEAKER) (test 70 % mzzb=093) LYMPHOCYTES RELATIVE PERCENT (BEAKER) (test 17 % tryl=638) MONOCYTES RELATIVE PERCENT (BEAKER) (test 7 % czog=947) EOSINOPHILS RELATIVE PERCENT (BEAKER) (test 5 % sdvj=732) BASOPHILS RELATIVE PERCENT (BEAKER) (test 0 % bhpe=279) NEUTROPHILS ABSOLUTE COUNT (BEAKER) (test 5.71 K/ L 1.78-5.38 chdp=262) LYMPHOCYTES ABSOLUTE COUNT (BEAKER) (test 1.38 K/ L 1.32-3.57 rnru=771) MONOCYTES ABSOLUTE COUNT (BEAKER) (test 0.57 K/ L 0.30-0.82 emxs=894) EOSINOPHILS ABSOLUTE COUNT (BEAKER) (test 0.38 K/ L 0.04-0.54 bjhp=435) BASOPHILS ABSOLUTE COUNT (BEAKER) (test 0.03 K/ L 0.01-0.08 cgre=068) IMMATURE GRANULOCYTES-RELATIVE PERCENT (BEAKER) 1 % 0-1 (test hyph=9734) RAD, CHEST, 1 VIEW, NON [id number] 23:38:00Reason for exam:->preop workupShould this be performed at the bedside?->YesFINAL REPORT AP chest dated 06/28/2019 Comment: Heart is in upper limits of normal in size. Pulmonary vasculature is unremarkable. Lungs are clear. No pulmonary infiltrate or pleural effusion. Impression: No active cardiopulmonary disease. Signed: María Tobiasort Verified Date/Time: 06/28/2019 23:38:30 Reading Location: [address] Consult Reading Room Electronicallysigned by: MARÍA TOBIAS M.D. on 06/28/2019 11:38 PMPOCT-GLUCOSE [id number] 22:26:00 Test Item Value Reference Range Comments POC-GLUCOSE METER (BEAKER) 112 mg/dL 70-110 : TESTED AT [facility] [address] (test pbwl=3501) [facility], [id number]: Waterworks Supervisor/Computer Peripheral Equipment Operator [id number] for BLACK RENEE [employer]PRE[employer]IVE METABOLIC [id number] 20:58:00 Test Item Value Reference Range Comments TOTAL PROTEIN (BEAKER) 8.0 gm/dL 6.0-8.3 Specimen slightly (test fdhl=936) hemolyzed ALBUMIN (BEAKER) (test 4.1 g/dL 3.5-5.0 Specimen slightly wpbq=7901) hemolyzed ALKALINE PHOSPHATASE 66 U/L 40-150 (BEAKER) (test eqvc=158) BILIRUBIN TOTAL (BEAKER) 1.0 mg/dL 0.2-1.2 Specimen slightly (test reqy=746) hemolyzed SODIUM (BEAKER) (test 137 meq/L 136-145 uofn=345) POTASSIUM (BEAKER) (test 4.1 meq/L 3.5-5.1 Specimen slightly fddr=903) hemolyzed CHLORIDE (BEAKER) (test 97 meq/L 98-107 pvvb=966) CO2 (BEAKER) (test 27 meq/L 22-29 hzlb=319) BLOOD UREA NITROGEN 7 mg/dL 7-21 (BEAKER) (test xcrt=826) CREATININE (BEAKER) (test 0.72 mg/dL 0.57-1.25 Specimen slightly ascg=471) hemolyzed GLUCOSE RANDOM (BEAKER) 73 mg/dL 70-105 (test bbya=954) CALCIUM (BEAKER) (test 7.5 mg/dL 8.4-10.2 qxdp=217) AST (SGOT) (BEAKER) (test 75 U/L 5-34 Specimen slightly gadl=810) hemolyzed ALT (SGPT) (BEAKER) (test 47 U/L 6-55 Specimen slightly sbcp=982) hemolyzed EGFR (BEAKER) (test 123 mL/min/1.73 sq ESTIMATED GFR IS NOT fojh=1205) m ACCURATE CREATININE CLEARANCE IN PREDICTING GLOMERULAR FILTRATION RATE. ESTIMATED GFR IS NOT APPLICABLE FOR DIALYSIS PATIENTS. CBC W/PLT COUNT & AUTO [id number] 20:24:00 Test Item Value Reference Range Comments WHITE BLOOD CELL COUNT (BEAKER) (test otsb=492) 7.9 K/ L 3.5-10.5 RED BLOOD CELL COUNT (BEAKER) (test sqsh=761) 3.61 M/ L 4.63-6.08 HEMOGLOBIN (BEAKER) (test kocw=292) 9.2 GM/DL 13.7-17.5 HEMATOCRIT (BEAKER) (test kjrm=771) 32.7 % 40.1-51.0 MEAN CORPUSCULAR VOLUME (BEAKER) (test aukd=407) 90.6 fL 79.0-92.2 MEAN CORPUSCULAR HEMOGLOBIN (BEAKER) (test 25.5 pg 25.7-32.2 pwik=053) MEAN CORPUSCULAR HEMOGLOBIN CONC (BEAKER) (test 28.1 GM/DL 32.3-36.5 gnid=350) RED CELL DISTRIBUTION WIDTH (BEAKER) (test 20.8 % 11.6-14.4 kfmy=044) PLATELET COUNT (BEAKER) (test lclq=108) 193 K/CU MM 150-450 MEAN PLATELET VOLUME (BEAKER) (test tztx=752) 12.4 fL 9.4-12.4 NUCLEATED RED BLOOD CELLS (BEAKER) (test 0 /100 WBC 0-0 jbfz=793) NEUTROPHILS RELATIVE PERCENT (BEAKER) (test 69 % lwbz=152) LYMPHOCYTES RELATIVE PERCENT (BEAKER) (test 18 % mcqi=215) MONOCYTES RELATIVE PERCENT (BEAKER) (test 8 % kwap=172) EOSINOPHILS RELATIVE PERCENT (BEAKER) (test 3 % kzdt=331) BASOPHILS RELATIVE PERCENT (BEAKER) (test 0 % kvtq=240) NEUTROPHILS ABSOLUTE COUNT (BEAKER) (test 5.46 K/ L 1.78-5.38 cstg=112) LYMPHOCYTES ABSOLUTE COUNT (BEAKER) (test 1.42 K/ L 1.32-3.57 bkjx=801) MONOCYTES ABSOLUTE COUNT (BEAKER) (test 0.62 K/ L 0.30-0.82 eiwr=035) EOSINOPHILS ABSOLUTE COUNT (BEAKER) (test 0.27 K/ L 0.04-0.54 lesr=776) BASOPHILS ABSOLUTE COUNT (BEAKER) (test 0.03 K/ L 0.01-0.08 mrlg=459) IMMATURE GRANULOCYTES-RELATIVE PERCENT (BEAKER) 1 % 0-1 (test erif=0214) [id number] 20:23:00 Test Item Value Reference Range Comments PARTIAL THROMBOPLASTIN TIME (BEAKER) (test 38.3 seconds 22.5-36.0 cxeu=293) PROTHROMBIN [id number] 20:22:00 Test Item Value Reference Range Comments PROTIME (BEAKER) (test wnna=530) 13.5 seconds 11.9-14.2 INR (BEAKER) (test molk=936) 1.1 <=5.9 Effective 01/19/2019: PT Reference Range ChangeNew: 11.9-14.2 Previous: 11.7- 14.7RECOMMENDED COUMADIN/WARFARIN INR THERAPY RANGESSTANDARD DOSE: 2.0-3.0 Includes: PROPHYLAXIS for venous thrombosis, systemic embolization; TREATMENT for venous thrombosis and/or pulmonary embolus.HIGH RISK: Target INR is2.5-3.5 for patients wiht mechanical heart valves.
[2019-07-19 15:13] LABS: Absolute Lymphocytes (CBC) 1.2 K/uL (0.7-4.9); Basophils % 0.7 % (0-1.3); Hematocrit 32.1 % (39.6-49.0); Lymphocytes % 15.5 % (15.3-44.8); MPV 10.8 fL (7.6-11.3); RBC Red Blood Cell Count 3.79 M/uL (4.33-5.43)
--- NOTE | 2019-07-19 15:13 | RAD REPORT ---
EXAM DESCRIPTION: CT - Head Brain Wo Cont - 07/19/2019 3:07 pm CLINICAL HISTORY: Syncope, seizure history COMPARISON: None. TECHNIQUE: Axial 5 mm thick images of the head were obtained without IV contrast. All CT scans are performed using dose optimization technique as appropriate and may include automated exposure control or mA/KV adjustment according to patient size. FINDINGS: No intracranial hemorrhage, mass, edema or shift of mid-line structures. No acute infarcti on changes seen. No abnormal extra-axial fluid collections. Ventricles are normal. Physiologic calci fications are present. Mastoid air cells are under developed. Patient has significant mucosal thickening in the maxillary si nuses and patchy mucosal thickening in the ethmoid air cells. No air-fluid levels confirmed. No acute bony findings. IMPRESSION: No acute intracranial finding. Significant mucosal thickening in the paranasal sinuses.
[2019-07-19 15:39] LABS: ALT/SGPT 45 U/L (12-78); AST/SGOT 30 U/L (15-37); Albumin 3.7 g/dL (3.4-5.0); Alkaline Phosphatase 82 U/L (45-117); BUN Blood Urea Nitrogen 12 mg/dL (7-18); Bicarbonate 31 mmol/L (21-32); Bilirubin Direct 0.1 mg/dL (0-0.2); Bilirubin Total 0.3 mg/dL (0.2-1.0); Glucose Level 121 mg/dL (74-106); Protein, Total 8.3 g/dL (6.4-8.2); Sodium Level 139 mmol/L (136-145)
--- NOTE | 2019-07-19 15:39 | RAD REPORT ---
EXAM DESCRIPTION: CT - Spine Lumbar Wo Con - 07/19/2019 3:08 pm CLINICAL HISTORY: Fall, syncope, back pain and left lower extremity radiculopathy COMPARISON: None. TECHNIQUE: Thin section axial imaging of the lumbar spine was performed. Sagittal and coronal recon struction images were generated and reviewed. All CT scans are performed using dose optimization technique as appropriate and may include automated exposure control or mA/KV adjustment according to patient size. FINDINGS: Lumbar bodies are normal in height and normal in AP alignment. There is a left convex scol iotic curvature present. No compression fracture. No lytic, sclerotic or expansile bony destructive p rocess. No pars defects are present. Lowest lumbar level is partially sacralized. No paraspinal mass or hematoma. T12-L1 level: Severe hypertrophic facet degenerative change noted on the right. Right foraminal steno sis is present. L1-2 level: Mild disc bulge changes are present. Prominent facet degenerative change on the right con tributes to a right foraminal stenosis. Central canal is 11 mm. L2-3 level: Mild broad-based bulging disc material. Prominent right-sided facet degenerative change a nd right-sided ligamentous thickening present with calcification. Central canal is 7 mm. Right forami nal stenosis present. L3-4 level: Mild disc bulge. Advanced right facet degenerative change and right ligamentous thickenin g with calcification. Central canal is 8- 9 mm. L4-5 level: Mild broad-based bulging of disc material. No canal stenosis. Mild foraminal encroachment changes are present. Facet degenerative changes are present. Sacralized L5-S1 level shows no herniation urged disc bulge. Facet degenerative changes are present. Foraminal stenosis bilaterally. IMPRESSION: No compression fracture. No acute bone findings seen. Significant underlying degenerative changes are present primarily on the right. Multilevel right-side d foraminal stenosis along with central spinal stenosis at L2-3 and L3-4.
--- NOTE | 2019-07-19 15:54 | ER ---
Nurse's Notes [facility] Name: Blanche Lo Age: 39 yrs Sex: Male : 1980 Arrival Date: 07/19/2019 Time: 14:19 Bed 18 Private MD: Diagnosis: Syncope and collapse Presentation: 07/19 14:36 Presenting complaint: Patient states: passed out at home earlier today, states he was iw walking and then he just woke up on the floor, has a hx of passing out and seizures, does not remember name of seizure medication, pt denies incontinence of urine, states he bit his tongue, right now he still feels dizzy and weak, pt ambulatory to room with steady gait, pt states he is on a wait list to be evaluated by a neurologist, pt also c/o left low back pain. Transition of care: patient was not received from another setting of care. Onset of symptoms was July 19, 2019. Risk Assessment: Do you want to hurt yourself or someone else? Patient reports no desire to harm self or others. Initial Sepsis Screen: Does the patient meet any 2 criteria? No. Patient's initial sepsis screen is negative. Does the patient have a suspected source of infection? No. Patient's initial sepsis screen is negative. Care prior to arrival: None. 14:36 Method Of Arrival: Ambulatory iw 14:36 Acuity: JANINE 3 iw Historical: - Allergies: 14:40 ambien; iw 14:40 Amoxicillin; iw 14:40 Ibuprofen; iw 14:40 Naproxen; iw - Home Meds: 14:54 levetiracetam 500 mg Oral tab 1 tab 2 times per day [Active]; ph - PMHx: 14:40 Back pain; GI Bleed; Hypertension; Seizures; iw - PSHx: 14:40 Hernia repair; iw - Immunization history:: Adult Immunizations not up to date. - Social history:: Smoking status: Patient/guardian denies using tobacco. - Ebola Screening: : Patient negative for fever greater than or equal to 101.5 degrees Fahrenheit, and additional compatible Ebola Virus Disease symptoms Patient denies exposure to infectious person Patient denies travel to an Ebola-affected area in the 21 days before illness onset No symptoms or risks identified at this time. Screenin:08 Abuse screen: Denies threats or abuse. Denies injuries from another. Nutritional ph screening: No deficits noted. Tuberculosis screening: No symptoms or risk factors identified. Fall Risk None identified. Assessment: 15:09 General: Appears in no apparent distress. comfortable, Behavior is calm, cooperative, ph appropriate for age. Pain: Complains of pain in low back area. Neuro: Level of Consciousness is awake, alert, obeys commands, Oriented to person, place, time, situation, Reports dizziness, Seizure activity reported prior to arrival. Cardiovascular: Capillary refill < 3 seconds in bilateral fingers Patient's skin is warm and dry. Respiratory: Airway is patent Respiratory effort is even, unlabored, Respiratory pattern is regular, symmetrical. GI: No signs and/or symptoms were reported involving the gastrointestinal system. Derm: Skin is intact, is healthy with good turgor, Skin is pink, warm \T\ dry. Musculoskeletal: Circulation, motion, and sensation intact. Range of motion: intact in all extremities. 16:11 Reassessment: Patient appears in no apparent distress at this time. Patient and/or ph family updated on plan of care and expected duration. Pain level reassessed. Patient is alert, oriented x 3, equal unlabored respirations, skin warm/dry/pink. Pt requesting prescription for Tramadol upon d/c, ERP declined to write pt script d/t seizure hx and instructed pt to stop taking Tramadol because it decreases seizure threshold, also instructed pt to follow up w/ ENT and neurologist. Vital Signs: 14:40 BP 124 / 89; Pulse 97; Resp 16; Temp 98.2; Pulse Ox 100% on R/A; Weight 98.88 kg; iw Height 5 ft. 5 in. (165.10 cm); Pain 10/10; 16:14 BP 118 / 79; Pulse 88; Resp 18; Temp 97.9; Pulse Ox 99% on R/A; ph 14:40 Body Mass Index 36.28 (98.88 kg, 165.10 cm) iw ED Course: 14:19 Patient arrived in ED. mr 14:23 Modesto Phipps PA is PHCP. jr8 14:23 Ilir Hay MD is Attending Physician. jr8 14:39 Triage completed. iw 14:41 Arm band placed on. iw 14:43 Flori Altman RN is Primary Nurse. ph 15:00 Inserted saline lock: 22 gauge in right antecubital area, using aseptic technique. ph Blood collected. 15:08 CT Head Brain wo Cont In Process Unspecified. EDMS 15:08 CT Lumbar Spine Wo Con In Process Unspecified. EDMS 15:08 Patient has correct armband on for positive identification. Bed in low position. Call ph light in reach. Side rails up X 1. Seizure precautions initiated. Pulse ox on. NIBP on. Door closed. Noise minimized. Warm blanket given. 15:12 No provider procedures requiring assistance completed. ph 15:26 EKG done, by electrophysiology technologist. reviewed by Modesto MCGUIRE. sm3 15:50 Jacob Villatoro MD is Referral Physician. jr8 16:14 IV discontinued, intact, bleeding controlled, No redness/swelling at site. Pressure ph dressing applied. Administered Medications: No medications were administered Outcome: 15:53 Discharge ordered by . jr8 16:13 Discharged to home ambulatory. ph 16:13 Condition: good 16:13 Discharge instructions given to patient, Instructed on discharge instructions, follow up and referral plans. medication usage, Demonstrated understanding of instructions, follow-up care, medications, Prescriptions given X 1. 16:15 Patient left the ED. ph Signatures: Dispatcher [employer] [facility] Partha Karena brady Yaz Iqbal, RN RN Modesto Joya PA PA 8 Flori Altman RN RN Lexi Otero 3 Corrections: (The following items were deleted from the chart) 14:41 14:36 Presenting complaint: Patient states: passed out at home earlier today, states he iw was walking and then he just woke up on the floor, has a hx of passing out and seizures, does not remember name of seizure medication, pt denies incontinence of urine, states he bit his tongue, right now he still feels dizzy and weak, pt ambulatory to room with steady gait, pt states he is on a wait list to be evaluated by a neurologist iw
--- NOTE | 2019-07-19 15:54 | EDPHYS ---
Physician Documentation [facility] Name: Blanche Lo Age: 39 yrs Sex: Male : 1980 Arrival Date: 07/19/2019 Time: 14:19 Bed 18 Private MD: ED Physician Ilir Hay HPI: 07/19 15:42 This 39 yrs old Male presents to ER via Ambulatory with complaints of Passed jr8 Out Prior To Arrival, Dizziness, Back Pain. 15:42 Onset: The symptoms/episode began/occurred acutely, today. Duration: This was a single jr8 episode, that lasted an unknown period of time. Context: occurred at home, occurred while the patient was standing. Associated injury: Back: low back area, pain, tenderness. Associated signs and symptoms: Pertinent positives: fatigue and muscle cramps. Current symptoms: Currently, the patient is not experiencing any symptoms, the patient feels back to baseline, no decreased level of consciousness, no confusion, no dysphasia, no headache, no paralysis, no visual changes. It is unknown whether or not the patient has had similar symptoms in the past. The patient has not recently seen a physician. Patient stated that about 1 month ago was diagnosed with seizures. Was put on keppra 500 mg BID. Stated that today was walking to kitchen and had "syncopal" like episode. Unknown if it was seizure. Came to ED after waking up. Historical: - Allergies: 14:40 ambien; iw 14:40 Amoxicillin; iw 14:40 Ibuprofen; iw 14:40 Naproxen; iw - Home Meds: 14:54 levetiracetam 500 mg Oral tab 1 tab 2 times per day [Active]; ph - PMHx: 14:40 Back pain; GI Bleed; Hypertension; Seizures; iw - PSHx: 14:40 Hernia repair; iw - Immunization history:: Adult Immunizations not up to date. - Social history:: Smoking status: Patient/guardian denies using tobacco. - Ebola Screening: : Patient negative for fever greater than or equal to 101.5 degrees Fahrenheit, and additional compatible Ebola Virus Disease symptoms Patient denies exposure to infectious person Patient denies travel to an Ebola-affected area in the 21 days before illness onset No symptoms or risks identified at this time. ROS: 15:42 Eyes: Negative for injury, pain, redness, and discharge, ENT: Negative for injury, jr8 pain, and discharge, Neck: Negative for injury, pain, and swelling, Cardiovascular: Negative for chest pain, palpitations, and edema, Respiratory: Negative for shortness of breath, cough, wheezing, and pleuritic chest pain, Abdomen/GI: Negative for abdominal pain, nausea, vomiting, diarrhea, and constipation, MS/Extremity: Negative for injury and deformity, Skin: Negative for injury, rash, and discoloration. 15:42 Back: Positive for pain at rest, pain with movement, of the low back area. 15:42 Neuro: Positive for syncope. Exam: 15:42 Head/Face: Normocephalic, atraumatic. Eyes: Pupils equal round and reactive to light, jr8 extra-ocular motions intact. Lids and lashes normal. Conjunctiva and sclera are non-icteric and not injected. Cornea within normal limits. Periorbital areas with no swelling, redness, or edema. ENT: Nares patent. No nasal discharge, no septal abnormalities noted. Tympanic membranes are normal and external auditory canals are clear. Oropharynx with no redness, swelling, or masses, exudates, or evidence of obstruction, uvula midline. Mucous membranes moist. Neck: Trachea midline, no thyromegaly or masses palpated, and no cervical lymphadenopathy. Supple, full range of motion without nuchal rigidity, or vertebral point tenderness. No Meningismus. Chest/axilla: Normal chest wall appearance and motion. Nontender with no deformity. No lesions are appreciated. Cardiovascular: Regular rate and rhythm with a normal S1 and S2. No gallops, murmurs, or rubs. Normal PMI, no JVD. No pulse deficits. Respiratory: Lungs have equal breath sounds bilaterally, clear to auscultation and percussion. No rales, rhonchi or wheezes noted. No increased work of breathing, no retractions or nasal flaring. Abdomen/GI: Soft, non-tender, with normal bowel sounds. No distension or tympany. No guarding or rebound. No evidence of tenderness throughout. Back: No spinal tenderness. No costovertebral tenderness. Full range of motion. Skin: Warm, dry with normal turgor. Normal color with no rashes, no lesions, and no evidence of cellulitis. MS/ Extremity: Pulses equal, no cyanosis. Neurovascular intact. Full, normal range of motion. Neuro: Awake and alert, GCS 15, oriented to person, place, time, and situation. Cranial nerves II-XII grossly intact. Motor strength 5/5 in all extremities. Sensory grossly intact. Cerebellar exam normal. Normal gait. Vital Signs: 14:40 BP 124 / 89; Pulse 97; Resp 16; Temp 98.2; Pulse Ox 100% on R/A; Weight 98.88 kg; iw Height 5 ft. 5 in. (165.10 cm); Pain 10/10; 16:14 BP 118 / 79; Pulse 88; Resp 18; Temp 97.9; Pulse Ox 99% on R/A; ph 14:40 Body Mass Index 36.28 (98.88 kg, 165.10 cm) iw MDM: 14:23 Patient medically screened. jr8 15:42 Data reviewed: vital signs, nurses notes, lab test result(s), EKG, radiologic studies, jr8 CT scan. Data interpreted: Pulse oximetry: on room air is 100 %. Interpretation: normal. Counseling: I had a detailed discussion with the patient and/or guardian regarding: the historical points, exam findings, and any diagnostic results supporting the discharge/admit diagnosis, lab results, radiology results, the need for outpatient follow up, a neurologist, to return to the emergency department if symptoms worsen or persist or if there are any questions or concerns that arise at home. 15:49 ED course: Patient has remained stable and without seizures while in ED. No acute lab, jr8 ecg, or imaging finding. Patient has f/u appointment with neurology. Will increase keppra dosage for now. Return precautions given. 07/19 14:48 Order name: Basic Metabolic Panel; Complete Time: 15:42 07/19 14:48 Order name: CBC with Diff; Complete Time: 15:21 07/19 14:48 Order name: LFT's; Complete Time: 15:42 07/19 14:48 Order name: Magnesium; Complete Time: 15:42 07/19 14:48 Order name: CT Head Brain wo Cont; Complete Time: 15:21 07/19 14:48 Order name: CT Lumbar Spine Wo Con; Complete Time: 15:48 07/19 14:48 Order name: EKG; Complete Time: 14:48 07/19 14:48 Order name: Cardiac monitoring; Complete Time: 15:21 07/19 14:48 Order name: EKG - Nurse/Tech; Complete Time: 15:21 07/19 14:48 Order name: IV Saline Lock; Complete Time: 15:21 07/19 14:48 Order name: Labs collected and sent; Complete Time: 15:22 07/19 14:48 Order name: O2 Per Protocol; Complete Time: 15:07/19 14:48 Order name: O2 Sat Monitoring; Complete Time: 15: Administered Medications: No medications were administered Disposition: 17:52 Co-signature as Attending Physician, Ilir Hay MD Did not see or evaluate patient. ps1 Chart signed for administrative purposes. Not an endorsement of care. . Disposition: 07/19/19 15:53 Discharged to Home. Impression: Syncope and collapse. - Condition is Stable. - Discharge Instructions: Seizure, Adult, Syncope. - Prescriptions for Keppra 500 mg Oral tablet - take 2 tablet by ORAL route 2 times per day; 120 tablet. - Medication Reconciliation Form, Thank You Letter, Antibiotic Education, Prescription Opioid Use form. - Follow up: Jacob Villatoro MD; When: 1 week; Reason: Recheck today's complaints, Continuance of care, Re-evaluation by your physician. - Problem is new. - Symptoms have improved. Signatures: Dispatcher [employer] EDYaz Hunt RN RN iw Roszak, Josh, PA PA jr8 Flori Altman RN RN ph Singer, Phillip, MD MD ps1 Corrections: (The following items were deleted from the chart) 16:15 15:53 07/19/2019 15:53 Discharged to Home. Impression: Syncope and collapse. Condition ph is Stable. Forms are Medication Reconciliation Form, Thank You Letter, Antibiotic Education, Prescription Opioid Use. Follow up: Jacob Villatoro; When: 1 week; Reason: Recheck today's complaints, Continuance of care, Re-evaluation by your physician. Problem is new. Symptoms have improved. jr8
[2019-07-19 16:20] VITALS: BP 118/79; TEMP 97.9; O2SAT 99
--- NOTE | 2019-07-19 16:30 | EKG ---
Test Date: 2019-07-19 Test Time: 15:15:48 Mobile Web Application Developer: ASHVIN MEASUREMENT RESULTS: Intervals: Rate: 93 WV: 132 QRSD: 72 QT: 360 QTc: 447 [place]: P: 40 WV: 132 QRS: 9 T: 9 INTERPRETIVE STATEMENTS: Normal sinus rhythm Normal ECG Compared to ECG 07/12/2019 21:37:56 No significant changes Electronically Signed On 07-19-19 16:29:52 MANAGEMENT TRAINEE PROGRAM [employer]ORES by Fred Reyes
== END 2019-07-19 16:15 | disposition home or self-care (01) ==
LOC: ER 14:16
DX: R55 Syncope and collapse (principal); R56.9 Unspecified convulsions; Z88.1 Allergy status to other antibiotic agents; Z88.8 Allergy status to other drugs, medicaments and biological substances
CPT/HCPCS: 36415; 70450; 72131; 80048; 80076; 83735; 85025; 93005; 99284

== ENCOUNTER 2019-10-20 16:05 | Emergency (ER) | payer SELFPAY ==
--- OUTSIDE RECORDS SUMMARY | 2019-10-20 16:07 | XMS REPORT | Summary of Care ---
:1980 [address] [facility] - Health Address [address] [place] [id number] Care Team Providers Name Role Phone Gilma Franklin Primary Care Provider Reason for Visit Reason Comments Tooth Pain Auth/Cert Status Reason Specialty Diagnoses / Referred By Referred To Procedures Contact Contact [facility] [address] [place] [address] [place] [address] Encounter Details Date Type Department Care Team Description 09/07/2019 Emergency [facility] Thu Rodgers, PAC Tooth infection Department [address] [place] [address] (Primary Dx) [address] [place] [address] [place] [address] [place], [place] [id number] Allergies Active Allergy Reactions Severity Noted Date Comments Zolpidem Tartrate Unknown - See comments 07/20/2015 Amoxicillin Swelling High 10/01/2018 Nsaids (Non-Steroidal Unknown - See comments 07/13/2019 Anti-Inflammatory Drug) documented as of this encounter (statuses as of 09/07/2019) Medications Medication Sig Dispensed Refills Start Date End Date Status clindamycin 150 mg Take 3 90 capsule 0 09/07/2019 Active capsuleIndications: capsules by 0 Tooth infection mouth 3 (three) times daily for 10 days. traMADol 50 mg Take 1 tablet 20 tablet 0 09/07/2019 Active tabletIndications: by mouth every Tooth infection 6 (six) hours as needed for Pain (scale 4-6). codeine-guaifenesin Take 5 mL by 4 oz 0 05/19/2015 Discontinued (ROBITUSSIN AC) mouth every 6 0 10-100 mg/5 mL (six) hours as solution needed for Cough (OR CONGESTION). dicyclomine 20 mg Take 1 tablet 20 tablet 0 01/07/2017 Discontinued tablet by mouth 4 0 (four) times daily. ondansetron (ZOFRAN Take 1 tablet 10 tablet 0 01/07/2017 Discontinued ODT) 4 mg by mouth every 0 disintegrating 8 (eight) tablet hours as needed for Nausea and Vomiting (N/V). acetaminophen-codein 1-2 by mouth 40 tablet 0 08/29/2017 Discontinued e 300-30 mg tablet every 4-6 0 hours as needed for pain mupirocin Apply to 22 g 0 09/08/2017 Discontinued (BACTROBAN) 2 % area(s) 3 0 ointment (three) times daily. cyclobenzaprine 5 mg Take 1 tablet 5 tablet 0 10/23/2017 Discontinued tablet by mouth 3 0 (three) times daily as needed for Muscle Spasms. meloxicam 7.5 mg Take 1 tablet 30 tablet 1 12/11/2017 Discontinued tablet by mouth 0 daily. traMADOL (ULTRAM) 50 Take 1 tablet 20 tablet 0 10/01/2018 Discontinued mg by mouth every 0 tabletIndications: 6 (six) hours Dental caries as needed for Pain (scale 4-6). ibuprofen 600 mg Take 1 tablet 30 tablet 0 05/21/2019 Discontinued tabletIndications: by mouth every 0 Tonsillitis 6 (six) hours as needed for Pain (scale 4-6). azithromycin Take 1 tablet 1 Package 0 05/21/2019 Discontinued (ZITHROMAX Z-JUANITA) by mouth 0 250 mg SEE-INSTRUCTIO tabletIndications: NS. Take 500 Tonsillitis mg day 1, then 250 mg days 2 to 5. albuterol 90 Inhale 2 Puffs 8.5 g 0 05/21/2019 Discontinued mcg/actuation every 4 (four) 0 inhalerIndications: hours as Tonsillitis needed for Wheezing or Shortness of Breath. fexofenadine 180 mg Take 1 tablet 30 tablet 0 06/02/2019 Discontinued tabletIndications: by mouth 0 Allergic rhinitis daily. with postnasal drip sod Use 1 Bottle 1 Each 0 06/02/2019 Discontinued ysell-[id number]-[id number] in each 0 bottle (NEILMED nostril 2 SINUS RINSE (two) times COMPLETE) daily. Use in pkdvIndications: hot shower 1 Allergic rhinitis hour before with postnasal drip bedtime promethazine-codeine Take 5 mL by 60 mL 0 06/02/2019 Discontinued 6.25-10 mg/5 mL mouth 4 (four) 0 syrupIndications: times daily as Allergic rhinitis needed for with postnasal drip Cough. albuterol 90 Inhale 2 Puffs 8.5 g 1 06/12/2019 Discontinued mcg/actuation every 4 (four) 0 inhalerIndications: hours as Medication refill needed for Wheezing or Shortness of Breath. meclizine 25 mg Take 1 tablet 20 tablet 0 07/14/2019 Discontinued tabletIndications: by mouth every 0 Dizziness 6 (six) hours. documented as of this encounter (statuses as of 09/07/2019) Active Problems Problem Noted Date Drug-seeking behavior 10/23/2017 Back pain, unspecified back location, unspecified back pain laterality, 2017 unspecified chronicity documented as of this encounter (statuses as of 09/07/2019) Social History Tobacco Use Types Packs/Day Years Used Date Current Every Day Smoker Cigarettes 1 Smokeless Tobacco: Former User Sex Assigned at Date Recorded Not on file Job Start Date Occupation Industry Not on file Not on file Not on file Travel History Travel Start Travel End No recent travel history available. documented as of this encounter Last Filed Vital Signs Vital Sign Reading Time Taken Comments Blood Pressure 158/97 09/07/2019 5:42 PM CONVEYOR TECHNICIAN Pulse 86 09/07/2019 5:42 PM CONVEYOR TECHNICIAN Temperature 36.8 C (98.2 F) 09/07/2019 5:42 PM CONVEYOR TECHNICIAN Respiratory Rate 18 09/07/2019 5:42 PM CONVEYOR TECHNICIAN Oxygen Saturation 99% 09/07/2019 5:42 PM CONVEYOR TECHNICIAN Inhaled Oxygen Concentration - - Weight 99.8 kg (220 lb) 09/07/2019 5:42 PM CONVEYOR TECHNICIAN Height - - Body Mass Index 36.61 07/14/2019 12:56 PM CONVEYOR TECHNICIAN documented in this encounter Discharge Instructions Thu Figueredo, JENNIFER - 09/07/2019Take pain medication as prescribed as well as the antibiotic until you finish it. Follow up with your dentist when you finish the antibiotics for further evaluation and treatment of your dental disease. Return to the ER if you develop difficulty swallowing your spit, if you feel like your throat is swelling closed, if you develop fever greater than 100.4, or start having persistent vomiting. AttachmentsThe following attachments cannot be sent through Care Everywhere.Tooth Abscess (Angolan)documented in this encounter Plan of Treatment Health Maintenance Due Date Last Done Comments VARICELLA VACCINES (1 of 2 - 2-dose childhood series) 1983 PNEUMOCOCCAL 0-64 YEARS COMBINED SERIES (1 of 1 - 1988 PPSV23) DTaP,Tdap,and Td Vaccines (1 - Tdap) 1993 INFLUENZA VACCINE (#1) 2019 documented as of this encounter Procedures Procedure Name Priority Date/Time Associated Diagnosis Comments NOTICE OF PRIVACY Routine 09/07/2019 5:25 PM CONVEYOR TECHNICIAN PRACTICES documented in this encounter Results Not on filedocumented in this encounter Visit Diagnoses Diagnosis Tooth infection - Primary Acute apical periodontitis of pulpal origin documented in this encounter Administered Medications Medication Order MAR Action Action Date Dose Rate Site clindamycin (CLEOCIN HCL) capsule Given 09/07/2019 7:20 PM CONVEYOR TECHNICIAN 450 mg 450 mg 450 mg, Oral, ONCE, 1 dose, 09/07/19 at 1999, FLO, Reason for Anti-Infective: Documented Infection, Documented Infection Site: HEENT, Duration of Therapy: 10 days, Restricted use approved by: ADC PROVIDER HYDROcodone-acetaminophen (NORCO) 10-325 Given 09/07/2019 7:43 PM CONVEYOR TECHNICIAN 1 tablet mg tablet 1 tablet 1 tablet, Oral, ONCE, 1 dose, 09/07/19 at 2000, Routine documented in this encounter
--- OUTSIDE RECORDS SUMMARY | 2019-10-20 16:07 | XMS REPORT ---
:1980 Author Organization [facility] Address [address] [place] [address] Care Team Providers Name Role Phone TIM [...] Comments SODIUM (BEAKER) (test 137 meq/L 136-145 oigq=684) POTASSIUM (BEAKER) (test 4.0 meq/L 3.5-5.1 ugfe=753) CHLORIDE (BEAKER) (test 100 meq/L 98-107 jnyc=238) CO2 (BEAKER) (test 27 meq/L 22-29 gyby=053) BLOOD UREA NITROGEN 4 mg/dL 7-21 (BEAKER) (test xsbp=932) CREATININE (BEAKER) (test 0.71 mg/dL 0.57-1.25 ysfx=917) GLUCOSE RANDOM (BEAKER) 110 mg/dL 70-105 (test aoxc=746) CALCIUM (BEAKER) (test 7.2 mg/dL 8.4-10.2 gdpg=918) EGFR (BEAKER) (test 125 mL/min/1.73 sq m ESTIMATED GFR IS NOT rsgk=0408) ACCURATE CREATININE CLEARANCE IN PREDICTING GLOMERULAR FILTRATION RATE. ESTIMATED GFR IS NOT APPLICABLE FOR DIALYSIS PATIENTS. [id number] 07:19:00 Test Item Value Reference Range Comments PHOSPHORUS (BEAKER) (test nmhf=632) 4.5 mg/dL 2.3-4.7 [id number] 07:19:00 Test Item Value Reference Range Comments MAGNESIUM (BEAKER) (test quwd=160) 2.0 mg/dL 1.6-2.6 CBC W/PLT COUNT & AUTO [id number] 07:11:00 Test Item Value Reference Range Comments WHITE BLOOD CELL COUNT (BEAKER) (test azrl=400) 7.3 K/ L 3.5-10.5 RED BLOOD CELL COUNT (BEAKER) (test tohb=896) 3.63 M/ L 4.63-6.08 HEMOGLOBIN (BEAKER) (test xwkj=258) 9.4 GM/DL 13.7-17.5 HEMATOCRIT (BEAKER) (test ooso=183) 33.6 % 40.1-51.0 MEAN CORPUSCULAR VOLUME (BEAKER) (test nsed=382) 92.6 fL 79.0-92.2 MEAN CORPUSCULAR HEMOGLOBIN (BEAKER) (test 25.9 pg 25.7-32.2 vilv=523) MEAN CORPUSCULAR HEMOGLOBIN CONC (BEAKER) (test 28.0 GM/DL 32.3-36.5 axva=586) RED CELL DISTRIBUTION WIDTH (BEAKER) (test 20.4 % 11.6-14.4 njqq=885) PLATELET COUNT (BEAKER) (test llfr=254) 196 K/CU MM 150-450 MEAN PLATELET VOLUME (BEAKER) (test duhv=357) 12.5 fL 9.4-12.4 NUCLEATED RED BLOOD CELLS (BEAKER) (test 0 /100 WBC 0-0 ijiw=686) NEUTROPHILS RELATIVE PERCENT (BEAKER) (test 71 % ulhg=572) LYMPHOCYTES RELATIVE PERCENT (BEAKER) (test 16 % etuw=263) MONOCYTES RELATIVE PERCENT (BEAKER) (test 7 % nflp=911) EOSINOPHILS RELATIVE PERCENT (BEAKER) (test 5 % xzmb=103) BASOPHILS RELATIVE PERCENT (BEAKER) (test 1 % vnbm=775) NEUTROPHILS ABSOLUTE COUNT (BEAKER) (test 5.18 K/ L 1.78-5.38 nmgl=706) LYMPHOCYTES ABSOLUTE COUNT (BEAKER) (test 1.13 K/ L 1.32-3.57 infh=945) MONOCYTES ABSOLUTE COUNT (BEAKER) (test 0.53 K/ L 0.30-0.82 jrux=458) EOSINOPHILS ABSOLUTE COUNT (BEAKER) (test 0.34 K/ L 0.04-0.54 xbcu=421) BASOPHILS ABSOLUTE COUNT (BEAKER) (test 0.04 K/ L 0.01-0.08 jgtq=701) IMMATURE GRANULOCYTES-RELATIVE PERCENT (BEAKER) 1 % 0-1 (test jdcb=6814) [id number] 07:07:00 Test Item Value Reference Range Comments PARTIAL THROMBOPLASTIN TIME (BEAKER) (test 39.0 seconds 22.5-36.0 fomg=178) PROTHROMBIN TIME/[id number] 07:06:00 Test Item Value Reference Range Comments PROTIME (BEAKER) (test eigq=839) 14.3 seconds 11.9-14.2 INR (BEAKER) (test xpos=918) 1.2 <=5.9 Effective 01/19/2019: PT Reference Range ChangeNew: 11.9-14.2 Previous: 11.7- 14.7RECOMMENDED COUMADIN/WARFARIN INR THERAPY RANGESSTANDARD DOSE: 2.0-3.0 Includes: PROPHYLAXIS for venous thrombosis, systemic embolization; TREATMENT for venous thrombosis and/or pulmonary embolus.HIGH RISK: Target INR is2.5-3.5 for patients wiht mechanical heart valves.CALCIUM, [id number] 07:05:00 Test Item Value Reference Range Comments CALCIUM IONIZED (BEAKER) (test npau=776) 0.73 mmol/L 1.12-1.27 PH, BLOOD (BEAKER) (test wkco=5198) 7.54 CBC W/PLT COUNT & AUTO [id number] 15:06:00 Test Item Value Reference Range Comments WHITE BLOOD CELL COUNT (BEAKER) (test zdop=659) 8.4 K/ L 3.5-10.5 RED BLOOD CELL COUNT (BEAKER) (test hcag=778) 3.72 M/ L 4.63-6.08 HEMOGLOBIN (BEAKER) (test uzji=652) 9.6 GM/DL 13.7-17.5 HEMATOCRIT (BEAKER) (test wkav=131) 34.2 % 40.1-51.0 MEAN CORPUSCULAR VOLUME (BEAKER) (test btug=905) 91.9 fL 79.0-92.2 MEAN CORPUSCULAR HEMOGLOBIN (BEAKER) (test 25.8 pg 25.7-32.2 urie=122) MEAN CORPUSCULAR HEMOGLOBIN CONC (BEAKER) (test 28.1 GM/DL 32.3-36.5 stuh=240) RED CELL DISTRIBUTION WIDTH (BEAKER) (test 20.5 % 11.6-14.4 krop=148) PLATELET COUNT (BEAKER) (test jnvc=643) 191 K/CU MM 150-450 MEAN PLATELET VOLUME (BEAKER) (test lpie=929) 12.6 fL 9.4-12.4 NUCLEATED RED BLOOD CELLS (BEAKER) (test 0 /100 WBC 0-0 wwvz=413) NEUTROPHILS RELATIVE PERCENT (BEAKER) (test 76 % nksx=010) LYMPHOCYTES RELATIVE PERCENT (BEAKER) (test 13 % kdhg=736) MONOCYTES RELATIVE PERCENT (BEAKER) (test 6 % nscj=334) EOSINOPHILS RELATIVE PERCENT (BEAKER) (test 4 % qnor=188) BASOPHILS RELATIVE PERCENT (BEAKER) (test 0 % lxcg=614) NEUTROPHILS ABSOLUTE COUNT (BEAKER) (test 6.36 K/ L 1.78-5.38 inwr=725) LYMPHOCYTES ABSOLUTE COUNT (BEAKER) (test 1.08 K/ L 1.32-3.57 bnuz=651) MONOCYTES ABSOLUTE COUNT (BEAKER) (test 0.51 K/ L 0.30-0.82 xdxe=809) EOSINOPHILS ABSOLUTE COUNT (BEAKER) (test 0.37 K/ L 0.04-0.54 eeua=159) BASOPHILS ABSOLUTE COUNT (BEAKER) (test 0.03 K/ L 0.01-0.08 rqfx=347) IMMATURE GRANULOCYTES-RELATIVE PERCENT (BEAKER) 1 % 0-1 (test urgg=2989) POCT-GLUCOSE [id number] 12:26:00 Test Item Value Reference Range Comments POC-GLUCOSE METER (BEAKER) 147 mg/dL 70-110 : TESTED AT [address] (test zjri=6600) [facility], [id number]: Auditing Manager/Paleontological Helper [phone]=[id number] for Perfryan Karen POCT-GLUCOSE [id number] 08:38:00 Test Item Value Reference Range Comments POC-GLUCOSE METER (BEAKER) 136 mg/dL 70-110 : TESTED AT [address] (test ekfw=0253) [facility], [address]: Auditing Manager/Paleontological Helper [phone]=[id number] for ELI[employer] MET[employer]OLIC [id number] 04:35:00 Test Item Value Reference Range Comments SODIUM (BEAKER) (test 140 meq/L 136-145 wobh=187) POTASSIUM (BEAKER) (test 3.8 meq/L 3.5-5.1 Specimen slightly twfr=047) hemolyzed CHLORIDE (BEAKER) (test 101 meq/L 98-107 bhpi=837) CO2 (BEAKER) (test 30 meq/L 22-29 vxuh=587) BLOOD UREA NITROGEN 5 mg/dL 7-21 (BEAKER) (test ncvh=548) CREATININE (BEAKER) (test 0.73 mg/dL 0.57-1.25 Specimen slightly duhc=037) hemolyzed GLUCOSE RANDOM (BEAKER) 97 mg/dL 70-105 (test ovch=587) CALCIUM (BEAKER) (test 6.9 mg/dL 8.4-10.2 buxq=415) EGFR (BEAKER) (test 121 mL/min/1.73 sq m ESTIMATED GFR IS NOT wmvr=1148) ACCURATE CREATININE CLEARANCE IN PREDICTING GLOMERULAR FILTRATION RATE. ESTIMATED GFR IS NOT APPLICABLE FOR DIALYSIS PATIENTS. [id number] 04:18:00 Test Item Value Reference Range Comments MAGNESIUM (BEAKER) (test 2.1 mg/dL 1.6-2.6 Specimen slightly hemolyzed xxhn=584) [id number] 04:18:00 Test Item Value Reference Range Comments PHOSPHORUS (BEAKER) (test 4.6 mg/dL 2.3-4.7 Specimen slightly hemolyzed xpvr=573) CBC W/PLT COUNT & AUTO [id number] 03:30:00 Test Item Value Reference Range Comments WHITE BLOOD CELL COUNT (BEAKER) (test mfsk=188) 8.1 K/ L 3.5-10.5 RED BLOOD CELL COUNT (BEAKER) (test igmu=524) 3.44 M/ L 4.63-6.08 HEMOGLOBIN (BEAKER) (test zdbj=508) 8.7 GM/DL 13.7-17.5 HEMATOCRIT (BEAKER) (test vrok=585) 31.0 % 40.1-51.0 MEAN CORPUSCULAR VOLUME (BEAKER) (test acwg=385) 90.1 fL 79.0-92.2 MEAN CORPUSCULAR HEMOGLOBIN (BEAKER) (test 25.3 pg 25.7-32.2 wnfe=777) MEAN CORPUSCULAR HEMOGLOBIN CONC (BEAKER) (test 28.1 GM/DL 32.3-36.5 ljhw=621) RED CELL DISTRIBUTION WIDTH (BEAKER) (test 20.6 % 11.6-14.4 obpu=787) PLATELET COUNT (BEAKER) (test xxpb=832) 176 K/CU MM 150-450 MEAN PLATELET VOLUME (BEAKER) (test tyqb=122) 12.1 fL 9.4-12.4 NUCLEATED RED BLOOD CELLS (BEAKER) (test 0 /100 WBC 0-0 aebt=463) NEUTROPHILS RELATIVE PERCENT (BEAKER) (test 70 % fglu=869) LYMPHOCYTES RELATIVE PERCENT (BEAKER) (test 17 % yaic=517) MONOCYTES RELATIVE PERCENT (BEAKER) (test 7 % uarr=112) EOSINOPHILS RELATIVE PERCENT (BEAKER) (test 5 % gvmk=091) BASOPHILS RELATIVE PERCENT (BEAKER) (test 0 % qhsq=749) NEUTROPHILS ABSOLUTE COUNT (BEAKER) (test 5.71 K/ L 1.78-5.38 tzjj=327) LYMPHOCYTES ABSOLUTE COUNT (BEAKER) (test 1.38 K/ L 1.32-3.57 kwlh=288) MONOCYTES ABSOLUTE COUNT (BEAKER) (test 0.57 K/ L 0.30-0.82 wdux=163) EOSINOPHILS ABSOLUTE COUNT (BEAKER) (test 0.38 K/ L 0.04-0.54 edsv=165) BASOPHILS ABSOLUTE COUNT (BEAKER) (test 0.03 K/ L 0.01-0.08 gavw=661) IMMATURE GRANULOCYTES-RELATIVE PERCENT (BEAKER) 1 % 0-1 (test rfdh=9416) RAD, CHEST, 1 VIEW, NON [id number] 23:38:00Reason for exam:->preop workupShould this be performed at the bedside?->YesFINAL REPORT AP chest dated 06/28/2019 Comment: Heart is in upper limits of normal in size. Pulmonary vasculature is unremarkable. Lungs are clear. No pulmonary infiltrate or pleural effusion. Impression: No active cardiopulmonary disease. Signed: María Tobiasort Verified Date/Time: 06/28/2019 23:38:30 Reading Location: [address] Consult Reading Room Electronicallysigned by: MARÍA TOBIAS M.D. on 06/28/2019 11:38 PMPOCT-GLUCOSE [id number] 22:26:00 Test Item Value Reference Range Comments POC-GLUCOSE METER (BEAKER) 112 mg/dL 70-110 : TESTED AT [facility] [address] (test hrug=1594) [facility], [address]: Auditing Manager/Paleontological Helper [phone]=[id number] for BL[employer]PRE[employer]IVE METABOLIC [id number] 20:58:00 Test Item Value Reference Range Comments TOTAL PROTEIN (BEAKER) 8.0 gm/dL 6.0-8.3 Specimen slightly (test xmzm=884) hemolyzed ALBUMIN (BEAKER) (test 4.1 g/dL 3.5-5.0 Specimen slightly fmkx=8503) hemolyzed ALKALINE PHOSPHATASE 66 U/L 40-150 (BEAKER) (test hujf=389) BILIRUBIN TOTAL (BEAKER) 1.0 mg/dL 0.2-1.2 Specimen slightly (test bbpe=300) hemolyzed SODIUM (BEAKER) (test 137 meq/L 136-145 kpjr=931) POTASSIUM (BEAKER) (test 4.1 meq/L 3.5-5.1 Specimen slightly gqpp=390) hemolyzed CHLORIDE (BEAKER) (test 97 meq/L 98-107 aqtb=348) CO2 (BEAKER) (test 27 meq/L 22-29 rues=577) BLOOD UREA NITROGEN 7 mg/dL 7-21 (BEAKER) (test nwbj=861) CREATININE (BEAKER) (test 0.72 mg/dL 0.57-1.25 Specimen slightly geqo=110) hemolyzed GLUCOSE RANDOM (BEAKER) 73 mg/dL 70-105 (test wnom=877) CALCIUM (BEAKER) (test 7.5 mg/dL 8.4-10.2 voqt=956) AST (SGOT) (BEAKER) (test 75 U/L 5-34 Specimen slightly luuw=652) hemolyzed ALT (SGPT) (BEAKER) (test 47 U/L 6-55 Specimen slightly gdph=962) hemolyzed EGFR (BEAKER) (test 123 mL/min/1.73 sq ESTIMATED GFR IS NOT uqms=6447) m ACCURATE CREATININE CLEARANCE IN PREDICTING GLOMERULAR FILTRATION RATE. ESTIMATED GFR IS NOT APPLICABLE FOR DIALYSIS PATIENTS. CBC W/PLT COUNT & AUTO [id number] 20:24:00 Test Item Value Reference Range Comments WHITE BLOOD CELL COUNT (BEAKER) (test msgt=584) 7.9 K/ L 3.5-10.5 RED BLOOD CELL COUNT (BEAKER) (test zwyk=551) 3.61 M/ L 4.63-6.08 HEMOGLOBIN (BEAKER) (test nnyb=809) 9.2 GM/DL 13.7-17.5 HEMATOCRIT (BEAKER) (test xtzj=922) 32.7 % 40.1-51.0 MEAN CORPUSCULAR VOLUME (BEAKER) (test kmzo=293) 90.6 fL 79.0-92.2 MEAN CORPUSCULAR HEMOGLOBIN (BEAKER) (test 25.5 pg 25.7-32.2 ypcw=210) MEAN CORPUSCULAR HEMOGLOBIN CONC (BEAKER) (test 28.1 GM/DL 32.3-36.5 sore=294) RED CELL DISTRIBUTION WIDTH (BEAKER) (test 20.8 % 11.6-14.4 xjwz=802) PLATELET COUNT (BEAKER) (test plzx=153) 193 K/CU MM 150-450 MEAN PLATELET VOLUME (BEAKER) (test wwyl=828) 12.4 fL 9.4-12.4 NUCLEATED RED BLOOD CELLS (BEAKER) (test 0 /100 WBC 0-0 jllr=587) NEUTROPHILS RELATIVE PERCENT (BEAKER) (test 69 % ntil=327) LYMPHOCYTES RELATIVE PERCENT (BEAKER) (test 18 % xjsy=975) MONOCYTES RELATIVE PERCENT (BEAKER) (test 8 % drqz=456) EOSINOPHILS RELATIVE PERCENT (BEAKER) (test 3 % hisu=876) BASOPHILS RELATIVE PERCENT (BEAKER) (test 0 % rjlj=027) NEUTROPHILS ABSOLUTE COUNT (BEAKER) (test 5.46 K/ L 1.78-5.38 kwca=242) LYMPHOCYTES ABSOLUTE COUNT (BEAKER) (test 1.42 K/ L 1.32-3.57 jhgs=946) MONOCYTES ABSOLUTE COUNT (BEAKER) (test 0.62 K/ L 0.30-0.82 kcls=586) EOSINOPHILS ABSOLUTE COUNT (BEAKER) (test 0.27 K/ L 0.04-0.54 rvmq=828) BASOPHILS ABSOLUTE COUNT (BEAKER) (test 0.03 K/ L 0.01-0.08 mnzk=321) IMMATURE GRANULOCYTES-RELATIVE PERCENT (BEAKER) 1 % 0-1 (test tlvm=1023) [id number] 20:23:00 Test Item Value Reference Range Comments PARTIAL THROMBOPLASTIN TIME (BEAKER) (test 38.3 seconds 22.5-36.0 ykca=989) PROTHROMBIN TIME/[id number] 20:22:00 Test Item Value Reference Range Comments PROTIME (BEAKER) (test vrnr=196) 13.5 seconds 11.9-14.2 INR (BEAKER) (test vian=665) 1.1 <=5.9 Effective 01/19/2019: PT Reference Range ChangeNew: 11.9-14.2 Previous: 11.7- 14.7RECOMMENDED COUMADIN/WARFARIN INR THERAPY RANGESSTANDARD DOSE: 2.0-3.0 Includes: PROPHYLAXIS for venous thrombosis, systemic embolization; TREATMENT for venous thrombosis and/or pulmonary embolus.HIGH RISK: Target INR is2.5-3.5 for patients wiht mechanical heart valves.
--- OUTSIDE RECORDS SUMMARY | 2019-10-20 16:07 | XMS REPORT | Summary of Care ---
:1980 Author Organization [facility] - Health Address [address] [place] [address] Care Team Providers Name Role Phone Gilma Franklin Primary Care Provider Encounter Details Date Type Department Care Team Description 09/07/2019 Orders Only [facility] Doctor Unassigned, No [address] [facility] [place] [address] [address] [place] [id number] Allergies Active Allergy Reactions Severity Noted Date Comments Zolpidem Tartrate Unknown - See comments 07/20/2015 Amoxicillin Swelling High 10/01/2018 Nsaids (Non-Steroidal Unknown - See comments 07/13/2019 Anti-Inflammatory Drug) documented as of this encounter (statuses as of 09/07/2019) Medications Medication Sig Dispensed Refills Start Date End Date Status codeine-guaifenesin Take 5 mL by 4 oz 0 05/19/2015 Active (ROBITUSSIN AC) 10-100 mouth every 6 mg/5 mL solution (six) hours as needed for Cough (OR CONGESTION). dicyclomine 20 mg Take 1 tablet by 20 tablet 0 01/07/2017 Active tablet mouth 4 (four) times daily. ondansetron (ZOFRAN Take 1 tablet by 10 tablet 0 01/07/2017 Active ODT) 4 mg mouth every 8 disintegrating tablet (eight) hours as needed for Nausea and Vomiting (N/V). acetaminophen-codeine 1-2 by mouth 40 tablet 0 08/29/2017 Active 300-30 mg tablet every 4-6 hours as needed for pain mupirocin (BACTROBAN) 2 Apply to area(s) 22 g 0 09/08/2017 Active % ointment 3 (three) times daily. cyclobenzaprine 5 mg Take 1 tablet by 5 tablet 0 10/23/2017 Active tablet mouth 3 (three) times daily as needed for Muscle Spasms. meloxicam 7.5 mg tablet Take 1 tablet by 30 tablet 1 12/11/2017 Active mouth daily. traMADOL (ULTRAM) 50 mg Take 1 tablet by 20 tablet 0 10/01/2018 Active tabletIndications: mouth every 6 Dental caries (six) hours as needed for Pain (scale 4-6). ibuprofen 600 mg Take 1 tablet by 30 tablet 0 05/21/2019 Active tabletIndications: mouth every 6 Tonsillitis (six) hours as needed for Pain (scale 4-6). azithromycin (ZITHROMAX Take 1 tablet by 1 Package 0 05/21/2019 Active Z-JUANITA) 250 mg mouth tabletIndications: SEE-INSTRUCTIONS. Tonsillitis Take 500 mg day 1, then 250 mg days 2 to 5. albuterol 90 Inhale 2 Puffs 8.5 g 0 05/21/2019 Active mcg/actuation every 4 (four) inhalerIndications: hours as needed Tonsillitis for Wheezing or Shortness of Breath. fexofenadine 180 mg Take 1 tablet by 30 tablet 0 06/02/2019 Active tabletIndications: mouth daily. Allergic rhinitis with postnasal drip sod ewtyv-yaqavu-cmuwek Use 1 Bottle in 1 Each 0 06/02/2019 Active bottle (NEILMED SINUS each nostril 2 RINSE COMPLETE) (two) times pkdvIndications: daily. Use in hot Allergic rhinitis with shower 1 hour postnasal drip before bedtime promethazine-codeine Take 5 mL by 60 mL 0 06/02/2019 Active 6.25-10 mg/5 mL mouth 4 (four) syrupIndications: times daily as Allergic rhinitis with needed for Cough. postnasal drip albuterol 90 Inhale 2 Puffs 8.5 g 1 06/12/2019 Active mcg/actuation every 4 (four) inhalerIndications: hours as needed Medication refill for Wheezing or Shortness of Breath. meclizine 25 mg Take 1 tablet by 20 tablet 0 07/14/2019 Active tabletIndications: mouth every 6 Dizziness (six) hours. documented as of this encounter [...] of this encounter Last Filed Vital Signs Not on filedocumented in this encounter Plan of Treatment Health Maintenance Due Date Last Done Comments VARICELLA VACCINES (1 of 2 - 2-dose childhood series) 1983 PNEUMOCOCCAL 0-64 YEARS COMBINED SERIES (1 of 1 - 1988 PPSV23) DTaP,Tdap,and Td Vaccines (1 - Tdap) 1993 INFLUENZA VACCINE (#1) 2019 documented as of this encounter Procedures Procedure Name Priority Date/Time Associated Diagnosis Comments CONSENT/REFUSAL FOR Routine 09/07/2019 5:24 PM [employer]PER[employer] [facility] DIAGNOSIS AND TREATMENT documented in this encounter Results Not on filedocumented in this encounter Insurance Payer Benefit Plan / Subscriber ID Effective Phone Address Type Group Dates MEDICAID MEDICAID SSI PENDING 2019-Pre [address] PENDING PENDING sent LIDA [place] [id number] documented as of this encounter
[2019-10-20 17:03] LABS: Absolute Lymphocytes (CBC) 1.9 K/uL (0.7-4.9); Basophils % 0.6 % (0-1.3); Hematocrit 34.4 % (39.6-49.0); Lymphocytes % 19.2 % (15.3-44.8); MPV 12.2 fL (7.6-11.3); RBC Red Blood Cell Count 4.18 M/uL (4.33-5.43)
[2019-10-20] MEDS ORDERED: LORazepam 2 MG/ML VIAL ONE (17:03)
[2019-10-20] MEDS ORDERED: NA CHLORIDE 0.9% 1,000 ML ONE (17:04)
[2019-10-20 17:13] LABS: Protime INR 1.03
[2019-10-20 17:43] LABS: ALT/SGPT 38 U/L (12-78); AST/SGOT 28 U/L (15-37); Albumin 3.9 g/dL (3.4-5.0); Alkaline Phosphatase 77 U/L (45-117); BUN Blood Urea Nitrogen 15 mg/dL (7-18); Bicarbonate 30 mmol/L (21-32); Bilirubin Direct < 0.1 mg/dL (0-0.2); Bilirubin Total 0.4 mg/dL (0.2-1.0); Glucose Level 96 mg/dL (74-106); Potassium 3.9 mmol/L (3.5-5.1); Protein, Total 8.4 g/dL (6.4-8.2); Sodium Level 139 mmol/L (136-145)
[2019-10-20 17:53] LABS: Barbiturates NEGATIVE (NEGATIVE); Benzodiazepines NEGATIVE (NEGATIVE); Cocaine NEGATIVE (NEGATIVE); METHAMPHETAM NEGATIVE (NEGATIVE); Methadone NEGATIVE (NEGATIVE); Opiates NEGATIVE (NEGATIVE); Phencyclidine NEGATIVE (NEGATIVE); THC Cannibis NEGATIVE (NEGATIVE)
--- NOTE | 2019-10-20 18:23 | EDPHYS ---
Physician Documentation [facility] Name: Blanche Lo Age: 39 yrs Sex: Male : 1980 Arrival Date: 10/20/2019 Time: 16:07 Bed 15 Private MD: ED Physician Ilir Hay HPI: 10/20 17:22 This 39 yrs old Male presents to ER via Ambulatory with complaints of jr8 Probable Seizure. 17:22 The patient presents after having a single isolated seizure. Seizure onset: today. jr8 Context: occurred at home, occurred while the patient was asleep. Seizure Hx: Original onset: longstanding. Current symptoms: Currently, the patient is not experiencing any symptoms. The patient has experienced similar episodes in the past, a few times. The patient has not recently seen a physician. Patient stated that he woke up sore this morning. [place] like he bit his tongue. Stated that when this happens it usually is secondary from his seizure history. Stated that he has been out of his Keppra . Historical: - Allergies: 16:18 ambien; ss 16:18 Amoxicillin; ss 16:18 Ibuprofen; ss 16:18 Naproxen; ss - Home Meds: 16:18 levetiracetam 500 mg Oral tab 1 tab 2 times per day [Active]; ss - PMHx: 16:18 Back pain; Hypertension; GI Bleed; Seizures; ss - PSHx: 16:18 Hernia repair; ss - Immunization history:: Adult Immunizations up to date. - Social history:: Smoking status: Patient denies any tobacco usage or history of. ROS: 17:22 Eyes: Negative for injury, pain, redness, and discharge, ENT: Positive for pain to jr8 tongue. Negative for throat, eye, or nasal pain Neck: Negative for injury, pain, and swelling, Cardiovascular: Negative for chest pain, palpitations, and edema, Respiratory: Negative for shortness of breath, cough, wheezing, and pleuritic chest pain, Abdomen/GI: Negative for abdominal pain, nausea, vomiting, diarrhea, and constipation, Back: Negative for injury and pain, MS/Extremity: Negative for injury and deformity, Skin: Negative for injury, rash, and discoloration. 17:22 Neuro: Positive for seizure activity. Exam: 17:22 Head/Face: Normocephalic, atraumatic. Eyes: Pupils equal round and reactive to light, jr8 extra-ocular motions intact. Lids and lashes normal. Conjunctiva and sclera are non-icteric and not injected. Cornea within normal limits. Periorbital areas with no swelling, redness, or edema. ENT: Nares patent. No nasal discharge, no septal abnormalities noted. Tympanic membranes are normal and external auditory canals are clear. Oropharynx with no redness, swelling, or masses, exudates, or evidence of obstruction, uvula midline. Mucous membranes moist. Neck: Trachea midline, no thyromegaly or masses palpated, and no cervical lymphadenopathy. Supple, full range of motion without nuchal rigidity, or vertebral point tenderness. No Meningismus. Cardiovascular: Regular rate and rhythm with a normal S1 and S2. No gallops, murmurs, or rubs. Normal PMI, no JVD. No pulse deficits. Respiratory: Lungs have equal breath sounds bilaterally, clear to auscultation and percussion. No rales, rhonchi or wheezes noted. No increased work of breathing, no retractions or nasal flaring. Abdomen/GI: Soft, non-tender, with normal bowel sounds. No distension or tympany. No guarding or rebound. No evidence of tenderness throughout. Back: No spinal tenderness. No costovertebral tenderness. Full range of motion. Skin: Warm, dry with normal turgor. Normal color with no rashes, no lesions, and no evidence of cellulitis. MS/ Extremity: Pulses equal, no cyanosis. Neurovascular intact. Full, normal range of motion. Neuro: Awake and alert, GCS 15, oriented to person, place, time, and situation. Cranial nerves II-XII grossly intact. Motor strength 5/5 in all extremities. Sensory grossly intact. Cerebellar exam normal. Normal gait. Vital Signs: 16:14 BP 161 / 115; Pulse 102; Resp 19; Temp 98.9(TE); Pulse Ox 99% on R/A; Weight 99.79 kg; ss Height 5 ft. 5 in. (165.10 cm); Pain 10/10; 17:30 BP 139 / 85; Pulse 91; Resp 18; Pulse Ox 100% on R/A; em 19:36 BP 134 / 84; Pulse 82; Resp 18; Pulse Ox 100% ; ao 16:14 Body Mass Index 36.61 (99.79 kg, 165.10 cm) Leonard Coma Score: 16:18 Eye Response: spontaneous(4). Verbal Response: oriented(5). Motor Response: obeys ss commands(6). Total: 15. MDM: 16:39 Patient medically screened. 18:20 Data reviewed: vital signs, nurses notes, lab test result(s), EKG. Data interpreted: [facility] Pulse oximetry: on room air is 100 %. Interpretation: normal. Counseling: I had a detailed discussion with the patient and/or guardian regarding: the historical points, exam findings, and any diagnostic results supporting the discharge/admit diagnosis, lab results, the need for outpatient follow up, a family practitioner, a neurologist, to return to the emergency department if symptoms worsen or persist or if there are any questions or concerns that arise at home. ED course: Patient has remained stable and without seizures. Will start patient back on Keppra. To f/u with neurology. If he gets worse or has another seizure to come back to ED . 10/20 16:39 Order name: Acetaminophen; Complete Time: 18:20 10/20 16:39 Order name: Basic Metabolic Panel; Complete Time: 18:20 10/20 16:39 Order name: CBC with Diff; Complete Time: 17:04 10/20 16:39 Order name: ETOH Level; Complete Time: 18:20 10/20 16:39 Order name: Hepatic Function; Complete Time: 18:20 10/20 16:39 Order name: PT-INR; Complete Time: 17:21 10/20 16:39 Order name: Ptt, Activated; Complete Time: 17:21 10/20 16:39 Order name: Salicylate; Complete Time: 18:20 10/20 16:39 Order name: Urine Drug Screen; Complete Time: 18:20 10/20 16:39 Order name: EKG; Complete Time: 16:40 10/20 16:39 Order name: EKG - Nurse/Tech; Complete Time: 16:40 10/20 17:24 Order name: Urine Dipstick--Ancillary (enter results); Complete Time: 19:02 10/20 16:39 Order name: IV Saline Lock; Complete Time: 16:40 8 10/20 16:39 Order name: Labs collected and sent; Complete Time: 16:40 jr8 10/20 16:39 Order name: Urine Dipstick-Ancillary (obtain specimen); Complete Time: 17:22 jr8 Administered Medications: 16:43 Drug: NS 0.9% 1000 ml Route: IV; Rate: 1000 ml; Site: left hand; ca1 16:45 Drug: Ativan 1 mg Route: IVP; Site: left hand; ca1 Disposition: 10/20/19 18:22 Discharged to Home. Impression: Epilepsy and recurrent seizures, Other local infections of skin and subcutaneous tissue. - Condition is Stable. - Discharge Instructions: Seizure, Adult. - Prescriptions for Keppra 500 mg Oral Tablet - take 1 tablet by ORAL route every 12 hours; 20 tablet. Bactrim DS 800- 160 mg Oral Tablet - take 1 tablet by ORAL route every 12 hours for 10 days; 20 tablet. - Medication Reconciliation Form, Thank You Letter, Antibiotic Education, Prescription Opioid Use form. - Follow up: Jacob Villatoro MD; When: 2 - 3 days; Reason: Recheck today's complaints, Continuance of care, Re-evaluation by your physician. - Problem is new. - Symptoms have improved. Addendum: 11/10/2019 07:22 Co-signature as Attending Physician, Ilir Hay MD Available for consultation at p s1 all times. . Signatures: Dispatcher [employer] EDGA Natalie Leon RN RN ss Roszak, Josh, PA PA jr8 Vernon Membreno RN RN ao Singer, Phillip, MD MD ps1 Leatha Nur RN RN ca1 Corrections: (The following items were deleted from the chart) 10/20 18:28 18:22 10/20/2019 18:22 Discharged to Home. Impression: Epilepsy and recurrent seizures. 8 Condition is Stable. Forms are Medication Reconciliation Form, Thank You Letter, Antibiotic Education, Prescription Opioid Use. Follow up: Jacob Villatoro; When: 2 - 3 days; Reason: Recheck today's complaints, Continuance of care, Re-evaluation by your physician. Problem is new. Symptoms have improved. [facility] 19:36 18:28 10/20/2019 18:22 Discharged to Home. Impression: Epilepsy and recurrent seizures; ao Other local infections of skin and subcutaneous tissue. Condition is Stable. Discharge Instructions: Seizure, Adult. Prescriptions for Keppra 500 mg Oral Tablet - take 1 tablet by ORAL route every 12 hours; 20 tablet. and Forms are Medication Reconciliation Form, Thank You Letter, Antibiotic Education, Prescription Opioid Use. Follow up: Jacob Villatoro; When: 2 - 3 days; Reason: Recheck today's complaints, Continuance of care, Re-evaluation by your physician. Problem is new. Symptoms have improved. jr8
--- NOTE | 2019-10-20 18:23 | ER ---
Nurse's Notes [facility] Name: Blanche Lo Age: 39 yrs Sex: Male : 1980 Arrival Date: 10/20/2019 Time: 16:07 Bed 15 Private MD: Diagnosis: Epilepsy and recurrent seizures;Other local infections of skin and subcutaneous tissue Presentation: 10/20 16:14 Chief complaint: Patient states: probable seizure early this AM. Pt states, "I woke up ss on the floor and my upper body hurts and my tongue. I've been out of my Keppra for like a month now. I also have had this rash on my body for months. I don't know if it's staph or what.". Coronavirus screen: The patient has NOT traveled to [place] in the past 14 days. Proceed with normal triage procedures. Ebola Screen: Patient denies exposure to infectious person. Patient denies travel to an Ebola-affected area in the 21 days before illness onset. Initial Sepsis Screen: Does the patient meet any 2 criteria? HR > 90 bpm. Does the patient have a suspected source of infection? No. Patient's initial sepsis screen is negative. Risk Assessment: Do you want to hurt yourself or someone else? Patient reports no desire to harm self or others. 16:14 Method Of Arrival: Ambulatory ss 16:14 Acuity: JANINE 3 ss 16:30 Onset of symptoms was October 20, 2019. ca1 Historical: - Allergies: 16:18 ambien; ss 16:18 Amoxicillin; ss 16:18 Ibuprofen; ss 16:18 Naproxen; ss - Home Meds: 16:18 levetiracetam 500 mg Oral tab 1 tab 2 times per day [Active]; ss - PMHx: 16:18 Back pain; Hypertension; GI Bleed; Seizures; ss - PSHx: 16:18 Hernia repair; ss - Immunization history:: Adult Immunizations up to date. - Social history:: Smoking status: Patient denies any tobacco usage or history of. Screenin:30 Abuse screen: Denies threats or abuse. Denies injuries from another. Nutritional ca1 screening: No deficits noted. Tuberculosis screening: No symptoms or risk factors identified. Fall Risk Fall in past 12 months (25 points). Secondary diagnosis (15 points) seizures, Total Cervantes Fall Scale indicates High Risk Score (45 or more points). Fall prevention measures have been instituted. Side Rails Up X 2 Frequent Obs/Assessments Occuring As available patient and family educated on Fall Prevention Program and Strategies. Assessment: 16:30 General: Appears in no apparent distress. comfortable, Behavior is cooperative, ca1 appropriate for age, anxious. General: Reports. Pain: Denies pain. Neuro: Level of Consciousness is awake, alert, obeys commands, Oriented to person, place, time, situation, Appropriate for age Chemist Biological are equal bilaterally Moves all extremities. Gait is steady, Speech is slurred, Facial symmetry appears normal, Pupils are PERRLA, Intact. Neuro: Seizure activity reported prior to arrival. Cardiovascular: Heart tones S1 S2 present Capillary refill < 3 seconds Patient's skin is warm and dry. Rhythm is sinus rhythm. Respiratory: Airway is patent Respiratory effort is even, unlabored, Respiratory pattern is regular, symmetrical, Breath sounds are clear bilaterally. GI: Abdomen is round non-distended, Bowel sounds present X 4 quads. Abd is soft and non tender X 4 quads. : No signs and/or symptoms were reported regarding the genitourinary system. EENT: Throat is clear with gag reflex present. EENT: Reports nasal congestion nasal discharge that is watery. Derm: Skin is intact, is healthy with good turgor, Skin is pink, warm \\T\\ dry. Musculoskeletal: Circulation, motion, and sensation intact. Capillary refill < 3 seconds, Range of motion: intact in all extremities. 17:30 Reassessment: Patient appears in no apparent distress at this time. Patient and/or em family updated on plan of care and expected duration. Pain level reassessed. Patient is alert, oriented x 3, equal unlabored respirations, skin warm/dry/pink. Patient states feeling better. Patient states symptoms have improved. 18:36 Reassessment: Patient appears in no apparent distress at this time. Patient and/or em family updated on plan of care and expected duration. Pain level reassessed. Patient is alert, oriented x 3, equal unlabored respirations, skin warm/dry/pink. will be discharged after completion of IV fluids. 19:35 Reassessment: Dc instructions given to patient. Pt agree with POC and to follow up with ao PCP and Alejandro. Vital Signs: 16:14 BP 161 / 115; Pulse 102; Resp 19; Temp 98.9(TE); Pulse Ox 99% on R/A; Weight 99.79 kg; ss Height 5 ft. 5 in. (165.10 cm); Pain 10/10; 17:30 BP 139 / 85; Pulse 91; Resp 18; Pulse Ox 100% on R/A; em 19:36 BP 134 / 84; Pulse 82; Resp 18; Pulse Ox 100% ; ao 16:14 Body Mass Index 36.61 (99.79 kg, 165.10 cm) ss [place] Coma Score: 16:18 Eye Response: spontaneous(4). Verbal Response: oriented(5). Motor Response: obeys ss commands(6). Total: 15. ED Course: 16:07 Patient arrived in ED. as 16:09 Leatha Nur, ANCELMO is Primary Nurse. ca1 16:17 Triage completed. ss 16:18 Arm band placed on right wrist. ss 16:20 Modesto Phipps PA is PHCP. jr8 16:20 Ilir Hay MD is Attending Physician. jr8 16:22 EKG done, by ED staff. lt1 16:30 Patient has correct armband on for positive identification. Placed in gown. Bed in low ca1 position. Call light in reach. Side rails up X2. Seizure precautions initiated. cardiac monitor on. Pulse ox on. NIBP on. Warm blanket given. 16:30 No provider procedures requiring assistance completed. Initial lab(s) drawn, by mn, ca1 sent to lab. Inserted saline lock: 22 gauge in left hand, using aseptic technique. Blood collected. 18:22 Jacob Villatoro MD is Referral Physician. jr8 18:59 Report received from ANCELMO Bailey. Patient is up for DC. Will hold DC until IV fluids are ao complete. 19:34 IV discontinued, intact, bleeding controlled, No redness/swelling at site. ao Administered Medications: 16:43 Drug: NS 0.9% 1000 ml Route: IV; Rate: 1000 ml; Site: left hand; ca1 16:45 Drug: Ativan 1 mg Route: IVP; Site: left hand; ca1 Outcome: 18:22 Discharge ordered by . jr8 19:34 Discharged to home ambulatory. ao 19:34 Condition: stable 19:34 Discharge instructions given to patient, Instructed on discharge instructions, follow up and referral plans. Demonstrated understanding of instructions, follow-up care, medications, Prescriptions given X 2. 19:36 Patient left the ED. ao Signatures: Leo Galeas, RN RN Brisa Grant Shelby, RN RN ss Roszak, Josh, PA PA jr8 Vernon Membreno RN RN ao Acob, Cheryl, RN RN [facility] Felicitas Ayala 1
[2019-10-20 18:51] LABS: Urine Blood NEGATIVE (NEG); Urine Glucose NEGATIVE (NEG); Urine Protein NEGATIVE (NEG); Urine Specific Gravity 1.015 (1.005-1.030)
[2019-10-20 19:42] VITALS: TEMP 98.9
[2019-10-20 19:43] VITALS: O2SAT 100
[2019-10-20 19:52] VITALS: BP 134/84
--- NOTE | 2019-10-21 07:02 | EKG ---
Test Date: 2019-10-20 Test Time: 16:20:54 Language And Literature Division Chair: FRANCISCO JAVIER MEASUREMENT RESULTS: Intervals: Rate: 94 TX: 138 QRSD: 80 QT: 352 QTc: 440 [place]: P: 31 TX: 138 QRS: -15 T: 10 INTERPRETIVE STATEMENTS: Normal sinus rhythm Normal ECG Compared to ECG 07/19/2019 15:15:48 No significant changes Electronically Signed On 10-21-19 07:00:28 SENIOR QUALITY ASSURANCE SPECIALIST by Fred Reyes
== END 2019-10-20 19:36 | disposition home or self-care (01) ==
LOC: ER 16:05
DX: G40.802 Other epilepsy, not intractable, without status epilepticus (principal); L08.89 Other specified local infections of the skin and subcutaneous tissue; I10 Essential (primary) hypertension; Z88.1 Allergy status to other antibiotic agents; Z88.6 Allergy status to analgesic agent; Z88.8 Allergy status to other drugs, medicaments and biological substances
CPT/HCPCS: 36415; 80048; 80076; 80307; 80320; 80329; 81003; 85025; 85610; 85730; 93005; 96374; 99284; J7030

== ENCOUNTER 2019-10-24 19:52 | Emergency (ER) | payer SELFPAY ==
--- OUTSIDE RECORDS SUMMARY | 2019-10-24 19:55 | XMS REPORT ---
:1980 [facility] Address [address] [place] [address] Care Team Providers Name Role Phone BRUCELINDYJO [...] Comments SODIUM (BEAKER) (test 137 meq/L 136-145 hssh=641) POTASSIUM (BEAKER) (test 4.0 meq/L 3.5-5.1 cost=107) CHLORIDE (BEAKER) (test 100 meq/L 98-107 fbco=633) CO2 (BEAKER) (test 27 meq/L 22-29 mxeu=958) BLOOD UREA NITROGEN 4 mg/dL 7-21 (BEAKER) (test mlru=580) CREATININE (BEAKER) (test 0.71 mg/dL 0.57-1.25 jxoc=987) GLUCOSE RANDOM (BEAKER) 110 mg/dL 70-105 (test fjzc=866) CALCIUM (BEAKER) (test 7.2 mg/dL 8.4-10.2 vxes=363) EGFR (BEAKER) (test 125 mL/min/1.73 sq m ESTIMATED GFR IS NOT ewyj=3713) ACCURATE CREATININE CLEARANCE IN PREDICTING GLOMERULAR FILTRATION RATE. ESTIMATED GFR IS NOT APPLICABLE FOR DIALYSIS PATIENTS. [id number] 07:19:00 Test Item Value Reference Range Comments PHOSPHORUS (BEAKER) (test aadm=073) 4.5 mg/dL 2.3-4.7 [id number] 07:19:00 Test Item Value Reference Range Comments MAGNESIUM (BEAKER) (test mhtr=301) 2.0 mg/dL 1.6-2.6 CBC W/PLT COUNT & AUTO [id number] 07:11:00 Test Item Value Reference Range Comments WHITE BLOOD CELL COUNT (BEAKER) (test hulp=681) 7.3 K/ L 3.5-10.5 RED BLOOD CELL COUNT (BEAKER) (test advw=127) 3.63 M/ L 4.63-6.08 HEMOGLOBIN (BEAKER) (test gdeg=225) 9.4 GM/DL 13.7-17.5 HEMATOCRIT (BEAKER) (test zfla=233) 33.6 % 40.1-51.0 MEAN CORPUSCULAR VOLUME (BEAKER) (test gqso=925) 92.6 fL 79.0-92.2 MEAN CORPUSCULAR HEMOGLOBIN (BEAKER) (test 25.9 pg 25.7-32.2 vlco=865) MEAN CORPUSCULAR HEMOGLOBIN CONC (BEAKER) (test 28.0 GM/DL 32.3-36.5 hved=297) RED CELL DISTRIBUTION WIDTH (BEAKER) (test 20.4 % 11.6-14.4 srkg=668) PLATELET COUNT (BEAKER) (test zmlw=766) 196 K/CU MM 150-450 MEAN PLATELET VOLUME (BEAKER) (test flcf=167) 12.5 fL 9.4-12.4 NUCLEATED RED BLOOD CELLS (BEAKER) (test 0 /100 WBC 0-0 zbny=841) NEUTROPHILS RELATIVE PERCENT (BEAKER) (test 71 % lyhc=995) LYMPHOCYTES RELATIVE PERCENT (BEAKER) (test 16 % lyde=945) MONOCYTES RELATIVE PERCENT (BEAKER) (test 7 % tjtd=761) EOSINOPHILS RELATIVE PERCENT (BEAKER) (test 5 % yydt=924) BASOPHILS RELATIVE PERCENT (BEAKER) (test 1 % pezr=383) NEUTROPHILS ABSOLUTE COUNT (BEAKER) (test 5.18 K/ L 1.78-5.38 wzfw=052) LYMPHOCYTES ABSOLUTE COUNT (BEAKER) (test 1.13 K/ L 1.32-3.57 qqtz=962) MONOCYTES ABSOLUTE COUNT (BEAKER) (test 0.53 K/ L 0.30-0.82 htje=381) EOSINOPHILS ABSOLUTE COUNT (BEAKER) (test 0.34 K/ L 0.04-0.54 jlfb=254) BASOPHILS ABSOLUTE COUNT (BEAKER) (test 0.04 K/ L 0.01-0.08 civv=792) IMMATURE GRANULOCYTES-RELATIVE PERCENT (BEAKER) 1 % 0-1 (test gykt=1328) [id number] 07:07:00 Test Item Value Reference Range Comments PARTIAL THROMBOPLASTIN TIME (BEAKER) (test 39.0 seconds 22.5-36.0 dgsl=330) PROTHROMBIN [id number] 07:06:00 Test Item Value Reference Range Comments PROTIME (BEAKER) (test tdop=678) 14.3 seconds 11.9-14.2 INR (BEAKER) (test sfjg=499) 1.2 <=5.9 Effective 01/19/2019: PT Reference Range ChangeNew: 11.9-14.2 Previous: 11.7- 14.7RECOMMENDED COUMADIN/WARFARIN INR THERAPY RANGESSTANDARD DOSE: 2.0-3.0 Includes: PROPHYLAXIS for venous thrombosis, systemic embolization; TREATMENT for venous thrombosis and/or pulmonary embolus.HIGH RISK: Target INR is2.5-3.5 for patients wiht mechanical heart valves.CALCIUM, [id number] 07:05:00 Test Item Value Reference Range Comments CALCIUM IONIZED (BEAKER) (test mxpn=131) 0.73 mmol/L 1.12-1.27 PH, BLOOD (BEAKER) (test ship=4425) 7.54 CBC W/PLT COUNT & AUTO [id number] 15:06:00 Test Item Value Reference Range Comments WHITE BLOOD CELL COUNT (BEAKER) (test uorz=166) 8.4 K/ L 3.5-10.5 RED BLOOD CELL COUNT (BEAKER) (test xkqc=741) 3.72 M/ L 4.63-6.08 HEMOGLOBIN (BEAKER) (test wetd=010) 9.6 GM/DL 13.7-17.5 HEMATOCRIT (BEAKER) (test blzv=929) 34.2 % 40.1-51.0 MEAN CORPUSCULAR VOLUME (BEAKER) (test gjkm=591) 91.9 fL 79.0-92.2 MEAN CORPUSCULAR HEMOGLOBIN (BEAKER) (test 25.8 pg 25.7-32.2 tura=763) MEAN CORPUSCULAR HEMOGLOBIN CONC (BEAKER) (test 28.1 GM/DL 32.3-36.5 mzjr=383) RED CELL DISTRIBUTION WIDTH (BEAKER) (test 20.5 % 11.6-14.4 lpvn=334) PLATELET COUNT (BEAKER) (test iwyb=039) 191 K/CU MM 150-450 MEAN PLATELET VOLUME (BEAKER) (test gofx=333) 12.6 fL 9.4-12.4 NUCLEATED RED BLOOD CELLS (BEAKER) (test 0 /100 WBC 0-0 syky=090) NEUTROPHILS RELATIVE PERCENT (BEAKER) (test 76 % nxig=257) LYMPHOCYTES RELATIVE PERCENT (BEAKER) (test 13 % ogbz=020) MONOCYTES RELATIVE PERCENT (BEAKER) (test 6 % dfby=732) EOSINOPHILS RELATIVE PERCENT (BEAKER) (test 4 % vkjf=174) BASOPHILS RELATIVE PERCENT (BEAKER) (test 0 % hwwq=391) NEUTROPHILS ABSOLUTE COUNT (BEAKER) (test 6.36 K/ L 1.78-5.38 yhod=764) LYMPHOCYTES ABSOLUTE COUNT (BEAKER) (test 1.08 K/ L 1.32-3.57 tffl=991) MONOCYTES ABSOLUTE COUNT (BEAKER) (test 0.51 K/ L 0.30-0.82 tnjr=799) EOSINOPHILS ABSOLUTE COUNT (BEAKER) (test 0.37 K/ L 0.04-0.54 nsvb=142) BASOPHILS ABSOLUTE COUNT (BEAKER) (test 0.03 K/ L 0.01-0.08 ivng=959) IMMATURE GRANULOCYTES-RELATIVE PERCENT (BEAKER) 1 % 0-1 (test epml=4511) POCT-GLUCOSE [id number] 12:26:00 Test Item Value Reference Range Comments POC-GLUCOSE METER (BEAKER) 147 mg/dL 70-110 : TESTED AT [address] (test sjaz=4877) [facility], [id number]: Health Systems Analyst/Drone Software Development Engineer OY=[id number] for [employer] Karen POCT-GLUCOSE [id number] 08:38:00 Test Item Value Reference Range Comments POC-GLUCOSE METER (BEAKER) 136 mg/dL 70-110 : TESTED AT [address] (test uzfz=3073) [facility], [id number]: Health Systems Analyst/Drone Software Development Engineer ZU=[id number] for [employer] [id number] 04:35:00 Test Item Value Reference Range Comments SODIUM (BEAKER) (test 140 meq/L 136-145 yugr=008) POTASSIUM (BEAKER) (test 3.8 meq/L 3.5-5.1 Specimen slightly wzkb=301) hemolyzed CHLORIDE (BEAKER) (test 101 meq/L 98-107 jchs=471) CO2 (BEAKER) (test 30 meq/L 22-29 fcgf=388) BLOOD UREA NITROGEN 5 mg/dL 7-21 (BEAKER) (test qjyq=917) CREATININE (BEAKER) (test 0.73 mg/dL 0.57-1.25 Specimen slightly vqed=967) hemolyzed GLUCOSE RANDOM (BEAKER) 97 mg/dL 70-105 (test gtwj=582) CALCIUM (BEAKER) (test 6.9 mg/dL 8.4-10.2 vjno=299) EGFR (BEAKER) (test 121 mL/min/1.73 sq m ESTIMATED GFR IS NOT usxt=1613) ACCURATE CREATININE CLEARANCE IN PREDICTING GLOMERULAR FILTRATION RATE. ESTIMATED GFR IS NOT APPLICABLE FOR DIALYSIS PATIENTS. [id number] 04:18:00 Test Item Value Reference Range Comments MAGNESIUM (BEAKER) (test 2.1 mg/dL 1.6-2.6 Specimen slightly hemolyzed afia=012) [id number] 04:18:00 Test Item Value Reference Range Comments PHOSPHORUS (BEAKER) (test 4.6 mg/dL 2.3-4.7 Specimen slightly hemolyzed furj=813) CBC W/PLT COUNT & AUTO [id number] 03:30:00 Test Item Value Reference Range Comments WHITE BLOOD CELL COUNT (BEAKER) (test yapu=942) 8.1 K/ L 3.5-10.5 RED BLOOD CELL COUNT (BEAKER) (test zwrt=395) 3.44 M/ L 4.63-6.08 HEMOGLOBIN (BEAKER) (test yubb=629) 8.7 GM/DL 13.7-17.5 HEMATOCRIT (BEAKER) (test kfng=428) 31.0 % 40.1-51.0 MEAN CORPUSCULAR VOLUME (BEAKER) (test tgjr=121) 90.1 fL 79.0-92.2 MEAN CORPUSCULAR HEMOGLOBIN (BEAKER) (test 25.3 pg 25.7-32.2 onzb=536) MEAN CORPUSCULAR HEMOGLOBIN CONC (BEAKER) (test 28.1 GM/DL 32.3-36.5 ujep=527) RED CELL DISTRIBUTION WIDTH (BEAKER) (test 20.6 % 11.6-14.4 amro=346) PLATELET COUNT (BEAKER) (test jzgf=585) 176 K/CU MM 150-450 MEAN PLATELET VOLUME (BEAKER) (test sisb=057) 12.1 fL 9.4-12.4 NUCLEATED RED BLOOD CELLS (BEAKER) (test 0 /100 WBC 0-0 xcww=117) NEUTROPHILS RELATIVE PERCENT (BEAKER) (test 70 % fiiq=381) LYMPHOCYTES RELATIVE PERCENT (BEAKER) (test 17 % cvoy=842) MONOCYTES RELATIVE PERCENT (BEAKER) (test 7 % dddx=553) EOSINOPHILS RELATIVE PERCENT (BEAKER) (test 5 % bvgr=935) BASOPHILS RELATIVE PERCENT (BEAKER) (test 0 % nnwj=427) NEUTROPHILS ABSOLUTE COUNT (BEAKER) (test 5.71 K/ L 1.78-5.38 nzgd=096) LYMPHOCYTES ABSOLUTE COUNT (BEAKER) (test 1.38 K/ L 1.32-3.57 ojte=673) MONOCYTES ABSOLUTE COUNT (BEAKER) (test 0.57 K/ L 0.30-0.82 xahn=215) EOSINOPHILS ABSOLUTE COUNT (BEAKER) (test 0.38 K/ L 0.04-0.54 xevl=852) BASOPHILS ABSOLUTE COUNT (BEAKER) (test 0.03 K/ L 0.01-0.08 jhpa=253) IMMATURE GRANULOCYTES-RELATIVE PERCENT (BEAKER) 1 % 0-1 (test lzvz=1934) RAD, CHEST, 1 VIEW, NON [id number] 23:38:00Reason for exam:->preop workupShould this be performed at the bedside?->YesFINAL REPORT AP chest dated 06/28/2019 Comment: Heart is in upper limits of normal in size. Pulmonary vasculature is unremarkable. Lungs are clear. No pulmonary infiltrate or pleural effusion. Impression: No active cardiopulmonary disease. Signed: María Tobias MDReport Verified Date/Time: 06/28/2019 23:38:30 Reading Location: [address] Consult Reading Room Electronicallysigned by: MARÍA TOBIAS M.D. on 06/28/2019 11:38 PMPOCT-GLUCOSE [id number] 22:26:00 Test Item Value Reference Range Comments POC-GLUCOSE METER (BEAKER) 112 mg/dL 70-110 : TESTED AT [facility] [address] (test mhkv=4218) [facility], [address]: Health Systems Analyst/Drone Software Development Engineer [phone]=[id number] for [employer] [id number] 20:58:00 Test Item Value Reference Range Comments TOTAL PROTEIN (BEAKER) 8.0 gm/dL 6.0-8.3 Specimen slightly (test lrwm=960) hemolyzed ALBUMIN (BEAKER) (test 4.1 g/dL 3.5-5.0 Specimen slightly glif=8765) hemolyzed ALKALINE PHOSPHATASE 66 U/L 40-150 (BEAKER) (test zuvd=006) BILIRUBIN TOTAL (BEAKER) 1.0 mg/dL 0.2-1.2 Specimen slightly (test drpd=695) hemolyzed SODIUM (BEAKER) (test 137 meq/L 136-145 bzsi=955) POTASSIUM (BEAKER) (test 4.1 meq/L 3.5-5.1 Specimen slightly qydu=668) hemolyzed CHLORIDE (BEAKER) (test 97 meq/L 98-107 ofsh=638) CO2 (BEAKER) (test 27 meq/L 22-29 cmyl=862) BLOOD UREA NITROGEN 7 mg/dL 7-21 (BEAKER) (test isjq=811) CREATININE (BEAKER) (test 0.72 mg/dL 0.57-1.25 Specimen slightly sewq=778) hemolyzed GLUCOSE RANDOM (BEAKER) 73 mg/dL 70-105 (test ttas=064) CALCIUM (BEAKER) (test 7.5 mg/dL 8.4-10.2 xfik=511) AST (SGOT) (BEAKER) (test 75 U/L 5-34 Specimen slightly jwnd=568) hemolyzed ALT (SGPT) (BEAKER) (test 47 U/L 6-55 Specimen slightly oaqs=745) hemolyzed EGFR (BEAKER) (test 123 mL/min/1.73 sq ESTIMATED GFR IS NOT smjh=2478) m ACCURATE CREATININE CLEARANCE IN PREDICTING GLOMERULAR FILTRATION RATE. ESTIMATED GFR IS NOT APPLICABLE FOR DIALYSIS PATIENTS. CBC W/PLT COUNT & AUTO [id number] 20:24:00 Test Item Value Reference Range Comments WHITE BLOOD CELL COUNT (BEAKER) (test exfa=659) 7.9 K/ L 3.5-10.5 RED BLOOD CELL COUNT (BEAKER) (test jchg=073) 3.61 M/ L 4.63-6.08 HEMOGLOBIN (BEAKER) (test onuk=790) 9.2 GM/DL 13.7-17.5 HEMATOCRIT (BEAKER) (test vklz=871) 32.7 % 40.1-51.0 MEAN CORPUSCULAR VOLUME (BEAKER) (test xchs=417) 90.6 fL 79.0-92.2 MEAN CORPUSCULAR HEMOGLOBIN (BEAKER) (test 25.5 pg 25.7-32.2 uvbl=742) MEAN CORPUSCULAR HEMOGLOBIN CONC (BEAKER) (test 28.1 GM/DL 32.3-36.5 ypmi=002) RED CELL DISTRIBUTION WIDTH (BEAKER) (test 20.8 % 11.6-14.4 jvvu=777) PLATELET COUNT (BEAKER) (test tubo=266) 193 K/CU MM 150-450 MEAN PLATELET VOLUME (BEAKER) (test oqqf=645) 12.4 fL 9.4-12.4 NUCLEATED RED BLOOD CELLS (BEAKER) (test 0 /100 WBC 0-0 ptwu=933) NEUTROPHILS RELATIVE PERCENT (BEAKER) (test 69 % jcwf=408) LYMPHOCYTES RELATIVE PERCENT (BEAKER) (test 18 % kjvh=525) MONOCYTES RELATIVE PERCENT (BEAKER) (test 8 % onbr=219) EOSINOPHILS RELATIVE PERCENT (BEAKER) (test 3 % qasc=422) BASOPHILS RELATIVE PERCENT (BEAKER) (test 0 % yamz=369) NEUTROPHILS ABSOLUTE COUNT (BEAKER) (test 5.46 K/ L 1.78-5.38 dtxg=539) LYMPHOCYTES ABSOLUTE COUNT (BEAKER) (test 1.42 K/ L 1.32-3.57 swgs=896) MONOCYTES ABSOLUTE COUNT (BEAKER) (test 0.62 K/ L 0.30-0.82 wuuj=424) EOSINOPHILS ABSOLUTE COUNT (BEAKER) (test 0.27 K/ L 0.04-0.54 cgze=791) BASOPHILS ABSOLUTE COUNT (BEAKER) (test 0.03 K/ L 0.01-0.08 vipb=588) IMMATURE GRANULOCYTES-RELATIVE PERCENT (BEAKER) 1 % 0-1 (test mfxz=7586) [id number] 20:23:00 Test Item Value Reference Range Comments PARTIAL THROMBOPLASTIN TIME (BEAKER) (test 38.3 seconds 22.5-36.0 amzc=075) PROTHROMBIN [id number] 20:22:00 Test Item Value Reference Range Comments PROTIME (BEAKER) (test flyf=909) 13.5 seconds 11.9-14.2 INR (BEAKER) (test jssm=273) 1.1 <=5.9 Effective 01/19/2019: PT Reference Range ChangeNew: 11.9-14.2 Previous: 11.7- 14.7RECOMMENDED COUMADIN/WARFARIN INR THERAPY RANGESSTANDARD DOSE: 2.0-3.0 Includes: PROPHYLAXIS for venous thrombosis, systemic embolization; TREATMENT for venous thrombosis and/or pulmonary embolus.HIGH RISK: Target INR is2.5-3.5 for patients wiht mechanical heart valves.
[2019-10-24 21:42] LABS: Basophils % 0.1 % (0-1.3); Hematocrit 34.4 % (39.6-49.0); Lymphocytes % 20.2 % (15.3-44.8); MPV 11.3 fL (7.6-11.3); RBC Red Blood Cell Count 4.16 M/uL (4.33-5.43)
[2019-10-24] MEDS ORDERED: LORazepam 2 MG/ML VIAL ONE (21:49)
[2019-10-24] MEDS ORDERED: NA CHLORIDE 0.9% 1,000 ML ONE (21:49)
[2019-10-24 21:59] LABS: ALT/SGPT 39 U/L (12-78); AST/SGOT 44 U/L (15-37); Albumin 3.6 g/dL (3.4-5.0); Alkaline Phosphatase 76 U/L (45-117); BUN Blood Urea Nitrogen 20 mg/dL (7-18); Bicarbonate 32 mmol/L (21-32); Bilirubin Direct < 0.1 mg/dL (0-0.2); Bilirubin Total 0.4 mg/dL (0.2-1.0); Glucose Level 121 mg/dL (74-106); Potassium 4.3 mmol/L (3.5-5.1); Protein, Total 8.5 g/dL (6.4-8.2); Sodium Level 138 mmol/L (136-145)
[2019-10-24 22:01] LABS: Protime INR 1.04
[2019-10-24 22:11] LABS: Barbiturates NEGATIVE (NEGATIVE); Benzodiazepines NEGATIVE (NEGATIVE); Cocaine NEGATIVE (NEGATIVE); METHAMPHETAM NEGATIVE (NEGATIVE); Methadone NEGATIVE (NEGATIVE); Opiates NEGATIVE (NEGATIVE); Phencyclidine NEGATIVE (NEGATIVE); THC Cannibis NEGATIVE (NEGATIVE)
[2019-10-24] MEDS ORDERED: Caclcium Chloride 10% INJ SYR IV ONE (23:06)
[2019-10-24] MEDS ORDERED: DIAZEPAM 10 MG/2 ML INJ SYRINGE ONE (23:26)
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
[2019-10-25 03:46] VITALS: BP 151/81; TEMP 98.4; O2SAT 96
== END 2019-10-25 01:13 | disposition home or self-care (01) ==
LOC: ER 19:52
DX: E83.51 Hypocalcemia (principal); I10 Essential (primary) hypertension; Z88.1 Allergy status to other antibiotic agents; Z88.6 Allergy status to analgesic agent; Z88.8 Allergy status to other drugs, medicaments and biological substances
CPT/HCPCS: 36415; 80048; 80076; 80307; 80320; 80329; 85025; 85610; 85730; 96361; 96374; 96375; 99284; J3360; J7030

== ENCOUNTER 2019-10-26 19:21 | Emergency (ER) | payer SELFPAY ==
--- OUTSIDE RECORDS SUMMARY | 2019-10-26 19:24 | XMS REPORT ---
:1980 [facility] Address [address] [place] [address] Care Team Providers Name Role Phone BRUCELINDYJO [...] Comments SODIUM (BEAKER) (test 137 meq/L 136-145 xser=539) POTASSIUM (BEAKER) (test 4.0 meq/L 3.5-5.1 wshh=902) CHLORIDE (BEAKER) (test 100 meq/L 98-107 euqi=643) CO2 (BEAKER) (test 27 meq/L 22-29 fdjy=075) BLOOD UREA NITROGEN 4 mg/dL 7-21 (BEAKER) (test bbkq=369) CREATININE (BEAKER) (test 0.71 mg/dL 0.57-1.25 bxyh=779) GLUCOSE RANDOM (BEAKER) 110 mg/dL 70-105 (test uxix=599) CALCIUM (BEAKER) (test 7.2 mg/dL 8.4-10.2 whnd=332) EGFR (BEAKER) (test 125 mL/min/1.73 sq m ESTIMATED GFR IS NOT qxzr=8937) ACCURATE CREATININE CLEARANCE IN PREDICTING GLOMERULAR FILTRATION RATE. ESTIMATED GFR IS NOT APPLICABLE FOR DIALYSIS PATIENTS. [id number] 07:19:00 Test Item Value Reference Range Comments PHOSPHORUS (BEAKER) (test morh=952) 4.5 mg/dL 2.3-4.7 [id number] 07:19:00 Test Item Value Reference Range Comments MAGNESIUM (BEAKER) (test akaa=640) 2.0 mg/dL 1.6-2.6 CBC W/PLT COUNT & AUTO [id number] 07:11:00 Test Item Value Reference Range Comments WHITE BLOOD CELL COUNT (BEAKER) (test rvpy=772) 7.3 K/ L 3.5-10.5 RED BLOOD CELL COUNT (BEAKER) (test nkyx=487) 3.63 M/ L 4.63-6.08 HEMOGLOBIN (BEAKER) (test enex=730) 9.4 GM/DL 13.7-17.5 HEMATOCRIT (BEAKER) (test ubef=960) 33.6 % 40.1-51.0 MEAN CORPUSCULAR VOLUME (BEAKER) (test adkn=381) 92.6 fL 79.0-92.2 MEAN CORPUSCULAR HEMOGLOBIN (BEAKER) (test 25.9 pg 25.7-32.2 jqmc=953) MEAN CORPUSCULAR HEMOGLOBIN CONC (BEAKER) (test 28.0 GM/DL 32.3-36.5 ketc=442) RED CELL DISTRIBUTION WIDTH (BEAKER) (test 20.4 % 11.6-14.4 uiek=901) PLATELET COUNT (BEAKER) (test ijvz=822) 196 K/CU MM 150-450 MEAN PLATELET VOLUME (BEAKER) (test orwm=370) 12.5 fL 9.4-12.4 NUCLEATED RED BLOOD CELLS (BEAKER) (test 0 /100 WBC 0-0 vulx=666) NEUTROPHILS RELATIVE PERCENT (BEAKER) (test 71 % iund=787) LYMPHOCYTES RELATIVE PERCENT (BEAKER) (test 16 % odbr=415) MONOCYTES RELATIVE PERCENT (BEAKER) (test 7 % oimw=436) EOSINOPHILS RELATIVE PERCENT (BEAKER) (test 5 % czln=144) BASOPHILS RELATIVE PERCENT (BEAKER) (test 1 % wmjp=788) NEUTROPHILS ABSOLUTE COUNT (BEAKER) (test 5.18 K/ L 1.78-5.38 hbrq=792) LYMPHOCYTES ABSOLUTE COUNT (BEAKER) (test 1.13 K/ L 1.32-3.57 srng=810) MONOCYTES ABSOLUTE COUNT (BEAKER) (test 0.53 K/ L 0.30-0.82 lufz=178) EOSINOPHILS ABSOLUTE COUNT (BEAKER) (test 0.34 K/ L 0.04-0.54 ntvh=253) BASOPHILS ABSOLUTE COUNT (BEAKER) (test 0.04 K/ L 0.01-0.08 lgqh=652) IMMATURE GRANULOCYTES-RELATIVE PERCENT (BEAKER) 1 % 0-1 (test erkh=3056) [id number] 07:07:00 Test Item Value Reference Range Comments PARTIAL THROMBOPLASTIN TIME (BEAKER) (test 39.0 seconds 22.5-36.0 rdmd=333) PROTHROMBIN [id number] 07:06:00 Test Item Value Reference Range Comments PROTIME (BEAKER) (test glqg=408) 14.3 seconds 11.9-14.2 INR (BEAKER) (test biov=383) 1.2 <=5.9 Effective 01/19/2019: PT Reference Range ChangeNew: 11.9-14.2 Previous: 11.7- 14.7RECOMMENDED COUMADIN/WARFARIN INR THERAPY RANGESSTANDARD DOSE: 2.0-3.0 Includes: PROPHYLAXIS for venous thrombosis, systemic embolization; TREATMENT for venous thrombosis and/or pulmonary embolus.HIGH RISK: Target INR is2.5-3.5 for patients wiht mechanical heart valves.CALCIUM, [id number] 07:05:00 Test Item Value Reference Range Comments CALCIUM IONIZED (BEAKER) (test aoqv=260) 0.73 mmol/L 1.12-1.27 PH, BLOOD (BEAKER) (test xbdb=9004) 7.54 CBC W/PLT COUNT & AUTO [id number] 15:06:00 Test Item Value Reference Range Comments WHITE BLOOD CELL COUNT (BEAKER) (test efru=851) 8.4 K/ L 3.5-10.5 RED BLOOD CELL COUNT (BEAKER) (test nxmi=450) 3.72 M/ L 4.63-6.08 HEMOGLOBIN (BEAKER) (test qxqu=394) 9.6 GM/DL 13.7-17.5 HEMATOCRIT (BEAKER) (test whwd=097) 34.2 % 40.1-51.0 MEAN CORPUSCULAR VOLUME (BEAKER) (test fyul=599) 91.9 fL 79.0-92.2 MEAN CORPUSCULAR HEMOGLOBIN (BEAKER) (test 25.8 pg 25.7-32.2 snlo=870) MEAN CORPUSCULAR HEMOGLOBIN CONC (BEAKER) (test 28.1 GM/DL 32.3-36.5 aaup=052) RED CELL DISTRIBUTION WIDTH (BEAKER) (test 20.5 % 11.6-14.4 hzbp=228) PLATELET COUNT (BEAKER) (test kbqz=717) 191 K/CU MM 150-450 MEAN PLATELET VOLUME (BEAKER) (test erff=924) 12.6 fL 9.4-12.4 NUCLEATED RED BLOOD CELLS (BEAKER) (test 0 /100 WBC 0-0 jqii=687) NEUTROPHILS RELATIVE PERCENT (BEAKER) (test 76 % frpx=623) LYMPHOCYTES RELATIVE PERCENT (BEAKER) (test 13 % zohp=238) MONOCYTES RELATIVE PERCENT (BEAKER) (test 6 % nlvk=644) EOSINOPHILS RELATIVE PERCENT (BEAKER) (test 4 % tmzb=331) BASOPHILS RELATIVE PERCENT (BEAKER) (test 0 % qoxr=558) NEUTROPHILS ABSOLUTE COUNT (BEAKER) (test 6.36 K/ L 1.78-5.38 dqsi=206) LYMPHOCYTES ABSOLUTE COUNT (BEAKER) (test 1.08 K/ L 1.32-3.57 ndtn=918) MONOCYTES ABSOLUTE COUNT (BEAKER) (test 0.51 K/ L 0.30-0.82 uixd=682) EOSINOPHILS ABSOLUTE COUNT (BEAKER) (test 0.37 K/ L 0.04-0.54 hocg=838) BASOPHILS ABSOLUTE COUNT (BEAKER) (test 0.03 K/ L 0.01-0.08 crdh=946) IMMATURE GRANULOCYTES-RELATIVE PERCENT (BEAKER) 1 % 0-1 (test wbje=4555) POCT-GLUCOSE [id number] 12:26:00 Test Item Value Reference Range Comments POC-GLUCOSE METER (BEAKER) 147 mg/dL 70-110 : TESTED AT [address] (test xgbq=8468) [facility], [id number]: Advertising Project Manager/Network Security Officer [id number] for [employer] POCT-GLUCOSE [id number] 08:38:00 Test Item Value Reference Range Comments POC-GLUCOSE METER (BEAKER) 136 mg/dL 70-110 : TESTED AT [address] (test vzyn=7409) [facility], [id number]: Advertising Project Manager/Network Security Officer [id number] for [employer] [id number] 04:35:00 Test Item Value Reference Range Comments SODIUM (BEAKER) (test 140 meq/L 136-145 tnnb=853) POTASSIUM (BEAKER) (test 3.8 meq/L 3.5-5.1 Specimen slightly phpt=503) hemolyzed CHLORIDE (BEAKER) (test 101 meq/L 98-107 scvd=733) CO2 (BEAKER) (test 30 meq/L 22-29 ipuu=124) BLOOD UREA NITROGEN 5 mg/dL 7-21 (BEAKER) (test hswv=873) CREATININE (BEAKER) (test 0.73 mg/dL 0.57-1.25 Specimen slightly gvjq=728) hemolyzed GLUCOSE RANDOM (BEAKER) 97 mg/dL 70-105 (test ycgx=181) CALCIUM (BEAKER) (test 6.9 mg/dL 8.4-10.2 qvfd=630) EGFR (BEAKER) (test 121 mL/min/1.73 sq m ESTIMATED GFR IS NOT oyzg=8793) ACCURATE CREATININE CLEARANCE IN PREDICTING GLOMERULAR FILTRATION RATE. ESTIMATED GFR IS NOT APPLICABLE FOR DIALYSIS PATIENTS. [id number] 04:18:00 Test Item Value Reference Range Comments MAGNESIUM (BEAKER) (test 2.1 mg/dL 1.6-2.6 Specimen slightly hemolyzed zocd=707) [id number] 04:18:00 Test Item Value Reference Range Comments PHOSPHORUS (BEAKER) (test 4.6 mg/dL 2.3-4.7 Specimen slightly hemolyzed umoq=894) CBC W/PLT COUNT & AUTO [id number] 03:30:00 Test Item Value Reference Range Comments WHITE BLOOD CELL COUNT (BEAKER) (test lfxo=237) 8.1 K/ L 3.5-10.5 RED BLOOD CELL COUNT (BEAKER) (test nmzm=309) 3.44 M/ L 4.63-6.08 HEMOGLOBIN (BEAKER) (test dpzv=677) 8.7 GM/DL 13.7-17.5 HEMATOCRIT (BEAKER) (test uxse=088) 31.0 % 40.1-51.0 MEAN CORPUSCULAR VOLUME (BEAKER) (test cohf=443) 90.1 fL 79.0-92.2 MEAN CORPUSCULAR HEMOGLOBIN (BEAKER) (test 25.3 pg 25.7-32.2 asyv=665) MEAN CORPUSCULAR HEMOGLOBIN CONC (BEAKER) (test 28.1 GM/DL 32.3-36.5 asir=981) RED CELL DISTRIBUTION WIDTH (BEAKER) (test 20.6 % 11.6-14.4 dnfs=476) PLATELET COUNT (BEAKER) (test gfbt=090) 176 K/CU MM 150-450 MEAN PLATELET VOLUME (BEAKER) (test blga=488) 12.1 fL 9.4-12.4 NUCLEATED RED BLOOD CELLS (BEAKER) (test 0 /100 WBC 0-0 qshh=107) NEUTROPHILS RELATIVE PERCENT (BEAKER) (test 70 % xqoc=680) LYMPHOCYTES RELATIVE PERCENT (BEAKER) (test 17 % wazm=417) MONOCYTES RELATIVE PERCENT (BEAKER) (test 7 % csbl=972) EOSINOPHILS RELATIVE PERCENT (BEAKER) (test 5 % gkey=611) BASOPHILS RELATIVE PERCENT (BEAKER) (test 0 % tjnt=844) NEUTROPHILS ABSOLUTE COUNT (BEAKER) (test 5.71 K/ L 1.78-5.38 hkrn=837) LYMPHOCYTES ABSOLUTE COUNT (BEAKER) (test 1.38 K/ L 1.32-3.57 pbyk=887) MONOCYTES ABSOLUTE COUNT (BEAKER) (test 0.57 K/ L 0.30-0.82 oags=944) EOSINOPHILS ABSOLUTE COUNT (BEAKER) (test 0.38 K/ L 0.04-0.54 srct=831) BASOPHILS ABSOLUTE COUNT (BEAKER) (test 0.03 K/ L 0.01-0.08 qwdb=846) IMMATURE GRANULOCYTES-RELATIVE PERCENT (BEAKER) 1 % 0-1 (test mokx=3643) RAD, CHEST, 1 VIEW, NON [id number] 23:38:00Reason for exam:->preop workupShould this be performed at the bedside?->YesFINAL REPORT AP chest dated 06/28/2019 Comment: Heart is in upper limits of normal in size. Pulmonary vasculature is unremarkable. Lungs are clear. No pulmonary infiltrate or pleural effusion. Impression: No active cardiopulmonary disease. Signed: María Tobias MDReport Verified Date/Time: 06/28/2019 23:38:30 Reading Location: [address] Consult Reading Room Electronicallysigned by: MARÍA TOBIAS M.D. on 06/28/2019 11:38 PMPOCT-GLUCOSE [id number] 22:26:00 Test Item Value Reference Range Comments POC-GLUCOSE METER (BEAKER) 112 mg/dL 70-110 : TESTED AT [facility] [address] (test mrfr=7321) [facility], [id number]: Advertising Project Manager/Network Security Officer [phone]=[id number] for [employer] [id number] 20:58:00 Test Item Value Reference Range Comments TOTAL PROTEIN (BEAKER) 8.0 gm/dL 6.0-8.3 Specimen slightly (test vtpc=275) hemolyzed ALBUMIN (BEAKER) (test 4.1 g/dL 3.5-5.0 Specimen slightly uyae=6142) hemolyzed ALKALINE PHOSPHATASE 66 U/L 40-150 (BEAKER) (test lzzg=332) BILIRUBIN TOTAL (BEAKER) 1.0 mg/dL 0.2-1.2 Specimen slightly (test wdnf=446) hemolyzed SODIUM (BEAKER) (test 137 meq/L 136-145 sxba=821) POTASSIUM (BEAKER) (test 4.1 meq/L 3.5-5.1 Specimen slightly qzjs=467) hemolyzed CHLORIDE (BEAKER) (test 97 meq/L 98-107 dwql=220) CO2 (BEAKER) (test 27 meq/L 22-29 awfq=369) BLOOD UREA NITROGEN 7 mg/dL 7-21 (BEAKER) (test cqik=453) CREATININE (BEAKER) (test 0.72 mg/dL 0.57-1.25 Specimen slightly ftve=402) hemolyzed GLUCOSE RANDOM (BEAKER) 73 mg/dL 70-105 (test fkgy=058) CALCIUM (BEAKER) (test 7.5 mg/dL 8.4-10.2 xtcx=930) AST (SGOT) (BEAKER) (test 75 U/L 5-34 Specimen slightly qksj=219) hemolyzed ALT (SGPT) (BEAKER) (test 47 U/L 6-55 Specimen slightly sbyz=748) hemolyzed EGFR (BEAKER) (test 123 mL/min/1.73 sq ESTIMATED GFR IS NOT mxsz=4065) m ACCURATE CREATININE CLEARANCE IN PREDICTING GLOMERULAR FILTRATION RATE. ESTIMATED GFR IS NOT APPLICABLE FOR DIALYSIS PATIENTS. CBC W/PLT COUNT & AUTO [id number] 20:24:00 Test Item Value Reference Range Comments WHITE BLOOD CELL COUNT (BEAKER) (test ciba=141) 7.9 K/ L 3.5-10.5 RED BLOOD CELL COUNT (BEAKER) (test dxgh=517) 3.61 M/ L 4.63-6.08 HEMOGLOBIN (BEAKER) (test kzce=234) 9.2 GM/DL 13.7-17.5 HEMATOCRIT (BEAKER) (test ggzb=647) 32.7 % 40.1-51.0 MEAN CORPUSCULAR VOLUME (BEAKER) (test nedx=415) 90.6 fL 79.0-92.2 MEAN CORPUSCULAR HEMOGLOBIN (BEAKER) (test 25.5 pg 25.7-32.2 etyc=529) MEAN CORPUSCULAR HEMOGLOBIN CONC (BEAKER) (test 28.1 GM/DL 32.3-36.5 ilrl=245) RED CELL DISTRIBUTION WIDTH (BEAKER) (test 20.8 % 11.6-14.4 udxo=023) PLATELET COUNT (BEAKER) (test ivww=270) 193 K/CU MM 150-450 MEAN PLATELET VOLUME (BEAKER) (test juit=779) 12.4 fL 9.4-12.4 NUCLEATED RED BLOOD CELLS (BEAKER) (test 0 /100 WBC 0-0 eeoe=522) NEUTROPHILS RELATIVE PERCENT (BEAKER) (test 69 % sjoa=343) LYMPHOCYTES RELATIVE PERCENT (BEAKER) (test 18 % rnwu=001) MONOCYTES RELATIVE PERCENT (BEAKER) (test 8 % zzxf=842) EOSINOPHILS RELATIVE PERCENT (BEAKER) (test 3 % wpnu=357) BASOPHILS RELATIVE PERCENT (BEAKER) (test 0 % njvy=333) NEUTROPHILS ABSOLUTE COUNT (BEAKER) (test 5.46 K/ L 1.78-5.38 vtab=903) LYMPHOCYTES ABSOLUTE COUNT (BEAKER) (test 1.42 K/ L 1.32-3.57 wsvm=482) MONOCYTES ABSOLUTE COUNT (BEAKER) (test 0.62 K/ L 0.30-0.82 cjdi=870) EOSINOPHILS ABSOLUTE COUNT (BEAKER) (test 0.27 K/ L 0.04-0.54 hfaq=589) BASOPHILS ABSOLUTE COUNT (BEAKER) (test 0.03 K/ L 0.01-0.08 xkaq=188) IMMATURE GRANULOCYTES-RELATIVE PERCENT (BEAKER) 1 % 0-1 (test jcbk=0360) [id number] 20:23:00 Test Item Value Reference Range Comments PARTIAL THROMBOPLASTIN TIME (BEAKER) (test 38.3 seconds 22.5-36.0 ivdp=386) PROTHROMBIN [id number] 20:22:00 Test Item Value Reference Range Comments PROTIME (BEAKER) (test rgkt=553) 13.5 seconds 11.9-14.2 INR (BEAKER) (test tyki=545) 1.1 <=5.9 Effective 01/19/2019: PT Reference Range ChangeNew: 11.9-14.2 Previous: 11.7- 14.7RECOMMENDED COUMADIN/WARFARIN INR THERAPY RANGESSTANDARD DOSE: 2.0-3.0 Includes: PROPHYLAXIS for venous thrombosis, systemic embolization; TREATMENT for venous thrombosis and/or pulmonary embolus.HIGH RISK: Target INR is2.5-3.5 for patients wiht mechanical heart valves.
[2019-10-26] MEDS ORDERED: LEVETIRACETAM 500 MG/5 ML VIAL IV ONE (19:57)
[2019-10-26] MEDS ORDERED: ACETAMINOPHEN 500 MG TAB ONE (19:57)
[2019-10-26] MEDS ORDERED: NA CHLORIDE 0.9% 100 ML IV ONE (19:57)
[2019-10-26 20:20] LABS: Absolute Lymphocytes (CBC) 2.1 K/uL (0.7-4.9); Basophils % 1.1 % (0-1.3); Hematocrit 37.5 % (39.6-49.0); Lymphocytes % 19.2 % (15.3-44.8); MPV 11.3 fL (7.6-11.3); RBC Red Blood Cell Count 4.51 M/uL (4.33-5.43)
[2019-10-26 20:25] LABS: Protime INR 1.03
[2019-10-26 20:40] LABS: Albumin 3.9 g/dL (3.4-5.0); Bilirubin Direct 0.1 mg/dL (0-0.2); Bilirubin Total 0.4 mg/dL (0.2-1.0); Magnesium 2.2 mg/dL (1.8-2.4); Potassium 4.1 mmol/L (3.5-5.1); Protein, Total 8.9 g/dL (6.4-8.2)
--- NOTE | 2019-10-26 21:15 | EDPHYS ---
Physician Documentation [facility] Name: Blanche Lo Age: 39 yrs Sex: Male : 1980 Arrival Date: 10/26/2019 Time: 19:22 Bed 27 Private MD: ED Physician Avery Gautam HPI: 10/25 21:17 This 39 yrs old Male presents to ER via Wheelchair with complaints of Seizure.tw4 21:17 The patient presents after having a single isolated seizure. Character of seizure(s): tw4 Loss of consciousness: the patient did not lose consciousness, Motor activity: generalized, Incontinence: none, Apnea: the patient did not experience apnea, Circulation: the patient did not experience evidence of pulse disturbance. Seizure onset: just prior to arrival. Context: the seizure(s) was witnessed, by no one. Associated injury: The patient did not suffer any apparent associated injury. The patient has not experienced similar symptoms in the past. Historical: - Allergies: 19:59 ambien; ca1 19:59 Amoxicillin; ca1 19:59 Amoxil; ca1 19:59 Ibuprofen; ca1 19:59 Naproxen; ca1 - Home Meds: 19:59 levetiracetam 500 mg Oral tab 1 tab 2 times per day [Active]; ca1 - PMHx: 19:59 Back pain; GI Bleed; Hypertension; Seizures; ca1 - Immunization history:: Adult Immunizations up to date, Flu vaccine is up to date. - Social history:: Smoking status: Patient/guardian denies using tobacco, Stopped _ months ago 8. ROS: 21:17 Constitutional: Negative for fever, chills, and weight loss, Eyes: Negative for injury, tw4 pain, redness, and discharge, Cardiovascular: Negative for chest pain, palpitations, and edema, Respiratory: Negative for shortness of breath, cough, wheezing, and pleuritic chest pain, Abdomen/GI: Negative for abdominal pain, nausea, vomiting, diarrhea, and constipation, Back: Negative for injury and pain, MS/Extremity: Negative for injury and deformity. 21:17 Neuro: Positive for seizure activity. Exam: 21:22 Constitutional: This is a well developed, well nourished patient who is awake, alert, tw4 and in no acute distress. Head/Face: Normocephalic, atraumatic. Chest/axilla: Normal chest wall appearance and motion. Nontender with no deformity. No lesions are appreciated. Cardiovascular: Regular rate and rhythm with a normal S1 and S2. No gallops, murmurs, or rubs. Normal PMI, no JVD. No pulse deficits. Respiratory: Lungs have equal breath sounds bilaterally, clear to auscultation and percussion. No rales, rhonchi or wheezes noted. No increased work of breathing, no retractions or nasal flaring. Abdomen/GI: Soft, non-tender, with normal bowel sounds. No distension or tympany. No guarding or rebound. No evidence of tenderness throughout. Back: No spinal tenderness. No costovertebral tenderness. Full range of motion. MS/ Extremity: Pulses equal, no cyanosis. Neurovascular intact. Full, normal range of motion. Neuro: Awake and alert, GCS 15, oriented to person, place, time, and situation. Cranial nerves II-XII grossly intact. Motor strength 5/5 in all extremities. Sensory grossly intact. Cerebellar exam normal. Normal gait. Vital Signs: 19:45 BP 121 / 89; Pulse 88; Resp 16 S; Temp 98(TE); Pulse Ox 97% on R/A; Weight 99.79 kg ca1 (R); Height 5 ft. 5 in. (165.10 cm) (R); 21:00 BP 123 / 75; Pulse 81; Resp 19; Temp 98.4; Pulse Ox 99% ; Pain 0/10; fu 19:45 Body Mass Index 36.61 (99.79 kg, 165.10 cm) ca1 Lynndyl Coma Score: 19:59 Eye Response: spontaneous(4). Verbal Response: oriented(5). Motor Response: obeys ca1 commands(6). Total: 15. MDM: 19:39 Patient medically screened. tw4 21:23 Differential diagnosis: seizure, syncope. Data reviewed: vital signs, nurses notes. tw4 Data interpreted: Pulse oximetry: Interpretation: normal. Counseling: I had a detailed discussion with the patient and/or guardian regarding: the historical points, exam findings, and any diagnostic results supporting the discharge/admit diagnosis. Special discussion: I discussed with the patient/guardian in detail that at this point there is no indication for admission to the hospital. It is understood, however, that if the symptoms persist or worsen the patient needs to return immediately for re-evaluation. 10/25 19:40 Order name: UDS 10/25 19:40 Order name: Basic Metabolic Panel; Complete Time: 20:59 10/25 20:59 Interpretation: Normal except: GFR 89; CA 8.1. 10/25 19:40 Order name: CBC with Diff; Complete Time: 20:59 10/25 20:59 Interpretation: Normal except: HGB 11.7; HCT 37.5; MCH 25.9; MCHC 31.2; PLT 146; RDW tw4 16.2; EOSINOPHIL % 6.0. 10/25 19:40 Order name: Ckmb; Complete Time: 20:59 10/25 19:40 Order name: CPK; Complete Time: 20:59 10/25 19:40 Order name: Hepatic Function; Complete Time: 20:59 10/25 20:59 Interpretation: Normal except: A/G 0.8; GLOB 5.0; TP 8.9; AST 39. 10/25 19:40 Order name: Lipase; Complete Time: 20:59 10/25 19:40 Order name: Magnesium; Complete Time: 20:59 10/25 19:40 Order name: Protime (+inr); Complete Time: 20:59 10/25 19:40 Order name: Ptt, Activated; Complete Time: 20:59 10/25 19:40 Order name: Cardiac monitoring; Complete Time: 20:24 10/25 21:10 Order name: Urine Dipstick--Ancillary (enter results) [facility] 10/25 19:40 Order name: IV Saline Lock; Complete Time: 20:24 10/25 19:40 Order name: Labs collected and sent; Complete Time: 20:24 10/25 19:40 Order name: NPO; Complete Time: 20:24 10/25 19:40 Order name: O2 Per Protocol; Complete Time: 20:24 10/25 19:40 Order name: O2 Sat Monitoring; Complete Time: 20:24 10/25 19:40 Order name: Urine Dipstick-Ancillary (obtain specimen); Complete Time: 21:42 tw4 Administered Medications: 20:20 Drug: Keppra 1000 mg Route: IV; Rate: calculated rate; Site: left hand; fu 21:20 Follow up: Response: No adverse reaction fu 20:23 Drug: Tylenol 1000 mg Route: PO; fu : Follow up: Response: No adverse reaction fu Disposition: 10/26/19 21:14 Discharged to Home. Impression: Epilepsy and recurrent seizures. - Condition is Stable. - Discharge Instructions: Seizure, Adult. - Medication Reconciliation Form, Thank You Letter, Antibiotic Education, Prescription Opioid Use form. - Follow up: Private Physician; When: Upon discharge from the Emergency Department; Reason: Recheck today's complaints, Continuance of care, Re-evaluation by your physician. - Problem is new. - Symptoms have improved. Signatures: Dispatcher [employer] EDAbiodun Vela RN RN Avery Sosa MD MD tw4 Acob, Leatha RN RN ca1 Corrections: (The following items were deleted from the chart) 21:48 21:14 10/26/2019 21:14 Discharged to Home. Impression: Epilepsy and recurrent seizures. fu Condition is Stable. Forms are Medication Reconciliation Form, Thank You Letter, Antibiotic Education, Prescription Opioid Use. Follow up: Private Physician; When: Upon discharge from the Emergency Department; Reason: Recheck today's complaints, Continuance of care, Re-evaluation by your physician. Problem is new. Symptoms have improved. tw4
--- NOTE | 2019-10-26 21:15 | ER ---
Nurse's Notes [facility] Name: Blanche Lo Age: 39 yrs Sex: Male : 1980 Arrival Date: 10/26/2019 Time: 19:22 Bed 27 Private MD: Diagnosis: Epilepsy and recurrent seizures Presentation: 10/25 19:45 Chief complaint: Patient states: Seizure an hour ago. Also had a seizure days ago. Has ca1 history of seizure, takes Keppra for it. Was off Keppra for about a month or so, just got back to taking Keppra for about a week now. Reports cramps. Has an appointment with Dr. Villatoro on the . Coronavirus screen: The patient has NOT traveled to a country currently being monitored by the [facility] within the last 14 days. The patient has NOT had contact with any known and/or suspected case of coronavirus. Ebola Screen: Patient negative for fever greater than or equal to 101.5 degrees Fahrenheit, and additional compatible Ebola Virus Disease symptoms Patient denies exposure to infectious person. Patient denies travel to an Ebola-affected area in the 21 days before illness onset. No symptoms or risks identified at this time. Initial Sepsis Screen: Does the patient meet any 2 criteria? No. Patient's initial sepsis screen is negative. Does the patient have a suspected source of infection? No. Patient's initial sepsis screen is negative. Risk Assessment: Do you want to hurt yourself or someone else? Patient reports no desire to harm self or others. Onset of symptoms was October 26, 2019. 19:45 Method Of Arrival: Wheelchair ca1 19:45 Acuity: JANINE 3 ca1 Triage Assessment: 19:59 General: Appears in no apparent distress. comfortable, Behavior is calm, cooperative, ca1 appropriate for age. Neuro: Level of Consciousness is awake, alert, obeys commands, Oriented to person, place, time, situation. Historical: - Allergies: 19:59 ambien; ca1 19:59 Amoxicillin; ca1 19:59 Amoxil; ca1 19:59 Ibuprofen; ca1 19:59 Naproxen; ca1 - Home Meds: 19:59 levetiracetam 500 mg Oral tab 1 tab 2 times per day [Active]; ca1 - PMHx: 19:59 Back pain; GI Bleed; Hypertension; Seizures; ca1 - Immunization history:: Adult Immunizations up to date, Flu vaccine is up to date. - Social history:: Smoking status: Patient/guardian denies using tobacco, Stopped _ months ago 8. Screenin:15 Abuse screen: Denies threats or abuse. Nutritional screening: No deficits noted. fu Tuberculosis screening: No symptoms or risk factors identified. Fall Risk None identified. Assessment: 19:45 General: Appears in no apparent distress. Behavior is calm, cooperative, appropriate fu for age, Reports seizure an hour ago. Pain: Denies pain. Neuro: Reports seizure and hour ago. Denies weakness blurred vision dizziness, difficulty swallowing, paresthesias numbness photophobia diplopia. Cardiovascular: Denies chest pain, diaphoresis, fatigue, lightheadedness, nausea, palpitations, shortness of breath, syncope, vomiting, Heart tones S1 S2 Capillary refill < 3 seconds. Respiratory: Airway is patent Respiratory effort is even, unlabored, Respiratory pattern is regular. GI: No signs and/or symptoms were reported involving the gastrointestinal system. : No signs and/or symptoms were reported regarding the genitourinary system. EENT: No signs and/or symptoms were reported regarding the EENT system. Derm: skin lesion at different stages of healing to the chest and abdomen. Musculoskeletal: No signs and/or symptoms reported regarding the musculoskeletal system. Vital Signs: 19:45 BP 121 / 89; Pulse 88; Resp 16 S; Temp 98(TE); Pulse Ox 97% on R/A; Weight 99.79 kg ca1 (R); Height 5 ft. 5 in. (165.10 cm) (R); 21:00 BP 123 / 75; Pulse 81; Resp 19; Temp 98.4; Pulse Ox 99% ; Pain 0/10; fu 19:45 Body Mass Index 36.61 (99.79 kg, 165.10 cm) ca1 Edilia Coma Score: 19:59 Eye Response: spontaneous(4). Verbal Response: oriented(5). Motor Response: obeys ca1 commands(6). Total: 15. ED Course: 19:22 Patient arrived in ED. cl3 19:39 Avery Gatuam MD is Attending Physician. tw4 19:47 Abiodun Rivero, ANCELMO is Primary Nurse. fu 19:58 Triage completed. ca1 19:59 Arm band placed on right wrist. ca1 20:10 No provider procedures requiring assistance completed. Inserted saline lock: 22 gauge fu in left hand, using aseptic technique. 21:20 Seizure precautions initiated. fu 21:40 IV discontinued, bleeding controlled, Pressure dressing applied. fu Administered Medications: 20:20 Drug: Keppra 1000 mg Route: IV; Rate: calculated rate; Site: left hand; fu 21:20 Follow up: Response: No adverse reaction fu 20:23 Drug: Tylenol 1000 mg Route: PO; fu 21:23 Follow up: Response: No adverse reaction fu Outcome: 21:14 Discharge ordered by MD. jones 21:40 Discharged to home ambulatory. fu 21:40 Condition: stable 21:40 Discharge instructions given to patient, Instructed on discharge instructions, follow up and referral plans. Demonstrated understanding of instructions, follow-up care. 21:48 Patient left the ED. fu Signatures: Abiodun Rivero, RN RN Avery Sosa MD MD tw4 Leatha Nur RN RN ca1 Lewis, Charde cl3
[2019-10-26 21:20] LABS: Barbiturates NEGATIVE (NEGATIVE); Benzodiazepines NEGATIVE (NEGATIVE); Cocaine NEGATIVE (NEGATIVE); METHAMPHETAM NEGATIVE (NEGATIVE); Methadone NEGATIVE (NEGATIVE); Opiates NEGATIVE (NEGATIVE); Phencyclidine NEGATIVE (NEGATIVE); THC Cannibis NEGATIVE (NEGATIVE)
[2019-10-26 22:08] VITALS: BP 121/89; TEMP 98; O2SAT 97
[2019-10-26 22:56] LABS: Urine Blood NEGATIVE (NEG); Urine Glucose NEGATIVE (NEG); Urine Protein NEGATIVE (NEG); Urine Specific Gravity >1.030 (1.005-1.030)
== END 2019-10-26 21:48 | disposition home or self-care (01) ==
LOC: ER 19:21
DX: G40.909 Epilepsy, unspecified, not intractable, without status epilepticus (principal); Z88.1 Allergy status to other antibiotic agents; Z88.8 Allergy status to other drugs, medicaments and biological substances; Z87.891 Personal history of nicotine dependence
CPT/HCPCS: 36415; 80048; 80076; 80307; 81003; 82550; 82553; 83690; 83735; 85025; 85610; 85730; 96374; 99283; J1953

== ENCOUNTER 2019-11-14 11:57 | Emergency (ER) | payer SELFPAY ==
--- OUTSIDE RECORDS SUMMARY | 2019-11-14 12:04 | XMS REPORT ---
:1980 [facility] Address [facility] [address] [place] [address] Care Team Providers Name Role Phone LINDY BARRERA Unavailable Unavailable Problems This patient has no known problems. Allergies, Adverse Reactions, Alerts This patient has no known allergies or adverse reactions. Medications This patient has no known medications. Results Test Description Test Time Test Comments Text Results Atomic Results Result Comments BASIC METABOLIC PANEL 2019-06-30 07:38:00 Test Item Value Reference Range Comments SODIUM (BEAKER) (test 137 meq/L 136-145 cedp=785) POTASSIUM (BEAKER) (test 4.0 meq/L 3.5-5.1 ruat=854) CHLORIDE (BEAKER) (test 100 meq/L 98-107 lubq=950) CO2 (BEAKER) (test 27 meq/L 22-29 ngyt=148) BLOOD UREA NITROGEN 4 mg/dL 7-21 (BEAKER) (test totb=943) CREATININE (BEAKER) (test 0.71 mg/dL 0.57-1.25 zxso=521) GLUCOSE RANDOM (BEAKER) 110 mg/dL 70-105 (test ccan=199) CALCIUM (BEAKER) (test 7.2 mg/dL 8.4-10.2 urit=497) EGFR (BEAKER) (test 125 mL/min/1.73 sq m ESTIMATED GFR IS NOT ufzo=9708) ACCURATE CREATININE CLEARANCE IN PREDICTING GLOMERULAR FILTRATION RATE. ESTIMATED GFR IS NOT APPLICABLE FOR DIALYSIS PATIENTS. [id number] 07:19:00 Test Item Value Reference Range Comments PHOSPHORUS (BEAKER) (test gisw=999) 4.5 mg/dL 2.3-4.7 [id number] 07:19:00 Test Item Value Reference Range Comments MAGNESIUM (BEAKER) (test yeka=405) 2.0 mg/dL 1.6-2.6 CBC W/PLT COUNT & AUTO [id number] 07:11:00 Test Item Value Reference Range Comments WHITE BLOOD CELL COUNT (BEAKER) (test lkws=941) 7.3 K/ L 3.5-10.5 RED BLOOD CELL COUNT (BEAKER) (test lvag=949) 3.63 M/ L 4.63-6.08 HEMOGLOBIN (BEAKER) (test uucm=357) 9.4 GM/DL 13.7-17.5 HEMATOCRIT (BEAKER) (test gtpq=539) 33.6 % 40.1-51.0 MEAN CORPUSCULAR VOLUME (BEAKER) (test lcjy=602) 92.6 fL 79.0-92.2 MEAN CORPUSCULAR HEMOGLOBIN (BEAKER) (test 25.9 pg 25.7-32.2 kgdn=270) MEAN CORPUSCULAR HEMOGLOBIN CONC (BEAKER) (test 28.0 GM/DL 32.3-36.5 qcgn=051) RED CELL DISTRIBUTION WIDTH (BEAKER) (test 20.4 % 11.6-14.4 jndp=576) PLATELET COUNT (BEAKER) (test jgbh=990) 196 K/CU MM 150-450 MEAN PLATELET VOLUME (BEAKER) (test ihql=823) 12.5 fL 9.4-12.4 NUCLEATED RED BLOOD CELLS (BEAKER) (test 0 /100 WBC 0-0 uqqh=128) NEUTROPHILS RELATIVE PERCENT (BEAKER) (test 71 % imaw=600) LYMPHOCYTES RELATIVE PERCENT (BEAKER) (test 16 % bzlo=272) MONOCYTES RELATIVE PERCENT (BEAKER) (test 7 % bleg=881) EOSINOPHILS RELATIVE PERCENT (BEAKER) (test 5 % uiht=653) BASOPHILS RELATIVE PERCENT (BEAKER) (test 1 % mtrw=509) NEUTROPHILS ABSOLUTE COUNT (BEAKER) (test 5.18 K/ L 1.78-5.38 nqoo=792) LYMPHOCYTES ABSOLUTE COUNT (BEAKER) (test 1.13 K/ L 1.32-3.57 lpnu=528) MONOCYTES ABSOLUTE COUNT (BEAKER) (test 0.53 K/ L 0.30-0.82 tdwj=432) EOSINOPHILS ABSOLUTE COUNT (BEAKER) (test 0.34 K/ L 0.04-0.54 yfju=311) BASOPHILS ABSOLUTE COUNT (BEAKER) (test 0.04 K/ L 0.01-0.08 shko=763) IMMATURE GRANULOCYTES-RELATIVE PERCENT (BEAKER) 1 % 0-1 (test zqub=7016) [id number] 07:07:00 Test Item Value Reference Range Comments PARTIAL THROMBOPLASTIN TIME (BEAKER) (test 39.0 seconds 22.5-36.0 dccr=338) PROTHROMBIN [id number] 07:06:00 Test Item Value Reference Range Comments PROTIME (BEAKER) (test zhsq=508) 14.3 seconds 11.9-14.2 INR (BEAKER) (test kbwh=019) 1.2 <=5.9 Effective 01/19/2019: PT Reference Range ChangeNew: 11.9-14.2 Previous: 11.7- 14.7RECOMMENDED COUMADIN/WARFARIN INR THERAPY RANGESSTANDARD DOSE: 2.0-3.0 Includes: PROPHYLAXIS for venous thrombosis, systemic embolization; TREATMENT for venous thrombosis and/or pulmonary embolus.HIGH RISK: Target INR is2.5-3.5 for patients wiht mechanical heart valves.CALCIUM, [id number] 07:05:00 Test Item Value Reference Range Comments CALCIUM IONIZED (BEAKER) (test lqgb=405) 0.73 mmol/L 1.12-1.27 PH, BLOOD (BEAKER) (test fycv=1520) 7.54 CBC W/PLT COUNT & AUTO [id number] 15:06:00 Test Item Value Reference Range Comments WHITE BLOOD CELL COUNT (BEAKER) (test qckt=065) 8.4 K/ L 3.5-10.5 RED BLOOD CELL COUNT (BEAKER) (test ciqr=223) 3.72 M/ L 4.63-6.08 HEMOGLOBIN (BEAKER) (test gniq=838) 9.6 GM/DL 13.7-17.5 HEMATOCRIT (BEAKER) (test bsll=678) 34.2 % 40.1-51.0 MEAN CORPUSCULAR VOLUME (BEAKER) (test lfwe=912) 91.9 fL 79.0-92.2 MEAN CORPUSCULAR HEMOGLOBIN (BEAKER) (test 25.8 pg 25.7-32.2 taln=743) MEAN CORPUSCULAR HEMOGLOBIN CONC (BEAKER) (test 28.1 GM/DL 32.3-36.5 ptbt=811) RED CELL DISTRIBUTION WIDTH (BEAKER) (test 20.5 % 11.6-14.4 vrzi=473) PLATELET COUNT (BEAKER) (test vdvp=295) 191 K/CU MM 150-450 MEAN PLATELET VOLUME (BEAKER) (test ldol=245) 12.6 fL 9.4-12.4 NUCLEATED RED BLOOD CELLS (BEAKER) (test 0 /100 WBC 0-0 stdo=034) NEUTROPHILS RELATIVE PERCENT (BEAKER) (test 76 % mrzi=601) LYMPHOCYTES RELATIVE PERCENT (BEAKER) (test 13 % kikq=357) MONOCYTES RELATIVE PERCENT (BEAKER) (test 6 % haec=200) EOSINOPHILS RELATIVE PERCENT (BEAKER) (test 4 % lnvj=529) BASOPHILS RELATIVE PERCENT (BEAKER) (test 0 % cpex=165) NEUTROPHILS ABSOLUTE COUNT (BEAKER) (test 6.36 K/ L 1.78-5.38 fjbv=686) LYMPHOCYTES ABSOLUTE COUNT (BEAKER) (test 1.08 K/ L 1.32-3.57 medg=116) MONOCYTES ABSOLUTE COUNT (BEAKER) (test 0.51 K/ L 0.30-0.82 qkoj=312) EOSINOPHILS ABSOLUTE COUNT (BEAKER) (test 0.37 K/ L 0.04-0.54 zvlu=984) BASOPHILS ABSOLUTE COUNT (BEAKER) (test 0.03 K/ L 0.01-0.08 dheh=570) IMMATURE GRANULOCYTES-RELATIVE PERCENT (BEAKER) 1 % 0-1 (test tmom=9561) POCT-GLUCOSE [id number] 12:26:00 Test Item Value Reference Range Comments POC-GLUCOSE METER (BEAKER) 147 mg/dL 70-110 : TESTED AT [address] (test blce=2986) [facility], [address]: Wet Machine Cutter/Rack Cleaner [id number] for Perfas, Karen POCT-GLUCOSE [id number] 08:38:00 Test Item Value Reference Range Comments POC-GLUCOSE METER (BEAKER) 136 mg/dL 70-110 : TESTED AT [place] [id number] [facility] (test vgsf=1442) [facility], [address]: Wet Machine Cutter/Rack Cleaner IO=[id number] for ELIAS SILVER BASIC METABOLIC [id number] 04:35:00 Test Item Value Reference Range Comments SODIUM (BEAKER) (test 140 meq/L 136-145 xude=477) POTASSIUM (BEAKER) (test 3.8 meq/L 3.5-5.1 Specimen slightly mlsu=251) hemolyzed CHLORIDE (BEAKER) (test 101 meq/L 98-107 ddil=862) CO2 (BEAKER) (test 30 meq/L 22-29 auto=822) BLOOD UREA NITROGEN 5 mg/dL 7-21 (BEAKER) (test qxxr=192) CREATININE (BEAKER) (test 0.73 mg/dL 0.57-1.25 Specimen slightly lxhh=456) hemolyzed GLUCOSE RANDOM (BEAKER) 97 mg/dL 70-105 (test uagb=835) CALCIUM (BEAKER) (test 6.9 mg/dL 8.4-10.2 nqdc=336) EGFR (BEAKER) (test 121 mL/min/1.73 sq m ESTIMATED GFR IS NOT vzmm=2473) ACCURATE CREATININE CLEARANCE IN PREDICTING GLOMERULAR FILTRATION RATE. ESTIMATED GFR IS NOT APPLICABLE FOR DIALYSIS PATIENTS. [id number] 04:18:00 Test Item Value Reference Range Comments MAGNESIUM (BEAKER) (test 2.1 mg/dL 1.6-2.6 Specimen slightly hemolyzed zwrs=201) [id number] 04:18:00 Test Item Value Reference Range Comments PHOSPHORUS (BEAKER) (test 4.6 mg/dL 2.3-4.7 Specimen slightly hemolyzed iwer=648) CBC W/PLT COUNT & AUTO [id number] 03:30:00 Test Item Value Reference Range Comments WHITE BLOOD CELL COUNT (BEAKER) (test ghti=389) 8.1 K/ L 3.5-10.5 RED BLOOD CELL COUNT (BEAKER) (test lipu=765) 3.44 M/ L 4.63-6.08 HEMOGLOBIN (BEAKER) (test lfsv=439) 8.7 GM/DL 13.7-17.5 HEMATOCRIT (BEAKER) (test pqec=973) 31.0 % 40.1-51.0 MEAN CORPUSCULAR VOLUME (BEAKER) (test ocso=805) 90.1 fL 79.0-92.2 MEAN CORPUSCULAR HEMOGLOBIN (BEAKER) (test 25.3 pg 25.7-32.2 vsrn=223) MEAN CORPUSCULAR HEMOGLOBIN CONC (BEAKER) (test 28.1 GM/DL 32.3-36.5 alpv=734) RED CELL DISTRIBUTION WIDTH (BEAKER) (test 20.6 % 11.6-14.4 imhz=837) PLATELET COUNT (BEAKER) (test lwtx=580) 176 K/CU MM 150-450 MEAN PLATELET VOLUME (BEAKER) (test rzdv=013) 12.1 fL 9.4-12.4 NUCLEATED RED BLOOD CELLS (BEAKER) (test 0 /100 WBC 0-0 vlup=613) NEUTROPHILS RELATIVE PERCENT (BEAKER) (test 70 % sqmu=437) LYMPHOCYTES RELATIVE PERCENT (BEAKER) (test 17 % picx=751) MONOCYTES RELATIVE PERCENT (BEAKER) (test 7 % jdzz=419) EOSINOPHILS RELATIVE PERCENT (BEAKER) (test 5 % oyno=244) BASOPHILS RELATIVE PERCENT (BEAKER) (test 0 % orza=342) NEUTROPHILS ABSOLUTE COUNT (BEAKER) (test 5.71 K/ L 1.78-5.38 vvyc=160) LYMPHOCYTES ABSOLUTE COUNT (BEAKER) (test 1.38 K/ L 1.32-3.57 jwzq=209) MONOCYTES ABSOLUTE COUNT (BEAKER) (test 0.57 K/ L 0.30-0.82 exnt=699) EOSINOPHILS ABSOLUTE COUNT (BEAKER) (test 0.38 K/ L 0.04-0.54 ucbf=122) BASOPHILS ABSOLUTE COUNT (BEAKER) (test 0.03 K/ L 0.01-0.08 nyxq=635) IMMATURE GRANULOCYTES-RELATIVE PERCENT (BEAKER) 1 % 0-1 (test vzhl=1739) RAD, CHEST, 1 VIEW, NON [id number] 23:38:00Reason for exam:->preop workupShould this be performed at the bedside?->YesFINAL REPORT AP chest dated 06/28/2019 Comment: Heart is in upper limits of normal in size. Pulmonary vasculature is unremarkable. Lungs are clear. No pulmonary infiltrate or pleural effusion. Impression: No active cardiopulmonary disease. Signed: María Tobias MDReport Verified Date/Time: 06/28/2019 23:38:30 Reading Location: [facility] C0[facility] Consult Reading Room Electronicallysigned by: MARÍA TOBIAS M.D. on 06/28/2019 11:38 PMPOCT-GLUCOSE [id number] 22:26:00 Test Item Value Reference Range Comments POC-GLUCOSE METER (BEAKER) 112 mg/dL 70-110 : TESTED AT [facility] [address] (test qrfs=1294) [facility], [address]: Wet Machine Cutter/Rack Cleaner MI=[id number] for BLACK RENEE COMPREHENSIVE METABOLIC [id number] 20:58:00 Test Item Value Reference Range Comments TOTAL PROTEIN (BEAKER) 8.0 gm/dL 6.0-8.3 Specimen slightly (test zybn=459) hemolyzed ALBUMIN (BEAKER) (test 4.1 g/dL 3.5-5.0 Specimen slightly cgbm=1969) hemolyzed ALKALINE PHOSPHATASE 66 U/L 40-150 (BEAKER) (test penq=500) BILIRUBIN TOTAL (BEAKER) 1.0 mg/dL 0.2-1.2 Specimen slightly (test bdsd=995) hemolyzed SODIUM (BEAKER) (test 137 meq/L 136-145 vels=671) POTASSIUM (BEAKER) (test 4.1 meq/L 3.5-5.1 Specimen slightly hkcq=724) hemolyzed CHLORIDE (BEAKER) (test 97 meq/L 98-107 qscz=278) CO2 (BEAKER) (test 27 meq/L 22-29 qaui=867) BLOOD UREA NITROGEN 7 mg/dL 7-21 (BEAKER) (test bqff=251) CREATININE (BEAKER) (test 0.72 mg/dL 0.57-1.25 Specimen slightly bffu=325) hemolyzed GLUCOSE RANDOM (BEAKER) 73 mg/dL 70-105 (test filw=704) CALCIUM (BEAKER) (test 7.5 mg/dL 8.4-10.2 ssxq=876) AST (SGOT) (BEAKER) (test 75 U/L 5-34 Specimen slightly eelu=412) hemolyzed ALT (SGPT) (BEAKER) (test 47 U/L 6-55 Specimen slightly skau=403) hemolyzed EGFR (BEAKER) (test 123 mL/min/1.73 sq ESTIMATED GFR IS NOT pofh=6303) m ACCURATE CREATININE CLEARANCE IN PREDICTING GLOMERULAR FILTRATION RATE. ESTIMATED GFR IS NOT APPLICABLE FOR DIALYSIS PATIENTS. CBC W/PLT COUNT & AUTO [id number] 20:24:00 Test Item Value Reference Range Comments WHITE BLOOD CELL COUNT (BEAKER) (test ummw=578) 7.9 K/ L 3.5-10.5 RED BLOOD CELL COUNT (BEAKER) (test euod=240) 3.61 M/ L 4.63-6.08 HEMOGLOBIN (BEAKER) (test ycuu=109) 9.2 GM/DL 13.7-17.5 HEMATOCRIT (BEAKER) (test emgp=303) 32.7 % 40.1-51.0 MEAN CORPUSCULAR VOLUME (BEAKER) (test fnsg=316) 90.6 fL 79.0-92.2 MEAN CORPUSCULAR HEMOGLOBIN (BEAKER) (test 25.5 pg 25.7-32.2 remp=185) MEAN CORPUSCULAR HEMOGLOBIN CONC (BEAKER) (test 28.1 GM/DL 32.3-36.5 hepe=415) RED CELL DISTRIBUTION WIDTH (BEAKER) (test 20.8 % 11.6-14.4 hyia=565) PLATELET COUNT (BEAKER) (test nxcn=875) 193 K/CU MM 150-450 MEAN PLATELET VOLUME (BEAKER) (test wwjm=448) 12.4 fL 9.4-12.4 NUCLEATED RED BLOOD CELLS (BEAKER) (test 0 /100 WBC 0-0 wazf=957) NEUTROPHILS RELATIVE PERCENT (BEAKER) (test 69 % rheq=639) LYMPHOCYTES RELATIVE PERCENT (BEAKER) (test 18 % wiro=052) MONOCYTES RELATIVE PERCENT (BEAKER) (test 8 % bvde=794) EOSINOPHILS RELATIVE PERCENT (BEAKER) (test 3 % ryek=264) BASOPHILS RELATIVE PERCENT (BEAKER) (test 0 % hllc=557) NEUTROPHILS ABSOLUTE COUNT (BEAKER) (test 5.46 K/ L 1.78-5.38 tnxf=897) LYMPHOCYTES ABSOLUTE COUNT (BEAKER) (test 1.42 K/ L 1.32-3.57 fmmq=668) MONOCYTES ABSOLUTE COUNT (BEAKER) (test 0.62 K/ L 0.30-0.82 klxc=512) EOSINOPHILS ABSOLUTE COUNT (BEAKER) (test 0.27 K/ L 0.04-0.54 vbij=285) BASOPHILS ABSOLUTE COUNT (BEAKER) (test 0.03 K/ L 0.01-0.08 mczg=603) IMMATURE GRANULOCYTES-RELATIVE PERCENT (BEAKER) 1 % 0-1 (test qnwj=5829) [id number] 20:23:00 Test Item Value Reference Range Comments PARTIAL THROMBOPLASTIN TIME (BEAKER) (test 38.3 seconds 22.5-36.0 sloe=194) PROTHROMBIN TIME/[id number] 20:22:00 Test Item Value Reference Range Comments PROTIME (BEAKER) (test bvwb=876) 13.5 seconds 11.9-14.2 INR (BEAKER) (test uipo=910) 1.1 <=5.9 Effective 01/19/2019: PT Reference Range ChangeNew: 11.9-14.2 Previous: 11.7- 14.7RECOMMENDED COUMADIN/WARFARIN INR THERAPY RANGESSTANDARD DOSE: 2.0-3.0 Includes: PROPHYLAXIS for venous thrombosis, systemic embolization; TREATMENT for venous thrombosis and/or pulmonary embolus.HIGH RISK: Target INR is2.5-3.5 for patients wiht mechanical heart valves.
--- OUTSIDE RECORDS SUMMARY | 2019-11-14 12:05 | XMS REPORT | Summary of Care ---
:[address] [facility] - Health Address [address] [place] [id number] Care Team Providers Name Role Phone Pcp, Patient Does Not Have A Primary Care Provider Reason for Referral (FLO) Status Reason Specialty Diagnoses / Referred By Referred To Procedures Contact Contact New Request CRISTY-OTOLARYNGOLOG Diagnoses Osteophyte of vertebrae Szeremeta, Y Procedures Discharge Follow-Up: Specialty Service CRISTY-OTOLARYNGOLOGY; Other - See Comment ( First available, joint case with neurosurgery) Discharge Follow-Up: Specialty Service CRISTY-OTOLARYNGOLOGY; Other - See Comment ( First available, eliseo Huang MD t case with neurosurgery) [address] [place] [phone] (Routine) Status Reason Specialty Diagnoses / Referred By Referred To Procedures Contact Contact New Request NS-NEUROLOGICAL Diagnoses Osteophyte of vertebrae Szeremeta, SURGERY Procedures Discharge Follow-Up: Specialty Service NS-NEUROLOGICAL SURGERY; Other - See Comment (FIRST AVAILABLE) Discharge Follow-Up: Specialty Service NS-NEUROLOGICAL SURGERY; Other - See Comment (FIRST AVAILABLE) MD [address] [place] [address] Reason for Visit Reason Comments REFERRAL Auth/Cert Status Reason Specialty Diagnoses / Referred By Referred To Procedures Contact Contact Emergency Medicine [facility]gency [facility] [address] [place] [phone] Encounter Details Date Type Department Care Team Description 10/31/2019 - Emergency [facility] Osteophyte of vertebrae (Primary Dx); 11/01/[address] [place] [address] [place] [phone] Allergies Active Allergy Reactions Severity Noted Date Comments Zolpidem Tartrate Unknown - See comments 07/20/2015 Amoxicillin Swelling High 10/01/2018 Nsaids (Non-Steroidal Unknown - See comments 07/13/2019 Anti-Inflammatory Drug) documented as of this encounter (statuses as of 11/01/2019) Medications Medication Sig Dispensed Refills Start Date End Date Status traMADol 50 mg Take 1 tablet 30 tablet 0 11/01/2019 Active tabletIndications: by mouth every Osteophyte of 6 (six) hours vertebrae as needed for Pain (scale 4-6). traMADol 50 mg Take 1 tablet 20 tablet 0 09/07/2019 11/01/2019 Discontinued tabletIndications: by mouth every Tooth infection 6 (six) hours as needed for Pain (scale 4-6). predniSONE 10 mg Take 5 tablets 20 tablet 0 10/28/2019 11/01/2019 Discontinued tabletIndications: by mouth daily Dizziness for 4 days. documented as of this encounter (statuses as of 11/01/2019) Active Problems Problem Noted Date Drug-seeking behavior 10/23/2017 Back pain, unspecified back location, unspecified back pain laterality, 2017 unspecified chronicity documented as of this encounter (statuses as of 11/01/2019) Social History Tobacco Use Types Packs/Day Years [...] Sign Reading Time Taken Comments Blood Pressure 136/95 11/01/2019 3:00 AM CDT Pulse 89 11/01/2019 3:00 AM CDT Temperature 37 C (98.6 F) 11/01/2019 3:00 AM CDT Respiratory Rate 18 11/01/2019 3:00 AM CDT Oxygen Saturation 98% 11/01/2019 3:00 AM CDT Inhaled Oxygen Concentration - - Weight 99.8 kg (220 lb) 10/31/2019 11:09 PM CDT Height - - Body Mass Index 36.61 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 Will prescribe him a short course of pain medicine for breakthrough pain while preparing for trans-oral approach to osteophyte excision as a joint case with Neurosurgery and ENT surgery. It is known he filled a prescription of Tramadol 10/25/19, and follow ups in clinic will treat his pain accordingly. - Safe for discharge home, patient reports family is coming from [place] and will be here in a few hours - Tramadol 50, 30 tabs - Benadryl PRN - Next available Neurosurgery clinic follow up, ordered FLO - FLO ENT referral, for planning for surgery Eusebio Kendrick MD Otolaryngology - Head and Neck Surgery [phone] signed by Eusebio Kendrick MD at 11/01/2019 3:04 AM CDTdocumented in this encounter Plan of Treatment Health Maintenance Due Date Last Done Comments VARICELLA VACCINES (1 of 2 - 2-dose childhood series) 1983 PNEUMOCOCCAL 0-64 YEARS COMBINED SERIES (1 of 1 - 1988 PPSV23) DTaP,Tdap,and Td Vaccines (1 - Tdap) 1993 INFLUENZA VACCINE (#1) 2019 documented as of this encounter Results Not on filedocumented in this encounter Visit Diagnoses Diagnosis Osteophyte of vertebrae - Primary Other allied disorders of spine Tooth infection Acute apical periodontitis of pulpal origin documented in this encounter Administered Medications Medication Order MAR Action Action Date Dose Rate Site diphenhydrAMINE (BENADRYL) 12.5 Given 11/01/2019 2:55 AM CDT 25 mg mg/5 mL solution 25 mg 25 mg, Oral, ONCE, 1 dose, 11/01/19 at 0245, FLO documented in this encounter Insurance Payer Benefit Plan / Subscriber ID Effective Phone Address Type Group Dates MEDICAID MEDICAID SSI PENDING [phone] [place] [address] documented as of this encounter Advance Directives Name Relationship Healthcare Agent Communication Relationship Carina Lo Mother Primary healthcare agent
--- OUTSIDE RECORDS SUMMARY | 2019-11-14 12:05 | XMS REPORT | Summary of Care ---
:1980 Author Organization [facility] - [facility] Address [address] [place] [address] Care Team Providers Name Role Phone Pcp, Patient Does Not Have A Primary Care Provider Reason for Referral Radiology Services (STAT) Status Reason Specialty Diagnoses / Referred By Referred To Procedures Contact Contact New Request Diagnostic Diagnoses Allergic reaction, initial encounter Hasn Nair, Radiology Procedures XR NECK SOFT TISSUE MD [address] [facility] [id number] [place] [address] Reason for Visit Reason Comments Other throat tight Auth/Cert Status Reason Specialty Diagnoses / Referred By Referred To Procedures Contact Contact Emergency Medicine [facility] [address] [place] [address] [place] [address] Encounter Details Date Type Department Care Team Description 10/29/2019 Emergency ADC-Emergency Hans Nair MD Allergic reaction, Department [address] [facility] initial encounter [address] [place] [address] [id number] (Primary Dx) [address] [phone] [facility] [phone] Allergies Active Allergy Reactions Severity Noted Date Comments Zolpidem Tartrate Unknown - See comments 07/20/2015 Amoxicillin Swelling High 10/01/2018 Nsaids (Non-Steroidal Unknown - See comments 07/13/2019 Anti-Inflammatory Drug) documented as of this encounter (statuses as of 10/29/2019) Medications Medication Sig Dispensed Refills Start Date End Date Status traMADol 50 mg Take 1 tablet by 20 tablet 0 09/07/2019 Active tabletIndications: mouth every 6 Tooth infection (six) hours as needed for Pain (scale 4-6). predniSONE 10 mg Take 5 tablets by 20 tablet 0 10/28/2019 11/01/2019 Active tabletIndications: mouth daily for 4 Dizziness days. documented as of this encounter (statuses as of 10/29/2019) Active Problems Problem Noted Date Drug-seeking behavior 10/23/2017 Back pain, unspecified back location, unspecified back pain laterality, 2017 unspecified chronicity documented as of this encounter (statuses as of 10/29/2019) Social History Tobacco Use Types Packs/Day Years [...] Sign Reading Time Taken Comments Blood Pressure 140/89 10/29/2019 10:00 PM SECRETARY SPECIALIST Pulse 104 10/29/2019 10:00 PM SECRETARY SPECIALIST Temperature 37.1 C (98.7 F) 10/29/2019 8:39 PM SECRETARY SPECIALIST Respiratory Rate 27 10/29/2019 10:00 PM SECRETARY SPECIALIST Oxygen Saturation 91% 10/29/2019 10:00 PM SECRETARY SPECIALIST Inhaled Oxygen Concentration - - Weight 99.8 kg (220 lb) 10/29/2019 8:39 PM SECRETARY SPECIALIST Height - - Body Mass Index 36.61 07/14/2019 12:56 PM SECRETARY SPECIALIST documented in this encounter Discharge Instructions Hans Moody MD - 10/29/2019 DIAGNOSIS Diagnoses that have been ruled out: None Diagnoses that are still under consideration: None Final diagnoses: Allergic reaction, initial encounter NO LIFE-THREATENING FINDINGS ON TODAY'S EXAM. PROCEDURES IN THE ER TODAY: Orders Placed This Encounter Procedures XR NECK SOFT TISSUE MEDICATIONS ADMINISTERED IN THE ER TODAY: Orders Placed This Encounter Medications methylprednisolone sod succ (SOLU-MEDROL) injection 125 mg diphenhydrAMINE (BENADRYL) injection 50 mg famotidine (PEPCID (PF)) injection 20 mg YOUR PRESCRIPTIONS AND GTEE-MOS-EAIWIXU MEDICATION RECOMMENDATIONS: Continue medications SPECIAL CARE INSTRUCTIONS: Follow up with PCP Return to the ED if worsening of symptoms. FOLLOW-UP RECOMMENDATIONS: RECOMMEND FOLLOW-UP WITH A PRIMARY CARE PROVIDER OR SPECIALIST IN 2-5 DAYS, ESPECIALLY IF NO IMPROVEMENT IN SYMPTOMS. TO FOLLOW-UP WITHIN THE [facility], TRY THESE OPTIONS (CLINIC APPOINTMENTS AVAILABLE ON GLHI-SC-CLSM BASIS): 1. SCHEDULE AN APPOINTMENT ONLINE AT WWW[facility] 2. OR CALL THE [facility] ACCESS CENTER AT OR 3. OR CALL YOUR [facility] PHYSICIAN'S OFFICE DIRECTLY IF YOU ARE ALREADY AN ESTABLISHED [facility] PATIENT. OR, YOU MAY FOLLOW-UP WITH A PROVIDER OF YOUR CHOICE, SUCH : 1. A PHYSICIAN OF YOUR CHOICE 2. [facility], . LOCATIONS IN [facility] 3. [facility], [address], [place]; RETURN TO ER FOR WORSENING OF SYMPTOMS. AttachmentsThe following attachments cannot be sent through Care Everywhere.Allergic Reactions, General (Chadian)documented in this encounter Plan of Treatment Health Maintenance Due Date Last Done Comments VARICELLA VACCINES (1 of 2 - 2-dose childhood series) 1983 PNEUMOCOCCAL 0-64 YEARS COMBINED SERIES (1 of 1 - 1988 PPSV23) DTaP,Tdap,and Td Vaccines (1 - Tdap) 1993 INFLUENZA VACCINE (#1) 2019 documented as of this encounter Procedures Procedure Name Priority Date/Time Associated Diagnosis Comments XR NECK SOFT TISSUE STAT 10/29/2019 9:19 PM Allergic reaction, Results for this SECRETARY SPECIALIST initial encounter procedure are in the results section. documented in this encounter Results XR NECK SOFT TISSUE (10/29/2019 9:19 PM SECRETARY SPECIALIST) Specimen Impressions Performed At Negative radiographs of the neck PACS/VR/DOSE RL: [id number] End of report Narrative Performed At ORDERING PHYSICIAN: HANS NAIR PACS/VR/DOSE TECHNIQUE: 2 views of the neck HISTORY: Neck swelling COMPARISON: None FINDINGS: The airway is patent. The epiglottis is normal. The prevertebral soft tissues are normal. No acute osseous abnormalities are identified. Procedure Note [facility], Radiant Results Inft User - 10/29/2019 9:46 PM SECRETARY SPECIALIST ORDERING PHYSICIAN: HANS NAIR TECHNIQUE: 2 views of the neck HISTORY: Neck swelling COMPARISON: None FINDINGS: The airway is patent. The epiglottis is normal. The prevertebral soft tissues are normal. No acute osseous abnormalities are identified. IMPRESSION Negative radiographs of the neck RL: [id number] End of report Performing Organization Address City/State/Zipcode Phone Number PACS/VR/DOSE documented in this encounter Visit Diagnoses Diagnosis Allergic reaction, initial encounter - Primary documented in this encounter Administered Medications Medication Order MAR Action Action Date Dose Rate Site diphenhydrAMINE (BENADRYL) Given 10/29/2019 8:58 PM SECRETARY SPECIALIST 50 mg injection 50 mg 50 mg, Slow IV Push, ONCE, 1 dose, 10/29/19 at 2200, STAT famotidine (PEPCID (PF)) injection 20 mg Given 10/29/2019 8:59 PM SECRETARY SPECIALIST 20 mg 20 mg, Slow IV Push, ONCE, 1 dose, 10/29/19 at 2200, FLO methylprednisolone sod succ (SOLU-MEDROL) Given 10/29/2019 8:58 PM SECRETARY SPECIALIST 125 mg injection 125 mg 125 mg, IV Piggyback, ONCE, 1 dose, 10/29/19 at 2200, STAT documented in this encounter Insurance Payer Benefit Plan / Subscriber ID Effective Phone Address Type Group Dates MEDICAID MEDICAID SSI PENDING 2019-[address] [place] [address] documented as of this encounter Advance Directives Name Relationship Healthcare Agent Communication Relationship Carina Lo Mother Primary healthcare agent
--- OUTSIDE RECORDS SUMMARY | 2019-11-14 12:05 | XMS REPORT | Summary of Care ---
:1980 Author Organization [facility] - [facility] Address [address] [place] [address] Care Team Providers Name Role Phone Pcp, Patient Does Not Have A Primary Care Provider Reason for Visit Reason Comments Rx Concern/Question Tamadol Encounter Details Date Type Department Care Team Description 11/01/2019 Telephone [facility] Ear, Nose Szeremeta, Wasyl, Rx Concern/ Question and Throat-[place] MD (Tamadol) [address] [phone] Allergies Active Allergy Reactions Severity Noted Date Comments Zolpidem Tartrate Unknown - See comments 07/20/2015 Amoxicillin Swelling High 10/01/2018 Nsaids (Non-Steroidal Unknown - See comments 07/13/2019 Anti-Inflammatory Drug) documented as of this encounter (statuses as of 11/01/2019) Medications Medication Sig Dispensed Refills Start Date End Date Status traMADol 50 mg Take 1 tablet by 30 tablet 0 11/01/2019 Active tabletIndications: mouth every 6 Osteophyte of (six) hours as vertebrae needed for Pain (scale 4-6). documented as of this encounter (statuses as [...] filedocumented in this encounter Plan of Treatment Date Type Specialty Care Team Description 11/03/2019 Office Visit Neurological Surgery Elsy Garcia MD [address] [place] [address]. [address] [place] [phone] Health Maintenance Due Date Last Done Comments [...] Type Group Dates MEDICAID MEDICAID SSI PENDING 2019- [place] Pending PENDING PENDING 2019 [place] [address] MEDICAID MEDICAID SSI PENDING 2019- [address] [place] [address] Pending PENDING PENDING 2019 [place] [address] documented as of this encounter Advance Directives Name Relationship Healthcare Agent Communication Relationship Carina Lo Mother Primary healthcare agent
--- OUTSIDE RECORDS SUMMARY | 2019-11-14 12:05 | XMS REPORT | Summary of Care ---
:1980 Author Organization [facility] - [facility] Address [address] [place] [address] Care Team Providers Name Role Phone Pcp, Patient Does Not Have A Primary Care Provider Reason for Visit Reason Comments Rx Concern/Question Tamadol Encounter Details Date Type Department Care Team Description 11/01/2019 Telephone [facility] Ear, Nose Szeremeta, Wasyl, Rx Concern/ Question and Throat-[place] (Tamadol) [address] [phone] Allergies Active Allergy Reactions Severity Noted Date Comments Zolpidem Tartrate Unknown - See comments 07/20/2015 Amoxicillin Swelling High 10/01/2018 Nsaids (Non-Steroidal Unknown - See comments 07/13/2019 Anti-Inflammatory Drug) documented as of this encounter (statuses as of 11/01/2019) Medications Medication Sig Dispensed Refills Start Date End Date Status traMADol 50 mg Take 1 30 tablet 0 11/01/2019 11/01/2019 Discontinued tabletIndication tablet by (Discontinued by s: Osteophyte of mouth every another clinician) vertebrae 6 (six) hours as needed for Pain (scale 4-6). documented as [...] Team Description 11/03/2019 Office Visit Neurological Surgery Jose, Elsy MD Lin[place] [address] [place] [address]. [address] [place] [phone] Health Maintenance Due Date Last Done Comments [...] Group Dates MEDICAID MEDICAID SSI PENDING 2019- [place] Pending PENDING PENDING 2019 [place] [address] MEDICAID MEDICAID SSI PENDING 2019- [place] Pending PENDING PENDING 2019 [place] [address] documented as of this encounter Advance Directives Name Relationship Healthcare Agent Communication Relationship Carina Rocha Wally Mother Primary healthcare agent
--- OUTSIDE RECORDS SUMMARY | 2019-11-14 12:05 | XMS REPORT | Summary of Care ---
:1980 Author Organization [facility] - Health Address [address] [place] [address] Care Team Providers Name Role Phone Pcp, Patient Does Not Have A Primary Care Provider Reason for Visit Reason Comments Dizziness Auth/Cert Status Reason Specialty Diagnoses / Referred By Referred To Procedures Contact Contact Emergency Medicine [facility] Emergency Dept [address] [place] [address] [place] [address] Encounter Details Date Type Department Care Team Description 10/27/2019 Emergency ADC-Emergency Clara Iqbal, Dizziness (Primary Dx) Department DO [address] [place] [id number] [place] [address] [phone] Allergies Active Allergy Reactions Severity Noted Date Comments Zolpidem Tartrate Unknown - See comments 07/20/2015 Amoxicillin Swelling High 10/01/2018 Nsaids (Non-Steroidal Unknown - See comments 07/13/2019 Anti-Inflammatory Drug) documented as of this encounter (statuses as of 10/27/2019) Medications Medication Sig Dispensed Refills Start Date [...] as of this encounter (statuses as of 10/27/2019) Active Problems Problem Noted Date Drug-seeking behavior 10/23/2017 Back pain, unspecified back location, unspecified back pain laterality, 2017 unspecified chronicity documented as of this encounter (statuses as of 10/27/2019) Social History Tobacco Use Types Packs/Day Years [...] Sign Reading Time Taken Comments Blood Pressure 125/92 10/27/2019 10:00 PM GATE TECHNICIAN Pulse 91 10/27/2019 10:00 PM GATE TECHNICIAN Temperature 37.2 C (99 F) 10/27/2019 8:56 PM GATE TECHNICIAN Respiratory Rate 23 10/27/2019 10:00 PM GATE TECHNICIAN Oxygen Saturation 94% 10/27/2019 10:00 PM GATE TECHNICIAN Inhaled Oxygen Concentration - - Weight 99.8 kg (220 lb) 10/27/2019 8:56 PM GATE TECHNICIAN Height - - Body Mass Index 36.61 07/14/2019 12:56 PM GATE TECHNICIAN documented in this encounter Discharge Instructions Clara Bermudez DO - 10/27/2019DIAGNOSIS 1. Throat swelling NO LIFE-THREATENING FINDINGS ON TODAY'S EXAM. PROCEDURES IN THE ER TODAY: Blood work MEDICATIONS ADMINISTERED IN THE ER TODAY: IV fluids Solu-medrol epinephrine YOUR PRESCRIPTIONS AND [id number] MEDICATION RECOMMENDATIONS: Prednisone by mouth daily starting Thursdayoctober 27 SPECIAL CARE INSTRUCTIONS: Please return to the emergency department if you have trouble breathing or swelling in your throat. FOLLOW-UP RECOMMENDATIONS: RECOMMEND FOLLOW-UP WITH A PRIMARY CARE PROVIDER OR SPECIALIST IN 2-5 DAYS, ESPECIALLY IF NO IMPROVEMENT IN SYMPTOMS. TO FOLLOW-UP WITHIN THE [facility], TRY THESE OPTIONS (CLINIC APPOINTMENTS AVAILABLE ON [id number] BASIS): 1. SCHEDULE AN APPOINTMENT ONLINE AT WWW.[facility] 2. OR CALL THE [facility] ACCESS CENTER AT OR 3. OR CALL YOUR [facility] PHYSICIAN'S OFFICE DIRECTLY IF YOU ARE ALREADY AN ESTABLISHED [facility] PATIENT. OR, YOU MAY FOLLOW-UP WITH A PROVIDER OF YOUR CHOICE, SUCH : 1. A PHYSICIAN OF YOUR CHOICE 2. [facility], . LOCATIONS IN [facility] 3. [facility], [address], [place]; RETURN TO ER FOR WORSENING OF SYMPTOMS. documented in this encounter Plan of Treatment Name Type Priority Associated Diagnoses Date/Time THROAT CULTURE LAB STAT Dizziness 10/27/2019 9:08 PM GATE TECHNICIAN Name Type Priority Associated Diagnoses Order Schedule THROAT CULTURE LAB Routine Dizziness ONCE for 1 Occurrences starting 10/27/2019 until 10/27/2019 Health Maintenance Due Date Last Done Comments VARICELLA VACCINES (1 of 2 - 2-dose childhood series) 1983 PNEUMOCOCCAL 0-64 YEARS COMBINED SERIES (1 of 1 - 1988 PPSV23) DTaP,Tdap,and Td Vaccines (1 - Tdap) 1993 INFLUENZA VACCINE (#1) 2019 documented as of this encounter Procedures Procedure Name Priority Date/Time Associated Comments Diagnosis CBC WITH DIFFERENTIAL STAT 10/27/2019 9:17 Dizziness Results for this PM GATE TECHNICIAN procedure are in the results section. CBC WITH DIFFERENTIAL Routine 10/27/2019 9:17 Dizziness Results for this PM GATE TECHNICIAN procedure are in the results section. BASIC METABOLIC PANEL STAT 10/27/2019 9:17 Dizziness Results for this (NA, K, CL, CO2, PM GATE TECHNICIAN procedure are in GLUCOSE, BUN, the results CREATININE, CA) section. RAPID STREP SCREEN STAT 10/27/2019 9:08 Dizziness Results for this FOR GROUP A PM GATE TECHNICIAN procedure are in the results section. CONSENT/REFUSAL FOR Routine 10/27/2019 8:45 DIAGNOSIS AND PM GATE TECHNICIAN TREATMENT documented in this encounter Results CBC WITH DIFFERENTIAL (10/27/2019 9:17 PM GATE TECHNICIAN) WBC 10.50 4.20 - 10.70 [facility] 10*3/L HOSPITAL LABORATORY RBC 4.31 4.26 - 5.52 [facility] 10*6/L HOSPITAL LABORATORY HGB 11.2 (L) 12.2 - 16.4 [facility] g/dL HOSPITAL LABORATORY HCT 37.2 (L) 38.4 - 49.3 % [facility] LABORATORY MCV 86.3 81.7 - 95.6 [facility] HOSPITAL LABORATORY MCH 26.0 (L) 26.1 - 32.7 [facility] LABORATORY MCHC 30.1 (L) 31.2 - 35.0 [facility] g/dL HOSPITAL LABORATORY RDW-SD 46.1 38.5 - 51.6 [facility] LABORATORY RDW-CV 14.7 12.1 - 15.4 % [facility] LABORATORY PLT 152 150 - 328 [facility] 10*3/L [facility] LABORATORY MPV 12.7 9.8 - 13.0 fL [facility] LABORATORY IPF % 16.0 (H)Comment: 1.2 - 10.7 % [facility] Platelet count HOSPITAL measured by LABORATORY fluorescence method. NRBC/100 WBC 0.0 0.0 - 10.0 [facility] /100 WBCs [facility] LABORATORY NRBC x10^3 <0.01 10*3/L [facility] LABORATORY GRAN MAT (NEUT) % 65.2 % [facility] LABORATORY IMM GRAN % 0.80 % [facility] LABORATORY LYMPH % 20.0 % [facility] LABORATORY MONO % 7.6 % [facility] LABORATORY EOS % 6.0 % [facility] LABORATORY BASO % 0.4 % [facility] LABORATORY GRAN MAT 6.85 1.99 - 6.95 [facility] x10^3(ANC) 10*3/uL [facility] LABORATORY IMM GRAN x10^3 0.08 (H) 0.00 - 0.06 [facility] 10*3/uL [facility] LABORATORY LYMPH x10^3 2.10 1.09 - 3.23 [facility] 10*3/uL [facility] LABORATORY MONO x10^3 0.80 0.36 - 1.02 [facility] 10*3/uL [facility] LABORATORY EOS x10^3 0.63 (H) 0.06 - 0.53 [facility] 10*3/uL [facility] LABORATORY BASO x10^3 0.04 0.01 - 0.09 [facility] 10*3/uL [facility] LABORATORY Specimen Blood - VENOUS Performing Organization Address City/State/Zipcode Phone Number [facility] CLIA: [id number], [address] [place] [address] [phone] Basic Metabolic Panel (NA, K, CL, CO2, GLUCOSE, BUN, CREATININE, CA) (2019 9:17 PM GATE TECHNICIAN) NA 137 135 - 145 [facility] mmol/L [facility] LABORATORY K 4.4 3.5 - 5.0 [facility] mmol/L [facility] LABOR[facility] CL 94 (L) 98 - 108 mmol/L [facility] LABORATORY CO2 TOTAL 34 (H) 23 - 31 mmol/L [facility] LABORATORY AGAP 9 2 - 16 [facility] LABORATORY BUN 16 7 - 23 mg/dL [facility] GLUCOSE 111 (H) 70 - 110 mg/dL [facility] LABORATORY CREATININE 1.01 0.60 - 1.25 [facility] mg/dL [facility] LABORATORY CALCIUM 7.8 (L) 8.6 - 10.6 [facility] mg/dL [facility] LABORATORY eGFR Calculation 83.1 mL/min/1.73m2 [facility] (Non-[facility] LABORATORY [place]) eGFR Calculation 100.7 mL/min/1.73m2 [facility] () [facility] LABORATORY Specimen Blood - VENOUS Narrative Performed At Association of Glomerular Filtration Rate (GFR) [facility] LABORATORY and Staging of Kidney Disease* + + +- + | GFR (mL/min/1.73 m2) | With Kidney Damage | Without Kidney Damage + + +- + | >90 | Stage one | Normal + + +- + | 60-89 | Stage two | Decreased GFR + + +- + | 30-59 | Stage three | Stage three + + +- + | 15-29 | Stage four | Stage four + + +- + | <15 (or dialysis) | Stage five | Stage five + + +- + *Each stage assumes the associated GFR level has been in effect for at least three months. Stages 1 to 5, with or without kidney disease, indicate chronic kidney disease. Notes: Determination of stages one and two (with eGFR >59mL/min/1.73 m2) requires estimation of kidney damage for at least three months as defined by structural or functional abnormalities of the kidney, manifested by either: Pathological abnormalities or Markers of kidney damage (including abnormalities in the composition of the blood or urine or abnormalities in imaging tests). Performing Organization Address [facility] Phone Number [facility] CLIA: [id number], [address] [place] [address] RAPID STREP SCREEN FOR GROUP A (10/27/2019 9:08 PM GATE TECHNICIAN) Streptococcus pyogenes Negative Negative [facility] (group A) antigen HOSPITAL LABORATORY Specimen Swab - THROAT Performing Organization Address City/[facility] Phone Number [facility] CLIA: [id number], [address] [place] [address] [phone] documented in this encounter Visit Diagnoses Diagnosis Dizziness - Primary Dizziness and giddiness documented in this encounter Administered Medications Medication Order MAR Action Action Date Dose Rate Site EPINEPHrine 1:1,000 (1 Given 10/27/2019 11:00 PM 0.3 mg Left Deltoid-IM mg/mL) (ADRENALIN) GATE TECHNICIAN injection 0.3 mg 0.3 mg, Intramuscular, ONCE, 1 dose, Karen 10/27/19 at 2300, STAT methylprednisolone sod succ (SOLU-MEDROL) Given 10/27/2019 9:17 PM GATE TECHNICIAN 125 mg injection 125 mg 125 mg, IV Piggyback, ONCE, 1 dose, Karen 10/27/19 at 2215, STAT NaCl 0.9% (NS) bolus infusion New Bag 10/27/2019 9:17 PM GATE TECHNICIAN 1,000 mL 999 mL/hr 1,000 mL at 999 mL/hr, 1,000 mL, IV Infusion, ONCE, 1 dose, Karen 10/27/19 at 2115, FLO documented in this encounter Insurance Payer Benefit Plan / Subscriber ID Effective Phone Address Type Group Dates MEDICAID MEDICAID SSI PENDING 2019-[address] [place] [address] documented as of this encounter Advance Directives Name Relationship Healthcare Agent Communication Relationship Carina Lo Mother Primary healthcare agent "
--- OUTSIDE RECORDS SUMMARY | 2019-11-14 12:05 | XMS REPORT | Summary of Care ---
:1980 Author Organization [facility] - [facility] Address [address] [place] [address] Care Team Providers Name Role Phone Pcp, Patient Does Not Have A Primary Care Provider Reason for Referral MRI/CAT Scan (STAT) Status Reason Specialty Diagnoses / Referred By Referred To Procedures Contact Contact New Request Diagnostic Diagnoses Dysphagia, unspecified type [place], Radiology Procedures CT SOFT TISSUE NECK W CONTRAST NATACHA MooreP [address] [address] Reason for Visit Reason Comments Other thinks throat is closing - third visit for same complaint Auth/Cert Status Reason Specialty Diagnoses / Referred By Referred To Procedures Contact Contact Emergency Medicine Diagnoses [facility] [address] [place] [address] [place] [address] Encounter Details Date Type Department Care Team Description 10/31/2019 Emergency ADC-Emergency IbikunleLakesha [employer] CARETAKER [address] [address] Dysphagia, unspecified Department Reina Kolb MD [address] [place] [address] type (Primary Dx) [address] [place] [address] Dr [place], [place] [id number] Allergies Active Allergy Reactions Severity Noted Date Comments Zolpidem Tartrate Unknown - See comments 07/20/2015 Amoxicillin Swelling High 10/01/2018 Nsaids (Non-Steroidal Unknown - See comments 07/13/2019 Anti-Inflammatory Drug) documented as of this encounter (statuses as of 10/31/2019) Medications Medication Sig Dispensed Refills Start Date [...] as of this encounter (statuses as of 10/31/2019) Active Problems Problem Noted Date Drug-seeking behavior 10/23/2017 Back pain, unspecified back location, unspecified back pain laterality, 2017 unspecified chronicity documented as of this encounter (statuses as of 10/31/2019) Social History Tobacco Use Types Packs/Day Years [...] Sign Reading Time Taken Comments Blood Pressure 136/78 10/31/2019 9:16 PM CDT Pulse 80 10/31/2019 9:16 PM CDT Temperature 37 C (98.6 F) 10/31/2019 9:16 PM CDT Respiratory Rate 18 10/31/2019 9:16 PM CDT Oxygen Saturation 98% 10/31/2019 9:16 PM CDT Inhaled Oxygen Concentration - - Weight 99.8 kg (220 lb) 10/31/2019 5:10 PM CDT Height - - Body Mass Index 36.61 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 CBC WITH DIFFERENTIAL STAT 10/31/2019 7:08 Dysphagia, Results for this PM CDT unspecified type procedure are in the results section. CBC WITH DIFFERENTIAL STAT 10/31/2019 7:08 Dysphagia, Results for this PM CDT unspecified type procedure are in the results section. BASIC METABOLIC PANEL STAT 10/31/2019 7:08 Dysphagia, Results for this (NA, K, CL, CO2, PM CDT unspecified type procedure are in GLUCOSE, BUN, the results CREATININE, CA) section. documented in this encounter Results CT SOFT TISSUE NECK W CONTRAST (10/31/2019 8:23 PM CDT) Specimen Impressions Performed At PACS/VR/DOSE 1. No definite focal mass of visualized aerodigestive tract. 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 2. No pathologic cervical lymph nodes by imaging criteria. Narrative Performed At CT SOFT TISSUE NECK W CONTRAST PACS/VR/DOSE HISTORY: Tonsil/adenoid disorder Sore throat/stridor, epiglottis or tonsillitis suspected TECHNIQUE: Routine enhanced CT study of the neck was performed with images obtained from the skull base to the thoracic inlet. Images were reviewed in soft tissue and bone detail. 100 ml of Omnipaque was injected intravenously. COMPARISON: None. FINDINGS: Right palatine tonsillith. No definite focal mass the visualized aerodigestive tract. 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 C2-C3 vertebral body fusion. No pathologic cervical lymph nodes by imaging criteria. The submandibular glands are not well-visualized. No dominant thyroid nodule. Degenerative changes of the cervical spine. Aberrant right subclavian artery. Opacification of right mastoid air cells. Right greater than left maxillary sinus retention cyst.01 Procedure Note [facility], Radiant Results Inft User - 10/31/2019 8:[address] SOFT TISSUE NECK W CONTRAST HISTORY: Tonsil/adenoid disorder Sore throat/stridor, epiglottis or tonsillitis suspected TECHNIQUE: Routine enhanced CT study of the neck was performed with images obtained from the skull base to the thoracic inlet. Images were reviewed in soft tissue and bone detail. 100 ml of Omnipaque was injected intravenously. COMPARISON: None. FINDINGS: Right palatine tonsillith. No definite focal mass the visualized aerodigestive tract. 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 C2-C3 vertebral body fusion. No pathologic cervical lymph nodes by imaging criteria. The submandibular glands are not well-visualized. No dominant thyroid nodule. Degenerative changes of the cervical spine. Aberrant right subclavian artery. Opacification of right mastoid air cells. Right greater than left maxillary sinus retention cyst.01 IMPRESSION 1. No definite focal mass of visualized aerodigestive tract. 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 2. No pathologic cervical lymph nodes by imaging criteria. Performing Organization Address City/State/Zipcode Phone Number PACS/VR/DOSE CBC WITH DIFFERENTIAL (10/31/2019 7:08 PM CDT) WBC 11.10 (H) 4.20 - 10.70 [facility] 10*3/L [facility] RBC 4.56 4.26 - 5.52 [facility] 10*6/L [facility] HGB 11.7 (L) 12.2 - 16.4 [facility] g/dL [facility] HCT 39.8 38.4 - 49.3 % [facility] MCV 87.3 81.7 - 95.6 [facility] LABORATORY MCH 25.7 (L) 26.1 - 32.7 [facility] LABORATORY MCHC 29.4 (L) 31.2 - 35.0 [facility] g/dL [facility] RDW-SD 47.9 38.5 - 51.6 [facility] LABORATORY RDW-CV 15.0 12.1 - 15.4 % [facility] PLT 150 150 - 328 [facility] 10*3/L [facility] MPV 13.6 (H) 9.8 - 13.0 fL [facility] IPF % 16.7 (H)Comment: 1.2 - 10.7 % [facility] Platelet count HOSPITAL measured by LABORATORY fluorescence method. NRBC/100 WBC 0.0 0.0 - 10.0 [facility] /100 WBCs [facility] NRBC x10^3 <0.01 10*3/L [facility] GRAN MAT (NEUT) % 63.6 % [facility] IMM GRAN % 1.20 % [facility] LYMPH % 25.7 % [facility] MONO % 7.6 % [facility] EOS % 1.5 % [facility] BASO % 0.4 % [facility] GRAN MAT 7.07 (H) 1.99 - 6.95 [facility] x10^3(ANC) 10*3/uL HOSPITAL LAB[facility]ATORY IMM GRAN x10^3 0.13 (H) 0.00 - 0.06 [facility] 10*3/uL [facility] LYMPH x10^3 2.85 1.09 - 3.23 [facility] 10*3/uL [facility] MONO x10^3 0.84 0.36 - 1.02 [facility] 10*3/uL [facility]ITAL LAB[facility]ORY EOS x10^3 0.17 0.06 - 0.53 [facility] 10*3/uL [facility]ITAL LAB[facility]ORY BASO x10^3 0.04 0.01 - 0.09 [facility] 10*3/uL [facility] Specimen Blood - VENOUS Performing Organization Address City/State/Zipcode Phone Number [facility] CLIA: [id number], [address] [place], [place] [id number] [address] BASIC METABOLIC PANEL (NA, K, CL, CO2, GLUCOSE, BUN, CREATININE, CA) (2019 7:08 PM CDT) NA 139 135 - 145 [facility] mmol/L [facility] K 3.9 3.5 - 5.0 [facility] mmol/L [facility] CL 95 (L) 98 - 108 mmol/L [facility] CO2 TOTAL 34 (H) 23 - 31 mmol/L [facility] AGAP 10 2 - 16 [facility] BUN 21 7 - 23 mg/dL [facility] GLUCOSE 88 70 - 110 mg/dL [facility] CREATININE 0.89 0.60 - 1.25 [facility] mg/dL [facility] CALCIUM 8.5 (L) 8.6 - 10.6 [facility] mg/dL [facility] eGFR Calculation 96.2 mL/min/1.73m2 [facility] ([facility] LABORATORY Japanese) eGFR Calculation 116.6 mL/min/1.73m2 [facility] LABORATORY Specimen Blood - VENOUS Narrative Performed At Association of Glomerular Filtration Rate (GFR) [facility] and Staging of Kidney Disease* + [...] abnormalities in imaging tests). Performing Organization Address City/State/Zipcode Phone Number [facility] CLIA: [id number], [address] [place], [place] [id number] [phone] documented in this encounter Visit Diagnoses Diagnosis Dysphagia, unspecified type - Primary documented in this encounter Administered Medications Medication Order MAR Action Action Date Dose Rate Site acetaminophen (TYLENOL) tablet Given 10/31/2019 7:12 PM CDT 1,000 mg 1,000 mg 1,000 mg, Oral, ONCE, 1 dose, 10/31/19 at 1945, Routine iohexol (OMNIPAQUE 350 BULK-100 mL) Given 10/31/2019 8:30 PM CDT 100 mL injection 100 mL 100 mL, Intravenous, ONCE, 1 dose, 10/31/19 at 2030, Routine documented in this encounter Insurance Payer Benefit Plan / Subscriber ID Effective Phone Address Type Group Dates MEDICAID MEDICAID SSI PENDING 2019-[address] [place] [address] documented as of this encounter Advance Directives Name Relationship Healthcare Agent Communication Relationship Carina Lo Mother Primary healthcare agent [phone] ([place])"
--- OUTSIDE RECORDS SUMMARY | 2019-11-14 12:05 | XMS REPORT | Summary of Care ---
:1980 Author Organization [facility] Address [address] [place] [address] Care Team Providers Name Role Phone Pcp, Patient Does Not Have A Primary Care Provider Reason for Visit Reason Comments Assessment Encounter Details Date Type Department Care Team Description 11/01/2019 Telephone [facility] Neurosurgery, Elsy Garcia MD Assessment [address] [place] [address] [address]th [address] [place] [address] [place] [address] Allergies Active Allergy Reactions Severity Noted Date Comments Zolpidem Tartrate Unknown - See comments 07/20/2015 Amoxicillin Swelling High 10/01/2018 Nsaids (Non-Steroidal Unknown - See comments 07/13/2019 Anti-Inflammatory Drug) documented as of this encounter (statuses as of 11/02/2019) Medications No known medicationsdocumented as of this encounter (statuses as of 11/02/2019) Active Problems Problem Noted Date Drug-seeking behavior 10/23/2017 Back pain, unspecified back location, unspecified back pain laterality, 2017 unspecified chronicity documented as of this encounter (statuses as of 11/02/2019) Social History Tobacco Use Types Packs/Day Years [...] Team Description 11/03/2019 Office Visit Neurological Surgery Marvel Reyes MD [address] [place] [address]. [place] [address] Health Maintenance Due Date Last [...] Group Dates MEDICAID MEDICAID SSI PENDING 2019- [place] Pending PENDING PENDING 2019 [place] [address] MEDICAID MEDICAID SSI PENDING 2019- [address] [place] [address] Pending PENDING PENDING 2019 [place] [address] documented as of this encounter Advance Directives Name Relationship Healthcare Agent Communication Relationship Carina Lo Mother Primary healthcare agent
--- OUTSIDE RECORDS SUMMARY | 2019-11-14 12:05 | XMS REPORT | Summary of Care ---
:1980 Author Organization [facility] - Health Address [address] [place] [address] Care Team Providers Name Role Phone Pcp, Patient Does Not Have A Primary Care Provider Encounter Details Date Type Department Care Team Description 10/31/2019 Orders Only [facility] Doctor Unassigned, No [address] [facility] [place] [address] [address] [place] [phone] Allergies Active Allergy Reactions Severity Noted Date [...] Date/Time Associated Diagnosis Comments CONSENT/REFUSAL FOR Routine 10/31/2019 4:46 PM CDT DIAGNOSIS AND TREATMENT documented in this encounter Results Not on filedocumented in this encounter Insurance Payer Benefit Plan / Subscriber ID Effective Phone Address Type Group Dates MEDICAID MEDICAID SSI PENDING 2019-[address] [place] [address] documented as of this encounter Advance Directives Name Relationship Healthcare Agent Communication Relationship Carina Lo Mother Primary healthcare agent
--- NOTE | 2019-11-14 12:33 | ER ---
Nurse's Notes [facility] Name: Blanche Lo Jr Age: 39 yrs Sex: Male : 1980 Arrival Date: 11/14/2019 Time: 12:02 Bed 25 Private MD: Diagnosis: Patient's unintentional underdosing of medication regimen for other reason Presentation: 11/13 12:13 Chief complaint: Patient states: "I called here and they told me to come up here. I am ca1 supposed to see the doctor for a refill but with all that's going on, my schedule has been postponed. I haven't had a seizure since I have been taking Levetiracetam. I don't want to run out of it and have another seizure. But I have been out of it for 4 days now". Initial Sepsis Screen: Does the patient meet any 2 criteria? No. Patient's initial sepsis screen is negative. Does the patient have a suspected source of infection? No. Patient's initial sepsis screen is negative. Risk Assessment: Do you want to hurt yourself or someone else? Patient reports no desire to harm self or others. Onset of symptoms was November 14, 2019. 12:13 Acuity: JANINE 5 ca1 12:16 Coronavirus screen: Patient denies fever greater than 100.4F, cough, shortness of wh breath, or difficulty breathing. Ebola Screen: Patient negative for fever greater than or equal to 101.5 degrees Fahrenheit, and additional compatible Ebola Virus Disease symptoms Patient denies exposure to infectious person. 12:16 Method Of Arrival: Ambulatory Historical: - Allergies: 12:18 ambien; ca1 12:18 Amoxicillin; ca1 12:18 Amoxil; ca1 12:18 Ibuprofen; ca1 12:18 Naproxen; ca1 - Home Meds: 12:18 levetiracetam 500 mg Oral tab 1 tab 2 times per day [Active]; ca1 - PMHx: 12:18 Back pain; GI Bleed; Seizures; Hypertension; ca1 - Immunization history:: Adult Immunizations up to date, Flu vaccine is up to date. - Social history:: Smoking status: Patient denies any tobacco usage or history of. - Family history:: not pertinent. - Hospitalizations: : No recent hospitalization is reported. Screenin:15 Abuse screen: Denies threats or abuse. Denies injuries from another. Nutritional wh screening: No deficits noted. Tuberculosis screening: No symptoms or risk factors identified. Fall Risk None identified. Assessment: 12:15 General: Appears in no apparent distress. Behavior is calm, cooperative, appropriate wh for age. Pain: Denies pain. Neuro: Level of Consciousness is awake, alert, obeys commands, Oriented to person, place, time, situation, Appropriate for age. Cardiovascular: Capillary refill < 3 seconds. Respiratory: Airway is patent Respiratory effort is even, unlabored, Respiratory pattern is regular, symmetrical. GI: Abdomen is flat, non-distended. : No signs and/or symptoms were reported regarding the genitourinary system. EENT: No signs and/or symptoms were reported regarding the EENT system. Derm: Skin is intact, is healthy with good turgor, Skin is pink, warm \\T\\ dry. normal. Musculoskeletal: Circulation, motion, and sensation intact. Vital Signs: 12:13 BP 135 / 75; Pulse 96; Resp 17 S; Temp 97(TE); Pulse Ox 97% on R/A; Weight 99.79 kg ca1 (R); Height 5 ft. 5 in. (165.10 cm) (R); Pain 0/10; 12:27 Temp 98.7(TE); ss 12:13 Body Mass Index 36.61 (99.79 kg, 165.10 cm) ca1 ED Course: 12:02 Patient arrived in ED. am2 12:15 Patient has correct armband on for positive identification. Bed in low position. Call wh light in reach. Side rails up X 1. Pulse ox on. NIBP on. 12:17 Triage completed. ca1 12:18 Arm band placed on right wrist. ca1 12:19 Oliver Cade MD is Attending Physician. rn 12:35 Juan Villafana is Primary Nurse. 12:38 No provider procedures requiring assistance completed. Patient did not have IV access during this emergency room visit. Administered Medications: No medications were administered Outcome: 12:32 Discharge ordered by . rn 12:38 Discharged to home ambulatory. wh 12:38 Condition: stable 12:38 Discharge instructions given to patient, Instructed on discharge instructions, follow up and referral plans. medication usage, POC Demonstrated understanding of instructions, follow-up care, medications, POC Prescriptions given X 1. 12:42 Patient left the ED. Signatures: Oliver Cade MD MD rn Natalie Leon RN RN ss Sylvie Barfield am2 Juan Villafana Leatha Nur RN RN ca1 Corrections: (The following items were deleted from the chart) 12:29 12:13 BP 135 / 75; Pulse 96bpm; Resp 17bpm; Spontaneous; Pulse Ox 97% RA; Temp 94F ca1 Oral; 99.79 kg Reported; Height 5 ft. 5 in. Reported; BMI: 36.6; Pain 0/10; ca1
--- NOTE | 2019-11-14 12:33 | EDPHYS ---
Physician Documentation [facility] Name: Blanche Lo Jr Age: 39 yrs Sex: Male : 1980 Arrival Date: 11/14/2019 Time: 12:02 Bed 25 Private MD: ED Physician Oliver Cade HPI: 11/13 12:25 This 39 yrs old Male presents to ER via Unassigned with complaints of employment law attorney Refill. 12:25 The patient presents to the emergency department requesting refill(s) for: keppra. The rn patient chronically suffers from seizures. The patient has experienced similar episodes in the past. Reports no seizures since started keppra but can't get into his PCP, and has been out for 4 days, no other complaints.. Historical: - Allergies: 12:18 ambien; ca1 12:18 Amoxicillin; ca1 12:18 Amoxil; ca1 12:18 Ibuprofen; ca1 12:18 Naproxen; ca1 - Home Meds: 12:18 levetiracetam 500 mg Oral tab 1 tab 2 times per day [Active]; ca1 - PMHx: 12:18 Back pain; GI Bleed; Seizures; Hypertension; ca1 - Immunization history:: Adult Immunizations up to date, Flu vaccine is up to date. - Social history:: Smoking status: Patient denies any tobacco usage or history of. - Family history:: not pertinent. - Hospitalizations: : No recent hospitalization is reported. ROS: 12:25 Constitutional: Negative for fever, chills, and weight loss, Eyes: Negative for injury, rn pain, redness, and discharge, Cardiovascular: Negative for chest pain, palpitations, and edema, Respiratory: Negative for shortness of breath, cough, wheezing, and pleuritic chest pain, Abdomen/GI: Negative for abdominal pain, nausea, vomiting, diarrhea, and constipation, MS/Extremity: Negative for injury and deformity, Skin: Negative for injury, rash, and discoloration, Neuro: Negative for headache, weakness, numbness, tingling, and seizure. Exam: 12:25 Constitutional: This is a well developed, well nourished patient who is awake, alert, rn and in no acute distress. + ambulatory to room without difficulty or assistance. Neuro: Awake and alert, GCS 15, oriented to person, place, time, and situation. Cranial nerves II-XII grossly intact. Motor strength 5/5 in all extremities. Sensory grossly intact. Normal gait. Vital Signs: 12:13 BP 135 / 75; Pulse 96; Resp 17 S; Temp 97(TE); Pulse Ox 97% on R/A; Weight 99.79 kg ca1 (R); Height 5 ft. 5 in. (165.10 cm) (R); Pain 0/10; 12:27 Temp 98.7(TE); ss 12:13 Body Mass Index 36.61 (99.79 kg, 165.10 cm) ca1 MDM: 12:19 Patient medically screened. rn 12:25 Data reviewed: vital signs, nurses notes, and as a result, I will discharge patient. rn Counseling: I had a detailed discussion with the patient and/or guardian regarding: the historical points, exam findings, and any diagnostic results supporting the discharge/admit diagnosis, the need for outpatient follow up, to return to the emergency department if symptoms worsen or persist or if there are any questions or concerns that arise at home. Special discussion: I discussed with the patient/guardian in detail that at this point there is no indication for admission to the hospital. It is understood, however, that if the symptoms persist or worsen the patient needs to return immediately for re-evaluation. Based on the history and exam findings, there is no indication for further emergent testing or inpatient evaluation. I discussed with the patient/guardian the need to see the neurologist for further evaluation of the symptoms. I discussed with the patient/guardian the need to see the primary care provider for further evaluation of the symptoms. Administered Medications: No medications were administered Disposition: 11/14/19 12:32 Discharged to Home. Impression: Patient's unintentional underdosing of medication regimen for other reason. - Condition is Stable. - Discharge Instructions: Seizure, Adult. - Prescriptions for Keppra 500 mg Oral Tablet - take 1 tablet by ORAL route every 12 hours; 60 tablet. - Medication Reconciliation Form, Thank You Letter, Antibiotic Education, Prescription Opioid Use form. - Follow up: Private Physician; When: As needed; Reason: Recheck today's complaints, Re-evaluation by your physician. - Problem is chronic. - Symptoms are unchanged. Signatures: Oliver Cade MD MD rn Habalo, Winsy wh Acob, Cheryl, RN RN ca1 Corrections: (The following items were deleted from the chart) 12:42 12:32 11/14/2019 12:32 Discharged to Home. Impression: Patient's unintentional wh underdosing of medication regimen for other reason. Condition is Stable. Forms are Medication Reconciliation Form, Thank You Letter, Antibiotic Education, Prescription Opioid Use. Follow up: Private Physician; When: As needed; Reason: Recheck today's complaints, Re-evaluation by your physician. Problem is chronic. Symptoms are unchanged. rn
[2019-11-14 12:47] VITALS: BP 135/75; O2SAT 97
[2019-11-14 12:48] VITALS: TEMP 98.7
== END 2019-11-14 12:42 | disposition home or self-care (01) ==
LOC: ER 11:57
DX: Z91.128 Patient's intentional underdosing of medication regimen for other reason (principal); T42.6X6A Underdosing of other antiepileptic and sedative-hypnotic drugs, initial encounter; I10 Essential (primary) hypertension; G40.909 Epilepsy, unspecified, not intractable, without status epilepticus; Z88.5 Allergy status to narcotic agent; Z88.6 Allergy status to analgesic agent
CPT/HCPCS: 99283

== ENCOUNTER 2020-02-18 12:56 | Emergency (ER) | payer SELFPAY ==
--- OUTSIDE RECORDS SUMMARY | 2020-02-18 13:01 | XMS REPORT | Clinical Summary ---
:1980 Author Organization [facility] Address [address] [place] [address] Care Team Providers Name Role Phone Pcp Primary Care Provider Unavailable Allergies Active Allergy Reactions Severity Noted Date Comments Ibuprofen Other (See Comments) High 06/30/2019 Develop ed bleeding from intake Naproxen Swelling 06/28/2019 Penicillins Rash Low 06/28/2019 Zolpidem Rash Low 06/28/2019 Medications Medication Sig Dispensed Refills Start Date End Date Status ferrous sulfate 325 Take 1 tablet 90 tablet 11 06/30/201906/29 Active (65 FE) MG tablet (325 mg total) by mouth 3 (three) times daily. pantoprazole Take 1 tablet 60 tablet 0 06/30/2019 Ac tive (PROTONIX) 40 MG (40 mg total) tablet by mouth 2 (two) times daily. traMADol (ULTRAM) 50 Take 1 tablet 10 tablet 0 06/30/201906/24 mg tablet (50 mg total) by mouth every 6 (six) hours as needed for up to 10 days. Max Daily Amount: 200 mg Active Problems Problem Noted Date GI bleeding 06/28/2019 Encounters Date Type Specialty Care Team Description 06/30/2019 Anesthesia Event Gastroenterology Sky Colon MD 06/30/2019 Surgery Gastroenterology Ana Leyva PY,BIOPSY MD Ranjit 06/28/2019 - Hospital Encounter Cardiology Wil Sol Gastroin testinal hemorrhage, unspecified gastrointestinal hemorrhage type; 06/30/2019 MD Suni Skin ulcer with fat layer exposed (HCC); Yeseniareya, ALDO (obstructiv e sleep apnea); Juan Iron deficiency anemia due to chronic blood loss; MD Cinthya Left lower q uadrant abdominal pain; Acute blood los s anemia; H/O resection o f large bowel; H/O resection o f small bowel; Dermatitis luzmaria facta 06/28/2019 Travel after 02/17/2019 Social History Tobacco Use Types Packs/Day Years Used Date Former Smoker Smokeless Tobacco: Never Used Alcohol Use Drinks/Week oz/Week Comments No Alcohol Habits Answer Date Recorded How often do you have a drink containing alcohol? Never 06/28/2019 How many drinks containing alcohol do you have on a typical Not asked day when you are drinking? How often do you have six or more drinks on one occasion? No t asked Sex Assigned at Date Recorded Not on file Job Start Date Occupation Industry Not on file Not on file Not on file Travel History Travel Start Travel End No recent travel history available. Last Filed Vital Signs Vital Sign Reading Time Taken Blood Pressure 125/81 06/30/2019 4:00 PM [employer] [employer] Pulse 88 06/30/2019 4:00 PM [employer] Temperature 36.9 C (98.5 F) 06/30/2019 4:00 PM [employer] Respiratory Rate 18 06/30/2019 4:00 PM [employer] Oxygen Saturation 96% 06/30/2019 4:00 PM [employer] Inhaled Oxygen Concentration 35% 06/29/2019 10:07 PM [employer] Weight 98.5 kg (217 lb 2.5 oz) 06/30/2019 6:00 AM [employer] Height 165.1 cm (5' 5") 06/28/2019 7:27 PM [employer] Body Mass Index 36.14 06/30/2019 6:00 AM [employer] Plan of Treatment Not on file Procedures Procedure Name Priority Date/Time Associated Diagnosis Comme nts REPORT OF PROCEDURE 07/05/2019 7:20 AM - ENDOSCOPY SCAN [employer] [facility] RHYTHM STRIP - SCAN 07/05/2019 7:20 AM [employer] REPORT OF PROCEDURE 06/30/2019 5:36 PM - ENDOSCOPY URL [employer] COLONOSCOPY,BIOPSY 06/30/2019 1:00 PM Gastrointestina l [employer] hemorrhage, unspecified gastrointestinal hemorrhage type Special Needs (REQ 1) CBC W/PLT COUNT & AUTO Routine 06/30/2019 6:41 AM [employer] Results for this DIFFERENTIAL procedure are i n the results section . CALCIUM, IONIZED Routine 06/30/2019 6:41 AM [employer] Results for this procedure are i n the results section . PROTHROMBIN TIME/INR Routine 06/30/2019 6:41 AM [employer] Results for this procedure are i n the results section . APTT Routine 06/30/2019 6:41 AM [employer] Resu lts for this procedure are i n the results section . PHOSPHORUS Routine 06/30/2019 6:41 AM [employer] Resu lts for this procedure are i n the results section . MAGNESIUM Routine 06/30/2019 6:41 AM [employer] Resu lts for this procedure are i n the results section . BASIC METABOLIC PANEL (7) Routine 06/30/2019 6:41 AM [employer] Results for this procedure are i n the results section . CBC W/PLT COUNT & AUTO Routine 06/30/2019 6:41 AM [employer] Results for this DIFFERENTIAL procedure are i n the results section . CBC W/PLT COUNT & AUTO Routine 06/29/2019 2:33 PM [employer] Results for this DIFFERENTIAL procedure are i n the results section . CBC W/PLT COUNT & AUTO Routine 06/29/2019 2:33 PM [employer] Results for this DIFFERENTIAL procedure are i n the results section . POCT-GLUCOSE METER Routine 06/29/2019 11:44 AM [employer] Results for this procedure are i n the results section . POCT-GLUCOSE METER Routine 06/29/2019 6:26 AM [employer] Results for this procedure are i n the results section . PHOSPHORUS Routine 06/29/2019 3:49 AM [employer] Resu lts for this procedure are i n the results section . MAGNESIUM Routine 06/29/2019 3:49 AM [employer] Resu lts for this procedure are i n the results section . BASIC METABOLIC PANEL (7) Routine 06/29/2019 3:49 AM [employer] Results for this procedure are i n the results section . CBC W/PLT COUNT & AUTO Routine 06/29/2019 3:04 AM [employer] Results for this DIFFERENTIAL procedure are i n the results section . CBC W/PLT COUNT & AUTO Routine 06/29/2019 3:04 AM [employer] Results for this DIFFERENTIAL procedure are i n the results section . POCT-GLUCOSE METER Routine 06/28/2019 10:14 PM [employer] Results for this procedure are i n the results section . XR CHEST 1 VIEW Routine 06/28/2019 7:27 PM [employer] R esults for this PORTABLE/BEDSIDE procedure a re in the results section . CBC W/PLT COUNT & AUTO Routine 06/28/2019 7:21 PM [employer] Results for this DIFFERENTIAL procedure are i n the results section . APTT Routine 06/28/2019 7:21 PM [employer] Resu lts for this procedure are i n the results section . PROTHROMBIN TIME/INR Routine 06/28/2019 7:21 PM [employer] Results for this procedure are i n the results section . COMPREHENSIVE METABOLIC Routine 06/28/2019 7:21 PM [employer] Results for this PANEL procedure are i n the results section . CBC W/PLT COUNT & AUTO Routine 06/28/2019 7:21 PM [employer] Results for this DIFFERENTIAL procedure are i n the results section . after 02/17/2019 Results EKG-SCANNED (07/05/2019 7:20 AM [employer]) Narrative Performed At This result has an attachment that is no t available. RHYTHM STRIP - SCAN (07/05/2019 7:20 AM [employer]) Narrative Performed At This result has an attachment that is no t available. REPORT OF PROCEDURE - ENDOSCOPY URL (06/30/2019 5:36 PM [employer]) Narrative Performed At This result has an attachment that is no t available. Calcium, Ionized (06/30/2019 6:41 AM [employer]) Calcium, Ion 0.73 (LL) 1.12 - 1.27 mmol/L [facility] pH, Blood 7.54 [facility] Specimen Blood Performing Organization Address City/State/Zipcode Phone Number [place] [phone] [place] [address] CENTER CBC with platelet count + automated diff (06/30/2019 6:41 AM [employer])Only the most recent of4 resultswithin the time period is included. WBC 7.3 3.5 - 10.5 K/L [facility] RBC 3.63 (L) 4.63 - 6.08 M/L [facility] Hemoglobin 9.4 (L) 13.7 - 17.5 GM/DL [facility] Hematocrit 33.6 (L) 40.1 - 51.0 % [facility] MCV 92.6 (H) 79.0 - 92.2 fL [facility] MCH 25.9 25.7 - 32.2 pg [facility] MCHC 28.0 (L) 32.3 - 36.5 GM/DL [facility] RDW 20.4 (H) 11.6 - 14.4 % [facility] Platelets 196 150 - 450 K/CU MM [facility] MPV 12.5 (H) 9.4 - 12.4 fL [facility] nRBC 0 0 - 0 /100 WBC [facility] % Neutros 71 % [facility] ALTH [facility] % Lymphs 16 % [facility] % Monos 7 % [facility] % Eos 5 % [facility] % Baso 1 % [facility] # Neutros 5.18 1.78 - 5.38 K/L [facility] # Lymphs 1.13 (L) 1.32 - 3.57 K/L [facility] # Monos 0.53 0.30 - 0.82 K/L [facility] # Eos 0.34 0.04 - 0.54 K/L [facility] # Baso 0.04 0.01 - 0.08 K/L [facility] Immature Granulocytes-Relative 1 0 - 1 % C [facility] Specimen Blood Performing Organization Address City/State/Zipcode Phone Number [address] [address] CENTER aPTT (06/30/2019 6:41 AM [employer])Only the most recent of2 resultswithin the time period is included. PTT 39.0 (H) 22.5 - 36.0 seconds [facility] Specimen Blood Performing Organization Address City/[facility]/Zipcode Phone Number [address] [address] CENTER Prothrombin time/INR (06/30/2019 6:41 AM [employer])Only the most recent of2 results within the time period is included. Protime 14.3 (H) 11.9 - 14.2 seconds [facility] INR 1.2 <=5.9 [facility] Specimen Blood Narrative Performed At Effective 01/19/2019: PT Reference Range [facility] Change New: 11.9-14.2Previous: 11.7-14.7 RECOMMENDED COUMADIN/WARFARIN INR THERAPY RANGES STANDARD DOSE: 2.0-3.0Includes: PROPHYLAXIS for venous thrombosis, systemic embolization; TREATMENT for venous thrombosis and/or pulmonary embolus. HIGH RISK: Target INR is 2.5-3.5 for patients wiht mechanical heart valves. Performing Organization Address City/[facility]/[place] Phone Number [address] [address] CENTER Phosphorus (06/30/2019 6:41 AM [employer])Only the most recent of2 resultswithin the time period is included. Phosphorus 4.5 2.3 - 4.7 mg/dL [facility] Specimen Blood Performing Organization Address City/[facility]/[place] Phone Number [address] [address] CENTER Magnesium (06/30/2019 6:41 AM [employer])Only the most recent of2 resultswithin the time period is included. Magnesium 2.0 1.6 - 2.6 mg/dL [facility] Specimen Blood Performing Organization Address City/[facility]/[place] Phone Number [address] [address] CENTER Basic Metabolic Panel (06/30/2019 6:41 AM [employer])Only the most recent of2 results within the time period is included. Sodium 137 136 - 145 meq/L [facility] Potassium 4.0 3.5 - 5.1 meq/L [facility] Chloride 100 98 - 107 meq/L [facility] CO2 27 22 - 29 meq/L [facility] BUN 4 (L) 7 - 21 mg/dL [facility] Creatinine 0.71 0.57 - 1.25 mg/dL [facility] Glucose 110 (H) 70 - 105 mg/dL [facility] Calcium 7.2 (L) 8.4 - 10.2 mg/dL [facility] EGFR 125Comment: ESTIMATED GFR IS mL/min/1.73 sq m [facility] NOT ACCURATE [facility] [place] CLEARANCE IN PREDICTING GLOMERULAR FILTRATION RATE. ESTIMATED GFR IS NOT APPLICABLE FOR DIALYSIS PATIENTS. Specimen Blood Performing Organization Address City/[facility]/Zipcode Phone Number [address] [phone] [place] POC-Glucose meter (06/29/2019 11:44 AM [employer])Only the most recent of3 results within the time period is included. POC-Glucose Meter 147 (H)Comment: : TESTED 70 - 110 mg/dL [facility] AT [address], [address]: Entry Examiner/Refractory Grinder Operator ID = [id number] for Karen Jacobson Specimen Blood Performing Organization Address City/[facility]/[place] Phone Number [address] [phone] [place] XR chest 1 view portable / bedside (06/28/2019 7:27 PM [employer]) Specimen Narrative Performed At FINAL REPORT [facility] [place] AP chest dated 06/28/2019 Comment: Heart is in upper limits of nor mal in size. Pulmonary vasculature is unremarkable. Lungs are c lear. No pulmonary infiltrate or pleural effusion. Impression: No active cardiopulmonary di sease. Signed: María Tobias MD Report Verified Date/Time:06/28/2019 23:38:30 Reading Location: [facility] [address] [place] [address] Procedure Note Interface, External Ris In - 06/28/2019 11:40 PM [employer] [employer] [facility] FINAL REPORT AP chest dated 06/28/2019 Comment: Heart is in upper limits of nor mal in size. Pulmonary vasculature is unremarkable. Lungs are c lear. No pulmonary infiltrate or pleural effusion. Impression: No active cardiopulmonary di sease. Signed: María Tobias MD Report Verified Date/Time: 06/28/2019 2 3:38:30 Reading Location: [facility] [id number] Consult R [facility] Room Performing Organization Address City/State/Zipcode Phone Number [facility] [place] Comprehensive metabolic panel (06/28/2019 7:21 PM [employer]) Protein, Total 8.0Comment: Specimen 6.0 - 8.3 gm/dL [facility] slightly hemolyzed [facility] Albumin 4.1Comment: Specimen 3.5 - 5.0 g/dL [facility] slightly hemolyzed [facility] Alkaline Phosphatase 66 40 - 150 U/L [facility] Total Bilirubin 1.0Comment: Specimen 0.2 - 1.2 mg/dL [facility] slightly hemolyzed [facility] Sodium 137 136 - 145 meq/L [facility] Potassium 4.1Comment: Specimen 3.5 - 5.1 meq/L [facility] slightly hemolyzed [facility] Chloride 97 (L) 98 - 107 meq/L [facility] CO2 27 22 - 29 meq/L [facility] BUN 7 7 - 21 mg/dL [facility] Creatinine 0.72Comment: Specimen 0.57 - 1.25 mg/dL [facility] slightly hemolyzed [facility] Glucose 73 70 - 105 mg/dL [facility] Calcium 7.5 (L) 8.4 - 10.2 mg/dL [facility] AST 75 (H)Comment: Specimen 5 - 34 U/L [facility] Mai [facility] slightly hemolyzed [facility] ALT 47Comment: Specimen 6 - 55 U/L [facility] slightly hemolyzed [facility] EGFR 123Comment: ESTIMATED mL/min/1.73 sq m [facility] GFR IS NOT ACCURATE [facility] CREATININE CLEARANCE IN PREDICTING GLOMERULAR FILTRATION RATE. ESTIMATED GFR IS NOT APPLICABLE FOR DIALYSIS PATIENTS. Specimen Blood Performing Organization Address City/State/Zipcode Phone Number [place] [phone] [place] [address] CENTER after 02/17/2019 Advance Directives For more information, please contact:[address] [phone] Code Status Date Activated Date Inactivated Comments Full Code 06/28/2019 5:46 PM 06/30/2019 8:52 PM This code status was determined by: Patient
--- OUTSIDE RECORDS SUMMARY | 2020-02-18 13:02 | XMS REPORT | Continuity of Care Document ---
:1980 Author Organization [facility] t Address [address] [place] [address] Care Team Providers Name Role Phone Pcp Primary Care Physician Unavailable 1, Sleep Lab Bed Attending Clinician Unavailable Doctor Unassigned, Name Attending Clinician Unavailable Only, Test Attending Clinician Unavailable Karolina TOMLIN, T Attending Clinician Suni Barrera MD Attending Clinician Cinthya Kern MD Attending Clinician Epifanio Colon MD Attending Clinician Ranjit Leyva MD Attending Clinician SUNI BARRERA Attending Clinician Unavailable SUNI BARRERA Admitting Clinician Unavailable Problems Condition Condition Condition Status Onset Resolution Last Treating Co mments Source Name Details Category Date Date Treatment Clinician Date GI GI Disease Active 2018-[address] [facility] bleeding bleeding 08[facility]28 [facility] Center Allergies, Adverse Reactions, Alerts Allergy Allergy Status Severity Reaction(s) Onset Inactive Treating Comm ents Source Name Type Date Date Clinician Ibuprofe Drug Active Other (See 2018-[address] [facility] Intolera Comments) 08-30 bleeding Tad es - nce 00:00: from Medical 00 intake Center Naproxen Propensi Active Swelling 2018-[address] [facility] [address] ty to 08-28 [facility] - adverse 00:00: Medical reaction 00 Center s Penicill Propensi Active Rash 2018-[address] [facility] [address] ins ty to 08-28 [facility] - adverse 00:00: Medical reaction 00 Center s Zolpidem Propensi Active Rash 2018-[address] [facility] [address] ty to 08-28 [facility] - adverse 00:00: Medical reaction 00 Center s Social History Social Habit Start Date Stop Date Quantity Comments Source History SDOH Alcohol [facility] - Std Drinks [facility] History SDOH Alcohol [facility] - Binge [facility] Sex Assigned At [facility] - [facility] History SDOH Alcohol 2019-06-28 2019-06-[address] [facility] - Frequency 00:00:00 00:00:00 [facility] Center Smoking Status Start Date Stop Date Source Former smoker 2019-06-30 00:00:00 2019-06-30 00:00:00 [facility] Medications Ordered Filled Start Stop Current Ordering Indication Dosage Frequency Signature Comments Components Source Medication Medication Date Date Medication? Clinician (SIG) Name Name pantoprazol 2018-08 Yes 40mg Q.5D Take [address] [facility] [address] e 08-30 tablet (40 [facility] - (PROTONIX) 00:00: mg total) Me dical 40 MG 00 by mouth 2 Center tablet (two) times daily. ferrous 2018-08- No 325mg [id number] Take [address] [facility] [address] sulfate 325 08-30 [id number] tablet [facility] - (65 FE) MG 00:00: 23:59 3D (325 mg Med ical tablet 00 :00 total) by Center mouth 3 (three) times daily. traMADol 2018-08- No 50mg Take [address] [facility] [address] (ULTRAM) 50 08-30 tablet (50 L ukes - mg tablet 00:00: 23:59 mg total) Me dical 00 :00 by mouth Center every 6 (six) hours as needed for up to 10 days. Max Daily Amount: 200 mg Vital Signs Vital Name Observation Time Observation Value Comments Source Systolic blood 2019-06-30 16:00:00 125 mm[Hg] [facility] pressure [facility] Diastolic blood 2019-06-30 16:00:00 81 mm[Hg] [facility] S t [facility] Heart rate 2019-06-30 16:00:00 88 /min [facility] Body temperature 2019-06-30 16:00:00 36.94 Marcie [facility] Respiratory rate 2019-06-30 16:00:00 18 /min [facility] Oxygen saturation in 2019-06-30 16:00:00 96 /min [facility] Arterial blood by Medical Ce nter Pulse oximetry Body weight Measured 2019-06-30 06:00:00 98.5 kg [facility] BMI 2019-06-30 06:00:00 36.14 kg/m2 [facility] Body height 2019-06-28 19:27:00 165.1 cm [facility] Procedures Procedure Date / Time Performed Performing Clinician Sour e REPORT OF PROCEDURE - 2019-07-05 07:20:21 Provider, Default [facility] ENDOSCOPY SCAN Scanning [facility] RHYTHM STRIP - SCAN 2019-07-05 07:20:13 Provider, Default [facility] REPORT OF PROCEDURE - 2019-06-30 17:36:47 Ana Leyva [facility] ENDOSCOPY [facility] COLONOSCOPY,BIOPSY 2019-06-30 13:00:00 Ana Leyva [facility] BASIC METABOLIC PANEL (7) 2019-06-30 06:41:00 Ara Kent [facility] MAGNESIUM 2019-06-30 06:41:00 Ara Kent [facility] PHOSPHORUS 2019-06-30 06:41:00 Ara Kent [facility] APTT 2019-06-30 06:41:00 Ara Kent [facility] PROTHROMBIN TIME/INR 2019-06-30 06:41:00 Ara Kent [facility] CALCIUM, IONIZED 2019-06-30 06:41:00 Ara Kent [facility] CBC W/PLT COUNT & AUTO 2019-06-30 06:41:00 Fidencio Godfrey [facility] DIFFERENTIAL [facility] CBC W/PLT COUNT & AUTO 2019-06-29 14:33:00 Ankit Jones [facility] POCT-GLUCOSE METER 2019-06-29 11:44:00 Wil Barrera [facility] POCT-GLUCOSE METER 2019-06-29 06:26:00 Ebenezer Wil Suni [facility] BASIC METABOLIC PANEL (7) 2019-06-29 03:49:00 DonteRanal Corinne nagel [facility] MAGNESIUM 2019-06-29 03:49:00 Ara Kent [facility] PHOSPHORUS 2019-06-29 03:49:00 Ara Kent [facility] CBC W/PLT COUNT & AUTO 2019-06-29 03:04:00 [facility] DIFFERENTIAL [facility] POCT-GLUCOSE METER 2019-06-28 22:14:00 EbenezerLaminWil [facility] XR CHEST 1 VIEW 2019-06-28 19:27:00 [facility]io [facility] PORTABLE/BEDSIDE [facility] COMPREHENSIVE METABOLIC 2019-06-28 19:21:00 [facility] PROTHROMBIN TIME/INR 2019-06-28 19:21:00 Glen Godfreyeen I [facility] APTT 2019-06-28 19:21:00 Manisundlynette [facility] CBC W/PLT COUNT & AUTO 2019-06-28 19:21:00 [facility] Encounters Start End Encounter Admission Attending Care Care Encounter Source Date/Time Date/Time Type Type Clinicians Facility Department ID 2020-02-01 2020-02-01 Intelligence Operations 1, Joe [facility] [id number] 14:17:26 16:47:26 Visit Sleep Lab Rosemary [id number] [facility] [id number] [place] [id number] 2020-02-01 2020-02-01 Orders Doctor KING [id number] 00:00:00 00:00:00 Only Unassigned, JENNY [id number] [place] [facility] [id number] [id number] 2020-01-30 2020-01-30 Laboratory Only, [facility] [id number] 13:49:34 14:04:34 Only Test Rosemary [id number] [place] 4.2.7.2.686 [place] [id number] 2020-01-18 2020-01-18 Telephone Karolina, [facility] [id number] 00:00:00 00:00:00 Strahil Anupama Riley 350.1.13.10 [place] 4.2.7.2.686 [facility] [id number] nal 085 Building Results Test Description Test Time Test Comments Results Result Comments Source [facility] Metabolic Panel 2019-06-30 07:38:00 Test Item Value Reference Range Interpretation Comme nts Sodium (test code = 2951-2) 137 meq/L 136-145 Potassium (test code = 2823-3) 4.0 meq/L 3.5-5.1 Chloride (test code = 2075-0) 100 meq/L 98-107 CO2 (test code = 8-9) 27 meq/L 22-29 BUN (test code = 3094-0) 4 mg/dL 7-21 L Creatinine (test code = 0.71 mg/dL 0.57-1.25 2160-0) Glucose (test code = 2345-7) 110 mg/dL 70-105 H Calcium (test code = 92854-9) 7.2 mg/dL 8.4-10.2 L EGFR (test code = 53434-3) 125 mL/min/1.73 sq m ESTIMATED GFR IS NOT ACCURATE CRE ATININE CLEARANCE IN VA EDICTING GLOMERULAR FILT RATION RATE. ESTIMATED GFR IS NOT APPLICABLE FOR DIALYSIS PATIEN TS. Lab Interpretation (test code Abnormal = 98990-1) [facility] METABOLIC [id number] 07:38:00 Test Item Value Reference Range Interpretation Comments SODIUM (BEAKER) 137 meq/L 136-145 (test code = 381) POTASSIUM (BEAKER) 4.0 meq/L 3.5-5.1 (test code = 379) CHLORIDE (BEAKER) 100 meq/L 98-107 (test code = 382) CO2 (BEAKER) (test 27 meq/L 22-29 code = 355) BLOOD UREA NITROGEN 4 mg/dL 7-21 L (BEAKER) (test code = 354) CREATININE (BEAKER) 0.71 mg/dL 0.57-1.25 (test code = 358) GLUCOSE RANDOM 110 mg/dL 70-105 H (BEAKER) (test code = 652) CALCIUM (BEAKER) 7.2 mg/dL 8.4-10.2 L (test code = 697) EGFR (BEAKER) (test 125 mL/min/1.73 ESTIM ATED GFR IS code = 1092) sq m NOT ACCURATE CREATININE CLEARANCE IN PREDICTING GLOMERULAR FILTRATION RATE . ESTIMATED GFR I S NOT APPLICABLE FOR DIALYSIS PATIEN TS. [id number] 07:19:00 Test Item Value Reference Range Interpretation Comments Magnesium (test code = 92287-2) 2.0 mg/dL 1.6-2.6 Lab Interpretation (test code = Normal 87290-6) [facility] 07:19:00 Test Item Value Reference Range Interpretation Comments Phosphorus (test code = 2777-1) 4.5 mg/dL 2.3-4.7 Lab Interpretation (test code = Normal 67417-4) [facility]07 07:19:00 Test Item Value Reference Range Interpretation Comments PHOSPHORUS (BEAKER) (test code = 4.5 mg/dL 2.3-4.7 604) [id number] 07:19:00 Test Item Value Reference Range Interpretation Comments MAGNESIUM (BEAKER) (test code = 2.0 mg/dL 1.6-2.6 627) CBC with platelet count + automated [id number] 07:11:00 Test Item Value Reference Range Interpretation Comments WBC (test code = 6690-2) 7.3 3.5- 10.5 K/L RBC (test code = 789-8) 3.63 4.63- 6.08 M/L L MCHC (test code = 786-4) 28.0 32.3- 36.5 GM/DL L Hematocrit (test code = 4544-3) 33.6 % 40.1-51 L MCV (test code = 787-2) 92.6 fL 79-92.2 H MCH (test code = 785-6) 25.9 pg 25.7-32.2 RDW (test code = 788-0) 20.4 % 11.6-14.4 H Platelets (test code = 777-3) 196 150- 450 K/CU MM MPV (test code = 97975-0) 12.5 fL 9.4-12.4 H nRBC (test code = 413) 0 0- 0 /100 WBC % Neutros (test code = 429) 71 % % Lymphs (test code = 430) 16 % % Monos (test code = 431) 7 % % Eos (test code = 432) 5 % % Baso (test code = 437) 1 % # Neutros (test code = 670) 5.18 1.78- 5.38 K/L # Lymphs (test code = 414) 1.13 1.32- 3.57 K/L L # Monos (test code = 415) 0.53 0.30- 0.82 K/L # Eos (test code = 416) 0.34 0.04- 0.54 K/L # Baso (test code = 417) 0.04 0.01- 0.08 K/L Immature Granulocytes-Relative 1 % 0-1 (test code = 2801) Lab Interpretation (test code = Abnormal 67236-2) [facility] W/PLT COUNT & AUTO [id number] 07:11:00 Test Item Value Reference Range Interpretation Comments WHITE BLOOD CELL COUNT (BEAKER) 7.3 K/ L 3.5-10.5 (test code = 775) RED BLOOD CELL COUNT (BEAKER) 3.63 M/ L 4.63-6.08 L (test code = 761) HEMOGLOBIN (BEAKER) (test code = 9.4 GM/DL 13.7-17.5 L 410) HEMATOCRIT (BEAKER) (test code = 33.6 % 40.1-51.0 L 411) MEAN CORPUSCULAR VOLUME (BEAKER) 92.6 fL 79.0-92.2 H (test code = 753) MEAN CORPUSCULAR HEMOGLOBIN 25.9 pg 25.7-32.2 (BEAKER) (test code = 751) MEAN CORPUSCULAR HEMOGLOBIN CONC 28.0 GM/DL 32.3-36.5 L (BEAKER) (test code = 752) RED CELL DISTRIBUTION WIDTH 20.4 % 11.6-14.4 H (BEAKER) (test code = 412) PLATELET COUNT (BEAKER) (test 196 K/CU MM 150-450 code = 756) MEAN PLATELET VOLUME (BEAKER) 12.5 fL 9.4-12.4 H (test code = 754) NUCLEATED RED BLOOD CELLS 0 /100 WBC 0-0 (BEAKER) (test code = 413) NEUTROPHILS RELATIVE PERCENT 71 % (BEAKER) (test code = 429) LYMPHOCYTES RELATIVE PERCENT 16 % (BEAKER) (test code = 430) MONOCYTES RELATIVE PERCENT 7 % (BEAKER) (test code = 431) EOSINOPHILS RELATIVE PERCENT 5 % (BEAKER) (test code = 432) BASOPHILS RELATIVE PERCENT 1 % (BEAKER) (test code = 437) NEUTROPHILS ABSOLUTE COUNT 5.18 K/ L 1.78-5.38 (BEAKER) (test code = 670) LYMPHOCYTES ABSOLUTE COUNT 1.13 K/ L 1.32-3.57 L (BEAKER) (test code = 414) MONOCYTES ABSOLUTE COUNT (BEAKER) 0.53 K/ L 0.30-0.82 (test code = 415) EOSINOPHILS ABSOLUTE COUNT 0.34 K/ L 0.04-0.54 (BEAKER) (test code = 416) BASOPHILS ABSOLUTE COUNT (BEAKER) 0.04 K/ L 0.01-0.08 (test code = 417) IMMATURE GRANULOCYTES-RELATIVE 1 % 0-1 PERCENT (BEAKER) (test code = 2801) [id number] 07:07:00 Test Item Value Reference Range Interpretation Comments PTT (test code = 68737-1) 39.0 22.5- 36.0 seconds H Lab Interpretation (test code = Abnormal 92620-5) [facility] 07:07:00 Test Item Value Reference Range Interpretation Comments PARTIAL THROMBOPLASTIN TIME 39.0 seconds 22.5-36.0 H (BEAKER) (test code = 760) Prothrombin time/[id number] 07:06:00 Test Item Value Reference Range Interpretation Comments Protime (test code = 14.3 11.9- 14.2 H 5902-2) seconds INR (test code = 1.2 <=5.9 6301-6) JOHN (test code = JOHN) Effective 01/19/2019: PT Reference Range ChangeNew: 11.9-14.2 Previous: 11.7-14.7 RECOMMENDED COUMADIN/WARFARIN INR THERAPY RANGESSTANDARD DOSE: 2.0-3.0 Includes: PROPHYLAXIS for venous thrombosis, systemic embolization; TREATMENT for venous thrombosis and/or pulmonary embolus.HIGH RISK: Target INR is 2.5-3.5 for patients wiht mechanical heart valves. Lab Interpretation Abnormal (test code = 82981-3) [facility]/[id number] 07:06:00 Test Item Value Reference Range Interpretation Comments PROTIME (BEAKER) (test code = 14.3 seconds 11.9-14.2 H 759) INR (BEAKER) (test code = 370) 1.2 <=5.9 Effective 01/19/2019: PT Reference Range ChangeNew: 11.9-14.2 Previous: 11.7- 14.7RECOMMENDED COUMADIN/WARFARIN INR THERAPY RANGESSTANDARD DOSE: 2.0-3.0 Includes: PROPHYLAXIS for venous thrombosis, systemic embolization; TREATMENT for venous thrombosis and/or pulmonary embolus.HIGH RISK: Target INR is2.5-3.5 for patients wiht mechanical heart valves.Calcium, [id number] 07:05:00 Test Item Value Reference Range Interpretation Comments Calcium, Ion (test code = 1994-3) 0.73 mmol/L 1.12-1.27 LL pH, Blood (test code = 19207-7) 7.54 Lab Interpretation (test code = Abnormal 37480-4) [facility], [id number] 07:05:00 Test Item Value Reference Range Interpretation Comments CALCIUM IONIZED (BEAKER) (test 0.73 mmol/L 1.12-1.27 LL code = 698) PH, BLOOD (BEAKER) (test code = 7.54 1810) CBC W/PLT COUNT & AUTO [id number] 15:06:00 Test Item Value Reference Range Interpretation Comments WHITE BLOOD CELL COUNT (BEAKER) 8.4 K/ L 3.5-10.5 (test code = 775) RED BLOOD CELL COUNT (BEAKER) 3.72 M/ L 4.63-6.08 L (test code = 761) HEMOGLOBIN (BEAKER) (test code = 9.6 GM/DL 13.7-17.5 L 410) HEMATOCRIT (BEAKER) (test code = 34.2 % 40.1-51.0 L 411) MEAN CORPUSCULAR VOLUME (BEAKER) 91.9 fL 79.0-92.2 (test code = 753) MEAN CORPUSCULAR HEMOGLOBIN 25.8 pg 25.7-32.2 (BEAKER) (test code = 751) MEAN CORPUSCULAR HEMOGLOBIN CONC 28.1 GM/DL 32.3-36.5 L (BEAKER) (test code = 752) RED CELL DISTRIBUTION WIDTH 20.5 % 11.6-14.4 H (BEAKER) (test code = 412) PLATELET COUNT (BEAKER) (test 191 K/CU MM 150-450 code = 756) MEAN PLATELET VOLUME (BEAKER) 12.6 fL 9.4-12.4 H (test code = 754) NUCLEATED RED BLOOD CELLS 0 /100 WBC 0-0 (BEAKER) (test code = 413) NEUTROPHILS RELATIVE PERCENT 76 % (BEAKER) (test code = 429) LYMPHOCYTES RELATIVE PERCENT 13 % (BEAKER) (test code = 430) MONOCYTES RELATIVE PERCENT 6 % (BEAKER) (test code = 431) EOSINOPHILS RELATIVE PERCENT 4 % (BEAKER) (test code = 432) BASOPHILS RELATIVE PERCENT 0 % (BEAKER) (test code = 437) NEUTROPHILS ABSOLUTE COUNT 6.36 K/ L 1.78-5.38 H (BEAKER) (test code = 670) LYMPHOCYTES ABSOLUTE COUNT 1.08 K/ L 1.32-3.57 L (BEAKER) (test code = 414) MONOCYTES ABSOLUTE COUNT (BEAKER) 0.51 K/ L 0.30-0.82 (test code = 415) EOSINOPHILS ABSOLUTE COUNT 0.37 K/ L 0.04-0.54 (BEAKER) (test code = 416) BASOPHILS ABSOLUTE COUNT (BEAKER) 0.03 K/ L 0.01-0.08 (test code = 417) IMMATURE GRANULOCYTES-RELATIVE 1 % 0-1 PERCENT (BEAKER) (test code = 2801) POC-Glucose [id number] 12:26:00 Test Item Value Reference Range Interpretation Comments POC-Glucose Meter (test 147 mg/dL 70-110 H : TE STED AT [facility] code = 1538) [address] [facility], 770 30: Gripper Machine Operator/Techni wes ID = [id number] for PerfKaren davis Lab Interpretation (test Abnormal code = 57651-4) [facility] [id number] 12:26:00 Test Item Value Reference Range Interpretation Comments POC-GLUCOSE METER 147 mg/dL 70-110 H : [facility] (BEAKER) (test code = [facility], 1538) [address]: Gripper Machine Operator/Techni wes ID = [id number] for Pe rfas, Karen POCT-GLUCOSE [id number] 08:38:00 Test Item Value Reference Range Interpretation Comments POC-GLUCOSE METER 136 mg/dL 70-110 H : [facility] (BEAKER) (test code = [facility], 1538) [address]: Gripper Machine Operator/Techni wes ID = [id number] for PE NRSHRADDHA PIÑAI-ELENO BASIC METABOLIC [id number] 04:35:00 Test Item Value Reference Range Interpretation Comments SODIUM (BEAKER) 140 meq/L 136-145 (test code = 381) POTASSIUM (BEAKER) 3.8 meq/L 3.5-5.1 Specimen slightly (test code = 379) hemolyzed CHLORIDE (BEAKER) 101 meq/L 98-107 (test code = 382) CO2 (BEAKER) (test 30 meq/L 22-29 H code = 355) BLOOD UREA NITROGEN 5 mg/dL 7-21 L (BEAKER) (test code = 354) CREATININE (BEAKER) 0.73 mg/dL 0.57-1.25 Specimen slightly (test code = 358) hemolyzed GLUCOSE RANDOM 97 mg/dL 70-105 (BEAKER) (test code = 652) CALCIUM (BEAKER) 6.9 mg/dL 8.4-10.2 L (test code = 697) EGFR (BEAKER) (test 121 mL/min/1.73 ESTIM ATED GFR IS code = 1092) sq m NOT ACCURATE CREATININE CLEARANCE IN PREDICTING GLOMERULAR FILTRATION RATE . ESTIMATED GFR I S NOT APPLICABLE FOR DIALYSIS PATIEN TS. [id number] 04:18:00 Test Item Value Reference Range Interpretation Comments MAGNESIUM (BEAKER) 2.1 mg/dL 1.6-2.6 Specimen slightly (test code = 627) hemolyzed [id number] 04:18:00 Test Item Value Reference Range Interpretation Comments PHOSPHORUS (BEAKER) 4.6 mg/dL 2.3-4.7 Specimen slightly (test code = 604) hemolyzed CBC W/PLT COUNT & AUTO [id number] 03:30:00 Test Item Value Reference Range Interpretation Comments WHITE BLOOD CELL COUNT (BEAKER) 8.1 K/ L 3.5-10.5 (test code = 775) RED BLOOD CELL COUNT (BEAKER) 3.44 M/ L 4.63-6.08 L (test code = 761) HEMOGLOBIN (BEAKER) (test code = 8.7 GM/DL 13.7-17.5 L 410) HEMATOCRIT (BEAKER) (test code = 31.0 % 40.1-51.0 L 411) MEAN CORPUSCULAR VOLUME (BEAKER) 90.1 fL 79.0-92.2 (test code = 753) MEAN CORPUSCULAR HEMOGLOBIN 25.3 pg 25.7-32.2 L (BEAKER) (test code = 751) MEAN CORPUSCULAR HEMOGLOBIN CONC 28.1 GM/DL 32.3-36.5 L (BEAKER) (test code = 752) RED CELL DISTRIBUTION WIDTH 20.6 % 11.6-14.4 H (BEAKER) (test code = 412) PLATELET COUNT (BEAKER) (test 176 K/CU MM 150-450 code = 756) MEAN PLATELET VOLUME (BEAKER) 12.1 fL 9.4-12.4 (test code = 754) NUCLEATED RED BLOOD CELLS 0 /100 WBC 0-0 (BEAKER) (test code = 413) NEUTROPHILS RELATIVE PERCENT 70 % (BEAKER) (test code = 429) LYMPHOCYTES RELATIVE PERCENT 17 % (BEAKER) (test code = 430) MONOCYTES RELATIVE PERCENT 7 % (BEAKER) (test code = 431) EOSINOPHILS RELATIVE PERCENT 5 % (BEAKER) (test code = 432) BASOPHILS RELATIVE PERCENT 0 % (BEAKER) (test code = 437) NEUTROPHILS ABSOLUTE COUNT 5.71 K/ L 1.78-5.38 H (BEAKER) (test code = 670) LYMPHOCYTES ABSOLUTE COUNT 1.38 K/ L 1.32-3.57 (BEAKER) (test code = 414) MONOCYTES ABSOLUTE COUNT (BEAKER) 0.57 K/ L 0.30-0.82 (test code = 415) EOSINOPHILS ABSOLUTE COUNT 0.38 K/ L 0.04-0.54 (BEAKER) (test code = 416) BASOPHILS ABSOLUTE COUNT (BEAKER) 0.03 K/ L 0.01-0.08 (test code = 417) IMMATURE GRANULOCYTES-RELATIVE 1 % 0-1 PERCENT (BEAKER) (test code = 2801) RAD, CHEST, 1 VIEW, NON [id number] 23:38:00Reason for exam:->preop workupShould this be performed at the bedside?->YesFINAL REPORT AP chest dated 06/28/2019 Comment: Heart is in upper limits of normal in size. Pulmonary vasculature is unremarkable. Lungs are clear. No pulmonary infiltrate or pleural effusion. Impression: No active cardiopulmonary disease. Signed: María Tobiasort Verified Date/Time: 06/28/2019 23:38:30 Reading Location: [facility] C013W Consult Reading Room Electronicallysigned by: MARÍA TOBIAS M.D. on 06/28/2019 11:38 PMXR chest 1 view portable / [id number] 23:38:00Interface, External Ris In - 06/28/2019 11:40 PM CSTFINAL REPORT AP chest dated 06/28/2019 Comment: Heart is in upper limits of normal in size. Pulmonary vasculature is unremarkable. Lungs are clear. No pulmonary infiltrate or pleural effusion. Impression: No active cardiopulmonary disease. Signed: María Tobias Verified Date/Time: 06/28/2019 23:38:30 Reading Location: [facility] B1 C013W Consult Reading [facility] [id number] 22:26:00 Test Item Value Reference Range Interpretation Comments POC-GLUCOSE METER 112 mg/dL 70-110 H : TESTED A T [facility] 6720 (BEAKER) (test code = [place], 1538) [address]: Gripper Machine Operator/Techni wes ID = [id number] for BLACK PEDRAZA Comprehensive metabolic [id number] 20:58:00 Test Item Value Reference Range Interpretation Comments Protein, Total (test 8.0 6.0- 8.3 gm/dL Speci men slightly code = 2885-2) hemolyzed Albumin (test code = 4.1 g/dL 3.5-5 Specime n slightly 83050-8) hemolyzed Alkaline Phosphatase 66 U/L 40-150 (test code = 6768-6) Total Bilirubin (test 1.0 mg/dL 0.2-1.2 Specim en slightly code = 1975-2) hemolyzed Sodium (test code = 137 meq/L 623-491 9539-2) Potassium (test code = 4.1 meq/L 3.5-5.1 Speci men slightly 2823-3) hemolyzed Chloride (test code = 97 meq/L 98-107 L 2075-0) CO2 (test code = 27 meq/L 22-29 2028-9) BUN (test code = 7 mg/dL 7-21 3094-0) Creatinine (test code = 0.72 mg/dL 0.57-1.25 Spec imen slightly 2160-0) hemolyzed Glucose (test code = 73 mg/dL 70-105 2345-7) Calcium (test code = 7.5 mg/dL 8.4-10.2 L 79562-4) AST (test code = 75 U/L 5-34 H Specimen sl ightly 1920-8) hemolyzed ALT (test code = 47 U/L 6-55 Specimen sl ightly 1742-6) hemolyzed EGFR (test code = 123 mL/min/1.73 [place] [address]-9) NOT ACCURATE CREATININE CLEARANCE IN PREDICTING GLOMERULAR FILTRATION RATE . ESTIMATED GFR I S NOT APPLICABLE FOR DIALYSIS PATIEN TS. Lab Interpretation Abnormal (test code = 88567-7) [facility] [id number] 20:58:00 Test Item Value Reference Range Interpretation Comments TOTAL PROTEIN 8.0 gm/dL 6.0-8.3 Specimen sligh tly (BEAKER) (test code = hemoly zed 770) ALBUMIN (BEAKER) 4.1 g/dL 3.5-5.0 Specimen sl ightly (test code = 1145) hemolyzed ALKALINE PHOSPHATASE 66 U/L 40-150 (BEAKER) (test code = 346) BILIRUBIN TOTAL 1.0 mg/dL 0.2-1.2 Specimen sli ghtly (BEAKER) (test code = hemoly zed 377) SODIUM (BEAKER) (test 137 meq/L 136-145 code = 381) POTASSIUM (BEAKER) 4.1 meq/L 3.5-5.1 Specimen slightly (test code = 379) hemolyzed CHLORIDE (BEAKER) 97 meq/L 98-107 L (test code = 382) CO2 (BEAKER) (test 27 meq/L 22-29 code = 355) BLOOD UREA NITROGEN 7 mg/dL 7-21 (BEAKER) (test code = 354) CREATININE (BEAKER) 0.72 mg/dL 0.57-1.25 Specimen slightly (test code = 358) hemolyzed GLUCOSE RANDOM 73 mg/dL 70-105 (BEAKER) (test code = 652) CALCIUM (BEAKER) 7.5 mg/dL 8.4-10.2 L (test code = 697) AST (SGOT) (BEAKER) 75 U/L 5-34 H Specimen slightly (test code = 353) hemolyzed ALT (SGPT) (BEAKER) 47 U/L 6-55 Specimen slightly (test code = 347) hemolyzed EGFR (BEAKER) (test 123 ESTIMATE D GFR IS code = 1092) mL/min/1.73 sq NOT ACCURA TE m CREATININE CLEARANCE IN PREDICTING GLOMERULAR FILTRATION RATE . ESTIMATED GFR I S NOT APPLICABLE FOR DIALYSIS PATIEN TS. CBC W/PLT COUNT & AUTO [id number] 20:24:00 Test Item Value Reference Range Interpretation Comments WHITE BLOOD CELL COUNT (BEAKER) 7.9 K/ L 3.5-10.5 (test code = 775) RED BLOOD CELL COUNT (BEAKER) 3.61 M/ L 4.63-6.08 L (test code = 761) HEMOGLOBIN (BEAKER) (test code = 9.2 GM/DL 13.7-17.5 L 410) HEMATOCRIT (BEAKER) (test code = 32.7 % 40.1-51.0 L 411) MEAN CORPUSCULAR VOLUME (BEAKER) 90.6 fL 79.0-92.2 (test code = 753) MEAN CORPUSCULAR HEMOGLOBIN 25.5 pg 25.7-32.2 L (BEAKER) (test code = 751) MEAN CORPUSCULAR HEMOGLOBIN CONC 28.1 GM/DL 32.3-36.5 L (BEAKER) (test code = 752) RED CELL DISTRIBUTION WIDTH 20.8 % 11.6-14.4 H (BEAKER) (test code = 412) PLATELET COUNT (BEAKER) (test 193 K/CU MM 150-450 code = 756) MEAN PLATELET VOLUME (BEAKER) 12.4 fL 9.4-12.4 (test code = 754) NUCLEATED RED BLOOD CELLS 0 /100 WBC 0-0 (BEAKER) (test code = 413) NEUTROPHILS RELATIVE PERCENT 69 % (BEAKER) (test code = 429) LYMPHOCYTES RELATIVE PERCENT 18 % (BEAKER) (test code = 430) MONOCYTES RELATIVE PERCENT 8 % (BEAKER) (test code = 431) EOSINOPHILS RELATIVE PERCENT 3 % (BEAKER) (test code = 432) BASOPHILS RELATIVE PERCENT 0 % (BEAKER) (test code = 437) NEUTROPHILS ABSOLUTE COUNT 5.46 K/ L 1.78-5.38 H (BEAKER) (test code = 670) LYMPHOCYTES ABSOLUTE COUNT 1.42 K/ L 1.32-3.57 (BEAKER) (test code = 414) MONOCYTES ABSOLUTE COUNT (BEAKER) 0.62 K/ L 0.30-0.82 (test code = 415) EOSINOPHILS ABSOLUTE COUNT 0.27 K/ L 0.04-0.54 (BEAKER) (test code = 416) BASOPHILS ABSOLUTE COUNT (BEAKER) 0.03 K/ L 0.01-0.08 (test code = 417) IMMATURE GRANULOCYTES-RELATIVE 1 % 0-1 PERCENT (BEAKER) (test code = 2801) [id number] 20:23:00 Test Item Value Reference Range Interpretation Comments PARTIAL THROMBOPLASTIN TIME 38.3 seconds 22.5-36.0 H (BEAKER) (test code = 760) PROTHROMBIN [id number] 20:22:00 Test Item Value Reference Range Interpretation Comments PROTIME (BEAKER) (test code = 13.5 seconds 11.9-14.2 759) INR (BEAKER) (test code = 370) 1.1 <=5.9 Effective 01/19/2019: PT Reference Range ChangeNew: 11.9-14.2 Previous: 11.7- 14.7RECOMMENDED COUMADIN/WARFARIN INR THERAPY RANGESSTANDARD DOSE: 2.0-3.0 Includes: PROPHYLAXIS for venous thrombosis, systemic embolization; TREATMENT for venous thrombosis and/or pulmonary embolus.HIGH RISK: Target INR is2.5-3.5 for patients wiht mechanical heart valves.
--- OUTSIDE RECORDS SUMMARY | 2020-02-18 13:02 | XMS REPORT | Summary of Care ---
:1980 Author Organization [facility] Address [address] [place] [address] Care Team Providers Name Role Phone Pcp, Does Not Have A Primary Care Provider Reason for Referral (Routine) Status Reason Specialty Diagnoses / Referred By Referred To Procedures Contact Contact New Request Sleep Disorder Diagnoses Observed sleep apnea Atanasov, Diagnostic Procedures HOME SLEEP TEST Lynn Altman MD [address] [place] [address] Dr Hurd [address] [place] [address] Reason for Visit Reason Comments New Patient Sleep Apnea Encounter Details Date Type Department Care Team Description 12/28/2019 Telemedicine Visit [facility] ADC Lynn Turcios bserved sleep Pulmonary Clinic MD Anupama apnea (Primary Dx) [address] [place] [address] , [address] [place] [address] Dr Graham [address] [address] [phone] Allergies Active Allergy Reactions Severity Noted Date Comments Zolpidem Tartrate Unknown - See 07/20/2015 comments Amoxicillin Swelling High 10/01/2018 Ibuprofen Rash High 03/22/2016 Developed bleed ing from intake Nsaids (Non-Steroidal Unknown - See 07/13/2019 Anti-Inflammatory Drug) comments documented as of this encounter (statuses as of 12/28/2019) Medications Medication Sig Dispensed Refills Start Date End Date Status levETIRAcetam 500 mg TAKE 2 TABLETS BY 0 12/13/2019 Active tablet MOUTH EVERY DAY AT BEDTIME clindamycin 150 mg TAKE 2 CAPSULES 0 10/31/2019 Active capsule BY MOUTH EVERY 6 HOURS UNTIL ALL TAKEN acetaminophen-codeine TAKE 1 TABLET BY 0 12/19/2019 Active 300-30 mg tablet MOUTH EVERY 4 TO 6 HOURS NEEDED FOR PAIN documented as of this encounter (statuses as of 12/28/2019) Active Problems Problem Noted Date Drug-seeking behavior 10/23/2017 Back pain, unspecified back location, unspecified back pain laterality, 10/23/2017 unspecified chronicity documented as of this encounter (statuses as of 12/28/2019) Social History Tobacco Use Types Packs/Day Years Used Date Current Every Day Smoker Cigarettes 1 Smokeless Tobacco: Former User Sex Assigned at Date Recorded Not on file Job Start Date Occupation Industry Not on file Not on file Not on file Travel History Travel Start Travel End No recent travel history available. COVID-19 Exposure Response Date Recorded In the last month, have you been in contact with No / Unsure 12/28/2019 1:16 PM CDT someone who was confirmed or suspected to have Coronavirus / COVID-19? documented as of this encounter Last Filed Vital Signs Vital Sign Reading Time Taken Comments Blood Pressure - - Pulse - - Temperature - - Respiratory Rate - - Oxygen Saturation - - Inhaled Oxygen Concentration - - Weight 99.8 kg (220 lb) 12/28/2019 1:17 PM CDT Height 165.1 cm (5' 5") 12/28/2019 1:17 PM CDT Body Mass Index 36.61 12/28/2019 1:17 PM CDT documented in this encounter Progress Notes Floresita Pace MA - 12/28/2019 1:00 PM CDT Blanche Lo Jr. contacted for tele visit /Video visit. Blanche Lo Jr. prefers Video Chat/Anderiod phone. [phone] (home) Telephone Information: Patient educated on plan of care, verbalized understanding, and verbally consented for information to be collected for diagnoses and treatment of their condition. The following were reviewed with the patient: - Number to call: [phone] - Current Medications - Allergies - Blood Pressure - Heart Rate - Pain Score - Weight - Reason for visit - EES Score - 22 Patient informed that their provider would be contacting them shortly to complete their visit. FLORESITA PACE MA 12/28/2019 1:20 PM Lynn Mckeon MD - 12/28/2019 1:00 PM CDTThe patient was contacted by phone today in lieu of a clinic visit. Verbal consent was obtained from the patient for telehealth services provided below. The conversation took place between the patient at their home and me from the [facility] sleep clinic telephone number. It was done through telephone without video. The whole encounter lasted 30 minutes. Chief Complaints: The patient reports: excessive daytime sleepiness, fatigue, restless and non-restorative sleep, snoring, witnessed apneas, sleep talking, nightmares, nightmares, nocturia, difficulty initiating sleep. History of Present Illness: The patient usually goes to bed around 12 a.m. and wakes up around 4 a.m. It takes 1-2 hours on average to fall asleep. During the night, the patient wakes up 3-4 times to go to the restroom. After a typical nights sleep, the patient often feels fatigued and unrefreshed. The patient takes occasional naps during the day. These naps usually last 30 minutes each. The patient does not suffer from irresistible sleep attacks during the day. The patient does not experience sudden loss of muscle tone when emotional or excited. The patient does not report vivid dream-like images and loss of muscle tone when falling asleep and upon awakening. [place] Sleepiness Scale score: 22 (0-24). Social History: The patient does not smoke cigarettes. The patient does not drink alcoholic beverages. Caffeinated beverages consumption: 1-2 per day. Family History: The family history is positive for snoring in blood relatives. Review of Systems: 1)Respiratory: positive for snoring and witnessed apneas; 2)Cardiovascular: negative for any symptoms or signs; 3)Endocrine/Metabolic: positive for obesity; 4)Digestive: negative for abnormalities; 5)Urinary: positive for nocturia; 6)Skeletal: no skeletal abnormalities reported; 7)Muscular: negative for muscular abnormalities; 8)Nervous: positive for hypersomnia; 9)Integumentary: no reported skin or hair abnormalities; 10)Reproductive: no reproductive abnormalities noted; 11)Immune/Lymphatic/Allergy: positive for respiratory allergies. Discussion: I discussed the possible etiologies of the sleep disorder with the patient, which include sleep disordered breathing such as Obstructive Sleep Apnea or Central Sleep Apnea Syndromes. Other conditions discussed with the patient, which may also cause sleep disruption and daytime sleepiness include Periodic Limb Movements and Parasomnias. Impression: Sleep Apnea, Unspecified G47.30 Parasomnia, Unspecified G47.50 Periodic Limb Movement Disorder G47.61 Recommendations and Patient Education: Nocturnal Polysomnography is recommended to evaluate for the possibility of sleep-disordered breathing such as Obstructive Sleep Apnea versus Central Sleep Apnea, or other sleep disorders such as Periodic Limb Movements and Parasomnias. Follow up in clinic to review the polysomnography results and the treatment options is also recommended. Safety issues regarding daytime sleepiness and driving or operating heavy machinery were also discussed with the patient. Additional time was spent discussing sleep hygiene including: regular bedtime and wake-up times; enough sleep hours; going to bed only when sleepy; using bed for the sole purpose of sleeping; avoidanceof: 1) caffeinated and alcoholic beverages, 2) strenuous cognitive activity, or 3) heavy meals in the evening. The patient was instructed to contact us in case of further questions or concerns. documented in this encounter Plan of Treatment Name Type Priority Associated Diagnoses Order S chedule HOME SLEEP TEST PROCEDURES Routine Observed sleep apnea Orde red: 12/28/2019 Health Maintenance Due Date Last Done Comments VARICELLA VACCINES (1 of 2 - 2-dose childhood series) 1983 PNEUMOCOCCAL 0-64 YEARS COMBINED SERIES (1 of 1 - 1988 PPSV23) DTaP,Tdap,and Td Vaccines (1 - Tdap) 1993 INFLUENZA VACCINE (Season Ended) 2020 documented as of this encounter Results Not on filedocumented in this encounter Visit Diagnoses Diagnosis Observed sleep apnea - Primary Unspecified sleep apnea documented in this encounter Advance Directives Name Relationship Healthcare Agent Communication Relationship Carina Lo Mother Primary healthcare agent
--- OUTSIDE RECORDS SUMMARY | 2020-02-18 13:03 | XMS REPORT | Summary of Care ---
:1980 Author Organization [facility] Address [address] [place] [address] Care Team Providers Name Role Phone Pcp, Does Not Have A Primary Care Provider Reason for Visit Reason Comments Results Encounter Details Date Type Department Care Team Description 01/18/2020 Telephone [facility] Pulmonary Lynn Marie MD Results Clinic [address] [facility] [address], [place] [address] [place] [address] [place] [address] [phone] Allergies Active Allergy Reactions Severity Noted Date Comments Zolpidem Tartrate Unknown - See 07/20/2015 comments Amoxicillin Swelling High 10/01/2018 Ibuprofen Rash High 03/22/2016 Developed bleed ing from intake Nsaids (Non-Steroidal Unknown - See 07/13/2019 Anti-Inflammatory Drug) comments documented as of this encounter (statuses as of 01/18/2020) Medications Medication Sig Dispensed Refills Start Date [...] as of this encounter (statuses as of 01/18/2020) Active Problems Problem Noted Date Drug-seeking behavior 10/23/2017 Back pain, unspecified back location, unspecified back pain laterality, 10/23/2017 unspecified chronicity documented as of this encounter (statuses as of 01/18/2020) Social History Tobacco Use Types Packs/Day Years [...] been in contact with No / Unsure 01/12/2020 3:35 PM CDT someone who was confirmed or [...] Results Not on filedocumented in this encounter Advance Directives Name Relationship Healthcare Agent Communication Relationship Carina Lo Mother Primary healthcare agent
--- OUTSIDE RECORDS SUMMARY | 2020-02-18 13:03 | XMS REPORT | Summary of Care ---
:1980 Author Organization [facility] Address [address] [place] [address] Care Team Providers Name Role Phone Pcp, Does Not Have A Primary Care Provider Reason for Visit Reason Comments Orders Encounter Details Date Type Department Care Team Description 12/29/2019 Telephone [facility] Pulmonary Lynn Marie MD Orders Clinic [address] , [place] [address] [place] [address] [address] [place] [address] [phone] Allergies Active Allergy Reactions Severity Noted Date Comments Zolpidem Tartrate Unknown - See 07/20/2015 comments Amoxicillin Swelling High 10/01/2018 Ibuprofen Rash High 03/22/2016 Developed bleed ing from intake Nsaids (Non-Steroidal Unknown - See 07/13/2019 Anti-Inflammatory Drug) comments documented as of this encounter (statuses as of 01/02/2020) Medications Medication Sig Dispensed Refills Start Date [...] as of this encounter (statuses as of 01/02/2020) Active Problems Problem Noted Date Drug-seeking behavior 10/23/2017 Back pain, unspecified back location, unspecified back pain laterality, 10/23/2017 unspecified chronicity documented as of this encounter (statuses as of 01/02/2020) Social History Tobacco Use Types Packs/Day Years [...] Treatment Date Type Specialty Care Team Description 01/09/2020 Laboratory Only Phlebotomy Only, Adc Test 01/10/2020 Stress Analyst Visit Sleep Disorder Lynn Turcios, Diagnostic [address] [address] [phone] Health Maintenance Due Date Last Done Comments [...]
--- OUTSIDE RECORDS SUMMARY | 2020-02-18 13:03 | XMS REPORT | Summary of Care ---
:1980 Author Organization [facility] Address [address] [place] [address] Care Team Providers Name Role Phone Pcp, Does Not Have A Primary Care Provider Reason for Visit Reason Comments Screening covid screening Encounter Details Date Type Department Care Team Description 01/09/2020 Laboratory Only [facility] Unknown, Attending COVID- 19 (Primary Dx); Professional Office Only, Adc Test Special screening examination for viral disease Building Phlebotomy Lab Professional Office Building [address] [place] [address] , [address] [place] [address] Allergies Active Allergy Reactions Severity Noted Date Comments Zolpidem Tartrate Unknown - See 07/20/2015 comments Amoxicillin Swelling High 10/01/2018 Ibuprofen Rash High 03/22/2016 Developed bleed ing from intake Nsaids (Non-Steroidal Unknown - See 07/13/2019 Anti-Inflammatory Drug) comments documented as of this encounter (statuses as of 01/09/2020) Medications Medication Sig Dispensed Refills Start Date [...] as of this encounter (statuses as of 01/09/2020) Active Problems Problem Noted Date Drug-seeking behavior 10/23/2017 Back pain, unspecified back location, unspecified back pain laterality, 10/23/2017 unspecified chronicity documented as of this encounter (statuses as of 01/09/2020) Social History Tobacco Use Types Packs/Day Years [...] Treatment Date Type Specialty Care Team Description 01/10/2020 Entry Level Recruiter Visit Sleep Disorder Lynn Turcios, Diagnostic [address] [address] [phone] Name Type Priority Associated Diagnoses Date/Ti me CORONAVIRUS COVID-19 LAB Routine COVID-19 01/09/2020 1:25 PM TESTING Special screening CDT examination for viral disease Name Type Priority Associated Diagnoses Order S chedule CORONAVIRUS COVID-19 LAB Routine COVID-19 Expected: 01/09/2020, TESTING Special screening Expires: 0 01/08/2021 examination for viral disease Health Maintenance Due Date Last Done Comments VARICELLA VACCINES (1 of 2 - 2-dose childhood series) 1983 PNEUMOCOCCAL 0-64 YEARS COMBINED SERIES (1 of 1 - 1988 PPSV23) DTaP,Tdap,and Td Vaccines (1 - Tdap) 1993 INFLUENZA VACCINE (Season Ended) 2020 documented as of this encounter Results Not on filedocumented in this encounter Visit Diagnoses Diagnosis COVID-19 - Primary Special screening examination for viral disease Special screening examination for unspec ified viral disease documented in this encounter Advance Directives Name Relationship Healthcare Agent Communication Relationship Carinanargis Rocha Wally Mother Primary healthcare agent
--- OUTSIDE RECORDS SUMMARY | 2020-02-18 13:03 | XMS REPORT | Summary of Care ---
:1980 Author Organization [facility] Address [address] [place] [address] Care Team Providers Name Role Phone Pcp, Does Not Have A Primary Care Provider Reason for Visit Reason Comments Sleep Apnea (Routine) Status Reason Specialty Diagnoses / Referred By Referred To Procedures Contact Contact Closed Sleep Disorder Diagnoses Observed sleep apnea Atanasov, Strahil Diagnostic Procedures HOME SLEEP TEST MD Anupama [address] [place] [address] Dr Hurd [address] [place] [address] Encounter Details Date Type Department Care Team Description 01/11/2020 Assembly Lead Person Visit [facility] Sleep Atanasov, Strahil O bstructive sleep Disorder Center- MD Anupama apnea (adult) [address] (pediatric) [address] [place] [address] Dr Hurd [address] [place] [address] [phone] Allergies Active Allergy Reactions Severity Noted Date Comments Zolpidem Tartrate Unknown - See 07/20/2015 comments Amoxicillin Swelling High 10/01/2018 Ibuprofen Rash High 03/22/2016 Developed bleed ing from intake Nsaids (Non-Steroidal Unknown - See 07/13/2019 Anti-Inflammatory Drug) comments documented as of this encounter (statuses as of 01/12/2020) Medications Medication Sig Dispensed Refills Start Date [...] as of this encounter (statuses as of 01/12/2020) Active Problems Problem Noted Date Drug-seeking behavior 10/23/2017 Back pain, unspecified back location, unspecified back pain laterality, 10/23/2017 unspecified chronicity documented as of this encounter (statuses as of 01/12/2020) Social History Tobacco Use Types Packs/Day Years [...] filedocumented in this encounter Visit Diagnoses Diagnosis Obstructive sleep apnea (adult) (pediatr ic) documented in this encounter Advance Directives Name Relationship Healthcare Agent Communication Relationship Carina Lo Mother Primary healthcare agent
--- OUTSIDE RECORDS SUMMARY | 2020-02-18 13:04 | XMS REPORT | Summary of Care ---
:[address] [facility] Address [address] [place] [address] Care Team Providers Name Role Phone Pcp, Does Not Have A Primary Care Provider Reason for Visit Reason Comments Erroneous encounter-disregard Encounter Details Date Type Department Care Team Description 01/25/2020 Telephone [facility] [employer] ADC Lynn Turcios Erro neous Pulmonary Clinic encounter-disregard [address] [facility] [address], [address] [facility] [address] [place], [place] [address] [phone] Allergies Active Allergy Reactions Severity Noted Date Comments Zolpidem Tartrate Unknown - See 07/20/2015 comments Amoxicillin Swelling High 10/01/2018 Ibuprofen Rash High 03/22/2016 Developed bleed ing from intake Nsaids (Non-Steroidal Unknown - See 07/13/2019 Anti-Inflammatory Drug) comments documented as of this encounter (statuses as of 01/25/2020) Medications Medication Sig Dispensed Refills Start Date [...] as of this encounter (statuses as of 01/25/2020) Active Problems Problem Noted Date Drug-seeking behavior 10/23/2017 Back pain, unspecified back location, unspecified back pain laterality, 10/23/2017 unspecified chronicity documented as of this encounter (statuses as of 01/25/2020) Social History Tobacco Use Types Packs/Day Years [...] Tdap) 1993 INFLUENZA VACCINE (Season Ended) 2020 Depression Screening 12/27/2020 12/28/2019 documented as of this encounter Results Not on filedocumented in this encounter Advance Directives Name Relationship Healthcare Agent Communication Relationship Carina Lo Mother Primary healthcare agent
--- OUTSIDE RECORDS SUMMARY | 2020-02-18 13:04 | XMS REPORT | Summary of Care ---
:1980 Author Organization [facility] Address [address] [place] [address] Care Team Providers Name Role Phone Pcp, Does Not Have A Primary Care Provider Reason for Visit Reason Comments Results Encounter Details Date Type Department Care Team Description 01/18/2020 Telephone [facility] Pulmonary Lynn Marie MD Results Clinic [address] [facility] [address] [facility] [address]rene, [place] [address] [place] [address] [place] [address] [phone] Allergies Active Allergy Reactions Severity Noted Date [...]
--- OUTSIDE RECORDS SUMMARY | 2020-02-18 13:04 | XMS REPORT | Summary of Care ---
:1980 Author Organization [facility] Address [address] [place] [address] Care Team Providers Name Role Phone Pcp, Does Not Have A Primary Care Provider Reason for Visit Reason Comments Results Encounter Details Date Type Department Care Team Description 01/18/2020 Telephone [facility] Pulmonary Lynn Marie MD Results Clinic [address] [facility] [address] [facility] [address]rene, [place] [address] [place] [address] [place] [address] [phone] Allergies Active Allergy Reactions Severity Noted Date [...]
--- OUTSIDE RECORDS SUMMARY | 2020-02-18 13:04 | XMS REPORT | Summary of Care ---
:1980 Author Organization [facility] Address [address] [place] [address] Care Team Providers Name Role Phone Pcp, Does Not Have A Primary Care Provider Encounter Details Date Type Department Care Team Description 01/11/2020 Orders Only [facility] Doctor Unassigned, No [address] [facility] [place] [address] [address] [facility] [place] [id number] Allergies Active Allergy Reactions Severity Noted Date Comments Zolpidem Tartrate Unknown - See 07/20/2015 comments Amoxicillin Swelling High 10/01/2018 Ibuprofen Rash High 03/22/2016 Developed bleed ing from intake Nsaids (Non-Steroidal Unknown - See 07/13/2019 Anti-Inflammatory Drug) comments documented as of this encounter (statuses as of 01/19/2020) Medications Medication Sig Dispensed Refills Start Date [...] as of this encounter (statuses as of 01/19/2020) Active Problems Problem Noted Date Drug-seeking behavior 10/23/2017 Back pain, unspecified back location, unspecified back pain laterality, 10/23/2017 unspecified chronicity documented as of this encounter (statuses as of 01/19/2020) Social History Tobacco Use Types Packs/Day Years [...] Ended) 2020 documented as of this encounter Procedures Procedure Name Priority Date/Time Associated Diagnosis Comme nts SLEEP LAB RESULTS Routine 01/11/2020 12:01 AM CDT documented in this encounter Results Not on filedocumented in this encounter Advance Directives Name Relationship Healthcare Agent Communication Relationship Carina Lo Mother Primary healthcare agent
--- OUTSIDE RECORDS SUMMARY | 2020-02-18 13:04 | XMS REPORT | Summary of Care ---
:1980 Author Organization [facility] Address [address] [place] [address] Care Team Providers Name Role Phone Pcp, Does Not Have A Primary Care Provider Reason for Visit Reason Comments Erroneous encounter-disregard Encounter Details Date Type Department Care Team Description 01/25/2020 Telephone [facility] [address] [employer] ADC Lynn Turcios Erro neous Pulmonary Clinic encounter-disregard [address] [facility] [address], [address] [facility] [address] [place], [place] [address] [phone] Allergies Active Allergy Reactions Severity Noted Date [...]
--- OUTSIDE RECORDS SUMMARY | 2020-02-18 13:05 | XMS REPORT | Summary of Care ---
:1980 Author Organization [facility] Address [address] [place] [address] Care Team Providers Name Role Phone Pcp, Does Not Have A Primary Care Provider Reason for Referral (Routine) Status Reason Specialty Diagnoses / Referred By Referred To Procedures Contact Contact New Request Sleep Disorder Diagnoses Obstructive sleep apnea Atanasov, Diagnostic Procedures SLEEP STUDY, ATTENDED Lynn Altman MD [address] [place] [address] Dr Hurd [address] [place] [address] Reason for Visit Reason Comments Results Encounter Details Date Type Department Care Team Description 01/18/2020 Telephone [facility] ADC Pulmonary Lynn Marie MD Results Clinic [address] [place] [address] Didi Alva [address] [address] [place] [address] [phone] Allergies Active Allergy Reactions Severity Noted Date [...] filedocumented in this encounter Plan of Treatment Name Type Priority Associated Diagnoses Order S chedule SLEEP STUDY, ATTENDED PROCEDURES Routine Obstructive sleep a pnea Ordered: 01/25/2020 Health Maintenance Due Date Last Done Comments VARICELLA VACCINES (1 of 2 - 2-dose childhood series) 1983 PNEUMOCOCCAL 0-64 YEARS COMBINED SERIES (1 of 1 - 1988 PPSV23) DTaP,Tdap,and Td Vaccines (1 - Tdap) 1993 INFLUENZA VACCINE (Season Ended) 2020 Depression Screening 12/27/2020 12/28/2019 documented as of this encounter Results Not on filedocumented in this encounter Visit Diagnoses Diagnosis Obstructive sleep apnea - Primary Obstructive sleep apnea (adult) (pediatr ic) documented in this encounter Advance Directives Name Relationship Healthcare Agent Communication Relationship Carinanargis Lo Mother Primary healthcare agent
--- OUTSIDE RECORDS SUMMARY | 2020-02-18 13:05 | XMS REPORT | Summary of Care ---
:1980 Author Organization [facility] Address [address] [place] [address] Care Team Providers Name Role Phone Pcp, Does Not Have A Primary Care Provider Reason for Visit Reason Comments APNEA (Routine) Status Reason Specialty Diagnoses / Referred By Referred To Procedures Contact Contact Closed Sleep Disorder Diagnoses Obstructive sleep apnea Lynn Turcios Diagnostic Procedures SLEEP STUDY, ATTENDED MD Anupama [address] [place] [address] Dr [address] [place] [address] Encounter Details Date Type Department Care Team Description 02/01/2020 Auth Specialist Visit [facility] Sleep Shabbir Turcios MD [address] [place] [address] [address] ALDO (obstructive Disorder Center- 1, [facility] Sleep Lab Bed sleep apnea) [address] [place] [address] Allergies Active Allergy Reactions Severity Noted Date Comments Zolpidem Tartrate Unknown - See 07/20/2015 comments Amoxicillin Swelling High 10/01/2018 Ibuprofen Rash High 03/22/2016 Developed bleed ing from intake Nsaids (Non-Steroidal Unknown - See 07/13/2019 Anti-Inflammatory Drug) comments documented as of this encounter (statuses as of 02/01/2020) Medications Medication Sig Dispensed Refills Start Date [...] as of this encounter (statuses as of 02/01/2020) Active Problems Problem Noted Date Drug-seeking behavior 10/23/2017 Back pain, unspecified back location, unspecified back pain laterality, 10/23/2017 unspecified chronicity documented as of this encounter (statuses as of 02/01/2020) Social History Tobacco Use Types Packs/Day Years [...] been in contact with No / Unsure 01/30/2020 1:49 PM CDT someone who was confirmed or [...] filedocumented in this encounter Visit Diagnoses Diagnosis ALDO (obstructive sleep apnea) Obstructive sleep apnea (adult) (pediatr ic) documented in this encounter Advance Directives Name Relationship Healthcare Agent Communication Relationship Carinanargis Lo Mother Primary healthcare agent
--- OUTSIDE RECORDS SUMMARY | 2020-02-18 13:05 | XMS REPORT | Summary of Care ---
:1980 Author Organization [facility] Address [address] [place] [address] Care Team Providers Name Role Phone Pcp, Does Not Have A Primary Care Provider Reason for Referral (Routine) Status Reason Specialty Diagnoses / Referred By Referred To Procedures Contact Contact New Request Sleep Disorder Diagnoses Obstructive sleep apnea Atanasov, Diagnostic Procedures SLEEP STUDY, ATTENDED Lynn Altman MD [address] [place] [address] Dr [address] [place] [address] Reason for Visit Reason Comments Results Encounter Details Date Type Department Care Team Description 01/18/2020 Telephone [facility] ADC Pulmonary Lynn Marie MD Results Clinic [address] [place] [address] Didi Alva [address] [address] [place] [address] [phone] Allergies Active Allergy Reactions Severity Noted Date [...]
--- OUTSIDE RECORDS SUMMARY | 2020-02-18 13:05 | XMS REPORT | Summary of Care ---
:1980 Author Organization [facility] Address [address] [place] [address] Care Team Providers Name Role Phone Pcp, Does Not Have A Primary Care Provider Reason for Visit Reason Comments LAB WORK Auth/Cert Status Reason Specialty Diagnoses / Referred By Referred To Procedures Contact Contact Clinical Medical Procedures Adc Lab Laboratory [facility] [address] [place] [address] Encounter Details Date Type Department Care Team Description 01/30/2020 Laboratory Only [facility] Shahana Turcios MD [address] [place] [address] Dr [address] [place] [address] Pre-op testing Phlebotomy Only, Adc Test (Primary Dx) Lab-[address] [address] Allergies Active Allergy Reactions Severity Noted Date Comments Zolpidem Tartrate Unknown - See 07/20/2015 comments Amoxicillin Swelling High 10/01/2018 Ibuprofen Rash High 03/22/2016 Developed bleed ing from intake Nsaids (Non-Steroidal Unknown - See 07/13/2019 Anti-Inflammatory Drug) comments documented as of this encounter (statuses as of 01/30/2020) Medications Medication Sig Dispensed Refills Start Date [...] as of this encounter (statuses as of 01/30/2020) Active Problems Problem Noted Date Drug-seeking behavior 10/23/2017 Back pain, unspecified back location, unspecified back pain laterality, 10/23/2017 unspecified chronicity documented as of this encounter (statuses as of 01/30/2020) Social History Tobacco Use Types Packs/Day Years [...] Treatment Date Type Specialty Care Team Description 02/01/2020 Manager Of Selection And Assessment Visit Sleep Disorder Keena Turcios MD [address] [place] [address] [place] [address] [phone] Diagnostic 1, [facility] Sleep Lab Bed Health Maintenance Due Date Last Done Comments VARICELLA VACCINES (1 of 2 - 2-dose childhood series) 1983 PNEUMOCOCCAL 0-64 YEARS COMBINED SERIES (1 of 1 - 1988 PPSV23) DTaP,Tdap,and Td Vaccines (1 - Tdap) 1993 INFLUENZA VACCINE (Season Ended) 2020 Depression Screening 12/27/2020 12/28/2019 documented as of this encounter Procedures Procedure Name Priority Date/Time Associated Diagnosis Comme nts COVID-19 (ID NOW Routine 01/30/2020 2:12 PM Pre-op testing Re sults for this RAPID TESTING) CDT procedure are in the results section. documented in this encounter Results COVID-19 (ID NOW RAPID TESTING) (01/30/2020 2:12 PM CDT) SARS-CoV-2 Rapid ID Not Detected Not Detected [facility] Specimen Swab - NASOPHARYNGEAL SWAB Narrative Performed At ID NOW COVID-19 Assay is an isothermal nucleic [facility] acid amplification test intended for the qualitative detection of nucleic acid from SARS-CoV-2 viral RNA in nasopharyngeal (CONCESSION STAND ATTENDANT) specimens. It is used under Emergency Use Authorization (EUA) by FDA. The limit of detection (LOD) of the assay is 125 Genome Equivalents/mL. A positive result is indicative of the presence of SARS-CoV-2 RNA. Clinical correlation with patient history and other diagnostic information is necessary to determine patient infection status. A negative (Not Detected) result does not preclude SARS-CoV-2 infection. In patients with clinical symptoms and other tests that are consistent with SARS-CoV-2 infection, negative results should be treated as presumptive negative and a new specimen should be tested with alternative PCR molecular test. Invalid: Please collect a new specimen for repeat patient testing if clinically indicated. Performing Organization Address City/State/Zipcode Phone Number [facility] CLIA: [id number], [address] [place], [place] [address] documented in this encounter Visit Diagnoses Diagnosis Pre-op testing - Primary Preoperative examination, unspecified documented in this encounter Advance Directives Name Relationship Healthcare Agent Communication Relationship Carina Lo Mother Primary healthcare agent
--- OUTSIDE RECORDS SUMMARY | 2020-02-18 13:06 | XMS REPORT | Summary of Care ---
:1980 Author Organization [facility] Address [address] [place] [address] Care Team Providers Name Role Phone Pcp, Does Not Have A Primary Care Provider Encounter Details Date Type Department Care Team Description 02/01/2020 Orders Only [facility] Doctor Unassigned, No [address] [facility] Name [place] [id number] [address] [place] [phone] Allergies Active Allergy Reactions Severity Noted Date Comments Zolpidem Tartrate Unknown - See 07/20/2015 comments Amoxicillin Swelling High 10/01/2018 Ibuprofen Rash High 03/22/2016 Developed bleed ing from intake Nsaids (Non-Steroidal Unknown - See 07/13/2019 Anti-Inflammatory Drug) comments documented as of this encounter (statuses as of 02/03/2020) Medications Medication Sig Dispensed Refills Start Date [...] as of this encounter (statuses as of 02/03/2020) Active Problems Problem Noted Date Drug-seeking behavior 10/23/2017 Back pain, unspecified back location, unspecified back pain laterality, 10/23/2017 unspecified chronicity documented as of this encounter (statuses as of 02/03/2020) Social History Tobacco Use Types Packs/Day Years [...] Priority Date/Time Associated Diagnosis Comme nts SLEEP STUDY DATA REPORT Routine 02/01/2020 12:01 AM CDT documented in this encounter Results Not on filedocumented in this encounter Advance Directives Name Relationship Healthcare Agent Communication Relationship Carina Lo Mother Primary healthcare agent
--- NOTE | 2020-02-18 14:52 | ER ---
Nurse's Notes [facility] Name: Blanche Lo Jr Age: 39 yrs Sex: Male : 1980 Arrival Date: 02/18/2020 Time: 12:58 Bed 23 Private MD: Diagnosis: Presentation: 02/17 13:33 Chief complaint: Patient states: I got a staph infection on my L upper arm. It started ca1 yesterday. Denies fever. Coronavirus screen: Proceed with normal triage. Patient denies a cough. Patient denies shortness of breath or difficulty breathing. Patient denies measured and/or subjective temperature greater than 100.4F prior to today's visit. Patient denies travel on a cruise ship or to a country the [facility] currently lists as an affected area. Patient denies contact with known and/or suspected case of COVID-19. Ebola Screen: Patient negative for fever greater than or equal to 101.5 degrees Fahrenheit, and additional compatible Ebola Virus Disease symptoms Patient denies exposure to infectious person. Patient denies travel to an Ebola-affected area in the 21 days before illness onset. No symptoms or risks identified at this time. Initial Sepsis Screen: Does the patient meet any 2 criteria? No. Patient's initial sepsis screen is negative. Does the patient have a suspected source of infection? No. Patient's initial sepsis screen is negative. Risk Assessment: Do you want to hurt yourself or someone else? Patient reports no desire to harm self or others. Onset of symptoms was February 18, 2020. 13:33 Method Of Arrival: Ambulatory ca1 13:33 Acuity: JANINE 4 ca1 Historical: - Allergies: 13:35 ambien; ca1 13:35 Amoxil; ca1 13:35 Ibuprofen; ca1 13:35 Naproxen; ca1 13:35 Amoxicillin; ca1 - Home Meds: 13:35 levetiracetam 500 mg Oral tab 1 tab 2 times per day [Active]; ca1 - PMHx: 13:35 Back pain; GI Bleed; Hypertension; Seizures; ca1 - PSHx: 13:35 None; ca1 - Immunization history:: Adult Immunizations up to date. - Social history:: Smoking status: Patient denies any tobacco usage or history of. Vital Signs: 13:33 BP 121 / 81; Pulse 96; Resp 16 S; Temp 97.6(TE); Pulse Ox 97% on R/A; Weight 99.79 kg ca1 (R); Height 5 ft. 5 in. (165.10 cm) (R); 13:33 Body Mass Index 36.61 (99.79 kg, 165.10 cm) ca1 ED Course: 12:58 Patient arrived in ED. ag5 13:35 Triage completed. ca1 13:35 Arm band placed on right wrist. ca1 14:50 Yaz Iqbal, RN is Primary Nurse. iw Administered Medications: No medications were administered Outcome: 14:50 Eloped from waiting room, before seeing physician iw 14:50 Condition: good iw 14:51 Patient left the ED. iw Signatures: Yaz Iqbal, RN RN iw Leatha Nur RN RN [facility] Christopher Burkett ag
[2020-02-18 14:59] VITALS: BP 121/81; TEMP 97.6; O2SAT 97
== END 2020-02-18 14:51 | disposition left against medical advice (07) ==
LOC: ER 12:56
DX: Z53.21 Procedure and treatment not carried out due to patient leaving prior to being seen by health care provider (principal)
CPT/HCPCS: 99281

== ENCOUNTER 2020-10-27 16:48 | Emergency (ER) | payer SELFPAY ==
--- OUTSIDE RECORDS SUMMARY | 2020-10-27 16:50 | XMS REPORT | Continuity of Care Document ---
:1980 Author Organization [facility] t Address [address] [place] [address] Care Team Providers Name Role Phone Pcp Primary Care Physician Unavailable Nikolay TOMLIN, S Attending Clinician Karolina TOMLIN, T Attending Clinician Doctor Unassigned, Name Attending Clinician Unavailable ARIEL BARRERA Attending Clinician Unavailable ARIEL BARRERA Admitting Clinician Unavailable Problems Condition Condition [...] Date Stop Date Quantity Comments Source History SDKS [facility] - [facility] St[facility] Drinks [facility] History SDKS [facility] - Alcohol Binge Medical [place] [address] [facility] Tobacco use and 2019-06-30 2019-06-30 Never used [facility] - exposure 00:00:00 00:00:[address] [facility] Alcohol intake 2019-06-30 2019-06-30 Current [facility] Tad es - 00:00:00 00:00:00 non-drinker of Medical Ce nter alcohol (finding) History [facility] 2019-06-28 2019-06-[address] [facility] - Alcohol Frequency 00:00:00 00:00:[address] [facility] Smoking Status Start Date Stop Date Source Former smoker 2019-06-30 00:00:00 2019-06-30 00:00:00 [facility] Medications Ordered Filled Start Stop Current Ordering Indication Dosage Frequency Signature Comments Components Source Medication Medication Date Date Medication? Clinician (SIG) Name Name pantoprazol 2018-08 Yes 40mg Q.5D Take [address] [facility] 08-30 tablet (40 [facility] - (PROTONIX) 00:00: mg total) Me dical 40 MG 00 by mouth 2 Center tablet (two) times daily. ferrous 2018-08 No 325mg [id number] Take [address] sulfate 325 08-30 [id number] tablet [facility] - (65 FE) MG 00:00: 23:59 3D (325 mg Med ical tablet 00 :00 total) by Center mouth 3 (three) times daily. Procedures This patient has no known procedures. Plan of Care Planned Activity Planned Date Details Comments Source Future Scheduled 2020-04-[address] [facility] - Test 00:00:00 (#1) [code = [facility] INFLUENZA VACCINE (#1)] Future Scheduled [address] [facility] - Test 00:00:00 (procedure) [code = [facility] [id number]] Encounters Start End Encounter Admission Attending Care Care Encounter Source Date/Time Date/Time Type Type Clinicians Facility Department ID 2020-04-23 2020-04-23 Emergency [facility] [id number] 19:05:00 19:52:00 Wicho Riley [id number] [place] [id number] [facility] [id number] 2020-02-24 2020-02-24 Telephone JACINTO Turcios [id number] 00:00:00 00:00:00 Lynn Riley [id number] [place] [id number] Professio [id number] nal 085 Building 2020-02-22 2020-02-22 Orders Doctor KING [id number] 00:00:00 00:00:00 Only Unassigned, JENNY [id number] [facility] [id number] Results Test Description Test Time Test Comments Results Result Comments Source BASIC METABOLIC PANEL 2019-06-30 07:38:00 Test Item Value Reference Range Interpretation Comme nts SODIUM (BEAKER) (test code 137 meq/L 136-145 = 381) POTASSIUM (BEAKER) (test 4.0 meq/L 3.5-5.1 code = 379) CHLORIDE (BEAKER) (test 100 meq/L 98-107 code = 382) CO2 (BEAKER) (test code = 27 meq/L 22-29 355) BLOOD UREA NITROGEN 4 mg/dL 7-21 L (BEAKER) (test code = 354) CREATININE (BEAKER) (test 0.71 mg/dL 0.57-1.25 code = 358) GLUCOSE RANDOM (BEAKER) 110 mg/dL 70-105 H (test code = 652) CALCIUM (BEAKER) (test 7.2 mg/dL 8.4-10.2 L code = 697) EGFR (BEAKER) (test code = 125 mL/min/1.73 sq m ESTIMATED GFR IS NOT 1092) ACCURATE CRE ATININE CLEARANCE IN VA EDICTING GLOMERULAR FILT RATION RATE. ESTIMATED GFR IS NOT APPLICABLE FOR DIALYSIS PATIENTS. [id number] 07:19:00 Test Item Value Reference Range Interpretation Comments PHOSPHORUS (BEAKER) (test code = 4.5 mg/dL 2.3-4.7 604) [id number] 07:19:00 Test Item Value Reference Range Interpretation Comments MAGNESIUM (BEAKER) (test code = 2.0 mg/dL 1.6-2.6 627) CBC W/PLT COUNT & AUTO [id number] 07:11:00 Test Item Value Reference Range Interpretation [...] 0-1 PERCENT (BEAKER) (test code = 2801) [id number] 07:07:00 Test Item Value Reference Range Interpretation Comments PARTIAL THROMBOPLASTIN TIME 39.0 seconds 22.5-36.0 H (BEAKER) (test code = 760) PROTHROMBIN [id number] 07:06:00 Test Item Value Reference Range Interpretation [...] is2.5-3.5 for patients wiht mechanical heart valves.CALCIUM, [id number] 07:05:00 Test Item Value Reference Range Interpretation Comments CALCIUM IONIZED (BEAKER) (test 0.73 mmol/L 1.12-1.27 LL code = 698) PH, BLOOD (BEAKER) (test code = 7.54 1810) CBC W/PLT COUNT & AUTO [id number] 15:06:00 Test Item Value Reference Range Interpretation [...] 0-1 PERCENT (BEAKER) (test code = 2801) POCT-GLUCOSE [id number] 12:26:00 Test Item Value Reference Range Interpretation Comments POC-GLUCOSE METER 147 mg/dL 70-110 H : TESTED A T [facility] 6720 (BEAKER) (test code = [place]A [place], 1538) [id number]: Bell Person/Techni wes ID = [id number] for Karen Stacy POCT-GLUCOSE [id number] 08:38:00 Test Item Value Reference Range Interpretation Comments POC-GLUCOSE METER 136 mg/dL 70-110 H : TESTED A T [facility] 6720 (BEAKER) (test code = [place], 1538) [address]: Bell Person/Techni wes ID = [id number] for ELIAS KYLE BASIC METABOLIC [id number] 04:35:00 Test Item Value Reference Range Interpretation [...] S NOT APPLICABLE FOR DIALYSIS PATIEN TS. [id number] 04:18:00 Test Item Value Reference Range Interpretation Comments MAGNESIUM (BEAKER) 2.1 mg/dL 1.6-2.6 Specimen slightly (test code = 627) hemolyzed [id number] 04:18:00 Test Item Value Reference Range Interpretation Comments PHOSPHORUS (BEAKER) 4.6 mg/dL 2.3-4.7 Specimen slightly (test code = 604) hemolyzed CBC W/PLT COUNT & AUTO [id number] 03:30:00 Test Item Value Reference Range Interpretation [...] = 2801) RAD, CHEST, 1 VIEW, NON [id number] 23:38:00Reason for exam:->preop workupShould this be performed at the bedside?->YesFINAL REPORT AP chest dated 06/28/2019 Comment: Heart is in upper limits of normal in size. Pulmonary vasculature is unremarkable. Lungs are clear. No pulmonary infiltrate or pleural effusion. Impression: No active cardiopulmonary disease. Signed: María Tobias MDReport Verified Date/Time: 06/28/2019 23:38:30 Reading Location: [facility] B1 [id number] Consult Reading Room Electronicallysigned by: MARÍA TOBIAS M.D. on 06/28/2019 11:38 PMPOCT-GLUCOSE [id number] 22:26:00 Test Item Value Reference Range Interpretation Comments POC-GLUCOSE METER 112 mg/dL 70-110 H : TESTED A T [facility] 6720 (BEAKER) (test code = [facility], 1538) [address]: Bell Person/Techni wes ID = [id number] for BLACK PEDRAZA COMPREHENSIVE METABOLIC [id number] 20:58:00 Test Item Value Reference Range Interpretation [...] PATIEN TS. CBC W/PLT COUNT & AUTO [id number] 20:24:00 Test Item Value Reference Range Interpretation [...] 0-1 PERCENT (BEAKER) (test code = 2801) [id number] 20:23:00 Test Item Value Reference Range Interpretation Comments PARTIAL THROMBOPLASTIN TIME 38.3 seconds 22.5-36.0 H (BEAKER) (test code = 760) PROTHROMBIN [id number] 20:22:00 Test Item Value Reference Range Interpretation [...]
[2020-10-27 17:56] LABS: Basophils % 1.4 % (0-1.3); Hematocrit 35.4 % (39.6-49.0); Lymphocytes % 17.1 % (15.3-44.8); MPV 11.4 fL (7.6-11.3); RBC Red Blood Cell Count 4.25 M/uL (4.33-5.43)
[2020-10-27 18:24] LABS: ALT/SGPT 59 U/L (12-78); AST/SGOT 52 U/L (15-37); Albumin 3.6 g/dL (3.4-5.0); Alkaline Phosphatase 98 U/L (45-117); BUN Blood Urea Nitrogen 9 mg/dL (7-18); Bicarbonate 31 mmol/L (21-32); Bilirubin Direct 0.1 mg/dL (0-0.2); Bilirubin Total 0.4 mg/dL (0.2-1.0); Glucose Level 92 mg/dL (74-106); Lipase 99 U/L (73-393); Potassium 3.8 mmol/L (3.5-5.1); Protein, Total 8.5 g/dL (6.4-8.2); Sodium Level 140 mmol/L (136-145)
--- NOTE | 2020-10-27 18:36 | RAD REPORT ---
EXAM DESCRIPTION: CT - Abdomen Pelvis W Contrast - 10/27/2020 6:27 pm CLINICAL HISTORY: ABD PAIN, GI bleed COMPARISON: CT June 2019 TECHNIQUE: Biphasic, helical CT imaging of the abdomen and pelvis was performed following 100 ml non -ionic IV contrast. No oral contrast. All CT scans are performed using dose optimization technique as appropriate and may include automated exposure control or mA/KV adjustment according to patient size. FINDINGS: No suspicious findings in the lung bases. Diffuse fatty infiltration of the liver is present with no focal liver lesion. Spleen and pancreas sh ow no suspicious findings. Multiple gallstones are identified with no acute gallbladder or biliary tr ee finding. Symmetric renal function is seen with no hydronephrosis or suspicious renal mass. No pyelonephritis o r acute parenchymal process. No bladder abnormalities. No adrenal abnormalities. No gastric dilatation or wall thickening. No dilated large or small bowel. Left mid abdomen colon josh stomotic site shows no suspicious finding. The right-sided colon anastomotic site also without suspic ious finding. Patient has a known large right flank hernia. No acute component at this site. Strandin g is present in the subcutaneous fatty tissues of the midline and right lower abdomen not substantial ly different. Small ventral hernia defects are not clearly different from comparison. No free air, pneumatosis or free fluid. No mass or bulky lymphadenopathy. No suspicious bony findings. IMPRESSION: No obstruction, free air or surgically emergent finding. No acute GI findings seen as a source for GI bleed. No active GI process is identifiable. Above detailed findings are not significantly different from comparison.
--- NOTE | 2020-10-27 19:02 | ER ---
Nurse's Notes [facility] Name: Blanche Lo Jr Age: 40 yrs Sex: Male : 1980 Arrival Date: 10/27/2020 Time: 16:52 Bed 16 Private MD: Diagnosis: Generalized abdominal pain Presentation: 10/27 16:56 Chief complaint: Patient states: has had blood in his stool X 3 days, had labs drawn iw and was told his Hgb was 7 or 8 and that he might need a blood transfusion, sees Dr. Ahumada in [place] , is supposed to f/u with GI. Coronavirus screen: At this time, the client does not indicate any symptoms associated with coronavirus-19. Ebola Screen: Patient negative for fever greater than or equal to 101.5 degrees Fahrenheit, and additional compatible Ebola Virus Disease symptoms Patient denies exposure to infectious person. Patient denies travel to an Ebola-affected area in the 21 days before illness onset. No symptoms or risks identified at this time. Initial Sepsis Screen: Does the patient meet any 2 criteria? No. Patient's initial sepsis screen is negative. Does the patient have a suspected source of infection? No. Patient's initial sepsis screen is negative. Risk Assessment: Do you want to hurt yourself or someone else? Patient reports no desire to harm self or others. Onset of symptoms was October 26, 2020. 16:56 Method Of Arrival: Ambulatory iw 16:56 Acuity: JANINE 3 iw Historical: - Allergies: 17:00 ambien; iw 17:00 Amoxicillin; iw 17:00 Ibuprofen; iw 17:00 Naproxen; iw - Home Meds: 17:00 levetiracetam 500 mg Oral tab 1 tab nightly [Active]; Prilosec 20 mg Oral cpDR 1 cap iw once daily [Active]; Potassium Chloride Oral once daily [Active]; calcium [Active]; - PMHx: 17:00 Back pain; GI Bleed; Hypertension; Seizures; iw - PSHx: 17:00 abd surgery; Hernia repair; iw - Immunization history:: Flu vaccine is up to date. - Social history:: Smoking status: Patient/guardian denies using tobacco, the patient reports quitting approximately 2 years ago. Screenin:30 Abuse screen: Denies threats or abuse. Denies injuries from another. Nutritional zb screening: No deficits noted. Tuberculosis screening: No symptoms or risk factors identified. Fall Risk None identified. Assessment: 18:03 General: Appears in no apparent distress. uncomfortable, Behavior is calm, cooperative, zb appropriate for age. Pain: Complains of pain in abdomen Pain does not radiate. Pain currently is 10 out of 10 on a pain scale. Quality of pain is described as aching, tender, Pain began 2-3 days ago. Is continuous. Neuro: Level of Consciousness is awake, alert, obeys commands, Oriented to person, place, time, situation. Cardiovascular: Patient's skin is warm and dry. Respiratory: Airway is patent Respiratory effort is even, unlabored, Respiratory pattern is regular, symmetrical. GI: Abdomen is distended, obese, Reports bloody stool, Patient currently denies diarrhea, intolerance of fluids, intolerance of food, nausea, vomiting. : No signs and/or symptoms were reported regarding the genitourinary system. EENT: No deficits noted. Derm: Skin is intact, is healthy with good turgor, Skin is dry, Skin is normal, Skin temperature is warm. Musculoskeletal: Range of motion: intact in all extremities. 19:13 Reassessment: Patient appears in no apparent distress at this time. Patient and/or zb family updated on plan of care and expected duration. Pain level reassessed. Patient is alert, oriented x 3, equal unlabored respirations, skin warm/dry/pink. patient stated he wanted to leave. notified ECP. patient discharged. discussed follow up care and medications. Vital Signs: 16:56 BP 137 / 66; Pulse 103; Resp 16; Temp 98.4; Pulse Ox 96% ; Weight 104.33 kg; Height 5 iw ft. 5 in. (165.10 cm); 19:14 BP 140 / 68; Pulse 100; Resp 16; Pulse Ox 97% on R/A; zb 16:56 Body Mass Index 38.27 (104.33 kg, 165.10 cm) iw ED Course: 16:52 Patient arrived in ED. as 16:58 Triage completed. iw 17:01 Arm band placed on. iw 17:06 Jennie Hinton FNP-C is PSYCHIATRICP. kb 17:06 Triston Salas MD is Attending Physician. kb 17:34 Rosalia Serra, RN is Primary Nurse. zb 18:05 Patient has correct armband on for positive identification. Bed in low position. Call zb light in reach. Side rails up X 1. Pulse ox on. NIBP on. Door closed. Noise minimized. 19:14 No provider procedures requiring assistance completed. IV discontinued, intact, zb bleeding controlled, No redness/swelling at site. Pressure dressing applied. Administered Medications: 19:12 Not Given (Patient Refused): NS 0.9% 1000 ml IV at 1000 ml once zb 19:12 Not Given (Patient Refused): Zofran (Ondansetron) 4 mg IVP once; over 2 minutes zb 19:12 Not Given (Patient Refused): Calcium Gluconate 1 grams IVPB once over 60 mins; (mix in zb NS 100 mL) 19:13 Not Given (Patient Refused): morphine 4 mg IVP once; RASS on ADMIN: Combtv4, Very zb Agttd3, Agttd2, Rstlss1, AlertClm0, Drwsy-1, Lt Sdtn-2, Mod Sdtn-3, Dp Sdtn-4, UnArsble-5 Outcome: 19:01 Discharge ordered by . rose mary 19:14 Discharged to home ambulatory. zb 19:14 Condition: stable 19:14 Discharge instructions given to patient, Instructed on discharge instructions, follow up and referral plans. medication usage, Demonstrated understanding of instructions, follow-up care, medications, Prescriptions given X 3. 19:15 Patient left the ED. zb Signatures: Jennie Hinton FNP-C FNP-Ckb Martinez, Amelia as Yaz Iqbal, Rosalia Menezes RN, RN RN zb
--- NOTE | 2020-10-27 19:02 | EDPHYS ---
Physician Documentation [facility] Name: Blanche Lo Jr Age: 40 yrs Sex: Male : 1980 Arrival Date: 10/27/2020 Time: 16:52 Bed 16 Private MD: Triston Barcenas HPI: 10/28 00:26 This 40 yrs old Male presents to ER via Ambulatory with complaints of kb Abnormal Lab Results - hemoglobin. 00:26 The patient presents with abdominal pain that is diffuse. Onset: The symptoms/episode kb began/occurred 20 year(s) ago, and became worse 3 day(s) ago. The symptoms do not radiate. Associated signs and symptoms: Pertinent positives: blood in stools, Pertinent negatives: nausea, vomiting, and diarrhea. The symptoms are described as intermittent. Modifying factors: The symptoms are alleviated by nothing, the symptoms are aggravated by nothing. Severity of pain: At its worst the pain was moderate in the emergency department the pain is unchanged. The patient has experienced similar episodes in the past, chronically. The patient has been recently seen by a physician:. 00:27 Pt reports he has had abd pain and blood in stool since having abd surgery in 2000. kb States the symptoms increased 3 days ago. Came in today because he was told he may need a blood transfusion. Pt is going to follow up with Dr Rodas. Historical: - Allergies: 10/27 17:00 ambien; iw 17:00 Amoxicillin; iw 17:00 Ibuprofen; iw 17:00 Naproxen; iw - Home Meds: 17:00 levetiracetam 500 mg Oral tab 1 tab nightly [Active]; Prilosec 20 mg Oral cpDR 1 cap iw once daily [Active]; Potassium Chloride Oral once daily [Active]; calcium [Active]; - PMHx: 17:00 Back pain; GI Bleed; Hypertension; Seizures; iw - PSHx: 17:00 abd surgery; Hernia repair; iw - Immunization history:: Flu vaccine is up to date. - Social history:: Smoking status: Patient/guardian denies using tobacco, the patient reports quitting approximately 2 years ago. ROS: 10/28 00:25 Constitutional: Negative for fever, chills, and weight loss, Cardiovascular: Negative kb for chest pain, palpitations, and edema, Respiratory: Negative for shortness of breath, cough, wheezing, and pleuritic chest pain, Back: Negative for injury and pain, MS/Extremity: Negative for injury and deformity, Skin: Negative for injury, rash, and discoloration, Neuro: Negative for headache, weakness, numbness, tingling, and seizure. Abdomen/GI: Positive for abdominal pain, rectal bleeding. Exam: 00:25 Constitutional: This is a well developed, well nourished patient who is awake, alert, kb and in no acute distress. Head/Face: Normocephalic, atraumatic. Chest/axilla: Normal chest wall appearance and motion. Cardiovascular: Regular rate and rhythm with a normal S1 and S2. No gallops, murmurs, or rubs. No pulse deficits. Respiratory: Lungs have equal breath sounds bilaterally, clear to auscultation. No rales, rhonchi or wheezes noted. No increased work of breathing, no retractions or nasal flaring. Skin: Warm, dry with normal turgor. Normal color with no rashes, no lesions, and no evidence of cellulitis. MS/ Extremity: Pulses equal, no cyanosis. Neurovascular intact. Full, normal range of motion. Neuro: Awake and alert, GCS 15, oriented to person, place, time, and situation. Cranial nerves II-XII grossly intact. Moves all extremities. Sensory grossly intact. Cerebellar exam normal. Normal gait. 00:25 Abdomen/GI: Inspection: abdomen appears normal, Bowel sounds: normal, in all quadrants, Palpation: soft, in all quadrants, mild abdominal tenderness, in all quadrants. Vital Signs: 03/06 16:56 BP 137 / 66; Pulse 103; Resp 16; Temp 98.4; Pulse Ox 96% ; Weight 104.33 kg; Height 5 iw ft. 5 in. (165.10 cm); 19:14 BP 140 / 68; Pulse 100; Resp 16; Pulse Ox 97% on R/A; zb 16:56 Body Mass Index 38.27 (104.33 kg, 165.10 cm) iw MDM: 17:06 Patient medically screened. kb 17:12 Patient medically screened. kb 19:00 Data reviewed: vital signs, nurses notes. Data interpreted: Pulse oximetry: on room air kb is 96 %. Interpretation: normal. Counseling: I had a detailed discussion with the patient and/or guardian regarding: the historical points, exam findings, and any diagnostic results supporting the discharge/admit diagnosis, lab results, radiology results, the need for outpatient follow up, a training manager, to return to the emergency department if symptoms worsen or persist or if there are any questions or concerns that arise at home. 19:03 ED course: Pt does not want any medication. States he has calcium pills he can take and kb he is ready to go home. Pt will call GI on Thursday to follow up. 10/27 17:07 Order name: Basic Metabolic Panel kb 10/27 17:07 Order name: CBC with Diff kb 10/27 17:07 Order name: Hepatic Function; Complete Time: 18:32 kb 10/27 17:07 Order name: Lipase; Complete Time: 18:32 kb 10/27 17:07 Order name: Type And Screen; Complete Time: 18:57 kb 10/27 17:07 Order name: Basic Metabolic Panel; Complete Time: 18:32 EDMS 10/27 17:07 Order name: CBC with Automated Diff; Complete Time: 18:25 EDMS 10/27 17:27 Order name: CT Abd/Pelvis - IV Contrast Only kb 10/27 18:09 Order name: CREATININE WHOLE BLOOD; Complete Time: 18:09 EDMS 10/27 18:36 Order name: CT; Complete Time: 18:36 EDMS 10/27 17:07 Order name: IV Saline Lock; Complete Time: 19:13 kb 10/27 17:07 Order name: Labs collected and sent; Complete Time: 19:13 kb Administered Medications: 19:12 Not Given (Patient Refused): NS 0.9% 1000 ml IV at 1000 ml once zb 19:12 Not Given (Patient Refused): Zofran (Ondansetron) 4 mg IVP once; over 2 minutes zb 19:12 Not Given (Patient Refused): Calcium Gluconate 1 grams IVPB once over 60 mins; (mix in zb NS 100 mL) 19:13 Not Given (Patient Refused): morphine 4 mg IVP once; RASS on ADMIN: Combtv4, Very zb Agttd3, Agttd2, Rstlss1, AlertClm0, Drwsy-1, Lt Sdtn-2, Mod Sdtn-3, Dp Sdtn-4, UnArsble-5 Disposition: 10/28 09:06 Co-signature as Attending Physician, Triston Salas MD I agree with the assessment and jyay plan of care. Disposition: 10/27/20 19:01 Discharged to Home. Impression: Generalized abdominal pain. - Condition is Stable. - Discharge Instructions: Abdominal Pain, Adult, [id number]. - Prescriptions for Bentyl 20 mg Oral Tablet - take 1 tablet by ORAL route every 6 hours As needed; 20 tablet. Protonix 40 mg Oral Tablet - take 1 tablet by ORAL route once daily; 30 tablet. Zofran 4 mg Oral Tablet - take 1 tablet by ORAL route every 6 hours As needed; 20 tablet. - Medication Reconciliation Form, Thank You Letter, Antibiotic Education, Prescription Opioid Use form. - Follow up: Private Physician; When: 2 - 3 days; Reason: Recheck today's complaints, Continuance of care, Re-evaluation by your physician. Follow up: Emergency Department; When: As needed; Reason: Worsening of condition. Signatures: Dispatcher [employer] EDCT Jennie Hinton, CISTERN ROOM WORKING SUPERVISOR-C CISTERN ROOM WORKING SUPERVISOR-Triston Kat MD MD cha Williams, Irene, RN Rosalia Menezes RN RN zb Corrections: (The following items were deleted from the chart) 10/27 19:15 19:01 10/27/2020 19:01 Discharged to Home. Impression: Generalized abdominal pain. zb Condition is Stable. Forms are Medication Reconciliation Form, Thank You Letter, Antibiotic Education, Prescription Opioid Use. Follow up: Private Physician; When: 2 - 3 days; Reason: Recheck today's complaints, Continuance of care, Re-evaluation by your physician. Follow up: Emergency Department; When: As needed; Reason: Worsening of condition. kb
[2020-10-27 19:26] VITALS: TEMP 98.4
[2020-10-27 19:28] VITALS: BP 140/68; O2SAT 97
== END 2020-10-27 19:15 | disposition home or self-care (01) ==
LOC: ER 16:48
DX: R10.84 Generalized abdominal pain (principal); I10 Essential (primary) hypertension; Z88.1 Allergy status to other antibiotic agents; Z88.5 Allergy status to narcotic agent; Z88.6 Allergy status to analgesic agent
CPT/HCPCS: 36415; 74177; 80048; 80076; 82565; 83690; 85025; 86850; 86900; 86901; 99283; Q9967

== ENCOUNTER 2024-09-01 10:07 | Emergency (ER) | payer SELFPAY ==
--- NOTE | 2024-09-01 11:30 | RAD REPORT ---
EXAMINATION: ONE VIEW CHEST XR CLINICAL INDICATION: Male, 44 years old.,COUGH TECHNIQUE: Frontal chest projection is submitted. Examination is limited by patient positioning and t echnique. COMPARISON: 07/11/2019 FINDINGS: Underexposure somewhat limits evaluation. The lungs are well inflated and clear. No pneumothorax or sizable effusion. The heart is normal in size. Mediastinal contours are unremarkable. IMPRESSION: No acute intrathoracic abnormalities.
[2024-09-01 11:52] LABS: SARS-CoV-2 Antigen CONTROL BLUE LINE VIS/BG OK; SARS-CoV-2 Antigen Rapid Res Negative (Negative)
--- NOTE | 2024-09-01 12:26 | ER ---
Nurse's Notes [facility] Name: Blanche Lo Jr Age: 44 yrs Sex: Male : 1980 Arrival Date: 09/01/2024 Time: 10:07 Bed 12 Private MD: Diagnosis: Cough Presentation: 09/01 10:26 Chief complaint: Patient states: cough and sore throat that began 1 week ago. ss Coronavirus screen: Client denies travel out of the [place] in the last 14 days. Ebola Screen: Patient denies exposure to infectious person. Patient denies travel to an Ebola-affected area in the 21 days before illness onset. Initial Sepsis Screen: Does the patient meet any 2 criteria? No. Patient's initial sepsis screen is negative. Does the patient have a suspected source of infection? No. Patient's initial sepsis screen is negative. Risk Assessment: Do you want to hurt yourself or someone else? Patient reports no desire to harm self or others. Onset of symptoms was August 25, 2024. 10:26 Method Of Arrival: Ambulatory ss 10:26 Acuity: JANINE 3 ss Historical: - Allergies: 10:27 ambien; ss 10:27 Amoxicillin; ss 10:27 Ibuprofen; ss 10:27 Naproxen; ss 10:27 Amoxil; ss - PMHx: 10:27 Back pain; GI Bleed; Seizures; ss - Family history:: not pertinent. - Hospitalizations: : No recent hospitalization is reported. Screenin:45 [facility] ED Fall Risk Assessment (Adult) History of falling in the last 3 months, jb4 including since admission No falls in past 3 months (0 pts) Confusion or Disorientation No (0 pts) Intoxicated or Sedated No (0 pts) Impaired Gait No (0 pts) Mobility Assist Device Used No (0 pt) Altered Elimination No (0 pt) Score/Fall Risk Level 0 - 2 = Low Risk Oriented to surroundings, Maintained a safe environment. Abuse screen: Denies threats or abuse. Nutritional screening: No deficits noted. Tuberculosis screening: No symptoms or risk factors identified. Assessment: 12:45 General: Appears in no apparent distress. comfortable, Behavior is calm, cooperative, jb4 appropriate for age. Pain: Denies pain. Neuro: Level of Consciousness is awake, alert, obeys commands, Oriented to person, place, time, situation. Cardiovascular: Patient's skin is warm and dry. Respiratory: Airway is patent Respiratory effort is even, unlabored, Respiratory pattern is regular, symmetrical. Derm: Skin is intact, Skin is pink, warm \T\ dry. Musculoskeletal: Circulation, motion, and sensation intact. Range of motion: intact in all extremities. Vital Signs: 10:28 BP 138 / 88; Pulse 83; Resp 16; Temp 98.2(TE); Pulse Ox 99% ; Weight 99.79 kg; Height 5 ss ft. 5 in. ; 10:28 Body Mass Index 36.61 (99.79 kg, 165.1 cm) ED Course: 10:11 Patient arrived in ED. sj2 10:15 Oliver Cade MD is Attending Physician. rn 10:27 Triage completed. ss 10:27 Arm band placed on right wrist. ss 10:44 Natalie Gann, ANCELMO is Primary Nurse. 10:44 Strep Sent. 10:44 SARS-COV-2 Antigen Rapid Sent. 10:44 Flu Sent. 11:01 XRAY Chest (1 view) In Process Unspecified. EDMS 12:45 Patient has correct armband on for positive identification. Bed in low position. Call jb4 light in reach. Side rails up X 1. Provided Education on: discharge instructions.. 12:45 No provider procedures requiring assistance completed. Patient did not have IV access jb4 during this emergency room visit. Administered Medications: No medications were administered Medication: 12:45 VIS not applicable for this client. jb4 Outcome: 12:25 Discharge ordered by . rn 12:45 Discharged to home ambulatory, jb4 12:45 Condition: stable 12:45 Discharge instructions given to patient, Instructed on discharge instructions, follow up and referral plans. medication usage, Demonstrated understanding of instructions, follow-up care, medications, Prescriptions given X 1, 12:47 Patient left the ED. jb4 Signatures: Dispatcher [employer] EDCA Oliver Cade MD MD rn Blanchard, Shelby, ANCELMO RN Jack Enriquez RN RN jb4 Celina Davidson sj2 Corrections: (The following items were deleted from the chart) 10:30 10:27 PMHx: Hypertension; [facility]
--- NOTE | 2024-09-01 12:26 | EDPHYS ---
Physician Documentation [facility] Name: Blanche Lo Jr Age: 44 yrs Sex: Male : 1980 Arrival Date: 09/01/2024 Time: 10:07 Bed 12 Private MD: ED Physician Oliver Cade HPI: 09/01 11:29 This 44 yrs old Male presents to ER via Ambulatory with complaints of Cough, Swollen rn Glands. 11:29 The patient or guardian reports cough, flu symptoms. Onset: The symptoms/episode rn began/occurred 5 day(s) ago. Severity of symptoms: At their worst the symptoms were mild, in the emergency department the symptoms are unchanged. Modifying factors: The symptoms are alleviated by nothing, the symptoms are aggravated by nothing. 11:47 The patient has not experienced similar symptoms in the past. Patient reports feeling rn sick for the last 5 to 6 days, exposed to father who had flu a this past week. Patient reports still having fever at home with persistent cough. No shortness of breath.. Historical: - Allergies: 10:27 ambien; ss 10:27 Amoxicillin; ss 10:27 Ibuprofen; ss 10:27 Naproxen; ss 10:27 Amoxil; ss - PMHx: 10:27 Back pain; GI Bleed; Seizures; ss - Family history:: not pertinent. - Hospitalizations: : No recent hospitalization is reported. ROS: 11:47 Constitutional: Positive for fever and chills Cardiovascular: Negative for chest pain, rn palpitations, and edema, Respiratory: Positive for cough, negative for shortness of breath Abdomen/GI: Negative for abdominal pain, nausea, vomiting, diarrhea, and constipation, MS/Extremity: Negative for injury and deformity, Neuro: Negative for headache, weakness, numbness, tingling, and seizure, Exam: 11:47 Constitutional: This is a well developed, well nourished patient who is awake, alert, rn and in no acute distress. Head/Face: Normocephalic, atraumatic. ENT: No stridor, moist mucous membranes Neck: No meningismus or pain with extension of neck Cardiovascular: Regular rate and rhythm. No pulse deficits. Respiratory: Clear bilateral breath sounds. No retractions Neuro: Awake and alert, GCS 15 Vital Signs: 10:28 BP 138 / 88; Pulse 83; Resp 16; Temp 98.2(TE); Pulse Ox 99% ; Weight 99.79 kg; Height 5 ss ft. 5 in. ; 10:28 Body Mass Index 36.61 (99.79 kg, 165.1 cm) ss MDM: 10:15 Medical Screening Exam initiated rn 12:24 Differential Diagnosis: Bronchitis Influenza Upper Respiratory Infection Viral Syndrome rn Pneumonia. Data reviewed: vital signs, nurses notes, lab test result(s), radiologic studies, plain films, and as a result, I will discharge patient. Counseling: I had a detailed discussion with the patient and/or guardian regarding the historical points, exam findings, and any diagnostic results supporting the discharge/admit diagnosis, lab results, radiology results, the need for outpatient follow up, to return to the emergency department if symptoms worsen or persist or if there are any questions or concerns that arise at home. Special discussion: I discussed with the patient/guardian in detail that at this point there is no indication for admission to the hospital. It is understood, however, that if the symptoms persist or worsen the patient needs to return immediately for re-evaluation. 09/01 10:16 Order name: Flu; Complete Time: 12:24 rn 09/01 10:16 Order name: SARS-COV-2 Antigen Rapid; Complete Time: 12:24 rn 09/01 10:16 Order name: Strep rn 09/01 11:56 Order name: Throat Culture EDWY 09/01 10:16 Order name: XRAY Chest (1 view); Complete Time: 11:39 rn Administered Medications: No medications were administered Disposition Summary: 09/01/24 12:25 Discharge Ordered Notes: Location: Home rn Problem: new rn Symptoms: have improved rn Condition: Stable rn Diagnosis - Cough rn Followup: rn - With: Private Physician - When: As needed - Reason: Recheck today's complaints, Re-evaluation by your physician Discharge Instructions: - Discharge Summary Sheet rn - Cough, Adult rn Forms: - Medication Reconciliation Form rn - Antibiotic furniture assembler - Prescription Opioid Use rn - Patient Portal Instructions rn - Leadership Thank You Letter rn Prescriptions: - Zithromax Z-Rashard 250 mg Oral Tablet - take 1 tablet ORAL route as directed for 5 days Day 1 - take two (2) tablets rn one time. Day 2, 3, 4 , 5 take one (1) tablet once daily.; 6 tablet; Refills: 0, Product Selection Permitted Signatures: Dispatcher [employer] EDMS Oliver Cade MD MD rn Natalie Gann RN RN ss Corrections: (The following items were deleted from the chart) 10:16 10:16 Influenza Screen (A \T\ B)+BA.LAB.BRZ ordered. EDMS EDMS 10:16 10:16 SARS-COV-2 Antigen Rapid+I.LAB.BRZ ordered. EDMS EDMS 10:16 10:16 Group A Streptococcus Rapid Sc+BA.LAB.BRZ ordered. EDMS EDMS 10:30 10:27 PMHx: Hypertension; ss ss
[2024-09-01 12:52] VITALS: BP 138/88; TEMP 98.2; O2SAT 99
== END 2024-09-01 12:47 | disposition home or self-care (01) ==
LOC: ER 10:07
DX: R05.9 Cough, unspecified (principal); R50.9 Fever, unspecified; Z11.52 Encounter for screening for COVID-19
CPT/HCPCS: 36415; 71045; 87070; 87081; 87804; 87811; 99283

== ENCOUNTER 2024-09-07 15:30 | Emergency (ER) | payer OTHER, SELFPAY ==
[2024-09-07] MEDS ORDERED: NA CHLORIDE 0.9% 500 ML ONE (16:03)
[2024-09-07] MEDS ORDERED: LEVETIRACETAM 500 MG/5 ML VIAL IV ONE (16:10)
[2024-09-07 16:33] LABS: Absolute Basophils 0.1 K/uL (0-0.5); Absolute Eosinophils 0.4 K/uL (0-0.5); Absolute Lymphocytes (CBC) 1.4 K/uL (0.7-4.9); Absolute Monocytes 0.5 K/uL (0.1-1.3); Basophils % 1.1 % (0-1.3); Eosinophils % 5.7 % (0-4.4); Hematocrit 34.3 % (39.6-49.0); Lymphocytes % 19.3 % (15.3-44.8); MCH 26.8 pg (27.0-35.0); MCV 83.6 fL (80-100); MPV 11.5 fL (7.6-11.3); Monocytes % 6.8 % (3.3-12.3); Neutrophils % 67.1 % (41.7-73.7); Nucleated Red Blood Cells % 0.1 % (0-0); Platelets 125 thou/uL (152-406); RBC Red Blood Cell Count 4.11 M/uL (4.33-5.43); Red Cell Distribution Width 14.3 % (12.1-15.2)
[2024-09-07 16:51] LABS: Albumin 3.4 g/dL (3.4-5.0); Albumin/Globulin Ratio 0.8 (1.1-1.8); Anion Gap 10.2 mEq/L (5.0-15.0); Bilirubin Total 0.3 mg/dL (0.2-1.0); Globulin 4.3 g/dL (2.3-3.5); Potassium 3.2 mEq/L (3.5-5.1); Protein, Total 7.7 g/dL (6.4-8.2); Troponin High Sensitivity 3.4 pg/mL (<58.9)
--- NOTE | 2024-09-07 17:08 | RAD REPORT ---
EXAM: Chest Pa And Lat (2 Views) HISTORY: 44 years Male CONGESTION COMPARISON: 09/01/2024 FINDINGS: LUNGS/PLEURA: The lungs are clear. No pleural effusions or pneumothorax. No pulmonary edema. MEDIASTINUM: The mediastinal silhouette is within normal limits. CARDIAC: Mild cardiomegaly UPPER ABDOMEN: No significant abnormality. BONES: No acute abnormality. Degenerative changes. LINES/TUBES/OTHER: N/A IMPRESSION: No evidence of acute cardiopulmonary disease.
--- NOTE | 2024-09-07 17:08 | RAD REPORT ---
EXAMINATION: US LOWER EXTREMITY VENOUS DOPPLER BILATERAL CLINICAL INDICATION: Male, 44 years old.PAIN TECHNIQUE: Complete bilateral duplex sonography of the lower extremity veins was performed. The exami nation included compression for vein patency, color Doppler imaging and flow augmentation in response to distal compression of the distal external iliac, common femoral, femoral, popliteal, marta clarissa, tibial and great saphenous veins. [id number]. COMPARISON: No prior exams FINDINGS: Duplex sonography imaging demonstrates all deep examined to be fully compressible with spontaneous, p hasic and augmented flow bilaterally. IMPRESSION: No evidence of deep venous thrombosis seen in either lower extremity.
[2024-09-07] MEDS ORDERED: ONDANSETRON 4 MG/2 ML VIAL ONE (18:31)
[2024-09-07] MEDS ORDERED: POTASSIUM 25 MEQ EFFERV TAB ONE (18:31)
[2024-09-07] MEDS ORDERED: MORPHINE 4 MG/ML SYR ONE (18:31)
[2024-09-07] MEDS ORDERED: CALCIUM GLUCONATE 1 GM IVPB 1 GM/50 ML BAG IV ONE ×2 (18:32→19:19)
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
--- NOTE | 2024-09-07 18:45 | ER ---
Nurse's Notes [facility] Name: Blanche Lo Jr Age: 44 yrs Sex: Male : 1980 Arrival Date: 09/07/2024 Time: 15:30 Bed 14 Private MD: Diagnosis: Edema, unspecified;Hypokalemia;Hypocalcemia Presentation: 09/07 15:34 Chief complaint: Patient states: john lower extremity swelling that began 1 1/2 weeks aa5 ago. 15:34 Coronavirus screen: At this time, the client does not indicate any symptoms associated aa5 with coronavirus-19. Ebola Screen: Patient denies travel to an Ebola-affected area in the 21 days before illness onset. Initial Sepsis Screen: Does the patient meet any 2 criteria? No. Patient's initial sepsis screen is negative. Does the patient have a suspected source of infection? No. Patient's initial sepsis screen is negative. Risk Assessment: Do you want to hurt yourself or someone else? Patient reports no desire to harm self or others. Onset of symptoms was August 2024. 15:34 Acuity: JANINE 3 aa5 15:34 Method Of Arrival: Ambulatory aa5 Triage Assessment: 15:45 General: Appears in no apparent distress. comfortable, Behavior is cooperative, bp appropriate for age, anxious. Pain: Denies pain. EENT: No deficits noted. Neuro: No deficits noted. Cardiovascular: No deficits noted. Respiratory: No deficits noted. GI: No signs and/or symptoms were reported involving the gastrointestinal system. : No signs and/or symptoms were reported regarding the genitourinary system. Derm: No deficits noted. Musculoskeletal: Swelling present in right leg and left leg. Historical: - Allergies: 15:45 ambien; aa5 15:45 Amoxicillin; aa5 15:45 Amoxil; aa5 15:45 Ibuprofen; aa5 15:45 Naproxen; aa5 - PMHx: 15:45 Back pain; GI Bleed; Seizures; aa5 - Immunization history:: Adult Immunizations unknown. - Infectious Disease History:: Denies. - Social history:: Smoking status: Patient/guardian denies using tobacco, the patient reports quitting approximately 12 years ago. Screenin:25 [facility] ED Fall Risk Assessment (Adult) History of falling in the last 3 months, bp including since admission No falls in past 3 months (0 pts) Confusion or Disorientation No (0 pts) Intoxicated or Sedated No (0 pts) Impaired Gait No (0 pts) Mobility Assist Device Used No (0 pt) Altered Elimination No (0 pt) Score/Fall Risk Level 0 - 2 = Low Risk Oriented to surroundings. Abuse screen: Denies threats or abuse. Denies injuries from another. Nutritional screening: No deficits noted. Tuberculosis screening: No symptoms or risk factors identified. Assessment: 15:45 General: Appears in no apparent distress. Behavior is cooperative, appropriate for age, bp anxious. 19:10 Reassessment: DC ON HOLD PENDING IV COMPLETION. bp 20:07 Reassessment: Patient appears in no apparent distress at this time. Patient and/or jb4 family updated on plan of care and expected duration. Pain level reassessed. Patient is alert, oriented x 3, equal unlabored respirations, skin warm/dry/pink. Vital Signs: 15:34 BP 144 / 88; Pulse 85; Resp 19 S; Temp 98.4(O); Pulse Ox 98% on R/A; Weight 99.79 kg aa5 (R); Height 5 ft. 5 in. (R); 17:00 BP 150 / 104; Pulse 81; Resp 16; Pulse Ox 97% ; bp 19:00 BP 127 / 70; Pulse 81; Resp 16; Pulse Ox 97% ; bp 15:34 Body Mass Index 36.61 (99.79 kg, 165.1 cm) aa5 [place] Coma Score: 15:59 Eye Response: spontaneous(4). Motor Response: obeys commands(6). Verbal Response: jayy oriented(5). Total: 15. ED Course: 15:34 Patient arrived in ED. al6 15:34 Arm band placed on Patient placed in an exam room, on a stretcher. aa5 15:35 Jb Botello, RN is Primary Nurse. bp 15:40 Triston Salas MD is Attending Physician. jayy 15:46 Triage completed. aa5 16:09 Chest Pa And Lat (2 Views) XRAY In Process Unspecified. EDMS 16:19 Initial lab(s) drawn, by me, sent to lab. Inserted saline lock: 22 gauge in right hand, bp using aseptic technique. Blood collected. Flushed with 10 mL NS. 16:48 US Extremity Venous W Compression John In Process Unspecified. EDMS 17:26 Patient has correct armband on for positive identification. Provided Education on: NA. bp 18:44 Royal Michaels MD is Referral Physician. jayy 18:45 Gerry Guaman DO is Referral Physician. jayy 18:45 Milo Kim MD is Referral Physician. jayy 20:07 No provider procedures requiring assistance completed. IV discontinued, intact, jb4 bleeding controlled, No redness/swelling at site. Pressure dressing applied. Administered Medications: 16:10 Drug: Keppra IV 1000 mg IV at per protocol once Route: IV; Rate: per protocol; Site: bp right hand; 16:18 Drug: NS 0.9% IV 500 ml 500 ml IV at 1 bolus once; to be given as a bolus over 30 bp minutes Volume: 500 ml; Route: IV; Rate: 1 bolus; Site: right hand; 18:45 Drug: Calcium Gluconate IVPB 1 grams IVPB once over 60 mins; (mix in NS 100 mL) Route: bp IVPB; Infused Over: 60 mins; Site: right hand; 18:45 Drug: Potassium PO Effervescent Tablet 25 mEq PO once; dissolve in 4 ounces of water or bp juice Route: PO; 18:45 Drug: morphine IVP or IV 4 mg IVP once over 4 mins Route: IVP; Infused Over: 4 mins; bp Site: right hand; 18:45 Drug: Ondansetron IVP 4 mg IVP once; over 2 minutes Route: IVP; Site: right hand; bp 19:30 Drug: Calcium Carbonate PO 500 mg 2 tablet PO once Route: PO; jb4 20:09 Follow up: Response: No adverse reaction jb4 19:30 Drug: Calcium Gluconate IVPB 1 grams IVPB once over 30 mins; (mix in NS 100 mL) Route: jb4 IVPB; Infused Over: 30 mins; Site: right hand; 20:09 Follow up: Response: No adverse reaction; IV Status: Completed infusion; IV Intake: [id number] Medication: 20:07 VIS not applicable for this client. jb4 Intake: 20:09 IV: 50ml; Total: 50ml. jb4 Outcome: 18:45 Discharge ordered by . jayy 20:07 Discharged to home ambulatory, jb4 20:07 Condition: stable 20:07 Discharge instructions given to patient, Instructed on discharge instructions, follow up and referral plans. medication usage, Demonstrated understanding of instructions, follow-up care, medications, Prescriptions given X 2, 20:09 Patient left the ED. jb4 Signatures: Dispatcher [employer] EDMS Triston Salas MD MD cha Calderon, Audri, RN RN aa5 Jack Amaya RN RN jb4 Jb Botello RN RN Glenny Whaley6
[2024-09-07] MEDS ORDERED: CALCIUM CARBONATE CHEW 500MG TAB ONE (19:16)
[2024-09-09 02:27] VITALS: BP 127/70; TEMP 98.4; O2SAT 97
== END 2024-09-07 20:09 | disposition home or self-care (01) ==
LOC: ER 15:30
DX: R60.9 Edema, unspecified (principal); E87.6 Hypokalemia; E83.51 Hypocalcemia; M79.605 Pain in left leg; M79.604 Pain in right leg; Z88.1 Allergy status to other antibiotic agents; Z88.8 Allergy status to other drugs, medicaments and biological substances
CPT/HCPCS: 96365; 85025; 36415; 82310; 84484; 83690; 83970; 80053; 83880; 71046; 93970; 96375; 99284; J1953; J0612 ×2; J2405; J7040

== ENCOUNTER 2024-09-08 11:10 | Emergency (ER) | payer OTHER ==
--- OUTSIDE RECORDS SUMMARY | 2024-09-08 11:18 | XMS REPORT | Continuity of Care Document ---
Author Name Unknown Address [address] [place] [address] [facility] thconnect Address [address] [place] [address] Care Team Providers Care Caster Helper Name Role Phone No MD, Pcp [facility] Primary Care Physician Clara Justin DO Attending Clinician [phone] Wicho Link MD Attending Clinician [phone] Lynn Turcios MD Attending Clinician [phone] Doctor Unassigned, [place] Attending Clinician LYNN Mcdaniels Attending Clinician UnavailLYNN Velasquez Attending Clinician Unavaila JOSSE Rodriguez Attending Clinician Unavailable BRIANNE PIERCE Attending Clinician Unavail able ABIGAIL CORBETT Attending Clinician Unavaila CLAUDIA Barrow Attending Clinician Unavailable LINDY BARRERA Attending Clinician MARCUS Ferguson Attending Clinician Unavailable RAHUL SHELDON Admitting Clinician Unavailable CLAUDIA PARDO Admitting Clinician Unavailable LINDY BARRERA Admitting Clinician Cathy cazares Payers Payer Name Policy Type Policy Number Effective Date Expirati on Date Source MEDICAID SSI PENDING PENDING 2019 00:00:00 Problems Condition Name Condition Details Condition Category Status Onset Date Resolution Date Last Treatment Date Treating Clinician Comments Source GI bleeding GI bleeding Disease Active 2018-08 00:00: 00 [facility] Drug-seeki ng behavior Drug-seeki ng behavior Disease Active 10-23 00:00: 00 [facility] Back pain, unspecifie d back location, unspecifie d back pain laterality , unspecifie d chronicity Back pain, unspecifie d back location, unspecifie d back pain laterality , unspecifie d chronicity Disease Active 10-23 00:00: 00 [facility] Allergies, Adverse Reactions, Alerts Allergy Name Allergy Type Status Severity Reaction(s) Onset Date Inactive Date Treating Clinician Comments Source n Propensi ty to adverse reaction to drug Active 06 00:00: 00 Thomas Ott Naproxen - Oral Propensi ty to adverse reaction to drug Active 315 00:00: 00 Thomas Ott Nsaids (Non-Vickey roidal Anti-Inf lammator y Drug) Propensi ty to adverse reaction s Active Unknown - See comments 2018-08 00:00: 00 [facility] NSAIDS (NON-VICKEY ROIDAL ANTI-INF LAMMATOR Y DRUG) Drug Class Active Unknown-Cmnt 2018-08 00:00: 00 [facility] Ibuprofe n Drug Intolera nce Active Other (See Comments) 2018-08 00:00: 00 Developed bleeding from intake [facility] Penicill ins Propensi ty to adverse reaction s Active Rash 2018-08 00:00: 00 [facility] Naproxen Propensi ty to adverse reaction s Active Swelling 2018-08 00:00: 00 [facility] Penicill ins Propensi ty to adverse reaction s Active Rash 2018-08 00:00: 00 [facility] Zolpidem Propensi ty to adverse reaction s Active Rash 2018-08 00:00: 00 [facility] Amoxicil jenni Propensi ty to adverse reaction s Active Swelling 10-01 00:00: 00 [facility] AMOXICIL JENNI DRUG INGREDI Active High Swelling 10-01 00:00: 00 [facility] IBUPROFE N DRUG INGREDI Active High Rash 03-22 00:00: 00 [facility] Ibuprofe n Propensi ty to adverse reaction s Active Rash 03-22 00:00: 00 Developed bleeding from intake [facility] Zolpidem Tartrate Propensi ty to adverse reaction s Active Unknown - See comments 2014-08 00:00: 00 [facility] ZOLPIDEM TARTRATE DRUG INGREDI Active Unknown-Cmnt 2014-08 00:00: 00 [facility] Social History Social Habit Start Date Stop Date Quantity Comments Source History SDOH Alcohol Std Drinks [facility] History SDOH Alcohol Binge [facility] History SDOH Alcohol Comment [facility] History of tobacco use Current smoker [facility] Sexual orientation [facility] Exposure to SARS-CoV-2 (event) Not sure [facility] Alcohol intake 2019-06-30 00:00:00 2019-06-30 00:00:00 Current non-drinker of alcohol (finding) [facility] History SDOH Alcohol Frequency 2019-06-29 00:00:00 2019-06-29 00:00:00 1 [facility] History of Social function 2019-06-28 00:00:00 2019-06-28 00:00:00 [facility] Tobacco use and exposure 2019-06-28 00:00:00 2019-06-28 00:00:00 Smokeless tobacco non-user [facility] Cigarettes smoked current (pack per day) - Reported 2017-07-28 00:00:00 2017-07-28 00:00:00 [facility] Sex Assigned At 1980 00:00:00 1980 00:00:00 LUCIEN [facility] Smoking Status Start Date Stop Date Source Ex-smoker 2019-06-28 00:00:00 2019-06-28 00:00:00 Balbir LARA [facility] Current every day smoker 2017-07-28 00:00:00 [facility] Medications Ordered Medication Name Filled Medication Name Start Date Stop Date Current Medication? Ordering Clinician Indication Dosage Frequency Signature (SIG) Comments Components Source levetiracet am 500 mg tablet 2023-08 00:00: 00 Yes mg Thomas Ott albuterol sulfate HFA 90 mcg/actuati on aerosol inhaler 2023-08 00:00: 00 Yes mcg/act uation Thomas Ott albuterol sulfate HFA 90 mcg/actuati on aerosol inhaler 05-12 00:00: 00 Yes mcg/act uation Thomas Ott albuterol sulfate 2.5 mg/3 mL (0.083 %) solution for nebulizatio n 05-12 00:00: 00 Yes /3 mL (0.083 %) Thomas Ott Singulair 10 mg tablet 05-12 00:00: 00 Yes 1mg Thomas Ott dicyclomine 20 mg tablet 05-12 00:00: 00 Yes 2mg Thomas Ott Zoloft 100 mg tablet 05-12 00:00: 00 Yes 2mg Thomas Ott methocarbam ol 500 mg tablet 05-12 00:00: 00 Yes 1mg Thomas Ott Naprosyn 500 mg tablet 05-12 00:00: 00 Yes 1mg Thomas Ott Keppra 500 mg tablet 05-12 00:00: 00 Yes 2mg Thomas Ott Zoloft 100 mg tablet 05-02 00:00: 00 Yes 2mg Thomas Ott albuterol sulfate HFA 90 mcg/actuati on aerosol inhaler - 00:00: 00 Yes mcg/act uation Thomas Ott Proair Digihaler 90 mcg/actuati on aerosol powder breath act, sensor -30 00:00: 00 Yes 12mcg/a ctuatio n Thomas Ott dicyclomine 20 mg tablet 0 03-22 00:00: 00 Yes 2mg Thomas Ott methocarbam ol 500 mg tablet 0 03-22 00:00: 00 Yes 1mg Thomas Ott Keppra 500 mg tablet 0 03-22 00:00: 00 Yes 2mg Thomas Ott Singulair 10 mg tablet 0 03-19 00:00: 00 Yes 1mg Thomas Ott Xyzal 5 mg tablet 0 03-19 00:00: 00 Yes 1mg Thomas Ott dicyclomine 20 mg tablet 0 01-26 00:00: 00 Yes 2mg Thomas Ott Zoloft 100 mg tablet 0 01-26 00:00: 00 Yes 2mg Thomas Ott Keppra 500 mg tablet 0 01-26 00:00: 00 Yes 2mg Thomas Ott benzonatate 200 mg capsule - 00:00: 00 Yes 1mg Thomas Ott Proair Digihaler 90 mcg/actuati on aerosol powder breath act, sensor 0 -20 00:00: 00 Yes 2mcg/ac tuation Thomas Ott dicyclomine 20 mg tablet 0 -20 00:00: 00 Yes 2mg Thomas Ott methocarbam ol 500 mg tablet 0 -20 00:00: 00 Yes 1mg Thomas Ott Zoloft 100 mg tablet 0 -20 00:00: 00 Yes 2mg Thomas Ott Keppra 500 mg tablet 0 3-20 00:00: 00 Yes 2mg Thomas Ott TAKE 1 TABLET TWICE DAILY. 0 3-20 00:00: 00 Yes 100 Thomas Ott MUPIROCIN 2% OIN 2023-0 3-07 00:00: 00 Yes Thomas Ott TAKE 2 TABLETS BY MOUTH AT BEDTIME 2023-0 2-20 00:00: 00 Yes 500 Thomas Ott MUPIROCIN 2% OIN 2023-0 2-09 00:00: 00 Yes Thomas Ott TAKE 1 TABLET BY MOUTH TWICE DAILY WITH FOOD 2- 00:00: 00 Yes Thomas Ott APPLY THIN FILM TO AFFECTED AREA 2 TIMES DAILY FOR 7 DAYS 2- 00:00: 00 12-07 00:00 :00 No 2 Thomas Ott TAKE 1 TABLET TWICE DAILY WITH FOOD. 2-08 00:00: 00 12-07 00:00 :00 No [id number] Thomas Ott TAKE 1 TABLET EVERY 6 TO 8 HOURS NEEDED FOR COUGH. 2022-08 2- 00:00: 00 12-07 00:00 :00 No 100 Thomas Ott TAKE 1 TABLET AT BEDTIME NEEDED. 2022-08 00:00: 00 Yes 750 Thomas Ott TAKE 10 ML EVERY 6 TO 8 HOURS NEEDED FOR COUGH 2022-08 00:00: 00 12-07 00:00 :00 No [id number] Thomas Ott TAKE 10 ML EVERY 6 TO 8 HOURS NEEDED FOR COUGH 2022-08 0-03 00:00: 00 12-07 00:00 :00 No [id number] Thomas Ott TAKE 2 TABLETS ON DAY 1 THEN TAKE 1 TABLET A DAY FOR 4 DAYS. 9-27 00:00: 00 12-07 00:00 :00 No 250 Thomas Ott ALBUTEROL PA HFA 200 INH 0 9-11 00:00: 00 Yes Thomas Ott LEVETIRACET A 500MG 9-07 00:00: 00 Yes Thomas Ott TAKE 1 TABLET BY MOUTH ONCE DAILY NEEDED FOR PAIN 8-18 00:00: 00 Yes Thomas Ott ALBUTEROL PA HFA 200 INH 0 8-18 00:00: 00 Yes [id number] Thomas Ott TAKE 2 TABLETS NIGHTLY 8-18 00:00: 00 12-07 00:00 :00 No 20 Thomas Ott 2 TABLETS AT BEDTIME 0 8-17 00:00: 00 12-07 00:00 :00 No 500 Thomas Ott INHALE 2 PUFFS EVERY 3-4 HOURS PRN WHEEZING, COUGH, SHORTNESS OF BREATH 8-17 00:00: 00 12-07 00:00 :00 No [id number] Thomas Ott TAKE 1 TABLET BY MOUTH NIGHTLY NEEDED 0 8-08 00:00: 00 12-07 00:00 :00 No 20 Thomas Ott QVAR REDIHAL 40MCG INH 0 8-01 00:00: 00 Yes Thomas Ott INHALE 2 PUFFS BY MOUTH EVERY 3-4 HOURS NEEDED WHEEZING, COUGH, SHORTNESS OF BREATH 0 7-20 00:00: 00 12-07 00:00 :00 No [id number] Thomas Ott DICYCLOMINE 20MG 0 7-07 00:00: 00 Yes Thomas Ott METHOCARBAM 500MG 0 7-07 00:00: 00 Yes Thomas Ott LEVETIRACET A 500MG 0 6-21 00:00: 00 Yes [id number] Thomas Ott INHALE 2 PUFFS BY MOUTH EVERY 3-4 HOURS NEEDED WHEEZING, COUGH, SHORTNESS OF BREATH 0 6-12 00:00: 00 12-07 00:00 :00 No [id number] Thomas Ott TAKE 1 TABLET DAILY NEEDED FOR PAIN. 0 5-18 00:00: 00 12-07 00:00 :00 No 500 Thomas Ott TAKE 10 ML EVERY 6 TO 8 HOURS NEEDED FOR COUGH 0 5-18 00:00: 00 12-07 00:00 :00 No [id number] Thomas Ott 2 TABLETS AT BEDTIME 2022-0 5-18 00:00: 00 12-07 00:00 :00 No 500 Thomas Ott 1 TABLET NIGHTLY NEEDED 0 5-18 00:00: 00 12-07 00:00 :00 No 20 Thomas Ott TAKE 1 TABLET DAILY NEEDED FOR PAIN. 0 3-24 00:00: 00 12-07 00:00 :00 No 500 Thomas Ott INHALE 2 PUFFS EVERY 3-4 HOURS PRN WHEEZING, COUGH, SHORTNESS OF BREATH 2022-0 3-09 00:00: 00 12-07 00:00 :00 No [id number] Thomas Ott 2 TABLETS AT BEDTIME 3-09 00:00: 00 12-07 00:00 :00 No 500 Thomas F Tru 1 TABLET NIGHTLY NEEDED 3-09 00:00: 00 12-07 00:00 :00 No 20 Thomas F Tru TAKE 1 TABLET EVERY 8 HOURS NEEDED. 1-27 00:00: 00 12-07 00:00 :00 No 500 Thomas F Tru TAKE 1 TABLET EVERY 8 HOURS NEEDED. 1-13 00:00: 00 12-07 00:00 :00 No 500 Thomas F Tru TAKE 1 TABLET EVERY 8 HOURS NEEDED. 2021-08 00:00: 00 12-07 00:00 :00 No 500 Thomas F Tru 1 TABLET NIGHTLY NEEDED 2021-08 00:00: 00 12-07 00:00 :00 No 20 Thomas Simona Ott TAKE 2 TABLETS ON DAY 1 THEN TAKE 1 TABLET A DAY FOR 4 DAYS. 2021-08 2 00:00: 00 12-07 00:00 :00 No 250 Thomas Simona Ott 2 TABLETS AT BEDTIME 2021-08 00:00: 00 12-07 00:00 :00 No 500 Thomas F Tru Dose Unknown 2021-08 00:00: 00 Yes Thomas Ott INHALE 2 PUFFS EVERY 3-4 HOURS PRN WHEEZING, COUGH, SHORTNESS OF BREATH 2021-08 00:00: 00 12-07 00:00 :00 No Thomas Simona Ott TAKE 10 ML EVERY 6 TO 8 HOURS NEEDED FOR COUGH 2021-08 00:00: 00 12-07 00:00 :00 No Thomas F Tru Dose Unknown 2021-08 00:00: 00 12-07 00:00 :00 No Thomas Simona Ott TAKE 1 CAPSULE 3 TIMES DAILY. - 00:00: 00 Yes 100 Thomas Simona Ott dicyclomine 20 mg tablet 6-30 00:00: 00 Yes 1mg Thomas Ott prednisone 20 mg tablet - 00:00: 00 Yes 1mg Thomas Simona Ott azithromyci n 250 mg tablet 0 6-14 00:00: 00 Yes mg Thomas Ott Bromfed DM 2 mg-30 mg-10 mg/5 mL oral syrup 0 6-14 00:00: 00 Yes 10mg/5 mL Thomas Ott Keppra 500 mg tablet 0 4-28 00:00: 00 Yes 2mg Thomas Ott ProAir HFA 90 mcg/actuati on aerosol inhaler 0 4-04 00:00: 00 Yes 1mcg/ac tuation Thomas Ott Keppra 500 mg tablet 0 4-04 00:00: 00 Yes 2mg Thomas Ott dicyclomine 20 mg tablet 0 4-04 00:00: 00 Yes 1mg Thomas Ott benzonatate 200 mg capsule 0 3-25 00:00: 00 Yes 1mg Thomas Ott Dose Unknown 0 3-25 00:00: 00 Yes Thomas Ott loratadine 10 mg tablet 0 3-24 00:00: 00 Yes 1mg Thomas Ott azithromyci n 250 mg tablet 0 3-24 00:00: 00 Yes mg Thomas Ott Saline Mist 0.65 % nasal spray aerosol 0 3-24 00:00: 00 Yes 12% Thomas Ott Dose Unknown 0 3-15 00:00: 00 Yes Thomas Ott Dose Unknown 2021-0 3-15 00:00: 00 Yes Thomas Jarvis Tru Dose Unknown 2021-0 3-15 00:00: 00 Yes Thomas Ott Dose Unknown 2021-0 3-15 00:00: 00 Yes Thomas Ott Dose Unknown 2021-0 3-15 00:00: 00 Yes Thomas Jarvis Tru Dose Unknown 2021-0 2-21 00:00: 00 Yes Thomas Ott ProAir HFA 90 mcg/actuati on aerosol inhaler 0 1-31 00:00: 00 Yes 1mcg/ac tuation Thomas Ott Dose Unknown 0 1-31 00:00: 00 Yes Thomas Ott Keppra 500 mg tablet 0 1-05 00:00: 00 Yes 2mg Thomas Ott sulfamethox azole 800 mg-trimetho prim 160 mg tablet 1-05 00:00: 00 Yes 1mg Thomas Ott Keppra 500 mg tablet 2020-08 2- 00:00: 00 Yes 2mg Thomas Ott sulfamethox azole 800 mg-trimetho prim 160 mg tablet 2020-08 2- 00:00: 00 Yes 1mg Thomas Ott sulfamethox azole 800 mg-trimetho prim 160 mg tablet - 00:00: 00 Yes 1mg Thomas Ott dicyclomine 20 mg tablet 05-22 00:00: 00 Yes 1mg Thomas Ott levETIRAcet am (KEPPRA) 500 mg tablet 05-11 00:00: 00 Yes [id number] 500mg Take 1 tablet by mouth 2 (two) times daily. [facility] mupirocin 2 % topical ointment 04-30 00:00: 00 Yes 1% Thomas Ott dicyclomine 20 mg tablet 04-30 00:00: 00 Yes 1mg Thomas Ott sulfamethox azole 800 mg-trimetho prim 160 mg tablet 04-30 00:00: 00 Yes 1mg Thomas Ott Dose Unknown 04-30 00:00: 00 Yes Thomas Ott levETIRAcet am (KEPPRA) 500 mg tablet 04-15 00:00: 00 05-11 00:00 :00 No [id number] 500mg Take 1 tablet by mouth 2 (two) times daily for 30 days. [facility] benzonatate 200 mg capsule -20 00:00: 00 Yes 1mg Thomas Ott ProAir HFA 90 mcg/actuati on aerosol inhaler - 00:00: 00 Yes 1mcg/ac tuation Thomas Ott prednisone 20 mg tablet 8-12 00:00: 00 Yes mg Thomas Ott azithromyci n 250 mg tablet 8- 00:00: 00 Yes mg Thomas Ott benzonatate 100 mg capsule 2021-0 8-11 00:00: 00 Yes 1mg Thomas Ott Bromfed DM 2 mg-30 mg-10 mg/5 mL oral syrup 2020-0 8-11 00:00: 00 Yes 10mg/5 mL Thomas Ott Carafate 100 mg/mL oral suspension 0 7-29 00:00: 00 Yes 10mg/mL Thomas Ott dicyclomine 20 mg tablet 0 7-19 00:00: 00 Yes 1mg Thomas Ott hydroxyzine HCl 50 mg tablet 0 6-28 00:00: 00 Yes 1mg Thomas Ott dicyclomine 20 mg tablet 0 6-10 00:00: 00 Yes 1mg Thomas Ott Carafate 1 gram tablet 0 6-10 00:00: 00 Yes 1gram Thomas Patiñofed DM 2 mg-30 mg-10 mg/5 mL oral syrup 0 5-25 00:00: 00 Yes 10mg/5 mL Thomas Ott dicyclomine 20 mg tablet 0 5-10 00:00: 00 Yes 1mg Thomas Ott montelukast 10 mg tablet 0 4-23 00:00: 00 Yes 1mg Thomas Ott dicyclomine 20 mg tablet 0 4-15 00:00: 00 Yes 1mg Thomas Ott dicyclomine 20 mg tablet 0 3-12 00:00: 00 Yes 1mg Thomas Ott benzonatate 100 mg capsule 2020-0 3-12 00:00: 00 Yes 1mg Thomas Ott iron 325 mg (65 mg iron) tablet 0 3-05 00:00: 00 Yes 1(65 mg iron) Thomas Ott Carafate 1 gram tablet 0 3-05 00:00: 00 Yes 1gram Thomas Ott ProAir HFA 90 mcg/actuati on aerosol inhaler 2020-0 2-24 00:00: 00 Yes 1mcg/ac tuation Thomas Ott Symbicort 160 mcg-4.5 mcg/actuati on HFA aerosol inhaler 2020-0 2-24 00:00: 00 Yes 2mcg/ac tuation Thomas Ott mupirocin 2 % topical ointment 2- 00:00: 00 Yes 1% Thomas Ott mupirocin 2 % topical ointment 2-17 00:00: 00 Yes 1% Thomas Ott doxycycline hyclate 100 mg capsule 2- 00:00: 00 Yes 1mg Thomas Ott ProAir HFA 90 mcg/actuati on aerosol inhaler 2- 00:00: 00 Yes 1mcg/ac tuation Thomas Ott mupirocin 2 % topical ointment 2- 00:00: 00 Yes 1% Thomas Ott sulfamethox azole 800 mg-trimetho prim 160 mg tablet 2- 00:00: 00 Yes 1mg Thomas Ott azithromyci n 250 mg tablet 2- 00:00: 00 Yes mg Thomas Ott prednisone 20 mg tablet 1- 00:00: 00 Yes 1mg Thomas Ott azithromyci n 250 mg tablet - 00:00: 00 Yes mg Thomas Ott benzonatate 200 mg capsule - 00:00: 00 Yes 1mg Thomas Ott Bromfed DM 2 mg-30 mg-10 mg/5 mL oral syrup - 00:00: 00 Yes 10mg/5 mL Thomas Ott ProAir HFA 90 mcg/actuati on aerosol inhaler 1- 00:00: 00 Yes 1mcg/ac tuation Thomas Ott Symbicort 160 mcg-4.5 mcg/actuati on HFA aerosol inhaler 1-15 00:00: 00 Yes 2mcg/ac tuation Thomas Ott Singulair 10 mg tablet -15 00:00: 00 Yes 1mg Thomas Ott Singulair 10 mg tablet 2019-08 00:00: 00 Yes 1mg Thomas Ott ProAir HFA 90 mcg/actuati on aerosol inhaler 2019-08 00:00: 00 Yes 1mcg/ac tuation Thomas Ott Symbicort 160 mcg-4.5 mcg/actuati on HFA aerosol inhaler 2019-08 00:00: 00 Yes 2mcg/ac tuation Thomas Ott ProAir HFA 90 mcg/actuati on aerosol inhaler 2019-08 00:00: 00 Yes 1mcg/ac tuation Thomas Ott Symbicort 160 mcg-4.5 mcg/actuati on HFA aerosol inhaler 2019-08 00:00: 00 Yes 2mcg/ac tuation Thomas Ott ketoconazol e 2 % shampoo 2019-08 00:00: 00 Yes 1% Thomas Ott Singulair 10 mg tablet 2019-08 00:00: 00 Yes 1mg Thomas Ott Keppra 500 mg tablet 2019-08 00:00: 00 Yes 2mg Thomas Ott duloxetine 30 mg capsule,del ayed release 2019-08 00:00: 00 Yes 1mg Thomas Ott Tessalon Perles 100 mg capsule 2019-08 00:00: 00 Yes 12mg Thomas Ott albuterol 90 mcg/actuati on inhaler 04-23 00:00: 00 Yes [id number] 2{puff} Inhale 2 Puffs every 6 (six) hours as needed for Wheezing, Shortness of Breath or Chest tightness. [facility] pantoprazol e (PROTONIX) 40 MG tablet 2018-08 00:00: 00 Yes 40mg Q.5D Take 1 tablet (40 mg total) by mouth 2 (two) times daily. [facility] Immunizations Ordered Immunization Name Filled Immunization Name Date Status Comments Source influenza, injectable influenza, injectable 2021-08-28 00:00:00 Completed Thomas Ott Moderna COVID-19 Vaccine Moderna COVID-19 Vaccine 2020-12-31 00:00:00 Completed Thomas Ott Moderna COVID-19 Vaccine Moderna COVID-19 Vaccine 2020-10-04 00:00:00 Carl Ott Vital Signs Vital Name Observation Time Observation Value Comments Tyesha arcos Systolic blood pressure 2021-05-11 18:38:00 132 mm[Hg] [facility] Diastolic blood pressure 2021-05-11 18:38:00 89 mm[Hg] [facility] Heart rate 2021-05-11 18:38:00 91 /min Unive [facility] Body temperature 2021-05-11 18:38:00 37.11 Marcie [facility] Respiratory rate 2021-05-11 18:38:00 18 /min [facility] Body weight 2021-05-11 18:38:00 97.977 kg [facility] BMI 2021-05-11 18:38:00 35.94 kg/m2 [facility] Oxygen saturation in Arterial blood by Pulse oximetry 2021-05-11 18:38:00 98 /min [facility] BP Systolic 2024-05-12 14:28:00 117 mm[Hg] Step hen F Tru BP Diastolic 2024-05-12 14:28:00 85 mm[Hg] Vickey phen F Tru Weight Measured 2024-05-12 14:28:00 241.60 pounds Thomas Simona Ott Height Measured 2024-05-12 14:28:00 65.55 inches Thomas Simona Ott Body Temperature 2024-05-12 14:28:00 98.10 degrees Thomas F Tru Heart Rate 2024-05-12 14:28:00 86.00 /min Cecy en F Tru Respiratory Rate 2024-05-12 14:28:00 17.00 /min Thomas F Tru BP Systolic 2023-12-07 13:56:00 Step hen F Tru BP Diastolic 2023-12-07 13:56:00 Vickey phen F Tru Weight Measured 2023-12-07 13:56:00 Thomas F Tru Height Measured 2023-12-07 13:56:00 Thomas F Tru Body Temperature 2023-12-07 13:56:00 Thomas F Tru Heart Rate 2023-12-07 13:56:00 Cecy en F Tru Respiratory Rate 2023-12-07 13:56:00 Thomas F Tru BP Systolic 2023-11-11 11:29:00 134 mm[Hg] Step hen F Tru BP Diastolic 2023-11-11 11:29:00 86 mm[Hg] Vickey phen F Tru Weight Measured 2023-11-11 11:29:00 222.20 pounds Thomas F Tru Height Measured 2023-11-11 11:29:00 65.55 inches Thomas F Tru Body Temperature 2023-11-11 11:29:00 98.40 degrees Thomas F Tru Heart Rate 2023-11-11 11:29:00 92.00 /min Cecy en F Tru Respiratory Rate 2023-11-11 11:29:00 18.00 /min Thomas F Tru BP Systolic 2023-04-09 17:03:00 116 mm[Hg] Step hen F Tru BP Diastolic 2023-04-09 17:03:00 78 mm[Hg] Vickey phen F Tru Weight Measured 2023-04-09 17:03:00 215.00 pounds Thoams F Tru Height Measured 2023-04-09 17:03:00 65.55 inches Thomas F Tru Body Temperature 2023-04-09 17:03:00 98.10 degrees Thomas F Tru Heart Rate 2023-04-09 17:03:00 87.00 /min Cecy en F Tru Respiratory Rate 2023-04-09 17:03:00 Thomas F Tru BP Systolic 2023-01-08 15:13:00 108 mm[Hg] Step hen F Tru BP Diastolic 2023-01-08 15:13:00 74 mm[Hg] Vickey phen F Tru Weight Measured 2023-01-08 15:13:00 215.40 pounds Thomas F Tru Height Measured 2023-01-08 15:13:00 65.55 inches Thomas F Tru Body Temperature 2023-01-08 15:13:00 98.30 degrees Thomas F Tru Heart Rate 2023-01-08 15:13:00 87.00 /min Cecy en F Tru Respiratory Rate 2023-01-08 15:13:00 Thomas F Tru BP Systolic 2022-07-25 14:04:00 114 mm[Hg] Step hen F Tru BP Diastolic 2022-07-25 14:04:00 80 mm[Hg] Vickey phen F Tru Weight Measured 2022-07-25 14:04:00 220.80 pounds Thomas F Tru Height Measured 2022-07-25 14:04:00 65.55 inches Thomas F Tru Body Temperature 2022-07-25 14:04:00 98.40 degrees Thomas F Tru Heart Rate 2022-07-25 14:04:00 85.00 /min Cecy en F Tru Respiratory Rate 2022-07-25 14:04:00 Thomas F Tru BP Systolic 2022-02-03 13:56:00 117 mm[Hg] Step hen F Tru BP Diastolic 2022-02-03 13:56:00 79 mm[Hg] Vickey phen F Tru Weight Measured 2022-02-03 13:56:00 216.40 pounds Thomas F Tru Height Measured 2022-02-03 13:56:00 65.55 inches Thomas F Tru Body Temperature 2022-02-03 13:56:00 99.10 degrees Thomas F Tru Heart Rate 2022-02-03 13:56:00 95.00 /min Cecy en F Tru Respiratory Rate 2022-02-03 13:56:00 Thomas F Tru BP Systolic 2021-11-14 10:06:00 117 mm[Hg] Step hen F Tru BP Diastolic 2021-11-14 10:06:00 79 mm[Hg] Vickey phen F Tru Weight Measured 2021-11-14 10:06:00 217.00 pounds Thomas F Tru Height Measured 2021-11-14 10:06:00 65.55 inches Thomas F Tru Body Temperature 2021-11-14 10:06:00 97.20 degrees Thomas F Tru Heart Rate 2021-11-14 10:06:00 90.00 /min Cecy en F Tru Respiratory Rate 2021-11-14 10:06:00 Thomas F Tru BP Systolic 2021-08-06 12:01:00 109 mm[Hg] Step hen F Tru BP Diastolic 2021-08-06 12:01:00 74 mm[Hg] Vickey phen F Tru Weight Measured 2021-08-06 12:01:00 219.00 pounds Thomas F Tru Height Measured 2021-08-06 12:01:00 65.55 inches Thomas F Tru Body Temperature 2021-08-06 12:01:00 97.40 degrees Thomas F Tru Heart Rate 2021-08-06 12:01:00 83.00 /min Cecy en F Tru Respiratory Rate 2021-08-06 12:01:00 Thomas F Tru BP Systolic 2021-05-22 13:30:00 125 mm[Hg] Step hen F Tru BP Diastolic 2021-05-22 13:30:00 89 mm[Hg] Vickey phen Simona Ott Weight Measured 2021-05-22 13:30:00 217.60 pounds Thomas Ott Height Measured 2021-05-22 13:30:00 65.55 inches Thomas Simona Ott Body Temperature 2021-05-22 13:30:00 97.50 degrees Thomas Simona Ott Heart Rate 2021-05-22 13:30:00 90.00 /min Cecy en F Tru Respiratory Rate 2021-05-22 13:30:00 17.00 /min Thomas F Tru BP Systolic 2021-04-30 10:06:00 141 mm[Hg] Step hen F Tru BP Diastolic 2021-04-30 10:06:00 98 mm[Hg] Vickey phen Simona Ott Weight Measured 2021-04-30 10:06:00 217.40 pounds Thomas Ott Height Measured 2021-04-30 10:06:00 65.55 inches Thomas Ott Body Temperature 2021-04-30 10:06:00 98.50 degrees Thomas Ott Heart Rate 2021-04-30 10:06:00 90.00 /min Cecy en F Tru Respiratory Rate 2021-04-30 10:06:00 16.00 /min Thomas Ott Procedures Procedure Date / Time Performed Performing Clinicia n Source ASSIGNMENT OF BENEFITS 2021-05-11 18:47:18 Docto r Unassigned, [place] [facility] CONSENT/REFUSAL FOR DIAGNOSIS AND TREATMENT 2021-05-11 18:30:42 Doctor Unassigned, [place] [facility] Plan of Care Planned Activity Planned Date Details Comments Source Future Scheduled Test 2021-04-24 00:00:00 INFLUENZA VACCINE (#1) [code = INFLUENZA VACCINE (#1)] [facility] Future Scheduled Test 2020-08-24 00:00:00 DEPRESSION SCREENING (12+) [code = DEPRESSION SCREENING (12+)] [facility] Future Scheduled Test 2017 00:00:00 Lipid panel (procedure) [code = 35102294] [facility] Future Scheduled Test 2001 00:00:00 DTAP/TDAP/TD VACCINES (1 - Tdap) [code = DTAP/TDAP/TD VACCINES (1 - Tdap)] [facility] Future Scheduled Test 2000 00:00:00 HEPATITIS C SCREENING [code = HEPATITIS C SCREENING] [facility] Future Scheduled Test 1994 00:00:00 COVID-19 VACCINE (1) [code = COVID-19 VACCINE (1)] [facility] Encounters Start Date/Time End Date/Time Encounter Type Admission Type Attending [facility] Care Facility Care Department Encounter ID Source 2021-06-24 23:37:31 Emergency [facility] [id number] [facility] 2021-06-24 17:19:11 Emergency [facility] [id number] [facility] 2021-06-24 10:32:53 Emergency [facility] [id number] [facility] 2021-06-23 03:52:42 Emergency [facility] [id number] [facility] 2021-06-21 15:07:03 Emergency [facility] [id number] [facility] 2021-06-21 03:29:02 Emergency [facility] [id number] [facility] 2021-06-20 13:26:29 Emergency [facility] [id number] [facility] 2021-06-20 12:54:23 Emergency [facility] [id number] [facility] 2024-08-25 00:00:00 2024-08-25 00:00:00 Outpatient Visit SFA [id number] Thomas Ott 2024-05-12 14:17:49 2024-05-12 14:17:49 Outpatient SFA SFA [id number] Thomas Ott 2024-05-10 11:06:37 2024-05-10 11:06:37 Outpatient SFA SFA [id number] 0917 Thomas Ott 2024-03-22 00:00:00 2024-03-22 00:00:00 Outpatient Visit SFA [id number] Thomas Ott 2024-03-19 16:11:35 2024-03-19 16:11:35 Outpatient SFA SFA [id number] Thomas Jarvis Tru 2024-03-19 00:00:00 2024-03-19 00:00:00 Outpatient Visit SFA [id number] Thomas Jarvis Tru 2024-01-27 00:00:00 2024-01-27 00:00:00 Outpatient Visit SFA [id number] Thomas Jarvis Tru 2023-12-07 13:53:30 2023-12-07 13:53:30 Outpatient SFA SFA [id number] Thomas Ott 2023-11-11 11:19:39 2023-11-11 11:19:39 Outpatient SFA SFA [id number] Thomas Jarvis Tru 2023-04-09 17:01:19 2023-04-09 17:01:19 Outpatient SFA SFA [id number] Thomas Jarvis [place] 2023-04-07 17:40:07 2023-04-07 17:40:07 Outpatient SFA SFA [id number] Thomas Jarvis Tru 2023-01-08 14:50:31 2023-01-08 14:50:31 Outpatient SFA [facility] [id number] Thomas Jarvis Tru 2022-07-25 13:58:14 2022-07-25 13:58:14 Outpatient SFA SFA [id number] Thomas Jarvis [place] 2021-05-11 13:39:00 2021-05-11 13:57:00 Emergency Clara Iqbal [facility] 1..840.114 [id number] [id number] [id number] [facility] 2020-04-23 19:05:00 2020-04-23 19:52:00 Emergency Wicho Link [facility] [id number] [id number] [id number] 2020-02-24 00:00:00 2020-02-24 00:00:00 [facility]..[facility].114 350.1.13.10 [id number] [id number] 2020-02-22 00:00:00 2020-02-22 00:00:00 Orders Only Doctor Unassigned, [place] [facility] 1..840.114 350.1.13.10 [id number] [id number] 2020-02-01 20:00:00 2020-02-01 20:00:00 Outpatient R LYNN TURCIOS, STRAHIL [facility] [id number] [facility] 2020-01-30 14:00:00 2020-01-30 14:00:00 Outpatient R NISHANT TURCIOSL SONY, STRAHIL [facility] [id number] [facility] 2020-01-11 13:00:00 2020-01-11 13:00:00 Outpatient R NISHANT TURCIOSL SONY, STRAHIL [facility] [id number] [facility] 2020-01-10 13:00:00 2020-01-10 13:00:00 Outpatient R NISHATN TURCIOSL SONY, STRAHIL [facility] [id number] [facility] 2020-01-09 13:00:00 2020-01-09 13:00:00 Outpatient R [facility] [id number] [facility] 2019-12-28 13:00:00 2019-12-28 13:00:00 Outpatient R GUMARO TURCIOSHIL SONY, STRAHIL [facility] [id number] [facility] 2019-11-03 11:00:00 2019-11-03 11:00:00 Outpatient JOSSE CHAPPELL [facility] [id number] [facility] 2019-11-03 10:15:00 2019-11-03 10:15:00 Outpatient R BRIANNE PIERCE [facility] [id number] [facility] 2019-10-31 17:11:43 2019-10-31 22:40:00 Emergency X [facility]IGAIL [facility] ERT [id number] [facility] 2019-10-29 20:32:46 2019-10-29 22:29:00 Emergency X [facility] E[facility] [id number] [facility] 2019-06-08 17:13:31 2019-06-08 17:13:31 Outpatient R MARCUS [facility] [id number] [facility] Results Test Description Test Time Test Comments Results Result Co mments Source Thomas Jarvis [facility] W/AUTO [id number] 00:00:00* Test Item Value Reference Range Interpretation Comme nts WBC (test code = 1001) 9.9 K/UL RBC (test code = 1002) 3.83 M/UL HEMOGLOBIN (test code = 1003) 10.8 G/DL HEMATOCRIT (test code = 1004) 33.0 % MCV (test code = 1005) 86.2 fL MCH (test code = 1006) 28.2 PG MCHC (test code = 1007) 32.7 G/DL RDW (test code = 1038) 14.7 % NEUTROPHILS (test code = 1008) 66.3 % LYMPHOCYTES (test code = 1010) 20.8 % MONOCYTES (test code = 1011) 7.1 % EOSINOPHILS (test code = 1012) 4.7 % BASOPHILS (test code = 1013) 0.4 % IMMATURE GRANULOCYTES (test code = 1036) 0.7 % NUCLEATED RBCS (test code = 1065) 0.0 /100WBC'S PLATELET COUNT (test code = 1015) 129 K/UL ABSOLUTE NEUTROPHILS (test c ode = 1066) 6.57 K/UL ABSOLUTE LYMPHOCYTES (test c ode = 1067) 2.06 K/UL ABSOLUTE MONOCYTES (test cod e = 1068) 0.70 K/UL ABSOLUTE EOSINOPHILS (test c ode = 1040) 0.47 K/UL ABSOLUTE BASOPHILS (test cod e = 1069) 0.04 K/UL ABS IMMATURE GRANULOCYTES (t est code = 1020) 0.07 K/UL ABS NUCLEATED RBCS (test cod e = 19193) 0.00 K/UL Thomas OttCBC W/AUTO [id number] 00:00:00* Test Item Value Reference Range Interpretation Comme nts WBC (test code = 1001) 9.9 K/UL RBC (test code = 1002) 3.83 M/UL HEMOGLOBIN (test code = 1003) 10.8 G/DL HEMATOCRIT (test code = 1004) 33.0 % MCV (test code = 1005) 86.2 fL MCH (test code = 1006) 28.2 PG MCHC (test code = 1007) 32.7 G/DL RDW (test code = 1038) 14.7 % NEUTROPHILS (test code = 1008) 66.3 % LYMPHOCYTES (test code = 1010) 20.8 % MONOCYTES (test code = 1011) 7.1 % EOSINOPHILS (test code = 1012) 4.7 % BASOPHILS (test code = 1013) 0.4 % IMMATURE GRANULOCYTES (test code = 1036) 0.7 % NUCLEATED RBCS (test code = 1065) 0.0 /100WBC'S PLATELET COUNT (test code = 1015) 129 K/UL ABSOLUTE NEUTROPHILS (test c ode = 1066) 6.57 K/UL ABSOLUTE LYMPHOCYTES (test c ode = 1067) 2.06 K/UL ABSOLUTE MONOCYTES (test cod e = 1068) 0.70 K/UL ABSOLUTE EOSINOPHILS (test c ode = 1040) 0.47 K/UL ABSOLUTE BASOPHILS (test cod e = 1069) 0.04 K/UL ABS IMMATURE GRANULOCYTES (t est code = 1020) 0.07 K/UL ABS NUCLEATED RBCS (test cod e = 86686) 0.00 K/UL Thomas OttCBC W/AUTO [id number] 00:00:00* Test Item Value Reference Range Interpretation Comme nts WBC (test code = 1001) 9.9 K/UL RBC (test code = 1002) 3.83 M/UL HEMOGLOBIN (test code = 1003) 10.8 G/DL HEMATOCRIT (test code = 1004) 33.0 % MCV (test code = 1005) 86.2 fL MCH (test code = 1006) 28.2 PG MCHC (test code = 1007) 32.7 G/DL RDW (test code = 1038) 14.7 % NEUTROPHILS (test code = 1008) 66.3 % LYMPHOCYTES (test code = 1010) 20.8 % MONOCYTES (test code = 1011) 7.1 % EOSINOPHILS (test code = 1012) 4.7 % BASOPHILS (test code = 1013) 0.4 % IMMATURE GRANULOCYTES (test code = 1036) 0.7 % NUCLEATED RBCS (test code = 1065) 0.0 /100WBC'S PLATELET COUNT (test code = 1015) 129 K/UL ABSOLUTE NEUTROPHILS (test c ode = 1066) 6.57 K/UL ABSOLUTE LYMPHOCYTES (test c ode = 1067) 2.06 K/UL ABSOLUTE MONOCYTES (test cod e = 1068) 0.70 K/UL ABSOLUTE EOSINOPHILS (test c ode = 1040) 0.47 K/UL ABSOLUTE BASOPHILS (test cod e = 1069) 0.04 K/UL ABS IMMATURE GRANULOCYTES (t est code = 1020) 0.07 K/UL ABS NUCLEATED RBCS (test cod e = 35100) 0.00 K/UL [facility] [id number] 00:00:00* Test Item Value Reference Range Interpretation Comme nts WBC (test code = 1001) 9.9 K/UL RBC (test code = 1002) 3.83 M/UL HEMOGLOBIN (test code = 1003) 10.8 G/DL HEMATOCRIT (test code = 1004) 33.0 % MCV (test code = 1005) 86.2 fL MCH (test code = 1006) 28.2 PG MCHC (test code = 1007) 32.7 G/DL RDW (test code = 1038) 14.7 % NEUTROPHILS (test code = 1008) 66.3 % LYMPHOCYTES (test code = 1010) 20.8 % MONOCYTES (test code = 1011) 7.1 % EOSINOPHILS (test code = 1012) 4.7 % BASOPHILS (test code = 1013) 0.4 % IMMATURE GRANULOCYTES (test code = 1036) 0.7 % NUCLEATED RBCS (test code = 1065) 0.0 /100WBC'S PLATELET COUNT (test code = 1015) 129 K/UL ABSOLUTE NEUTROPHILS (test c ode = 1066) 6.57 K/UL ABSOLUTE LYMPHOCYTES (test c ode = 1067) 2.06 K/UL ABSOLUTE MONOCYTES (test cod e = 1068) 0.70 K/UL ABSOLUTE EOSINOPHILS (test c ode = 1040) 0.47 K/UL ABSOLUTE BASOPHILS (test cod e = 1069) 0.04 K/UL ABS IMMATURE GRANULOCYTES (t est code = 1020) 0.07 K/UL ABS NUCLEATED RBCS (test cod e = 35905) 0.00 K/UL Thomas OttURINE CULTURE, NO [id number] 00:00:00* Test Item Value Reference Range Interpretation Comme nts URINE CULTURE, NO SENS (test code = 23608) SPECIMEN NUMBER: [id number] Thomas Jarvis AustinURINE CULTURE, NO [id number] 00:00:00* Test Item Value Reference Range Interpretation Comme nts URINE CULTURE, NO SENS (test code = 89090) SPECIMEN NUMBER: [id number] Thomas OttURINE CULTURE, NO [id number] 00:00:00* Test Item Value Reference Range Interpretation Comme nts URINE CULTURE, NO SENS (test code = 71219) SPECIMEN NUMBER: [id number] Thomas Jarvis AustinURINE CULTURE, NO [id number] 00:00:00* Test Item Value Reference Range Interpretation Comme nts URINE CULTURE, NO SENS (test code = 06395) SPECIMEN NUMBER: [id number] Thomas Jarvis [id number] 00:00:00* Test Item Value Reference Range Interpretation Comme nts FERRITIN (test code = 2075) 132 NG/ML Thomas OttIRON BINDING CAPACITY AND IRON AND % [id number] 00:00:00* Test Item Value Reference Range Interpretation Comme nts IRON, SERUM (test code = 2222) 38 UG/DL UNSATURATED IBC (test code = 74249) 261 UG/DL CALC TOTAL IBC (test code = 207) 299 UG/DL CALC % IRON SAT (test code = 2079) 13 % Thomas Jarvis [id number] 00:00:00* Test Item Value Reference Range Interpretation Comme nts TRANSFERRIN (test code = 4936) 251 MG/DL Thomas Jarvis TruLIVER (HEPATIC) FUNCTION [id number] 00:00:00* Test Item Value Reference Range Interpretation Comme nts PROTEIN, TOTAL (test code = 2228) 7.4 G/DL ALBUMIN (test code = 2201) 4.2 G/DL BILIRUBIN, TOTAL (test code = 2206) 0.3 MG/DL BILIRUBIN, DIRECT (test code = 2021) 0.1 MG/DL ALKALINE PHOSPHATASE (test c ode = 4) 85 U/L AST (test code = 2218) 75 U/L ALT (test code = 2219) 48 U/L Thomas OttCBC W/AUTO [id number] 00:00:00* Test Item Value Reference Range Interpretation Comme nts WBC (test code = 1001) 9.6 K/UL RBC (test code = 1002) 3.93 M/UL HEMOGLOBIN (test code = 1003) 10.3 G/DL HEMATOCRIT (test code = 1004) 32.4 % MCV (test code = 1005) 82.4 fL MCH (test code = 1006) 26.2 PG MCHC (test code = 1007) 31.8 G/DL RDW (test code = 1038) 14.3 % NEUTROPHILS (test code = 1008) 62.9 % LYMPHOCYTES (test code = 1010) 24.5 % MONOCYTES (test code = 1011) 6.1 % EOSINOPHILS (test code = 1012) 6.0 % BASOPHILS (test code = 1013) 0.5 % PLATELET COUNT (test code = 1015) 137 K/UL Thomas [id number] 00:00:00* Test Item Value Reference Range Interpretation Comme nts CALCIUM (test code = 2208) 6.9 MG/DL hTomas [id number] 00:00:00* Test Item Value Reference Range Interpretation Comme nts FERRITIN (test code = 2074) 132 NG/ML Thomas OttIRON BINDING CAPACITY AND IRON AND % [id number] 00:00:00* Test Item Value Reference Range Interpretation Comme nts IRON, SERUM (test code = 2221) 38 UG/DL UNSATURATED IBC (test code = ) 261 UG/DL CALC TOTAL IBC (test code = 2076) 299 UG/DL CALC % IRON SAT (test code = 2078) 13 % Thomas F [id number] 00:00:00* Test Item Value Reference Range Interpretation Comme nts TRANSFERRIN (test code = 4936) 251 MG/DL Thomas OttLIVER (HEPATIC) FUNCTION [id number] 00:00:00* Test Item Value Reference Range Interpretation Comme nts PROTEIN, TOTAL (test code = 2229) 7.4 G/DL ALBUMIN (test code = 2201) 4.2 G/DL BILIRUBIN, TOTAL (test code = 2207) 0.3 MG/DL BILIRUBIN, DIRECT (test code = 2021) 0.1 MG/DL ALKALINE PHOSPHATASE (test c ode = 2204) 85 U/L AST (test code = 2218) 75 U/L ALT (test code = 2219) 48 U/L Thomas OttCBC W/AUTO [id number] 00:00:00* Test Item Value Reference Range Interpretation Comme nts WBC (test code = 1001) 9.6 K/UL RBC (test code = 1002) 3.93 M/UL HEMOGLOBIN (test code = 1003) 10.3 G/DL HEMATOCRIT (test code = 1004) 32.4 % MCV (test code = 1005) 82.4 fL MCH (test code = 1006) 26.2 PG MCHC (test code = 1007) 31.8 G/DL RDW (test code = 1038) 14.3 % NEUTROPHILS (test code = 1008) 62.9 % LYMPHOCYTES (test code = 1010) 24.5 % MONOCYTES (test code = 1011) 6.1 % EOSINOPHILS (test code = 1012) 6.0 % BASOPHILS (test code = 1013) 0.5 % PLATELET COUNT (test code = 1015) 137 K/UL Thomas [id number] 00:00:00* Test Item Value Reference Range Interpretation Comme nts CALCIUM (test code = 2209) 6.9 MG/DL Thomas [id number] 00:00:00* Test Item Value Reference Range Interpretation Comme nts FERRITIN (test code = 2075) 132 NG/ML Thomas OttIRON BINDING CAPACITY AND IRON AND % [id number] 00:00:00* Test Item Value Reference Range Interpretation Comme nts IRON, SERUM (test code = 2) 38 UG/DL UNSATURATED IBC (test code = 36633) 261 UG/DL CALC TOTAL IBC (test code = 2076) 299 UG/DL CALC % IRON SAT (test code = 2078) 13 % Thomas [id number] 00:00:00* Test Item Value Reference Range Interpretation Comme nts TRANSFERRIN (test code = 4936) 251 MG/DL Thomas OttLIVER (HEPATIC) FUNCTION [id number] 00:00:00* Test Item Value Reference Range Interpretation Comme nts PROTEIN, TOTAL (test code = 2228) 7.4 G/DL ALBUMIN (test code = 2200) 4.2 G/DL BILIRUBIN, TOTAL (test code = 2206) 0.3 MG/DL BILIRUBIN, DIRECT (test code = 2021) 0.1 MG/DL ALKALINE PHOSPHATASE (test c ode = 2203) 85 U/L AST (test code = 8) 75 U/L ALT (test code = 2218) 48 U/L Thomas OttCBC W/AUTO [id number] 00:00:00* Test Item Value Reference Range Interpretation Comme nts WBC (test code = 1001) 9.6 K/UL RBC (test code = 1002) 3.93 M/UL HEMOGLOBIN (test code = 1003) 10.3 G/DL HEMATOCRIT (test code = 1004) 32.4 % MCV (test code = 1005) 82.4 fL MCH (test code = 1006) 26.2 PG MCHC (test code = 1007) 31.8 G/DL RDW (test code = 1038) 14.3 % NEUTROPHILS (test code = 1008) 62.9 % LYMPHOCYTES (test code = 1010) 24.5 % MONOCYTES (test code = 1011) 6.1 % EOSINOPHILS (test code = 1012) 6.0 % BASOPHILS (test code = 1013) 0.5 % PLATELET COUNT (test code = 1015) 137 K/UL Thomas [id number] 00:00:00* Test Item Value Reference Range Interpretation Comme nts CALCIUM (test code = 220) 6.9 MG/DL Thomas [id number] 00:00:00* Test Item Value Reference Range Interpretation Comme nts FERRITIN (test code = 2074) 132 NG/ML Thomas OttIRON BINDING CAPACITY AND IRON AND % [id number] 00:00:00* Test Item Value Reference Range Interpretation Comme luciana IRON, SERUM (test code = 2221) 38 UG/DL UNSATURATED IBC (test code = 09050) 261 UG/DL CALC TOTAL IBC (test code = 2076) 299 UG/DL CALC % IRON SAT (test code = 2078) 13 % Thomas [id number] 00:00:00* Test Item Value Reference Range Interpretation Comme nts TRANSFERRIN (test code = 4936) 251 MG/DL Thomas OttLIVER (HEPATIC) FUNCTION [id number] 00:00:00* Test Item Value Reference Range Interpretation Comme nts PROTEIN, TOTAL (test code = 2228) 7.4 G/DL ALBUMIN (test code = 2200) 4.2 G/DL BILIRUBIN, TOTAL (test code = 2206) 0.3 MG/DL BILIRUBIN, DIRECT (test code = 2021) 0.1 MG/DL ALKALINE PHOSPHATASE (test c ode = 2203) 85 U/L AST (test code = 2218) 75 U/L ALT (test code = 2219) 48 U/L Thomas OttCBC W/AUTO [id number] 00:00:00* Test Item Value Reference Range Interpretation Comme nts WBC (test code = 1001) 9.6 K/UL RBC (test code = 1002) 3.93 M/UL HEMOGLOBIN (test code = 1003) 10.3 G/DL HEMATOCRIT (test code = 1004) 32.4 % MCV (test code = 1005) 82.4 fL MCH (test code = 1006) 26.2 PG MCHC (test code = 1007) 31.8 G/DL RDW (test code = 1038) 14.3 % NEUTROPHILS (test code = 1008) 62.9 % LYMPHOCYTES (test code = 1010) 24.5 % MONOCYTES (test code = 1011) 6.1 % EOSINOPHILS (test code = 1012) 6.0 % BASOPHILS (test code = 1013) 0.5 % PLATELET COUNT (test code = 1015) 137 K/UL Thomas [id number] 00:00:00* Test Item Value Reference Range Interpretation Comme nts CALCIUM (test code = 2208) 6.9 MG/DL Thomas Morse, [id number] 00:00:00* Test Item Value Reference Range Interpretation Comme nts CULTURE, MRSA (test code = 46202) SPECIMEN NUMBER: [id number] Thomas Morse, [id number] 00:00:00* Test Item Value Reference Range Interpretation Comme nts CULTURE, MRSA (test code = 91689) SPECIMEN NUMBER: [id number] Thomas Morse, [id number] 00:00:00* Test Item Value Reference Range Interpretation Comme nts CULTURE, MRSA (test code = 26492) SPECIMEN NUMBER: [id number] Thomas Morse, [id number] 00:00:00* Test Item Value Reference Range Interpretation Comme nts CULTURE, MRSA (test code = 42767) SPECIMEN NUMBER: [id number] Thomas OttCBC W/AUTO [id number] 00:00:00* Test Item Value Reference Range Interpretation Comme nts WBC (test code = 1001) 7.4 K/UL RBC (test code = 1002) 4.44 M/UL HEMOGLOBIN (test code = 1003) 11.5 G/DL HEMATOCRIT (test code = 1004) 36.9 % MCV (test code = 1005) 83.1 fL MCH (test code = 1006) 25.9 PG MCHC (test code = 1007) 31.2 G/DL RDW (test code = 1038) 13.8 % NEUTROPHILS (test code = 1008) 64.7 % LYMPHOCYTES (test code = 1010) 23.5 % MONOCYTES (test code = 1011) 6.7 % EOSINOPHILS (test code = 1012) 4.6 % BASOPHILS (test code = 1013) 0.5 % PLATELET COUNT (test code = 1015) 145 K/UL Thomas OttCOMPREHENSIVE METABOLIC [id number] 00:00:00* Test Item Value Reference Range Interpretation Comme nts GLUCOSE (test code = 2217) 111 MG/DL BUN (test code = 2208) 9 MG/DL CREATININE (test code = 2214) 0.75 MG/DL eGFR AMER. (test cod e = 24340) 135 ML/MIN/1.73 eGFR NON- AMER. (test code = 09247) 116 ML/MIN/1.73 CALC BUN/CREAT (test code = 2235) 12 RATIO SODIUM (test code = 2231) 143 MEQ/L POTASSIUM (test code = 2228) 4.6 MEQ/L CHLORIDE (test code = 2215) 97 MEQ/L CARBON DIOXIDE (test code = 2206) 32 MEQ/L CALCIUM (test code = 2209) 7.5 MG/DL PROTEIN, TOTAL (test code = 2229) 8.0 G/DL ALBUMIN (test code = 2201) 4.5 G/DL CALC GLOBULIN (test code = 2240) 3.5 G/DL CALC A/G RATIO (test code = 2234) 1.3 RATIO BILIRUBIN, TOTAL (test code = 2207) 0.3 MG/DL ALKALINE PHOSPHATASE (test code = 2204) 93 U/L AST (test code = 2218) 55 U/L ALT (test code = 2219) 43 U/L Thomas OttCBC W/AUTO [id number] 00:00:00* Test Item Value Reference Range Interpretation Comme nts WBC (test code = 1001) 7.4 K/UL RBC (test code = 1002) 4.44 M/UL HEMOGLOBIN (test code = 1003) 11.5 G/DL HEMATOCRIT (test code = 1004) 36.9 % MCV (test code = 1005) 83.1 fL MCH (test code = 1006) 25.9 PG MCHC (test code = 1007) 31.2 G/DL RDW (test code = 1038) 13.8 % NEUTROPHILS (test code = 1008) 64.7 % LYMPHOCYTES (test code = 1010) 23.5 % MONOCYTES (test code = 1011) 6.7 % EOSINOPHILS (test code = 1012) 4.6 % BASOPHILS (test code = 1013) 0.5 % PLATELET COUNT (test code = 1015) 145 K/UL Thomas OttCOMPREHENSIVE METABOLIC [id number] 00:00:00* Test Item Value Reference Range Interpretation Comme nts GLUCOSE (test code = 2217) 111 MG/DL BUN (test code = 2208) 9 MG/DL CREATININE (test code = 2214) 0.75 MG/DL eGFR AMER. (test cod e = 02052) 135 ML/MIN/1.73 eGFR NON- AMER. (test code = 81909) 116 ML/MIN/1.73 CALC BUN/CREAT (test code = 2235) 12 RATIO SODIUM (test code = 2231) 143 MEQ/L POTASSIUM (test code = 2228) 4.6 MEQ/L CHLORIDE (test code = 2215) 97 MEQ/L CARBON DIOXIDE (test code = 2206) 32 MEQ/L CALCIUM (test code = 2209) 7.5 MG/DL PROTEIN, TOTAL (test code = 2229) 8.0 G/DL ALBUMIN (test code = 2201) 4.5 G/DL CALC GLOBULIN (test code = 2240) 3.5 G/DL CALC A/G RATIO (test code = 2234) 1.3 RATIO BILIRUBIN, TOTAL (test code = 2207) 0.3 MG/DL ALKALINE PHOSPHATASE (test code = 2204) 93 U/L AST (test code = 2218) 55 U/L ALT (test code = 2219) 43 U/L Thomas OttCBC W/AUTO [id number] 00:00:00* Test Item Value Reference Range Interpretation Comme nts WBC (test code = 1001) 7.4 K/UL RBC (test code = 1002) 4.44 M/UL HEMOGLOBIN (test code = 1003) 11.5 G/DL HEMATOCRIT (test code = 1004) 36.9 % MCV (test code = 1005) 83.1 fL MCH (test code = 1006) 25.9 PG MCHC (test code = 1007) 31.2 G/DL RDW (test code = 1038) 13.8 % NEUTROPHILS (test code = 1008) 64.7 % LYMPHOCYTES (test code = 1010) 23.5 % MONOCYTES (test code = 1011) 6.7 % EOSINOPHILS (test code = 1012) 4.6 % BASOPHILS (test code = 1013) 0.5 % PLATELET COUNT (test code = 1015) 145 K/UL Thomas OttCOMPREHENSIVE METABOLIC [id number] 00:00:00* Test Item Value Reference Range Interpretation Comme nts GLUCOSE (test code = 2217) 111 MG/DL BUN (test code = 2208) 9 MG/DL CREATININE (test code = 2214) 0.75 MG/DL eGFR AMER. (test cod e = 80939) 135 ML/MIN/1.73 eGFR NON- AMER. (test code = 52304) 116 ML/MIN/1.73 CALC BUN/CREAT (test code = 2235) 12 RATIO SODIUM (test code = 2231) 143 MEQ/L POTASSIUM (test code = 2228) 4.6 MEQ/L CHLORIDE (test code = 2215) 97 MEQ/L CARBON DIOXIDE (test code = 2206) 32 MEQ/L CALCIUM (test code = 2209) 7.5 MG/DL PROTEIN, TOTAL (test code = 2229) 8.0 G/DL ALBUMIN (test code = 2201) 4.5 G/DL CALC GLOBULIN (test code = 2240) 3.5 G/DL CALC A/G RATIO (test code = 2234) 1.3 RATIO BILIRUBIN, TOTAL (test code = 2207) 0.3 MG/DL ALKALINE PHOSPHATASE (test code = 2204) 93 U/L AST (test code = 2218) 55 U/L ALT (test code = 2219) 43 U/L Thomas OttCBC W/AUTO [id number] 00:00:00* Test Item Value Reference Range Interpretation Comme nts WBC (test code = 1001) 7.4 K/UL RBC (test code = 1002) 4.44 M/UL HEMOGLOBIN (test code = 1003) 11.5 G/DL HEMATOCRIT (test code = 1004) 36.9 % MCV (test code = 1005) 83.1 fL MCH (test code = 1006) 25.9 PG MCHC (test code = 1007) 31.2 G/DL RDW (test code = 1038) 13.8 % NEUTROPHILS (test code = 1008) 64.7 % LYMPHOCYTES (test code = 1010) 23.5 % MONOCYTES (test code = 1011) 6.7 % EOSINOPHILS (test code = 1012) 4.6 % BASOPHILS (test code = 1013) 0.5 % PLATELET COUNT (test code = 1015) 145 K/UL Thomas OttCOMPREHENSIVE METABOLIC [id number] 00:00:00* Test Item Value Reference Range Interpretation Comme nts GLUCOSE (test code = 2217) 111 MG/DL BUN (test code = 2208) 9 MG/DL CREATININE (test code = 2214) 0.75 MG/DL eGFR AMER. (test cod e = 65575) 135 ML/MIN/1.73 eGFR NON- AMER. (test code = 92790) 116 ML/MIN/1.73 CALC BUN/CREAT (test code = 2235) 12 RATIO SODIUM (test code = 2231) 143 MEQ/L POTASSIUM (test code = 2228) 4.6 MEQ/L CHLORIDE (test code = 2215) 97 MEQ/L CARBON DIOXIDE (test code = 2206) 32 MEQ/L CALCIUM (test code = 2209) 7.5 MG/DL PROTEIN, TOTAL (test code = 2229) 8.0 G/DL ALBUMIN (test code = 2201) 4.5 G/DL CALC GLOBULIN (test code = 2240) 3.5 G/DL CALC A/G RATIO (test code = 2234) 1.3 RATIO BILIRUBIN, TOTAL (test code = 2207) 0.3 MG/DL ALKALINE PHOSPHATASE (test code = 2204) 93 U/L AST (test code = 2218) 55 U/L ALT (test code = 2219) 43 U/L [facility] METABOLIC [id number] 07:38:00* Test Item Value Reference Range Interpretation Comme nts SODIUM (BEAKER) (test code = 381) 137 meq/L 136-145 POTASSIUM (BEAKER) (test code = 379) 4.0 meq/L 3.5-5.1 CHLORIDE (BEAKER) (test code = 382) 100 meq/L 98-107 CO2 (BEAKER) (test code = 355) 27 meq/L 22-29 BLOOD UREA NITROGEN (BEAKER) (test code = 354) 4 mg/dL 7-21 L CREATININE (BEAKER) (test code = 358) 0.71 mg/dL 0.57-1.25 GLUCOSE RANDOM (BEAKER) (test code = 652) 110 mg/dL 70-105 H CALCIUM (BEAKER) (test code = 697) 7.2 mg/dL 8.4-10.2 L EGFR (BEAKER) (test code = 1092) 125 mL/min/1.73 sq m ESTIMATED GFR IS NOT ACCURATE CREATININE CLEARANCE IN PREDICTING GLOMERULAR FILTRATION RATE. ESTIMATED GFR IS NOT APPLICABLE FOR DIALYSIS PATIENTS. [id number] 07:19:00* Test Item Value Reference Range Interpretation Comme nts PHOSPHORUS (BEAKER) (test co de = 604) 4.5 mg/dL 2.3-4.7 [id number] 07:19:00* Test Item Value Reference Range Interpretation Comme nts MAGNESIUM (BEAKER) (test cod e = 627) 2.0 mg/dL 1.6-2.6 CBC W/PLT COUNT & AUTO [id number] 07:11:00* Test Item Value Reference Range Interpretation Comme nts WHITE BLOOD CELL COUNT (BEAK ER) (test code = 775) 7.3 K/ L 3.5-10.5 RED BLOOD CELL COUNT (BEAKER ) (test code = 761) 3.63 M/ L 4.63-6.08 L HEMOGLOBIN (BEAKER) (test co de = 410) 9.4 GM/DL 13.7-17.5 L HEMATOCRIT (BEAKER) (test co de = 411) 33.6 % 40.1-51.0 L MEAN CORPUSCULAR VOLUME (STONE KER) (test code = 753) 92.6 fL 79.0-92.2 H MEAN CORPUSCULAR HEMOGLOBIN (BEAKER) (test code = 751) 25.9 pg 25.7-32.2 MEAN CORPUSCULAR HEMOGLOBIN CONC (BEAKER) (test code = 752) 28.0 GM/DL 32.3-36.5 L RED CELL DISTRIBUTION WIDTH (BEAKER) (test code = 412) 20.4 % 11.6-14.4 H PLATELET COUNT (BEAKER) (rodger t code = 756) 196 K/CU MM 150-450 MEAN PLATELET VOLUME (BEAKER ) (test code = 754) 12.5 fL 9.4-12.4 H NUCLEATED RED BLOOD CELLS (BEAKER) (test code = 413) 0 /100 WBC 0-0 NEUTROPHILS RELATIVE PERCENT (BEAKER) (test code = 429) 71 % LYMPHOCYTES RELATIVE PERCENT (BEAKER) (test code = 430) 16 % MONOCYTES RELATIVE PERCENT (BEAKER) (test code = 431) 7 % EOSINOPHILS RELATIVE PERCENT (BEAKER) (test code = 432) 5 % BASOPHILS RELATIVE PERCENT (BEAKER) (test code = 437) 1 % NEUTROPHILS ABSOLUTE COUNT (BEAKER) (test code = 670) 5.18 K/ L 1.78-5.38 LYMPHOCYTES ABSOLUTE COUNT (BEAKER) (test code = 414) 1.13 K/ L 1.32-3.57 L MONOCYTES ABSOLUTE COUNT (BE GEOVANNI) (test code = 415) 0.53 K/ L 0.30-0.82 EOSINOPHILS ABSOLUTE COUNT (BEAKER) (test code = 416) 0.34 K/ L 0.04-0.54 BASOPHILS ABSOLUTE COUNT (BE GEOVANNI) (test code = 417) 0.04 K/ L 0.01-0.08 IMMATURE GRANULOCYTES-RELATI VE PERCENT (BEAKER) (test code = 2801) 1 % 0-1 [id number] 07:07:00* Test Item Value Reference Range Interpretation Comme nts PARTIAL THROMBOPLASTIN TIME (BEAKER) (test code = 760) 39.0 seconds 22.5-36.0 H PROTHROMBIN [id number] 07:06:00* Test Item Value Reference Range Interpretation Comme nts PROTIME (BEAKER) (test code = 759) 14.3 seconds 11.9-14.2 H INR (BEAKER) (test code = 370) 1.2 <=5.9 Effective 01/19/2019: PT Reference Range ChangeNew: 11.9-14.2 Previous: 11.7- 14.7RECOMMENDED COUMADIN/WARFARIN INR THERAPY RANGESSTANDARD DOSE: 2.0-3.0 Includes: PROPHYLAXIS for venous thrombosis, systemic embolization; TREATMENT for venous thrombosis and/or pulmonary embolus.HIGH RISK: Target INR is 2.5-3.5 for patients wiht mechanical heart valves.CALCIUM, [id number] 07:05:00* Test Item Value Reference Range Interpretation Comme nts CALCIUM IONIZED (BEAKER) (te st code = 698) 0.73 mmol/L 1.12-1.27 LL PH, BLOOD (BEAKER) (test cod e = 1810) 7.54 CBC W/PLT COUNT & AUTO [id number] 15:06:00* Test Item Value Reference Range Interpretation Comme nts WHITE BLOOD CELL COUNT (BEAK ER) (test code = 775) 8.4 K/ L 3.5-10.5 RED BLOOD CELL COUNT (BEAKER ) (test code = 761) 3.72 M/ L 4.63-6.08 L HEMOGLOBIN (BEAKER) (test co de = 410) 9.6 GM/DL 13.7-17.5 L HEMATOCRIT (BEAKER) (test co de = 411) 34.2 % 40.1-51.0 L MEAN CORPUSCULAR VOLUME (STONE KER) (test code = 753) 91.9 fL 79.0-92.2 MEAN CORPUSCULAR HEMOGLOBIN (BEAKER) (test code = 751) 25.8 pg 25.7-32.2 MEAN CORPUSCULAR HEMOGLOBIN CONC (BEAKER) (test code = 752) 28.1 GM/DL 32.3-36.5 L RED CELL DISTRIBUTION WIDTH (BEAKER) (test code = 412) 20.5 % 11.6-14.4 H PLATELET COUNT (BEAKER) (rodger t code = 756) 191 K/CU MM 150-450 MEAN PLATELET VOLUME (BEAKER ) (test code = 754) 12.6 fL 9.4-12.4 H NUCLEATED RED BLOOD CELLS (BEAKER) (test code = 413) 0 /100 WBC 0-0 NEUTROPHILS RELATIVE PERCENT (BEAKER) (test code = 429) 76 % LYMPHOCYTES RELATIVE PERCENT (BEAKER) (test code = 430) 13 % MONOCYTES RELATIVE PERCENT (BEAKER) (test code = 431) 6 % EOSINOPHILS RELATIVE PERCENT (BEAKER) (test code = 432) 4 % BASOPHILS RELATIVE PERCENT (BEAKER) (test code = 437) 0 % NEUTROPHILS ABSOLUTE COUNT (BEAKER) (test code = 670) 6.36 K/ L 1.78-5.38 H LYMPHOCYTES ABSOLUTE COUNT (BEAKER) (test code = 414) 1.08 K/ L 1.32-3.57 L MONOCYTES ABSOLUTE COUNT (BE GEOVANNI) (test code = 415) 0.51 K/ L 0.30-0.82 EOSINOPHILS ABSOLUTE COUNT (BEAKER) (test code = 416) 0.37 K/ L 0.04-0.54 BASOPHILS ABSOLUTE COUNT (BE GEOVANNI) (test code = 417) 0.03 K/ L 0.01-0.08 IMMATURE GRANULOCYTES-RELATI VE PERCENT (BEAKER) (test code = 2801) 1 % 0-1 POCT-GLUCOSE [id number] 12:26:00* Test Item Value Reference Range Interpretation Comme nts POC-GLUCOSE METER (BEAKER) (test code = 1538) 147 mg/dL 70-110 H : TESTED AT [facility] [address] [facility], [id number]: Creative Art Director/Solution Director ID = [id number] for Karen Jacobson POCT-GLUCOSE [id number] 08:38:00* Test Item Value Reference Range Interpretation Comme nts POC-GLUCOSE METER (BEAKER) (test code = 1538) 136 mg/dL 70-110 H : TESTED AT [facility] [address] [facility], [id number]: Creative Art Director/Solution Director ID = [id number] for ELIAS SILVER BASIC METABOLIC [id number] 04:35:00* Test Item Value Reference Range Interpretation Comme nts SODIUM (BEAKER) (test code = 381) 140 meq/L 136-145 POTASSIUM (BEAKER) (test code = 379) 3.8 meq/L 3.5-5.1 Specimen sligh tly hemolyzed CHLORIDE (BEAKER) (test code = 382) 101 meq/L 98-107 CO2 (BEAKER) (test code = 355) 30 meq/L 22-29 H BLOOD UREA NITROGEN (BEAKER) (test code = 354) 5 mg/dL 7-21 L CREATININE (BEAKER) (test code = 358) 0.73 mg/dL 0.57-1.25 Specimen sligh tly hemolyzed GLUCOSE RANDOM (BEAKER) (test code = 652) 97 mg/dL 70-105 CALCIUM (BEAKER) (test code = 697) 6.9 mg/dL 8.4-10.2 L EGFR (BEAKER) (test code = 1092) 121 mL/min/1.73 sq m ESTIMATED GFR IS NOT ACCURATE CREATININE CLEARANCE IN PREDICTING GLOMERULAR FILTRATION RATE. ESTIMATED GFR IS NOT APPLICABLE FOR DIALYSIS PATIENTS. [id number] 04:18:00* Test Item Value Reference Range Interpretation Comme nts MAGNESIUM (BEAKER) (test code = 627) 2.1 mg/dL 1.6-2.6 Specimen sligh tly hemolyzed [id number] 04:18:00* Test Item Value Reference Range Interpretation Comme nts PHOSPHORUS (BEAKER) (test code = 604) 4.6 mg/dL 2.3-4.7 Specimen sligh tly hemolyzed CBC W/PLT COUNT & AUTO [id number] 03:30:00* Test Item Value Reference Range Interpretation Comme nts WHITE BLOOD CELL COUNT (BEAK ER) (test code = 775) 8.1 K/ L 3.5-10.5 RED BLOOD CELL COUNT (BEAKER ) (test code = 761) 3.44 M/ L 4.63-6.08 L HEMOGLOBIN (BEAKER) (test co de = 410) 8.7 GM/DL 13.7-17.5 L HEMATOCRIT (BEAKER) (test co de = 411) 31.0 % 40.1-51.0 L MEAN CORPUSCULAR VOLUME (STONE KER) (test code = 753) 90.1 fL 79.0-92.2 MEAN CORPUSCULAR HEMOGLOBIN (BEAKER) (test code = 751) 25.3 pg 25.7-32.2 L MEAN CORPUSCULAR HEMOGLOBIN CONC (BEAKER) (test code = 752) 28.1 GM/DL 32.3-36.5 L RED CELL DISTRIBUTION WIDTH (BEAKER) (test code = 412) 20.6 % 11.6-14.4 H PLATELET COUNT (BEAKER) (rodger t code = 756) 176 K/CU MM 150-450 MEAN PLATELET VOLUME (BEAKER ) (test code = 754) 12.1 fL 9.4-12.4 NUCLEATED RED BLOOD CELLS (BEAKER) (test code = 413) 0 /100 WBC 0-0 NEUTROPHILS RELATIVE PERCENT (BEAKER) (test code = 429) 70 % LYMPHOCYTES RELATIVE PERCENT (BEAKER) (test code = 430) 17 % MONOCYTES RELATIVE PERCENT (BEAKER) (test code = 431) 7 % EOSINOPHILS RELATIVE PERCENT (BEAKER) (test code = 432) 5 % BASOPHILS RELATIVE PERCENT (BEAKER) (test code = 437) 0 % NEUTROPHILS ABSOLUTE COUNT (BEAKER) (test code = 670) 5.71 K/ L 1.78-5.38 H LYMPHOCYTES ABSOLUTE COUNT (BEAKER) (test code = 414) 1.38 K/ L 1.32-3.57 MONOCYTES ABSOLUTE COUNT (BE GEOVANNI) (test code = 415) 0.57 K/ L 0.30-0.82 EOSINOPHILS ABSOLUTE COUNT (BEAKER) (test code = 416) 0.38 K/ L 0.04-0.54 BASOPHILS ABSOLUTE COUNT (BE GEOVANNI) (test code = 417) 0.03 K/ L 0.01-0.08 IMMATURE GRANULOCYTES-RELATI VE PERCENT (BEAKER) (test code = 2801) 1 % 0-1 RAD, CHEST, 1 VIEW, NON [id number] 23:38:00Reason for exam:->preop workupShould this be performed at the bedside?->YesFINAL REPORT AP chest dated 06/28/2019 Comment: Heart is in upper limits of normal in size. Pulmonary vasculature is unremarkable. Lungs are clear. No pulmonary infiltrate or pleural effusion. Impression: No active cardiopulmonary disease. Signed: María Tobias MDReport Verified Date/Time: 06/28/2019 23:38:30 Reading Location: [facility] [id number] Consult Reading Room POCT-GLUCOSE [id number] 22:26:00* Test Item Value Reference Range Interpretation Comme nts POC-GLUCOSE METER (BEAKER) (test code = 1538) 112 mg/dL 70-110 H : TESTED AT [facility] [address] [facility], [id number]: Creative Art Director/Solution Director ID = [id number] for BLACK RENEE COMPREHENSIVE METABOLIC [id number] 20:58:00* Test Item Value Reference Range Interpretation Comme nts TOTAL PROTEIN (BEAKER) (test code = 770) 8.0 gm/dL 6.0-8.3 Specimen slightl y hemolyzed ALBUMIN (BEAKER) (test code = 1145) 4.1 g/dL 3.5-5.0 Specimen slig htly hemolyzed ALKALINE PHOSPHATASE (BEAKER) (test code = 346) 66 U/L 40-150 BILIRUBIN TOTAL (BEAKER) (test code = 377) 1.0 mg/dL 0.2-1.2 Specimen slightl y hemolyzed SODIUM (BEAKER) (test code = 381) 137 meq/L 136-145 POTASSIUM (BEAKER) (test code = 379) 4.1 meq/L 3.5-5.1 Specimen sligh tly hemolyzed CHLORIDE (BEAKER) (test code = 382) 97 meq/L 98-107 L CO2 (BEAKER) (test code = 355) 27 meq/L 22-29 BLOOD UREA NITROGEN (BEAKER) (test code = 354) 7 mg/dL 7-21 CREATININE (BEAKER) (test code = 358) 0.72 mg/dL 0.57-1.25 Specimen sligh tly hemolyzed GLUCOSE RANDOM (BEAKER) (test code = 652) 73 mg/dL 70-105 CALCIUM (BEAKER) (test code = 697) 7.5 mg/dL 8.4-10.2 L AST (SGOT) (BEAKER) (test code = 353) 75 U/L 5-34 H Specimen sligh tly hemolyzed ALT (SGPT) (BEAKER) (test code = 347) 47 U/L 6-55 Specimen sligh tly hemolyzed EGFR (BEAKER) (test code = 1092) 123 mL/min/1.73 sq m ESTIMATED GFR IS NOT ACCURATE CREATININE CLEARANCE IN PREDICTING GLOMERULAR FILTRATION RATE. ESTIMATED GFR IS NOT APPLICABLE FOR DIALYSIS PATIENTS. CBC W/PLT COUNT & AUTO [id number] 20:24:00* Test Item Value Reference Range Interpretation Comme nts WHITE BLOOD CELL COUNT (BEAK ER) (test code = 775) 7.9 K/ L 3.5-10.5 RED BLOOD CELL COUNT (BEAKER ) (test code = 761) 3.61 M/ L 4.63-6.08 L HEMOGLOBIN (BEAKER) (test co de = 410) 9.2 GM/DL 13.7-17.5 L HEMATOCRIT (BEAKER) (test co de = 411) 32.7 % 40.1-51.0 L MEAN CORPUSCULAR VOLUME (STONE KER) (test code = 753) 90.6 fL 79.0-92.2 MEAN CORPUSCULAR HEMOGLOBIN (BEAKER) (test code = 751) 25.5 pg 25.7-32.2 L MEAN CORPUSCULAR HEMOGLOBIN CONC (BEAKER) (test code = 752) 28.1 GM/DL 32.3-36.5 L RED CELL DISTRIBUTION WIDTH (BEAKER) (test code = 412) 20.8 % 11.6-14.4 H PLATELET COUNT (BEAKER) (rodger t code = 756) 193 K/CU MM 150-450 MEAN PLATELET VOLUME (BEAKER ) (test code = 754) 12.4 fL 9.4-12.4 NUCLEATED RED BLOOD CELLS (BEAKER) (test code = 413) 0 /100 WBC 0-0 NEUTROPHILS RELATIVE PERCENT (BEAKER) (test code = 429) 69 % LYMPHOCYTES RELATIVE PERCENT (BEAKER) (test code = 430) 18 % MONOCYTES RELATIVE PERCENT (BEAKER) (test code = 431) 8 % EOSINOPHILS RELATIVE PERCENT (BEAKER) (test code = 432) 3 % BASOPHILS RELATIVE PERCENT (BEAKER) (test code = 437) 0 % NEUTROPHILS ABSOLUTE COUNT (BEAKER) (test code = 670) 5.46 K/ L 1.78-5.38 H LYMPHOCYTES ABSOLUTE COUNT (BEAKER) (test code = 414) 1.42 K/ L 1.32-3.57 MONOCYTES ABSOLUTE COUNT (BE GEOVANNI) (test code = 415) 0.62 K/ L 0.30-0.82 EOSINOPHILS ABSOLUTE COUNT (BEAKER) (test code = 416) 0.27 K/ L 0.04-0.54 BASOPHILS ABSOLUTE COUNT (BE GEOVANNI) (test code = 417) 0.03 K/ L 0.01-0.08 IMMATURE GRANULOCYTES-RELATI VE PERCENT (BEAKER) (test code = 2801) 1 % 0-1 [id number] 20:23:00* Test Item Value Reference Range Interpretation Comme nts PARTIAL THROMBOPLASTIN TIME (BEAKER) (test code = 760) 38.3 seconds 22.5-36.0 H PROTHROMBIN [id number] 20:22:00* Test Item Value Reference Range Interpretation Comme nts PROTIME (BEAKER) (test code = 759) 13.5 seconds 11.9-14.2 INR (BEAKER) (test code = 370) 1.1 <=5.9 Effective 01/19/2019: PT Reference Range ChangeNew: 11.9-14.2 Previous: 11.7- 14.7RECOMMENDED COUMADIN/WARFARIN INR THERAPY RANGESSTANDARD DOSE: 2.0-3.0 Includes: PROPHYLAXIS for venous thrombosis, systemic embolization; TREATMENT for venous thrombosis and/or pulmonary embolus.HIGH RISK: Target INR is 2.5-3.5 for patients wiht mechanical heart valves.
[2024-09-08] MEDS ORDERED: hydroCHLOROthiazide 25 MG TAB ONE (11:38)
[2024-09-08 13:05] LABS: Albumin 3.3 g/dL (3.4-5.0); Albumin/Globulin Ratio 0.8 (1.1-1.8); Anion Gap 8.4 mEq/L (5.0-15.0); Bilirubin Total 0.3 mg/dL (0.2-1.0); Globulin 3.9 g/dL (2.3-3.5); Potassium 3.4 mEq/L (3.5-5.1); Protein, Total 7.2 g/dL (6.4-8.2)
--- NOTE | 2024-09-08 13:09 | EDPHYS ---
Physician Documentation [facility] Name: Blanche Lo Jr Age: 44 yrs Sex: Male : 1980 Arrival Date: 09/08/2024 Time: 11:10 Bed 4 Private MD: ED Physician Andrea Guaman HPI: 09/08 12:44 This 44 yrs old Male presents to ER via Ambulatory with complaints of Leg Swelling, Low sp3 Back Pain. 12:48 For trigger middle presents with low extremity swelling. He was seen yesterday and had sp3 an extensive workup by Dr. Salas was found to have slightly low calcium level otherwise negative workup. Please see chart from yesterday evening for details. Patient did not get his diuretic filled presents again for continued and slightly worsening symptoms. No change in review of systems.. Historical: - Allergies: 11:13 ambien; ll1 11:13 Amoxicillin; ll1 11:13 Amoxil; ll1 11:13 Ibuprofen; ll1 11:13 Naproxen; ll1 11:13 PENICILLINS; ll1 - PMHx: 11:13 Back pain; GI Bleed; Seizures; ll1 - Immunization history:: Adult Immunizations up to date. - Infectious Disease History:: Denies. - Social history:: Smoking status: Patient/guardian denies using tobacco, the patient reports quitting approximately 10 years ago. ROS: 12:51 Constitutional: Negative for fever, chills, and weight loss, Eyes: Negative for injury, sp3 pain, redness, and discharge, ENT: Negative for injury, pain, and discharge, Neck: Negative for injury, pain, and swelling, Cardiovascular: Negative for chest pain, palpitations, and edema, Respiratory: Negative for shortness of breath, cough, wheezing, and pleuritic chest pain, Abdomen/GI: Negative for abdominal pain, nausea, vomiting, diarrhea, and constipation, Back: Negative for injury and pain, Skin: Negative for injury, rash, and discoloration, Neuro: Negative for headache, weakness, numbness, tingling, and seizure, Psych: Negative for depression, anxiety, suicide ideation, homicidal ideation, and hallucinations, Allergy/Immunology: Negative for hives, rash, and allergies, Endocrine: Negative for neck swelling, polydipsia, polyuria, polyphagia, and marked weight changes, 12:51 All other systems are negative, Exam: 12:51 Constitutional: This is a well developed, well nourished patient who is awake, alert, sp3 and in no acute distress. Head/Face: Normocephalic, atraumatic. Eyes: Pupils equal round and reactive to light, extra-ocular motions intact. Lids and lashes normal. Conjunctiva and sclera are non-icteric and not injected. Cornea within normal limits. Periorbital areas with no swelling, redness, or edema. Neck: Trachea midline, no thyromegaly or masses palpated, and no cervical lymphadenopathy. Supple, full range of motion without nuchal rigidity, or vertebral point tenderness. No Meningismus. Chest/axilla: Normal chest wall appearance and motion. Nontender with no deformity. No lesions are appreciated. Cardiovascular: Regular rate and rhythm with a normal S1 and S2. No gallops, murmurs, or rubs. Normal PMI, no JVD. No pulse deficits. Respiratory: Lungs have equal breath sounds bilaterally, clear to auscultation and percussion. No rales, rhonchi or wheezes noted. No increased work of breathing, no retractions or nasal flaring. Abdomen/GI: Soft, non-tender, with normal bowel sounds. No distension or tympany. No guarding or rebound. No evidence of tenderness throughout. Back: No spinal tenderness. No costovertebral tenderness. Full range of motion. Skin: Warm, dry with normal turgor. Normal color with no rashes, no lesions, and no evidence of cellulitis. Neuro: Awake and alert, GCS 15, oriented to person, place, time, and situation. Cranial nerves II-XII grossly intact. Motor strength 5/5 in all extremities. Sensory grossly intact. Cerebellar exam normal. Normal gait. Psych: Awake, alert, with orientation to person, place and time. Behavior, mood, and affect are within normal limits. 12:51 Musculoskeletal/extremity: Bilateral 2+ nonpitting edema lower extremities with normal vital signs.. Vital Signs: 11:18 BP 152 / 93; Pulse 81; Resp 18; Temp 97.5; Pulse Ox 97% ; Weight 99.79 kg; Height 5 ft. ll1 10 in. ; Pain 8/10; 13:50 BP 143 / 83; Pulse 75; Resp 15; Pulse Ox 97% ; cm10 11:18 Body Mass Index 31.57 (99.79 kg, 177.8 cm) ll1 11:18 Pain Scale: Adult ll1 MDM: 11:14 Medical Screening Exam initiated sp3 12:51 Data reviewed: vital signs, nurses notes, old medical records, lab test result(s). ED sp3 course: Repeat CMP pending. Of also given 1 dose of HCTZ p.o. I have urged patient to fill his prescriptions and take them for several days to see therapeutic effect. Patient to follow-up with PCP. If chemistry not significantly abnormal, we will safely discharge patient home.. 13:08 ED course: Vital signs remained stable. Patient received p.o. hydrochlorothiazide and sp3 now will also get p.o. calcium his calcium is low but improved from yesterday. Patient to follow-up with PCP and get primary meds filled that he was prescribed yesterday. Patient will be safely discharged home at this time.. 09/08 11:27 Order name: CMP; Complete Time: 13:07 sp3 Administered Medications: 11:52 Drug: Hydrochlorothiazide PO 25 mg PO once Route: PO; rs5 13:50 Follow up: Response: No adverse reaction cm10 13:50 Drug: Calcium Carbonate PO 500 mg 2 tablet PO once Route: PO; cm10 13:50 Follow up: Response: Medication administered at discharge. cm10 Disposition Summary: 09/08/24 13:09 Discharge Ordered Notes: Location: Home sp3 Condition: Stable sp3 Diagnosis - Peripheral edema, hypocalcemia sp3 Followup: sp3 - With: Private Physician - When: Upon discharge from the Emergency Department - Reason: Continuance of care Discharge Instructions: - Discharge Summary Sheet sp3 - Hypocalcemia, Adult sp3 - Peripheral Edema sp3 Forms: - Medication Reconciliation Form sp3 - Antibiotic Education sp3 - Prescription Opioid Use sp3 - Patient Portal Instructions sp3 - Leadership Thank You Letter sp3 Signatures: Dispatcher [employer] EDRafi Jimenez RN RN ll1 Andrea Guaman MD MD sp3 Juan Villalta RN RN rs5 Rhonda Mcclain RN RN cm10 Corrections: (The following items were deleted from the chart) 11:27 11:27 COMPREHENSIVE METABOLIC PANEL+C.LAB.BRZ ordered. EDMS EDMS
--- NOTE | 2024-09-08 13:09 | ER ---
Nurse's Notes [facility] Name: Blanche Lo Jr Age: 44 yrs Sex: Male : 1980 Arrival Date: 09/08/2024 Time: 11:10 Bed 4 Private MD: Diagnosis: Peripheral edema, hypocalcemia Presentation: 09/08 11:18 Chief complaint: Patient states: L leg pain, swelling continues since visit here last ll1 night. Coronavirus screen: Client denies travel out of the [place] in the last 14 days. At this time, the client does not indicate any symptoms associated with coronavirus-19. Ebola Screen: Patient denies travel to an Ebola-affected area in the 21 days before illness onset. Initial Sepsis Screen: Does the patient meet any 2 criteria? No. Patient's initial sepsis screen is negative. Does the patient have a suspected source of infection? No. Patient's initial sepsis screen is negative. Risk Assessment: Do you want to hurt yourself or someone else? Patient reports no desire to harm self or others. Onset of symptoms. 11:18 Method Of Arrival: Ambulatory ll1 11:18 Acuity: JANINE 4 ll1 Triage Assessment: 11:18 General: Appears uncomfortable, Behavior is calm, cooperative, appropriate for age. ll1 Pain: Complains of pain in left leg Quality of pain is described as aching. Musculoskeletal: Reports pain in left leg swelling to both lower extremities. Historical: - Allergies: 11:13 ambien; ll1 11:13 Amoxicillin; ll1 11:13 Amoxil; ll1 11:13 Ibuprofen; ll1 11:13 Naproxen; ll1 11:13 PENICILLINS; ll1 - PMHx: 11:13 Back pain; GI Bleed; Seizures; ll1 - Immunization history:: Adult Immunizations up to date. - Infectious Disease History:: Denies. - Social history:: Smoking status: Patient/guardian denies using tobacco, the patient reports quitting approximately 10 years ago. Screenin:49 [facility] ED Fall Risk Assessment (Adult) History of falling in the last 3 months, cm10 including since admission No falls in past 3 months (0 pts) Confusion or Disorientation No (0 pts) Intoxicated or Sedated No (0 pts) Impaired Gait No (0 pts) Mobility Assist Device Used No (0 pt) Altered Elimination No (0 pt) Score/Fall Risk Level 0 - 2 = Low Risk Oriented to surroundings, Maintained a safe environment, Hourly rounding (assess needs \T\ fall precautionary measures) done. Abuse screen: Denies threats or abuse. Denies injuries from another. Nutritional screening: No deficits noted. Tuberculosis screening: No symptoms or risk factors identified. Assessment: 11:48 General: Appears in no apparent distress. uncomfortable, Behavior is calm, cooperative. cm10 Pain: Complains of pain in back and left leg Pain currently is 8 out of 10 on a pain scale. Neuro: No deficits noted. Level of Consciousness is awake, alert, obeys commands, Oriented to person, place, time, situation, Appropriate for age. Respiratory: No deficits noted. Airway is patent Respiratory effort is even, unlabored, Respiratory pattern is regular, symmetrical. Musculoskeletal: Swelling present in left leg. 13:51 Reassessment: Patient appears in no apparent distress at this time. Patient and/or cm10 family updated on plan of care and expected duration. Pain level reassessed. Patient is alert, oriented x 3, equal unlabored respirations, skin warm/dry/pink. Vital Signs: 11:18 BP 152 / 93; Pulse 81; Resp 18; Temp 97.5; Pulse Ox 97% ; Weight 99.79 kg; Height 5 ft. ll1 10 in. ; Pain 8/10; 13:50 BP 143 / 83; Pulse 75; Resp 15; Pulse Ox 97% ; cm10 11:18 Body Mass Index 31.57 (99.79 kg, 177.8 cm) ll1 11:18 Pain Scale: Adult ll1 ED Course: 11:13 Patient arrived in ED. al6 11:13 Arm band placed on Patient placed in an exam room, on a stretcher. ll1 11:14 Andrea Guaman MD is Attending Physician. sp3 11:18 Triage completed. ll1 11:25 Rhonda Mcclain RN is Primary Nurse. cm10 11:49 Patient has correct armband on for positive identification. Bed in low position. Call cm10 light in reach. Provided Education on: ER process and procedures.. 13:50 No provider procedures requiring assistance completed. Patient did not have IV access cm10 during this emergency room visit. Administered Medications: 11:52 Drug: Hydrochlorothiazide PO 25 mg PO once Route: PO; rs5 13:50 Follow up: Response: No adverse reaction cm10 13:50 Drug: Calcium Carbonate PO 500 mg 2 tablet PO once Route: PO; cm10 13:50 Follow up: Response: Medication administered at discharge. cm10 Medication: 11:49 VIS not applicable for this client. cm10 Outcome: 13:09 Discharge ordered by . [email or web address] 13:51 Discharged to home ambulatory, with significant other, cm10 13:51 Condition: good 13:51 Discharge instructions given to patient, Instructed on discharge instructions, follow up and referral plans. Demonstrated understanding of instructions, follow-up care, 13:51 Patient left the ED. cm10 Signatures: Rafi Logan RN RN ll1 Andrea Guaman MD MD sp3 Juan Villalta RN RN rs5 Rhonda Mcclain RN RN cm10 Glenny [email or web address] Corrections: (The following items were deleted from the chart) 11:21 11:18 Resp 18bpm; Temp 97.5F; 99.79 kg; Height 5 ft. 10 in.; BMI: 31.5; Pain 8/10, ll1 Adult; ll1
[2024-09-08] MEDS ORDERED: CALCIUM CARBONATE CHEW 500MG TAB ONE (13:36)
[2024-09-09 02:58] VITALS: BP 143/83; TEMP 97.5; O2SAT 97
== END 2024-09-08 13:51 | disposition home or self-care (01) ==
LOC: ER 11:10
DX: R60.9 Edema, unspecified (principal); E83.51 Hypocalcemia
CPT/HCPCS: 36415; 80053; 99283

== ENCOUNTER 2024-09-19 14:14 | Emergency (ER) | payer OTHER ==
[2024-09-19] MEDS ORDERED: dexAMETHasone 10 MG/ML VIAL ONE (14:25)
--- NOTE | 2024-09-19 14:30 | EDPHYS ---
Physician Documentation [facility] Name: Blanche Lo Jr Age: 44 yrs Sex: Male : 1980 Arrival Date: 09/19/2024 Time: 14:14 Bed IW8 Private MD: ED Physician Triston Salas HPI: 09/19 17:19 This 44 yrs old Male presents to ER via Ambulatory with complaints of Leg dr5 Pain - LEG CRAMPING, Leg Swelling. 17:19 Patient is a 44-year-old male with history of back pain that is coming in with dr5 bilateral upper leg pain and is been going on since . Patient states that the pain starts in his back and radiates down the back of his leg that feels electrical in nature. Patient denies trauma, falls, peritoneal numbness, bilateral lower extremity numbness or tingling, fever.. . Historical: - Allergies: 14:23 ambien; ld1 14:23 Amoxicillin; ld1 14:23 Amoxil; ld1 14:23 Ibuprofen; ld1 14:23 Naproxen; ld1 14:23 PENICILLINS; ld1 14:26 Benadryl; ld1 - PMHx: 14:23 Back pain; GI Bleed; Seizures; ld1 - Immunization history:: Adult Immunizations up to date. - Infectious Disease History:: Denies. - Social history:: Smoking status: Patient denies any tobacco usage or history of. ROS: 17:19 Constitutional: as per hpi dr5 Exam: 17:19 Constitutional: This is a well developed, well nourished patient who is awake, alert, dr5 and in no acute distress. Head/Face: Normocephalic, atraumatic. Eyes: Pupils equal round and reactive to light, extra-ocular motions intact. Lids and lashes normal. Conjunctiva and sclera are non-icteric and not injected. Cornea within normal limits. Periorbital areas with no swelling, redness, or edema. ENT: Nares patent. No nasal discharge, no septal abnormalities noted. Tympanic membranes are normal and external auditory canals are clear. Oropharynx with no redness, swelling, or masses, exudates, or evidence of obstruction, uvula midline. Mucous membranes moist. Chest/axilla: Normal chest wall appearance and motion. Nontender with no deformity. No lesions are appreciated. Cardiovascular: Regular rate and rhythm with a normal S1 and S2. Normal PMI, no JVD. No pulse deficits. Respiratory: Lungs have equal breath sounds bilaterally, clear to auscultation. No rales, rhonchi or wheezes noted. No increased work of breathing, no retractions or nasal flaring. Back: No spinal tenderness. No costovertebral tenderness. Full range of motion. Skin: Warm, dry with normal turgor. Normal color with no rashes, no lesions, and no evidence of cellulitis. MS/ Extremity: Pulses equal, no cyanosis. Neurovascular intact. Full, normal range of motion. Neuro: Awake and alert, GCS 15, oriented to person, place, time, and situation. Cranial nerves II-XII grossly intact. Motor strength 5/5 in all extremities. Sensory grossly intact. Cerebellar exam normal. Normal gait. Vital Signs: 14:22 Temp 97.7(TE); Weight 99.79 kg; Height 5 ft. 5 in. ; Pain 9/10; ld1 14:22 BP 140 / 97; Pulse 91; Resp 18; Pulse Ox 98% on R/A; ld1 14:22 Body Mass Index 36.61 (99.79 kg, 165.1 cm) ld1 14:22 Pain Scale: Adult ld1 MDM: 14:18 Medical Screening Exam initiated dr5 17:19 Differential Diagnosis Sciatic nerve pain, muscle cramps, back pain. Data reviewed: dr5 vital signs, nurses notes. I considered the following discharge prescriptions or medication management in the emergency department Medications were administered in the Emergency Department. See MAR. Care significantly affected by the following Social Determinants of Health: Poor access to healthcare and/or lack of insurance, Poor access to transportation, Problems related to employment. Counseling: I had a detailed discussion with the patient and/or guardian regarding the historical points, exam findings, and any diagnostic results supporting the discharge/admit diagnosis, the presence of at least one elevated blood pressure reading (>120/80) during this emergency department visit, the need for outpatient follow up, for definitive care, a family practitioner, to return to the emergency department if symptoms worsen or persist or if there are any questions or concerns that arise at home. ED course: Patient was given dexamethasone IM in ER. Will give patient a short course of steroids, gabapentin for nerve pain, and will recommend back exercises. Recommended alternating Tylenol and Motrin as needed for pain and inflammation. Patient well-appearing on discharge. Patient agreeable to plan. Ambulated out with steady gait.. Administered Medications: 14:32 Drug: Dexamethasone IM 10 mg IM once Route: IM; Site: right deltoid; ld1 14:37 Follow up: Response: No adverse reaction ld1 Disposition: 09/20 14:19 Co-signature as Attending Physician, Triston Salas MD I agree with the assessment and jayy plan of care. Disposition Summary: 09/19/24 14:30 Discharge Ordered Notes: Location: Home dr5 Condition: Stable dr5 Diagnosis - Sciatica dr5 Followup: dr5 - With: Emergency Department - When: As needed - Reason: Worsening of condition Followup: dr5 - With: Private Physician - When: 1 - 2 days - Reason: Recheck today's complaints, Continuance of care, Re-evaluation by your physician Discharge Instructions: - Discharge Summary Sheet dr5 - Sciatica dr5 Forms: - Medication Reconciliation Form dr5 - Patient Portal Instructions dr5 - Leadership Thank You Letter dr5 Prescriptions: - gabapentin 300 mg Oral capsule - take 1 capsule ORAL route every 6 to 8 hours As needed; 30 capsule; Refills: 0, dr5 Product Selection Permitted - Cyclobenzaprine 10 mg Oral Tablet - take 1 tablet ORAL route every 8 hours As needed; 30 tablet; Refills: 0, dr5 Product Selection Permitted - Medrol (Rashard) 4 mg Oral Tablets, Dose Pack - take 1 tablet ORAL route as directed - follow package instructions; 1 packet; dr5 Refills: 0, Product Selection Permitted Signatures: Triston Salas MD MD cha Sims, Lauren, RN RN ld1 Sagar Mckeon, ENGINEER REMOTE CONTROL DIESEL-C ENGINEER REMOTE CONTROL DIESEL-Cdr5
--- NOTE | 2024-09-19 14:30 | ER ---
Nurse's Notes [facility] Name: Blanche Lo Jr Age: 44 yrs Sex: Male : 1980 Arrival Date: 09/19/2024 Time: 14:14 Bed IW8 Private MD: Diagnosis: Sciatica Presentation: 09/19 14:22 Chief complaint: Patient states: Pain and burning sensation to BRAYDEN legs X 2-3 days. ld1 Denies injury. Coronavirus screen: At this time, the client does not indicate any symptoms associated with coronavirus-19. Ebola Screen: No symptoms or risks identified at this time. Initial Sepsis Screen: Does the patient meet any 2 criteria? No. Patient's initial sepsis screen is negative. Does the patient have a suspected source of infection? No. Patient's initial sepsis screen is negative. Risk Assessment: Do you want to hurt yourself or someone else? Patient reports no desire to harm self or others. Onset of symptoms was September 19, 2024. 14:22 Method Of Arrival: Ambulatory ld1 14:22 Acuity: JANINE 4 ld1 Triage Assessment: 14:23 General: Appears in no apparent distress. uncomfortable, Behavior is calm, cooperative, ld1 anxious. Pain: Complains of pain in right leg and left leg. EENT: No signs and/or symptoms were reported regarding the EENT system. Neuro: Level of Consciousness is awake, alert, obeys commands, Oriented to person, place, time, situation. Cardiovascular: Capillary refill < 3 seconds Patient's skin is warm and dry. Respiratory: Airway is patent Respiratory effort is even, unlabored. GI: Abdomen is round non-distended. : No signs and/or symptoms were reported regarding the genitourinary system. Derm: No signs and/or symptoms reported regarding the dermatologic system. Musculoskeletal: No signs and/or symptoms reported regarding the musculoskeletal system. Historical: - Allergies: 14:23 ambien; ld1 14:23 Amoxicillin; ld1 14:23 Amoxil; ld1 14:23 Ibuprofen; ld1 14:23 Naproxen; ld1 14:23 PENICILLINS; ld1 14:26 Benadryl; ld1 - PMHx: 14:23 Back pain; GI Bleed; Seizures; ld1 - Immunization history:: Adult Immunizations up to date. - Infectious Disease History:: Denies. - Social history:: Smoking status: Patient denies any tobacco usage or history of. Screenin:35 [facility] ED Fall Risk Assessment (Adult) History of falling in the last 3 months, ld1 including since admission No falls in past 3 months (0 pts) Confusion or Disorientation No (0 pts) Intoxicated or Sedated No (0 pts) Impaired Gait No (0 pts) Mobility Assist Device Used No (0 pt) Altered Elimination No (0 pt) Score/Fall Risk Level 0 - 2 = Low Risk Oriented to surroundings, Maintained a safe environment, Educated pt \T\ family on fall prevention, incl call for assistance when getting out of bed, Assessed \T\ reinforced patient's understanding of fall precautions, Provided non-skid footwear, Hourly rounding (assess needs \T\ fall precautionary measures) done, Used ambulatory aids as needed (educated on \T\ assisted with), Used gait belt as appropriate. Abuse screen: Denies threats or abuse. Denies injuries from another. Nutritional screening: No deficits noted. Tuberculosis screening: No symptoms or risk factors identified. Assessment: 14:35 Reassessment: Patient appears in no apparent distress at this time. No changes from ld1 previously documented assessment. Patient and/or family updated on plan of care and expected duration. Pain level reassessed. Vital Signs: 14:22 Temp 97.7(TE); Weight 99.79 kg; Height 5 ft. 5 in. ; Pain 9/10; ld1 14:22 BP 140 / 97; Pulse 91; Resp 18; Pulse Ox 98% on R/A; ld1 14:22 Body Mass Index 36.61 (99.79 kg, 165.1 cm) ld1 14:22 Pain Scale: Adult ld1 ED Course: 14:17 Patient arrived in ED. sj2 14:18 Sagar Mckeon FNP-C [facility] dr5 14:18 Triston Salas MD is Attending Physician. dr5 14:23 Triage completed. ld1 14:23 Arm band placed on right wrist. ld1 14:35 Patient has correct armband on for positive identification. Placed in gown. Bed in low ld1 position. Call light in reach. Side rails up X2. property assessment monitor on. Pulse ox on. NIBP on. Door closed. Noise minimized. Warm blanket given. 14:35 No provider procedures requiring assistance completed. Patient did not have IV access ld1 during this emergency room visit. Administered Medications: 14:32 Drug: Dexamethasone IM 10 mg IM once Route: IM; Site: right deltoid; ld1 14:37 Follow up: Response: No adverse reaction ld1 Medication: 14:35 VIS not applicable for this client. ld1 Outcome: 14:30 Discharge ordered by . fredrick 14:37 Discharged to home ambulatory, ld1 14:37 Condition: stable 14:37 Discharge instructions given to patient, Instructed on discharge instructions, follow up and referral plans. Demonstrated understanding of instructions, follow-up care, 14:37 Patient left the ED. ld1 Signatures: Marie Bravo RN RN ld1 Celina Davidson sj2 Sagar Mckeon, LASTING MACHINE OPERATOR HAND METHOD-C LASTING MACHINE OPERATOR HAND METHOD-Cdr5
[2024-09-19 17:17] VITALS: BP 140/97; TEMP 97.7; O2SAT 98
== END 2024-09-19 14:37 | disposition home or self-care (01) ==
LOC: ER 14:14
DX: M54.30 Sciatica, unspecified side (principal)
CPT/HCPCS: 96372; 99284; J1100